=== PATIENT | male | born 1950 | race Caucasian/White ===

== ENCOUNTER 2016-10-03 10:00 | Emergency (ER) | payer OTHER ==
[~2016-10-03] VITALS: Ht 188 cm; Wt 94.0 kg
[~2016-10-03 10:00] MED LIST: ATR25; CGN1; EFFSR150; GEMF600T3 PO; NICO14DI18; PRLSR20; RISP3TAB12
[2016-10-03 10:14] VITALS: TEMP 36.6; O2SAT 96; Ht 188 cm; Wt 94.0 kg
[2016-10-03] MEDS ORDERED: SODIUM CHLORIDE 0.9% 1000ML 1,000 ML IV STA (10:14)
[2016-10-03] MEDS ORDERED: LORAZEPAM 2 MG/ML 1 ML VIAL IV STA (10:14)
--- NOTE | 2016-10-03 10:18 | EMERGENCY ROOM VISIT NOTE ---
History Report prepared by Jessica: Cortney Cronin Under the Supervision of: Dr. Edy Hopson M.D. First contact with patient: 10:10 Chief Complaint: SYNCOPE (NEAR SYNCOPE) Stated Complaint: SEIZURE DISORDER-KEEP PASSING OUT History of Present Illness The patient is a 65 year old male who presents to the Emergency Room with complaints of an episode of near syncope that occurred prior to arrival. He currently complains of feeling dizzy and states he almost passed out earlier this morning, but he did not lose consciousness. He notes he has experienced similar symptoms of vertigo in the past. The patient has a history of seizures and states his last seizure was approximately 2 months ago. He reports he broke his right leg during a fall that occurred after the seizure. He denies any chest pain, shortness of breathing, nausea or vomiting. 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 A total of 10 systems reviewed and were otherwise negative. Past Medical & Surgical Medical Problems: (1) History of seizures Social History Smokeless Tobacco Use: No Alcohol Use: none Drug Use: none Marital Status: Housing Status: lives with family Occupation Status: retired Current/Historical Medications Scheduled Benztropine Mesylate (Cogentin), 1 MG PO HS Haloperidol (Haloperidol), 1 TAB PO HS Hydroxyzine HCl (Hydroxyzine Pamoate), 25 MG PO BID Levetiracetam (Keppra), 1,250 MG PO BID Venlafaxine Hcl (Venlafaxine Hcl Er), 150 MG PO HS Zonisamide (Zonegran), 300 MG PO HS Scheduled PRN Meclizine HCl (Meclizine HCl), 1 TAB PO TID PRN for Dizziness or Vertigo Allergies Coded Allergies: Penicillins (Verified Allergy, Unknown, 10/18/09) Sulfa Drugs (Verified Allergy, Unknown, 10/18/09) Physical Exam Vital Signs Date Time Temp Pulse Resp B/P Pulse Ox O2 Delivery O2 Flow Rate FiO2 10/03/16 12:43 74 18 118/77 96 10/03/16 11:22 88 20 117/73 93 Room Air 10/03/16 10:17 81 117/73 95 84 114/72 90 90/57 10/03/16 10:14 36.6 81 20 122/74 96 Room Air 10/03/16 10:14 96 Room Air Physical Exam GENERAL: Patient is tremulous, which is chronic, and appears to be in minimal distress. HEENT: Horizontal nystagmus. No acute trauma, normocephalic atraumatic, mucous membranes moist, no nasal congestion, no scleral icterus. NECK: No stridor, no adenopathy, no meningismus, trachea is midline. LUNGS: No dyspnea. Clear to auscultation and equal bilaterally. No wheeze, no rhonchi. HEART: Regular rate and rhythm. No murmurs, rubs, gallops appreciated. ABDOMEN: Soft, nontender, bowel sounds positive, no masses appreciated, no peritonitis. BACK: No midline tenderness, no CVA tenderness EXTREMITIES: Normal motion all extremities, no cyanosis, no edema. NEUROLOGIC: Alert and oriented, no acute motor or sensory deficits, no focal weakness, cranial nerves grossly intact. SKIN: No rash, no jaundice, no diaphoresis. Medical Decision & Procedures ER Provider Diagnostic Interpretation: This X-Ray was reviewed and interpreted by myself and the radiologist. SINGLE VIEW CHEST IMPRESSION: Cardiomegaly and suspect emphysema. There is no acute cardiopulmonary abnormality. Electronically signed by: Rudy Ward M.D. 10/03/2016 10:[address] scan was reviewed and interpreted by the radiologist and reviewed by myself. CT SCAN OF THE BRAIN WITHOUT IV CONTRAST IMPRESSION: There is no hemorrhage, mass effect, or evidence of acute territorial ischemia by CT criteria. Electronically signed by: Rudy Ward M.D. 10/03/2016 10:53 AM Laboratory Results 10/03/16 10:28 Red Blood Count 4.46, Mean Corpuscular Volume 90.4, Mean Corpuscular Hemoglobin 32.1, Mean Corpuscular Hemoglobin Concent 35.5, Mean Platelet Volume 8.4, Neutrophils (%) (Auto) 64.1, Lymphocytes (%) (Auto) 25.3, Monocytes (%) (Auto) 5.4, Eosinophils (%) (Auto) 4.6, Basophils (%) (Auto) 0.3, Neutrophils # (Auto) 4.78, Lymphocytes # (Auto) 1.88, Monocytes # (Auto) 0.40, Eosinophils # (Auto) 0.34, Basophils # (Auto) 0.02 10/03/16 10:28 Test 10/03/16 10:28 10/03/16 11:18 White Blood Count 7.44 K/uL (4.8-10.8) Red Blood Count 4.46 M/uL (4.7-6.1) Hemoglobin 14.3 g/dL (14.0-18.0) Hematocrit 40.3 % (42-52) Mean Corpuscular Volume 90.4 fL (80-100) Mean Corpuscular Hemoglobin 32.1 pg (25-34) Mean Corpuscular Hemoglobin Concent 35.5 g/dl (32-36) Platelet Count 252 K/uL (130-400) Mean Platelet Volume 8.4 fL (7.4-10.4) Neutrophils (%) (Auto) 64.1 % Lymphocytes (%) (Auto) 25.3 % Monocytes (%) (Auto) 5.4 % Eosinophils (%) (Auto) 4.6 % Basophils (%) (Auto) 0.3 % Neutrophils # (Auto) 4.78 K/uL (1.4-6.5) Lymphocytes # (Auto) 1.88 K/uL (1.2-3.4) Monocytes # (Auto) 0.40 K/uL (0.11-0.59) Eosinophils # (Auto) 0.34 K/uL (0-0.5) Basophils # (Auto) 0.02 K/uL (0-0.2) RDW Standard Deviation 43.0 fL (36.4-46.3) RDW Coefficient of Variation 13.2 % (11.5-14.5) Immature Granulocyte % (Auto) 0.3 % Immature Granulocyte # (Auto) 0.02 K/uL (0.00-0.02) Anion Gap 11.0 mmol/L (3-11) Est Creatinine Clear Calc Drug Dose 67.7 ml/min Estimated GFR () 67.3 Estimated GFR (Non- 58.1 BUN/Creatinine Ratio 9.6 (10-20) Calcium Level 8.6 mg/dl (8.5-10.1) Magnesium Level 2.3 mg/dl (1.8-2.4) Total Creatine Kinase 54 U/L (39-308) Creatine Kinase MB 0.7 ng/ml (0.5-3.6) Creatine Kinase MB Ratio 1.3 (0-3.0) Troponin I < 0.015 ng/ml (0-0.045) Urine Color YELLOW Urine Appearance CLEAR (CLEAR) Urine pH 8.0 (4.5-7.5) Urine Specific [place] 1.001 (1.000-1.030) Urine Protein NEG (NEG) Urine Glucose (UA) NEG (NEG) Urine Ketones NEG (NEG) Urine Occult Blood NEG (NEG) Urine Nitrite NEG (NEG) Urine Bilirubin NEG (NEG) Urine Urobilinogen NEG (NEG) Urine Leukocyte Esterase NEG (NEG) Laboratory results as reviewed by me. Medications Administered Medications (Trade) Dose Ordered Sig/Cinthia Route Start Time Stop Time Status Last Admin Dose Admin Lorazepam 1 mg 1 mg NOW STAT IV 10/03/16 10:14 10/03/16 10:16 DC 10/03/16 10:32 1 MG Sodium Chloride (Nss 1000ml) 1,000 ml @ 999 mls/hr Q1H1M STAT IV 10/03/16 10:14 10/03/16 11:14 DC 10/03/16 10:32 999 MLS/HR Meclizine HCl (Antivert Tab) 25 mg NOW STAT PO 10/03/16 12:00 10/03/16 12:01 DC 10/03/16 12:15 25 MG ECG Indication: syncope (near syncope) Rate (beats per minute): 82 Rhythm: normal sinus (normal sinus rhythm) Findings: ST depression (Lateral), T-wave inversion (Lateral), no ectopy Comparison ECG Date: Lateral ST depressions and T-wave inversions are new when compared to EKG from November 07, 2006 ED Course 1012: The patient was evaluated in room A4. A complete history and physical exam was performed. 1014: NSS 1000 ml @ 999 mls/hr IV, Lorazepam 1 mg IV. 1045: Nursing informed me that with standing, the patients blood pressure dropped. 1155: I reevaluated the patient. He is feeling better and is going to see if he can keep down a sandwich. 1200: Meclizine 25 mg PO. 1230: I reevaluated the patient. He was able to eat a sandwich and states he feels well enough to go home. I discussed his results and discharge instructions and he verbalized complete understanding and agreement. Medical Decision Differential diagnoses include Benign positional vertigo, Dehydration, Hypovolemia, Anemia, Tumor, Infection, Hypoglycemia, Electrolyte abnormalities, Cardiac sources, Intracerebral event, Toxicologic, Neurologic, as well as others were entertained. 65 yr old male with history of vertigo arrives with vertiginous symptoms and some horizontal nystagmus. Notes similar to previous episodes. Nauseous and BP drop with standing. Given IV ativan and fluids with almost complete resolution of symptoms. Further meclizine given and patient in no distress, eating and feeling well. Vitals good and BP normalized. CT head negative. EKG normal. Labs unremarkable other than mild hyperglycemia. He wishes to go home which seems reasonable. Aware that if any neuro deficits nor headache/ neck pain develop, return to ED for immediate evaluation. Meclizine Rx given as history of vertigo. Heavily stressed need to follow up with PCP to discuss this as well as his hyperglycemia. Impression Primary Impression: Vertigo Additional Impression: Hyperglycemia Scribe Attestation The scribe's documentation has been prepared under my direction and personally reviewed by me in its entirety. I confirm that the note above accurately reflects all work, treatment, procedures, and medical decision making performed by me. Departure Information Dispostion Home / Self-Care Prescriptions Meclizine HCl (Meclizine HCl) 25 Mg Tab 1 TAB PO TID Y for Dizziness or Vertigo, #21 MG Prov: Edy Hopson M.D. 10/03/16 Referrals Raymundo Carlos M.D. (PCP) Patient Instructions ED Vertigo Unspecified, My [facility] Additional Instructions IT is important to follow up with your Primary Provider to discuss your elevated Blood Sugars which may be an indication early Diabetes. Problem Qualifiers
[2016-10-03 10:37] LABS: BASO % 0.3 %; BASO ABS # 0.02 K/uL (0-0.2); COMPLETE YES; EOS % 4.6 %; HEMATOCRIT 40.3 % (42-52); IG% 0.3 %; LYMPH % 25.3 %; LYMPH ABS # 1.88 K/uL (1.2-3.4); MEAN CELL VOLUME 90.4 fL (80-100); MEAN CORPUSCULAR HEMOGLOBIN 32.1 pg (25-34); MEAN CORPUSCULAR HGB CONC 35.5 g/dl (32-36); MEAN PLATELET VOLUME 8.4 fL (7.4-10.4); MONO % 5.4 %; NEUT % 64.1 %; PLATELET COUNT 252 K/uL (130-400); RED BLOOD COUNT 4.46 M/uL (4.7-6.1); WHITE BLOOD COUNT 7.44 K/uL (4.8-10.8)
[2016-10-03] MEDS ORDERED: LEVE250T PO (10:37)
[2016-10-03] MEDS ORDERED: VST25HP PO (10:37)
[2016-10-03] MEDS ORDERED: HALO2TAB PO (10:37)
[2016-10-03] MEDS ORDERED: CGN1 PO (10:37)
[2016-10-03] MEDS ORDERED: VENL150T33 PO (10:37)
[2016-10-03] MEDS ORDERED: ZONI100C39 PO (10:37)
--- NOTE | 2016-10-03 10:55 | DIAGNOSTIC IMAGING REPORT ---
CT SCAN OF THE BRAIN WITHOUT IV CONTRAST CLINICAL HISTORY: Vertigo. COMPARISON STUDY: CT of the brain dated 05/10/2008. TECHNIQUE: Unenhanced axial CT scan of the brain is performed from the vertex to the skull base. Automated dose control exposure was utilized. CT DOSE: 687.98 mGy.cm FINDINGS: Brain parenchyma: The brain parenchyma is normal in appearance. There is no hemorrhage, mass effect, or evidence of acute territorial ischemia by CT criteria. [place]-white matter is preserved. No extra-axial fluid collection is seen. Ventricles, sulci, cisterns: Normal in configuration. Intracranial vasculature: There is atherosclerotic calcification of the cavernous carotid arteries. Calvarium: Unremarkable. Sinuses and mastoids: The visualized paranasal sinuses are clear. The mastoid air cells are well pneumatized. Orbits: The bony orbits are grossly intact. IMPRESSION: There is no hemorrhage, mass effect, or evidence of acute territorial ischemia by CT criteria. Electronically signed by: Rudy Ward M.D. 10/03/2016 10:53 AM Dictated Date/Time: 10/03/2016 10:51 AM
--- NOTE | 2016-10-03 10:59 | DIAGNOSTIC IMAGING REPORT ---
SINGLE VIEW CHEST CLINICAL HISTORY: Dizziness. FINDINGS: An AP, portable, upright chest radiograph is compared to study dated 11/07/2006. The examination is degraded by portable technique and patient rotation. The heart is enlarged and there is mild atherosclerotic calcification of the thoracic aorta. The pulmonary vasculature is noncongested. Findings suggest emphysema and there is chronic interstitial thickening. Bibasilar atelectasis is observed. There is no airspace consolidation or large pleural effusion. No pneumothorax is seen. The skeletal structures are osteopenic. The bony thorax is grossly intact. IMPRESSION: Cardiomegaly and suspect emphysema. There is no acute cardiopulmonary abnormality. Electronically signed by: Rudy Ward M.D. 10/03/2016 10:57 AM Dictated Date/Time: 10/03/2016 10:56 AM
[2016-10-03 11:02] LABS: BLOOD UREA NITROGEN 12 mg/dl (7-18); BUN/CREATININE RATIO 9.6 (10-20); CALCIUM 8.6 mg/dl (8.5-10.1); CARBON DIOXIDE 22 mmol/L (21-32); CHLORIDE 103 mmol/L (98-107); GLUCOSE 190 mg/dl (70-99); POTASSIUM 3.7 mmol/L (3.5-5.1); SODIUM 136 mmol/L (136-145)
[2016-10-03 11:07] LABS: CKMB/CK RATIO 1.3 (0-3.0); MAGNESIUM 2.3 mg/dl (1.8-2.4)
[2016-10-03 11:48] LABS: MANUAL MICROSCOPIC REQUIRED? NO; REVIEW REQ? NO; URINE APPEARANCE CLEAR (CLEAR); URINE BILIRUBIN NEG (NEG); URINE COLOR YELLOW; URINE NITRITE NEG (NEG); URINE SPECIFIC GRAVITY 1.001 (1.000-1.030); UROBILINOGEN NEG (NEG); ZZUR CULT IF INDIC CLEAN CATCH NO
[2016-10-03] MEDS ORDERED: MECLIZINE HCL 25 MG TAB PO STA (12:00)
[2016-10-03] MEDS ORDERED: ANT25 PO (12:27)
[2016-10-03 12:43] VITALS: BP 118/77; PULSE 74; O2SAT 96
== END 2016-10-03 12:45 | disposition home or self-care (01) ==
LOC: C.EDB 10:04 → C.EDA 12:45
DX: R42 Dizziness and giddiness (principal); R73.9 Hyperglycemia, unspecified; G40.909 Epilepsy, unspecified, not intractable, without status epilepticus; Z79.899 Other long term (current) drug therapy

== ENCOUNTER 2017-04-18 16:47 | Emergency (ER) | payer OTHER ==
[~2017-04-18] VITALS: Ht 188 cm; Wt 95.8 kg
[~2017-04-18 16:47] MED LIST changes: +ANT25 PO; -ATR25; -CGN1; +CGN1 PO; -EFFSR150; -GEMF600T3 PO; +HALO2TAB PO; +LEVE250T PO; -NICO14DI18; -PRLSR20; -RISP3TAB12; +VENL150T33 PO; +VST25HP PO; +ZONI100C39 PO
[2017-04-18 16:52] VITALS: TEMP 36.6; Ht 188 cm; Wt 95.8 kg
[2017-04-18] MEDS ORDERED: SODIUM CHLORIDE 0.9% 1000ML 1,000 ML IV STA (17:07)
[2017-04-18 17:42] LABS: BASO % 0.3 %; BASO ABS # 0.03 K/uL (0-0.2); COMPLETE YES; EOS % 2.5 %; HEMATOCRIT 46.1 % (42-52); IG% 0.4 %; LYMPH % 23.8 %; LYMPH ABS # 2.72 K/uL (1.2-3.4); MEAN CELL VOLUME 88.5 fL (80-100); MEAN CORPUSCULAR HEMOGLOBIN 29.9 pg (25-34); MEAN CORPUSCULAR HGB CONC 33.8 g/dl (32-36); MEAN PLATELET VOLUME 8.5 fL (7.4-10.4); MONO % 6.9 %; NEUT % 66.1 %; PLATELET COUNT 343 K/uL (130-400); RED BLOOD COUNT 5.21 M/uL (4.7-6.1); WHITE BLOOD COUNT 11.41 K/uL (4.8-10.8)
--- NOTE | 2017-04-18 17:49 | DIAGNOSTIC IMAGING REPORT ---
CHEST ONE VIEW PORTABLE HISTORY: EVALUATE ALTERED MENTAL STATUS/WEAKNESS COMPARISON: Chest 10/03/2016. FINDINGS: The lungs are clear. Cardiac silhouette is normal in size. No pleural effusions. No pneumothorax. IMPRESSION: No acute process. Electronically signed by: Mark Mcdonnell M.D. 04/18/2017 5:48 PM Dictated Date/Time: 04/18/2017 5:47 PM
[2017-04-18 17:54] LABS: INR 0.9 (0.9-1.1)
[2017-04-18 18:03] LABS: ALT/SGPT 30 U/L (12-78); BLOOD UREA NITROGEN 17 mg/dl (7-18); BUN/CREATININE RATIO 13.2 (10-20); CALCIUM 9.8 mg/dl (8.5-10.1); CARBON DIOXIDE 25 mmol/L (21-32); CHLORIDE 99 mmol/L (98-107); GLUCOSE 116 mg/dl (70-99); MAGNESIUM 2.4 mg/dl (1.8-2.4); POTASSIUM 3.9 mmol/L (3.5-5.1); SODIUM 135 mmol/L (136-145)
[2017-04-18 18:05] VITALS: O2SAT 96
[2017-04-18 18:12] LABS: ALKALINE PHOSPHATASE 88 U/L (45-117); AST/SGOT 18 U/L (15-37); CKMB/CK RATIO 0.5 (0-3.0)
--- NOTE | 2017-04-18 18:27 | EMERGENCY ROOM VISIT NOTE ---
History Report prepared by Jessica: Rosy Choudhury Under the Supervision of: Dr. Se Shaw D.O. 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 The patient has a history of seizures and is on medications for them. His dose was increased 3 weeks ago. His family notes that the patient was sitting in a chair watching TV when he nodded off for 1-2 minutes. When he was aroused, he seemed to wake up and go back to normal. This occurred several times over 1 hour. He denies any tongue bite. He currently feels like he does after his seizures. 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 Review of Systems See HPI for pertinent positives & negatives. A total of 10 systems reviewed and were otherwise negative. Past Medical & Surgical Medical Problems: (1) History of seizures Family History No pertinent family history stated. Social History Smoking Status: Never Smoker Alcohol Use: none Drug Use: none Marital Status: Housing Status: lives with family Occupation Status: retired Current/Historical Medications Scheduled Benztropine Mesylate (Cogentin), 1 MG PO HS Haloperidol (Haloperidol), 1 TAB PO HS Hydroxyzine HCl (Hydroxyzine Pamoate), 25 MG PO BID Levetiracetam (Keppra), 1,500 MG PO BID Allergies Coded Allergies: Penicillins (Verified Allergy, Unknown, 10/18/09) Sulfa Drugs (Verified Allergy, Unknown, 10/18/09) Uncoded Allergies: flaxseed (Allergy, Intermediate, hives, rash, 04/18/17) Physical Exam Vital Signs Date Time Temp Pulse Resp B/P (MAP) Pulse Ox O2 Delivery O2 Flow Rate FiO2 04/18/17 18:35 95 21 04/18/17 18:30 131/77 04/18/17 18:05 101 25 96 04/18/17 18:00 109/76 04/18/17 17:47 103 22 94 04/18/17 17:21 103 04/18/17 17:17 97 28 97 04/18/17 16:52 36.6 120 20 124/75 95 Room Air Physical Exam CONSTITUTIONAL/VITAL SIGNS: Reviewed / noted above. GENERAL: Non-toxic in appearance. INTEGUMENTARY: Warm, dry, and [place]. HEAD: Normocephalic. EYES: without scleral icterus or trauma. ENT/OROPHARYNX: clear and moist. LYMPHADENOPATHY/NECK: Is supple without lymphadenopathy or meningismus. RESPIRATORY: Lungs clear and equal. CARDIOVASCULAR: Regular rate and rhythm. GI/ABDOMEN: Soft and nontender. No organomegaly or pulsatile mass. No rebound or guarding. Normal bowel sounds. EXTREMITIES: Warm and well perfused. BACK: No CVA tenderness. NEUROLOGICAL: Intact without focal deficits. PSYCHIATRIC: normal affect. MUSCULOSKELETAL: Normally developed with good muscle tone. Medical Decision & Procedures ER Provider Diagnostic Interpretation: X ray results and stated below per my interpretation and radiology interpretation. CHEST ONE VIEW PORTABLE HISTORY: EVALUATE ALTERED MENTAL STATUS/WEAKNESS COMPARISON: Chest 10/03/2016. FINDINGS: The lungs are clear. Cardiac silhouette is normal in size. No pleural effusions. No pneumothorax. IMPRESSION: No acute process. Electronically signed by: Mark Mcdonnell M.D. 04/18/2017 5:48 PM Dictated Date/Time: 04/18/2017 5:47 PM Laboratory Results 04/18/17 17:30 Red Blood Count 5.21, Mean Corpuscular Volume 88.5, Mean Corpuscular Hemoglobin 29.9, Mean Corpuscular Hemoglobin Concent 33.8, Mean Platelet Volume 8.5, Neutrophils (%) (Auto) 66.1, Lymphocytes (%) (Auto) 23.8, Monocytes (%) (Auto) 6.9, Eosinophils (%) (Auto) 2.5, Basophils (%) (Auto) 0.3, Neutrophils # (Auto) 7.55, Lymphocytes # (Auto) 2.72, Monocytes # (Auto) 0.79, Eosinophils # (Auto) 0.28, Basophils # (Auto) 0.03 04/18/17 17:30 Test 04/18/17 17:30 White Blood Count 11.41 K/uL (4.8-10.8) Red Blood Count 5.21 M/uL (4.7-6.1) Hemoglobin 15.6 g/dL (14.0-18.0) Hematocrit 46.1 % (42-52) Mean Corpuscular Volume 88.5 fL (80-100) Mean Corpuscular Hemoglobin 29.9 pg (25-34) Mean Corpuscular Hemoglobin Concent 33.8 g/dl (32-36) Platelet Count 343 K/uL (130-400) Mean Platelet Volume 8.5 fL (7.4-10.4) Neutrophils (%) (Auto) 66.1 % Lymphocytes (%) (Auto) 23.8 % Monocytes (%) (Auto) 6.9 % Eosinophils (%) (Auto) 2.5 % Basophils (%) (Auto) 0.3 % Neutrophils # (Auto) 7.55 K/uL (1.4-6.5) Lymphocytes # (Auto) 2.72 K/uL (1.2-3.4) Monocytes # (Auto) 0.79 K/uL (0.11-0.59) Eosinophils # (Auto) 0.28 K/uL (0-0.5) Basophils # (Auto) 0.03 K/uL (0-0.2) RDW Standard Deviation 39.5 fL (36.4-46.3) RDW Coefficient of Variation 12.4 % (11.5-14.5) Immature Granulocyte % (Auto) 0.4 % Immature Granulocyte # (Auto) 0.04 K/uL (0.00-0.02) Prothrombin Time 10.0 SECONDS (9.0-12.0) Prothromb Time International Ratio 0.9 (0.9-1.1) Activated Partial Thromboplast Time 26.8 SECONDS (21.0-31.0) Partial Thromboplastin Ratio 1.0 Anion Gap 11.0 mmol/L (3-11) Est Creatinine Clear Calc Drug Dose 66.8 ml/min Estimated GFR () 66.8 Estimated GFR (Non- 57.7 BUN/Creatinine Ratio 13.2 (10-20) Calcium Level 9.8 mg/dl (8.5-10.1) Magnesium Level 2.4 mg/dl (1.8-2.4) Total Bilirubin 0.7 mg/dl (0.2-1) Direct Bilirubin 0.1 mg/dl (0-0.2) Aspartate Amino Transf (AST/SGOT) 18 U/L (15-37) Alanine Aminotransferase (ALT/SGPT) 30 U/L (12-78) Alkaline Phosphatase 88 U/L (45-117) Total Creatine Kinase 173 U/L (39-308) Creatine Kinase MB 0.9 ng/ml (0.5-3.6) Creatine Kinase MB Ratio 0.5 (0-3.0) Troponin I < 0.015 ng/ml (0-0.045) Total Protein 8.2 gm/dl (6.4-8.2) Albumin 4.1 gm/dl (3.4-5.0) Lipase 108 U/L (73-393) Thyroid Stimulating Hormone (TSH) 3.130 uIu/ml (0.300-4.500) Laboratory results as stated above per my review. Medications Administered Medications (Trade) Dose Ordered Sig/Cinthia Route Start Time Stop Time Status Last Admin Dose Admin Sodium Chloride 1,000 ml @ 999 mls/hr Q1H1M STAT IV 04/18/17 17:07 04/18/17 18:07 DC 04/18/17 17:30 999 MLS/HR ECG Indication: syncope Rate (beats per minute): 104 Rhythm: sinus tachycardia Findings: T-wave inversion (Lateral), no ectopy, other (no acute injury) Comparison ECG Date: 03-Oct-2016 Change: no significant change ED Course 1701: Previous medical records were reviewed. The patient was evaluated in room C4. A complete history and physical examination was performed. 1707: NSS 1000 ml @ 999 mls/hr IV. 1828: On reevaluation, the patient is resting comfortably. I discussed the results and findings with the patient. He verbalized agreement of the treatment plan. He was discharged home. Medical Decision Differential includes acute coronary syndrome, myocardial infarction, CVA, TIA, anemia, infection, pneumonia, UTI, pyelonephritis, poor nutrition, dehydration, electrolyte disturbance,hypoglycemia. This is a 66-year-old male who presents to the ED with a chief complaint of possible seizure activity. The patient presents with a friend. The friend states that it appears as though the patient had taken a nap twice for a few minutes while he was watching TV. The patient did not have any shaking but seemed unresponsive until the patient's friend called him and he awoke and was acting appropriately. Because of the patient's history of seizures, the patient 's friend was worried about this and brought him in for evaluation. The patient states that he feels a little tired otherwise has no complaints. He did not bite his tongue or have any incontinence. He is currently taking Keppra 500 mg 6 times a day. He states this was increased a few weeks ago. He denies any other complaints. No recent illness or fever. No cough, chest pains , shortness of breath, headaches or abdominal pain. His vital signs are stable. He is afebrile. His exam was normal. His EKG shows a sinus tach at a rate of 104. Chest x-ray did not show acute disease. CBC was normal. Complete metabolic panel was unremarkable. Troponin is negative. TSH was normal. The patient was told the results. He was hydrated. He was felt to be stable for discharge. He was to follow-up with his doctors. Medication Reconcilliation Current Medication List: was personally reviewed by me Blood Pressure Screening Patient's blood pressure: Normal blood pressure Blood pressure disposition: Did not require urgent referral Impression Primary Impression: History of seizures Additional Impression: Tired Scribe Attestation The scribe's documentation has been prepared under my direction and personally reviewed by me in its entirety. I confirm that the note above accurately reflects all work, treatment, procedures, and medical decision making performed by me. Departure Information Dispostion Home / Self-Care Referrals Raymundo Carlos M.D. (PCP) Patient Instructions My [facility] Additional Instructions Follow-up with your doctor for further care and evaluation in 1-2 days. Return to the emergency department for worsening or new symptoms or any concerns. You have been examined and treated today on an emergency basis only. This is not a substitute for, or an effort to provide, complete comprehensive medical care. It is impossible to recognize and treat all injuries or illnesses in a single emergency department visit. It is therefore important that you follow up closely with your doctor. Call as soon as possible for an appointment. Problem Qualifiers
[2017-04-18 18:30] VITALS: BP 131/77
[2017-04-18 18:35] VITALS: PULSE 95
== END 2017-04-18 18:54 | disposition home or self-care (01) ==
LOC: C.EDB 16:48 → C.EDC 18:54
DX: R53.83 Other fatigue (principal); R56.9 Unspecified convulsions; Z79.899 Other long term (current) drug therapy

== ENCOUNTER 2017-05-22 14:11 | Emergency (ER) | payer OTHER ==
[~2017-05-22] VITALS: Ht 188 cm; Wt 95.6 kg
[~2017-05-22 14:11] MED LIST changes: -ANT25 PO; -VENL150T33 PO; -ZONI100C39 PO
[2017-05-22 14:24] VITALS: TEMP 37; Ht 188 cm; Wt 95.6 kg
--- NOTE | 2017-05-22 14:36 | EMERGENCY ROOM VISIT NOTE ---
History Report prepared by Jessica: Helga Grimes Under the Supervision of: Dr. Sera Kennedy M.D. First contact with patient: 14:16 Chief Complaint: MENTAL HEALTH EVALUATION Stated Complaint: MENTAL HEALTH History of Present Illness The patient is a 66 year old male who presents to the Emergency Room for a mental health evaluation. The patient notes that he has a lot of stress currently. he states that "my son is sending to [employer]" and that he is " to a scammer". The patient notes that he was feeling suicidal and he denies having a plan. He states he had a suicide attempt by overdosing on his medication 20 years ago. The patient states that his son has threatened to shot himself on several occasions. He denies using any drugs or alcohol today. The patient has a history of depression and seizure disorder. Source of History: patient Review of Systems See HPI for pertinent positives & negatives. A total of 10 systems reviewed and were otherwise negative. Past Medical & Surgical Medical Problems: (1) History of seizures Social History Smoking Status: Former Smoker Alcohol Use: none Drug Use: none Marital Status: Housing Status: lives with family Occupation Status: retired Current/Historical Medications Scheduled Benztropine Mesylate (Cogentin), 1 MG PO HS Haloperidol (Haloperidol), 1 MG PO HS Hydroxyzine HCl (Hydroxyzine Pamoate), 25 MG PO HS Levetiracetam (Keppra), 1,500 MG PO BID Venlafaxine Hcl (Venlafaxine Hcl Er), 1 TAB PO HS Allergies Coded Allergies: Penicillins (Verified Allergy, Unknown, 10/18/09) Sulfa Drugs (Verified Allergy, Unknown, 10/18/09) Uncoded Nonscreenable Allergen (Verified Allergy, Unknown, FLAXSEED: HIVES ,ITCHING, 05/22/17) Physical Exam Vital Signs Date Time Temp Pulse Resp B/P (MAP) Pulse Ox O2 Delivery O2 Flow Rate FiO2 05/22/17 16:45 86 18 146/86 97 Room Air 05/22/17 14:24 37.0 96 18 119/90 97 Room Air Physical Exam Vital signs reviewed. General: Disheveled-appearing male, in no significant distress. Poor overall hygiene. HEENT: No scleral icterus, PERRLA, neck supple. Atraumatic. Cardiovascular: Regular rate and rhythm, no extra sounds. Pulmonary: Clear to auscultation bilaterally, normal work of breathing. Abdomen: Soft, nontender, nondistended, positive bowel sounds. Musculoskeletal: Atraumatic, no peripheral edema. Neurologic: Patient awake alert and oriented x 3 Skin: Warm, dry, no rash Psych: Positive SI, no homicidal ideation. Medical Decision & Procedures Laboratory Results 05/22/17 14:33 Red Blood Count 4.94, Mean Corpuscular Volume 87.9, Mean Corpuscular Hemoglobin 31.0, Mean Corpuscular Hemoglobin Concent 35.3, Mean Platelet Volume 8.5, Neutrophils (%) (Auto) 71.1, Lymphocytes (%) (Auto) 19.9, Monocytes (%) (Auto) 5.5, Eosinophils (%) (Auto) 2.8, Basophils (%) (Auto) 0.4, Neutrophils # (Auto) 7.17, Lymphocytes # (Auto) 2.00, Monocytes # (Auto) 0.55, Eosinophils # (Auto) 0.28, Basophils # (Auto) 0.04 05/22/17 14:33 Test 05/22/17 14:33 05/22/17 15:15 White Blood Count 10.07 K/uL (4.8-10.8) Red Blood Count 4.94 M/uL (4.7-6.1) Hemoglobin 15.3 g/dL (14.0-18.0) Hematocrit 43.4 % (42-52) Mean Corpuscular Volume 87.9 fL (80-100) Mean Corpuscular Hemoglobin 31.0 pg (25-34) Mean Corpuscular Hemoglobin Concent 35.3 g/dl (32-36) Platelet Count 328 K/uL (130-400) Mean Platelet Volume 8.5 fL (7.4-10.4) Neutrophils (%) (Auto) 71.1 % Lymphocytes (%) (Auto) 19.9 % Monocytes (%) (Auto) 5.5 % Eosinophils (%) (Auto) 2.8 % Basophils (%) (Auto) 0.4 % Neutrophils # (Auto) 7.17 K/uL (1.4-6.5) Lymphocytes # (Auto) 2.00 K/uL (1.2-3.4) Monocytes # (Auto) 0.55 K/uL (0.11-0.59) Eosinophils # (Auto) 0.28 K/uL (0-0.5) Basophils # (Auto) 0.04 K/uL (0-0.2) RDW Standard Deviation 40.3 fL (36.4-46.3) RDW Coefficient of Variation 12.6 % (11.5-14.5) Immature Granulocyte % (Auto) 0.3 % Immature Granulocyte # (Auto) 0.03 K/uL (0.00-0.02) Anion Gap 8.0 mmol/L (3-11) Est Creatinine Clear Calc Drug Dose 72.3 ml/min Estimated GFR () 73.6 Estimated GFR (Non- 63.5 BUN/Creatinine Ratio 11.4 (10-20) Calcium Level 9.0 mg/dl (8.5-10.1) Total Bilirubin 0.9 mg/dl (0.2-1) Direct Bilirubin 0.1 mg/dl (0-0.2) Aspartate Amino Transf (AST/SGOT) 18 U/L (15-37) Alanine Aminotransferase (ALT/SGPT) 28 U/L (12-78) Alkaline Phosphatase 87 U/L (45-117) Total Protein 7.6 gm/dl (6.4-8.2) Albumin 3.7 gm/dl (3.4-5.0) Thyroid Stimulating Hormone (TSH) 2.120 uIu/ml (0.300-4.500) Salicylates Level < 1.7 mg/dl (2.8-20) Acetaminophen Level < 2 ug/ml (10-30) Ethyl Alcohol mg/dL < 3.0 mg/dl (0-3) Urine Color YELLOW Urine Appearance CLEAR (CLEAR) Urine pH >= 9.0 (4.5-7.5) Urine Specific [place] 1.012 (1.000-1.030) Urine Protein NEG (NEG) Urine Glucose (UA) NEG (NEG) Urine Ketones NEG (NEG) Urine Occult Blood NEG (NEG) Urine Nitrite NEG (NEG) Urine Bilirubin NEG (NEG) Urine Urobilinogen NEG (NEG) Urine Leukocyte Esterase NEG (NEG) Urine WBC (Auto) 0 /hpf (0-5) Urine RBC (Auto) 0-4 /hpf (0-4) Urine Hyaline Casts (Auto) 0 /lpf (0-5) Urine Epithelial Cells (Auto) 0-5 /lpf (0-5) Urine Bacteria (Auto) NEG (NEG) Urine Opiates Screen NEG (NEG) Urine Methadone, Qualitative NEG (NEG) Urine Barbiturates NEG (NEG) Urine Phencyclidine (PCP) Level NEG (NEG) Ur Amphetamine/Methamphetamine NEG (NEG) MDMA (Ecstasy) Screen NEG (NEG) Urine Benzodiazepines Screen NEG (NEG) Urine Cocaine Metabolite NEG (NEG) Urine Marijuana (THC) NEG (NEG) Laboratory results per my review. ECG Indication: other (mental health evaluation) Rate (beats per minute): 83 Rhythm: normal sinus Findings: nonspecific-ST abn, left axis deviation, other (LVH) ED Course 1432: Past medical records reviewed. The patient was evaluated in room A8. A complete history and physical examination was performed. Medical Decision Differential diagnosis: Etiologies such as mood disorder, infection, hypoglycemia, electrolyte abnormalities, cardiac sources, intracerebral event, toxicologic, neurologic, as well as others were entertained. This patient was evaluated and appeared to be in no significant distress. Physical examination reveals poor overall hygiene and disheveled appearance. Patient was medically cleared and evaluated by the mental health case work aide. He admitted that he had intention to shoot himself and he does have access to weapons. Patient was referred for inpatient treatment and accepted on a voluntary basis to [facility]. Secure transportation arrangements have been made. Patient is aware of the plan and agrees. Medication Reconcilliation Current Medication List: was personally reviewed by me Impression Primary Impression: Suicidal ideation Scribe Attestation The scribe's documentation has been prepared under my direction and personally reviewed by me in its entirety. I confirm that the note above accurately reflects all work, treatment, procedures, and medical decision making performed by me. Departure Information Referrals Raymundo Carlos M.D. (PCP) Forms HOME CARE DOCUMENTATION FORM, IMPORTANT VISIT INFORMATION Patient Instructions My [facility]
[2017-05-22] MEDS ORDERED: HALO1TAB PO (14:46)
[2017-05-22] MEDS ORDERED: KPP/1000 PO (14:46)
[2017-05-22] MEDS ORDERED: VENL150T33 PO (14:46)
[2017-05-22 14:50] LABS: BASO % 0.4 %; BASO ABS # 0.04 K/uL (0-0.2); COMPLETE YES; EOS % 2.8 %; HEMATOCRIT 43.4 % (42-52); IG% 0.3 %; LYMPH % 19.9 %; MEAN CELL VOLUME 87.9 fL (80-100); MEAN CORPUSCULAR HGB CONC 35.3 g/dl (32-36); MEAN PLATELET VOLUME 8.5 fL (7.4-10.4); MONO % 5.5 %; NEUT % 71.1 %; PLATELET COUNT 328 K/uL (130-400); RED BLOOD COUNT 4.94 M/uL (4.7-6.1); WHITE BLOOD COUNT 10.07 K/uL (4.8-10.8)
[2017-05-22 15:16] LABS: BUN/CREATININE RATIO 11.4 (10-20); CREATININE 1.2 mg/dl (0.60-1.40); POTASSIUM 4.4 mmol/L (3.5-5.1)
[2017-05-22 15:27] LABS: ACETAMINOPHEN < 2 ug/ml (10-30); THYROID STIMULATING HORMONE 2.12 uIu/ml (0.300-4.500)
[2017-05-22 16:06] LABS: URINE APPEARANCE CLEAR (CLEAR); URINE BILIRUBIN NEG (NEG); URINE COLOR YELLOW; URINE EPITHELIAL CELL AUTO 0-5 /lpf (0-5); URINE NITRITE NEG (NEG); URINE PH >= 9.0 (4.5-7.5); URINE SPECIFIC GRAVITY 1.012 (1.000-1.030); UROBILINOGEN NEG (NEG); ZZUR CULT IF INDIC CLEAN CATCH NO
[2017-05-22 16:32] LABS: BENZODIAZEPINE, URINE NEG (NEG); COCAINE,URINE NEG (NEG); PHENCYCLIDINE, URINE NEG (NEG)
[2017-05-22 17:13] LABS: MANUAL MICROSCOPIC REQUIRED? NO; REVIEW REQ? NO; SULFASALICYLIC ACID NEG (NEG)
[2017-05-22 18:45] VITALS: BP 135/78; PULSE 100; O2SAT 94
== END 2017-05-22 19:14 ==
LOC: EDBD 14:11 → C.EDA 14:13
DX: R45.851 Suicidal ideations (principal); Z87.891 Personal history of nicotine dependence

== ENCOUNTER 2017-10-19 09:46 | Emergency (ER) | payer OTHER ==
[~2017-10-19] VITALS: Ht 188 cm; Wt 90.0 kg
[~2017-10-19 09:46] MED LIST changes: +BENZ-89 PO; -CGN1 PO; +HALO1TAB PO; -HALO2TAB PO; +KPP/1000 PO; -LEVE250T PO; +VENL150T33 PO
[2017-10-19 09:47] VITALS: TEMP 36.8; Ht 188 cm; Wt 90.0 kg
--- NOTE | 2017-10-19 10:38 | EMERGENCY ROOM VISIT NOTE ---
History Report prepared by Jessica: Jaqueline Grimes Under the Supervision of: Dr. Tenzin Hatfield D.O. First contact with patient: 10:07 Chief Complaint: EYE ASSESSMENT Stated Complaint: FLOATER IN L EYE History of Present Illness The patient is a 66 year old male who presents to the Emergency Room with complaints of a constant "floater" in his left eye beginning yesterday. The patient describes its as something "moving across and blocking" his field of vision. He reports blurry vision. The patient wears glasses at baseline. He denies any nausea, vomiting, or loss of vision. The patient followup with an mounting machine operator in [place]. He states he was recently sick with a cold. The patient has a history of seizures and depression. Source of History: patient Onset: yesterday Position: eye (left) Quality: other ("floater") Timing: constant Associated Symptoms: No nausea, No vomiting Review of Systems See HPI for pertinent positives & negatives. A total of 10 systems reviewed and were otherwise negative. Past Medical & Surgical Medical Problems: (1) History of seizures Family History Patient reports no known family medical history. Social History Smoking Status: Former Smoker Alcohol Use: none Drug Use: none Marital Status: Housing Status: lives with family Occupation Status: retired Current/Historical Medications Scheduled Benztropine Mesylate (Cogentin), 1 MG PO HS Haloperidol (Haloperidol), 1 MG PO HS Hydroxyzine HCl (Hydroxyzine Pamoate), 25 MG PO HS Levetiracetam (Keppra), 1,500 MG PO BID Venlafaxine Hcl (Venlafaxine Hcl Er), 1 TAB PO HS Allergies Coded Allergies: Penicillins (Verified Allergy, Unknown, 10/19/17) Sulfa Drugs (Verified Allergy, Unknown, 10/19/17) Uncoded Nonscreenable Allergen (Verified Allergy, Unknown, FLAXSEED: HIVES ,ITCHING, 10/19/17) Physical Exam Vital Signs Date Time Temp Pulse Resp B/P (MAP) Pulse Ox O2 Delivery O2 Flow Rate FiO2 10/19/17 11:00 77 16 132/75 94 10/19/17 09:47 36.8 75 16 132/75 93 Right Eye Acuity: 20/70 with correction Left Eye Acuity: 20/50 with correction Physical Exam GENERAL: Patient is awake, alert, and in no acute distress. Patient is resting comfortably and showing no signs of anxiety EYES: The conjunctivae are clear. The pupils are round and reactive. Left eye intraocular pressure is 13 Right eye intraocular pressure is 15. EARS, NOSE, MOUTH AND THROAT: The nose is without any evidence of any deformity. Mucous membranes are moist tongue is midline NECK: The neck is nontender and supple. RESPIRATORY: Normal respiratory effort is noted there is no evidence of wheezing rhonchi or rales CARDIOVASCULAR: Regular rate and rhythm noted there no murmurs rubs or gallops normal S1 normal S2 GASTROINTESTINAL: The abdomen is soft. Bowel sounds are present in all quadrants. Abdomen is nontender MUSCULOSKELETAL/EXTREMITIES: There is no evidence of gross deformity full range of motion is noted in the hips and shoulders SKIN: There is no obvious evidence of any rash. There are no petechiae, pallor or cyanosis noted. NEUROLOGIC: Patient is awake alert and oriented x3 strength is symmetric patellar reflexes are 2+ bilaterally Medical Decision & Procedures ED Course 1015: The patient was evaluated in room A4B. A complete history and physical examination were performed. 1042: I discussed the patient's case with Dr. DeutschOphthalmology. He said to send the patient to the to the clinic and he will evaluate him further. 1046: I updated the patient on my conversation with Dr. Doyle. He is agreeable to the treatment plan. 1101: Upon reevaluation, the patient is resting comfortably. I discussed the results and treatment plan with him. He verbalized agreement of the treatment plan. The patient was discharged home. Medical Decision Differential diagnosis could include injury, retinal abnormality, corneal abrasion, infection, central nervous system lesion, and other differential diagnoses were considered. Nursing notes reviewed. The patient is a 66-year-old male who presented to the emergency department for evaluation of floaters patient of his left eye. The patient's visual acuity was reviewed. His intraocular pressure was elevated. I discussed his case with the on-call mounting machine operator. He recommended placing the patient directly to his clinic dilation and direct evaluation the patient's retina. I discussed this with the patient was agreeable. He was discharged to go directly to the office. He was encouraged to follow-up in the office immediately. Medication Reconcilliation Current Medication List: was personally reviewed by me Blood Pressure Screening Patient's blood pressure: Normal blood pressure Consults Time Called: 1040 Consulting Physician: Dr. Smith-Ophthalmology Returned Call: 1042 I discussed the patient's case with Dr. Smith-Ophthalmology. He said to send the patient to the to the clinic and he will evaluate him further. Impression Primary Impression: Floaters Additional Impression: Decreased vision Scribe Attestation The scribe's documentation has been prepared under my direction and personally reviewed by me in its entirety. I confirm that the note above accurately reflects all work, treatment, procedures, and medical decision making performed by me. Departure Information Dispostion Home / Self-Care Referrals Raymundo Carlos M.D. (PCP) Forms HOME CARE DOCUMENTATION FORM, IMPORTANT VISIT INFORMATION, WORK / SCHOOL INSTRUCTIONS Patient Instructions Flashes and Floaters, My [facility] Additional Instructions Go directly to Dr. Smith's office for further evaluation. Problem Qualifiers Primary Impression: Floaters Laterality: left Qualified Codes: H43.392 - Other vitreous opacities, left eye
[2017-10-19 11:00] VITALS: BP 132/75; PULSE 77; O2SAT 94
== END 2017-10-19 11:01 | disposition home or self-care (01) ==
LOC: C.EDB 09:47 → C.EDA 11:01
DX: H43.392 Other vitreous opacities, left eye (principal); H53.8 Other visual disturbances; Z86.69 Personal history of other diseases of the nervous system and sense organs; Z87.891 Personal history of nicotine dependence; Z88.1 Allergy status to other antibiotic agents; Z88.2 Allergy status to sulfonamides

== ENCOUNTER 2019-04-14 13:43 | Observation (INO) ==
[2019-04-14] MEDS ORDERED: levETIRAcetam 500 MG TAB PO ONE (14:21)
[2019-04-14 15:02] LABS: Basophils # (auto) 0.02 K/uL (0-0.2); Basophils % (auto) 0.3 %; Eosinophils # (auto) 0.21 K/uL (0-0.5); Eosinophils % (auto) 2.8 %; Hematocrit (blood only) 42.3 % (42-52); Hemoglobin 14.5 g/dL (14.0-18.0); Immature Granulocytes # (auto) 0.01 K/uL (0.00-0.02); Immature Granulocytes % (auto) 0.1 %; Lymphocytes # (auto) 1.98 K/uL (1.2-3.4); Lymphocytes % (auto) 26.7 %; Mean Corpuscular Hgb Conc 34.3 g/dL (32-36); Mean Platelet Volume 8.7 fL (7.4-10.4); Monocytes # (auto) 0.57 K/uL (0.11-0.59); Monocytes % (auto) 7.7 %; Neutrophils # (auto) 4.62 K/uL (1.4-6.5); Neutrophils % (auto) 62.4 %; Platelet Count 248 K/uL (130-400); RDW Coefficient of Variation 13.8 % (11.5-14.5); Red Blood Count 4.55 M/uL (4.7-6.1); White Blood Count 7.41 K/uL (4.8-10.8)
[2019-04-14 15:20] LABS: Albumin Level 3.8 gm/dl (3.4-5.0); BUN Creatinine Ratio 9.8 (10-20); Calcium 9.2 mg/dl (8.5-10.1); Creatinine Clr Calc Pharmacy 77.5 ml/min; Est GFR (African American) 81.5; Est GFR (Non-African American) 70.4; Potassium 3.5 mmol/L (3.5-5.1)
[2019-04-14 15:25] LABS: Salicylate < 1.7 mg/dl (2.8-20)
[2019-04-14 15:26] LABS: Acetaminophen < 2 ug/ml (10-30)
[2019-04-14 15:30] LABS: Albumin Globulin Ratio 1.1 (0.9-2); Bilirubin,Total 0.6 mg/dl (0.2-1); Globulin 3.5 gm/dl (2.5-4.0); Total Protein 7.3 gm/dl (6.4-8.2)
[2019-04-14] MEDS ORDERED: ASPIRIN CHEW 324 MG PO STA (15:39)
[2019-04-14] MEDS ORDERED: ONDANSETRON 4 MG OD TAB PO STA (17:18)
[2019-04-14] MEDS ORDERED: NICOTINE 21 MG/24 HR TDSY TD SCH (17:30)
[2019-04-14 17:33] LABS: Appearance Urine Clear (Clear); Bilirubin Urine Negative (Negative); Blood Urine Negative (Negative); Color Urine Yellow; Glucose Urine UA Negative (Negative); Ketones Urine Negative (Negative); Leukocyte Esterase Urine Negative (Negative); Nitrite Urine Negative (Negative); Protein Urine Negative (Negative); Specific Gravity Urine 1.007 (1.000-1.030); Urobilinogen Urine Negative (Negative); pH Urine 7.5 (4.5-7.5)
[2019-04-14 17:50] LABS: Amphetamines+Metham, Urine Neg (Neg); Barbiturates, Urine Neg (Neg); Benzodiazepine, Urine Neg (Neg); Cocaine, Urine Neg (Neg); MDMA (Ecstacy), Urine Neg (Neg); Methadone, Urine Neg (Neg); Opiate, Urine Neg (Neg); Phencyclidine, Urine Neg (Neg)
[2019-04-14] MEDS ORDERED: DiphenhydrAMINE HCL 50 MG/ML VIAL IM STA (17:53)
[2019-04-14] MEDS ORDERED: LORazepam 2 MG/ML VIAL (IM USE) IM STA ×2 (17:53→19:52)
--- NOTE | 2019-04-14 18:20 | Emergency Department Note ---
ED Visit Note The patient was taken in signout from Dr. Osuna at the change of shift. Please see that note for details. The patient was pending 302 admission. Seizure medication ordered. Delegate evaluation and bed search underway. The patient was then experiencing nausea and vomiting. I evaluated the patient. He has some upper abdominal discomfort on abdominal examination. He was given a dose of IM Ativan and IM Phenergan. This helped for short time to control his symptoms. CT imaging was performed. Lipase was added to the labs. 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 There is no bowel obstruction or emergent pathology noted otherwise. The patient did have additional nausea and vomiting. An IV was established and he was given normal saline hydration and IV Zofran. His vomiting was better controlled but he was still nauseated. At this point he is not medically cleared to depart the facility to a inpatient psychiatric treatment center. I discussed this with the psychiatric family preservation caseworker as well as the employee representative from [facility]. The patient will be admitted medically to this facility and psychiatry can be consulted. I did place a consult with internal medicine, Dr. West. The case was discussed. Situation and diagnostics were reviewed. Patient was evaluated in the ER for further management. .
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
[2019-04-14] MEDS ORDERED: PROMETHAZINE HCL INJ 25 MG/ML 1 ML VIAL IM STA (19:52)
--- NOTE | 2019-04-14 20:42 | CT Scan Report ---
ABDOMEN AND PELVIS CT WITHOUT CONTRAST CT DOSE: 589.76 mGy.cm HISTORY: vomiting, epigastric pain TECHNIQUE: Multiaxial CT images of the abdomen and pelvis were performed without contrast. A dose lo wering technique was utilized adhering to the principles of ALARA. COMPARISON STUDY: None. FINDINGS: Linear densities within the lung bases consistent with subsegmental atelectasis. No pneumop eritoneum. No pneumatosis. No fractures within the visualized osseous structures. Small focus of gas within the gallbladder lumen likely represents a gallstone. No gallbladder wall thickening. The unenh anced liver, spleen, adrenal glands, and pancreas are unremarkable. Mild bilateral cortical renal sca rring. No renal or ureteral stones. No hydronephrosis. No retroperitoneal lymphadenopathy. Mild centr al mesenteric fat stranding with a few prominent mesenteric lymph nodes. This favors a mild mesenteri c panniculitis. Suboptimal evaluation for bowel pathology due to the lack of intravenous and oral con trast. However, there is no definite bowel wall thickening or obstruction. Colonic diverticulosis. No evidence for diverticulitis. Normal appendix. There is a fluid-filled but nondistended stomach.. IMPRESSION: 1. No definite bowel wall thickening or obstruction. 2. Colonic diverticulosis. 3. Normal appendix. 4. No renal stones or hydronephrosis. 5. Small focus of gas within the lumen of the gallbladder. This likely represents a gas-filled gallst one. No gallbladder wall thickening. 6. Mild fat stranding and a few prominent lymph nodes within the central mesentery. This likely repre sents a mild mesenteric panniculitis . Electronically signed by: Mark Mcdonnell M.D. 04/14/2019 8:41 PM
[2019-04-14] MEDS ORDERED: levETIRAcetam 500 MG TAB PO SCH (21:00)
[2019-04-14] MEDS ORDERED: SODIUM CHLORIDE 0.9% 1000ML 1,000 ML IV STA (21:51)
[2019-04-14] MEDS ORDERED: ONDANSETRON INJ 2 MG/ML 2 ML VIAL IV STA (21:51)
[2019-04-14] MEDS ORDERED: SODIUM CHLORIDE 0.9% 500 ML IV ONE (21:51)
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
[2019-04-15] MEDS ORDERED: ONDANSETRON INJ 2 MG/ML 2 ML VIAL IV PRN (00:45)
[2019-04-15] MEDS ORDERED: D5NSS + 20MEQ KCL 20 MEQ/1,000 ML BAG IV SCH (01:15)
[2019-04-15] MEDS: LORazepam 1 MG/2 ML VIAL IV PRN ×3 (07:09→19:47)
[2019-04-15] MEDS: levETIRAcetam 500 MG TAB PO SCH ×2 (07:10→20:02)
[2019-04-15] MEDS ORDERED: PNEUMOCOCCAL ADMINISTRATION CHARGE ONE (08:00)
[2019-04-15] MEDS ORDERED: PNEUMOCOCCAL POLYSACCHARIDES 25 MCG/0.5 ML VIAL/SYR IM ONE (08:00)
[2019-04-15] MEDS ORDERED: MULTI-VITAMIN INFUSION 10 ML, THIAMINE HCL 100 MG, FOLIC ACID 1 MG in SODIUM CHLORIDE 0... IV SCH (08:15)
[2019-04-15 09:10] LABS: Hematocrit (blood only) 39.3 % (42-52); Hemoglobin 13.1 g/dL (14.0-18.0); Mean Corpuscular Hgb Conc 33.3 g/dL (32-36); Mean Corpuscular Volume 94.9 fL (80-100); Mean Platelet Volume 8.7 fL (7.4-10.4); Platelet Count 218 K/uL (130-400); RDW Coefficient of Variation 14.1 % (11.5-14.5); Red Blood Count 4.14 M/uL (4.7-6.1); White Blood Count 5.74 K/uL (4.8-10.8)
[2019-04-15 09:42] LABS: BUN Creatinine Ratio 11.4 (10-20); Calcium 8.7 mg/dl (8.5-10.1); Creatinine Clr Calc Pharmacy 90.8 ml/min; Est GFR (African American) 98.8; Est GFR (Non-African American) 85.2; Magnesium 2.5 mg/dl (1.8-2.4); Potassium 4.1 mmol/L (3.5-5.1)
[2019-04-15 10:02] LABS: Folate (Folic Acid) 10.04 ng/ml (>5.38)
--- NOTE | 2019-04-15 12:41 | Hospitalist Progress Note ---
Date of Service April 15, 2019 Assessment & Plan (1) Nausea and vomiting: - Unclear etiology; CT of A/P was negative on admission. - Clear liquid diet as tolerated; no IVFs. - Start Protonix 40 mg qAM for GERD. - Zofran prn nausea and vomiting. - Will continue to monitor -- consider repeat A/P imaging vs. GI consult if no improvement. (2) Alcohol abuse: - Pt. reports drinking 4 drinks per night. - Banana bag at admission. - Folate level WNL; B12 level slightly low -- will start Vit B12 daily. - AWSS protocol ordered. (3) Hallucinations: - Acute psychosis noted; psych consulted -- will need to be transitioned to psych following resolution of acute issues (N/V) (4) Schizophrenia: - Psych consulted, appreciate input. (5) Seizure disorder: - Continue Keppra as prescribed. - Keppra level is pending. - Consider neuro consult and EEG if there is concern for seizure activity. (6) Acid reflux: - Will start PPI daily in setting of N/V. (7) Depression: - Psych consulted; not currently on anti-depressants. (8) Anxiety: - Vistaril BID. (9) COPD (chronic obstructive pulmonary disease): - No evidence of acute exacerbation. (10) Tobacco abuse: - Pt. is requesting smokeless tobacco; ordered nicotine patch. - Encourage tobacco cessation. (11) DVT prophylaxis: - Heparin q12hr. Dispo: Med/surg; transition to psych pending improvement in N/V. Supervising Physician Co-Signing Physician Notes PA Supervision Note: I did not personally see or examine the patient today, but I verified all boyd points of DOLLY White's assessment and plan with the following ex ceptions/additions: None Subjective Pt. is very agitated in the room today. He is on a one to one due to psychosis, psych consulted. It was very difficult to obtain an accurate history from him. He did report being nauseous - did not eat breakfast but states he cannot tolerate oral intake due to the fear of vomiting. He asked for chewing tobacco -- explained that we cannot provide this but can order a nicotine patch. He was very irritated and threatened to leave the hospital if we don't let him "chew". Review of Systems Review of Systems: Other (Limited review of systems due to agitation/psychosis.) Constitutional: no fever, no chills, no fatigue, no weakness and no anorexia Respiratory: no dyspnea and no dyspnea on exertion Cardiovascular: no chest pain and no palpitations Gastrointestinal: + nausea and + vomiting; no abdominal pain Genitourinary: no difficulty urinating Psychiatric: + irritability Physical Exam Physical Exam: General: Appears comfortable HEENT: NC/AT; PERRLA with EOMI; [place] conjunctiva, MMM. No erythema of posterior pharynx Neck: Supple and nontender Cardiac: RRR Lungs: CTA bilaterally Abdomen: Bowel normoactive X 4; Nontender to palpation Extremities: Warm. No edema present Neuro: No focal weakness Skin: No rash Results & Data Vital Signs (Past 12 Hours) Vital Signs Temp Pulse Resp BP Pulse Ox 04/15/19 06:54 36.4 C L 64 20 136/78 97 04/15/19 02:07 36.3 C L 74 18 157/96 H 93 Laboratory Results 04/15/19 04/15/19 04/15/19 Range/Units 08:51 08:51 08:51 WBC 5.74 (4.8-10.8) K/uL RBC 4.14 L (4.7-6.1) M/uL Hgb 13.1 L (14.0-18.0) g/dL Hct 39.3 L (42-52) % MCV 94.9 (80-100) fL MCH 31.6 (25-34) pg MCHC 33.3 (32-36) g/dL RDW Std Deviation 49.0 H (36.4-46.3) fL RDW Coeff of Hina 14.1 (11.5-14.5) % Plt Count 218 (130-400) K/uL MPV 8.7 (7.4-10.4) fL Immature Gran % (Auto) % Neut % (Auto) % Lymph % (Auto) % Mccracken % (Auto) % Eos % (Auto) % Baso % (Auto) % Immature Gran # (Auto) (0.00-0.02) K/uL Neut # (Auto) (1.4-6.5) K/uL Lymph # (Auto) (1.2-3.4) K/uL Mccracken # (Auto) (0.11-0.59) K/uL Eos # (Auto) (0-0.5) K/uL Baso # (Auto) (0-0.2) K/uL Sodium 142 (136-145) mmol/L Potassium 4.1 D (3.5-5.1) mmol/L Chloride 112 H (98-107) mmol/L Carbon Dioxide 28 (21-32) mmol/L Anion Gap 3.0 (3-11) BUN 11 (7-18) mg/dl Creatinine 0.93 (0.6-1.4) mg/dl Est Cr Clr Drug Dosing 90.8 ml/min Est GFR ( Amer) 98.8 Est GFR (Non-Af Amer) 85.2 BUN/Creatinine Ratio 11.4 (10-20) Glucose 107 H (70-99) mg/dl Calcium 8.7 (8.5-10.1) mg/dl Magnesium 2.5 H (1.8-2.4) mg/dl Total Bilirubin (0.2-1) mg/dl AST (15-37) U/L ALT (12-78) U/L Alkaline Phosphatase (45-117) U/L Total Protein (6.4-8.2) gm/dl Albumin (3.4-5.0) gm/dl Globulin (2.5-4.0) gm/dl Albumin/Globulin Ratio (0.9-2) Lipase (73-393) U/L Vitamin B12 308 (211-911) pg/ml Folate 10.04 (>5.38) ng/ml TSH (0.300-4.500) uIu/ml Urine Color Urine Appearance (Clear) Urine pH (4.5-7.5) Ur Specific [place] (1.000-1.030) Urine Protein (Negative) Urine Glucose (UA) (Negative) Urine Ketones (Negative) Urine Blood (Negative) Urine Nitrite (Negative) Urine Bilirubin (Negative) Urine Urobilinogen (Negative) Ur Leukocyte Esterase (Negative) Salicylates (2.8-20) mg/dl Urine Opiates Screen (Neg) Ur Methadone, Qual (Neg) Acetaminophen (10-30) ug/ml Urine Barbiturates (Neg) Levetiracetam Ur Phencyclidine (PCP) (Neg) U Amphetamin/Meth Scrn (Neg) MDMA (Ecstasy) Screen (Neg) U Benzodiazepines Scrn (Neg) Ur Cocaine Metabolite (Neg) U Marijuana (THC) Screen (Neg) Ethyl Alcohol mg/dL (0-3) mg/dl 04/14/19 04/14/19 04/14/19 Range/Units 16:45 16:45 14:50 WBC (4.8-10.8) K/uL RBC (4.7-6.1) M/uL Hgb (14.0-18.0) g/dL Hct (42-52) % MCV (80-100) fL MCH (25-34) pg MCHC (32-36) g/dL RDW Std Deviation (36.4-46.3) fL RDW Coeff of Hina (11.5-14.5) % Plt Count (130-400) K/uL MPV (7.4-10.4) fL Immature Gran % (Auto) % Neut % (Auto) % Lymph % (Auto) % Mccracken % (Auto) % Eos % (Auto) % Baso % (Auto) % Immature Gran # (Auto) (0.00-0.02) K/uL Neut # (Auto) (1.4-6.5) K/uL Lymph # (Auto) (1.2-3.4) K/uL Mccracken # (Auto) (0.11-0.59) K/uL Eos # (Auto) (0-0.5) K/uL Baso # (Auto) (0-0.2) K/uL Sodium (136-145) mmol/L Potassium (3.5-5.1) mmol/L Chloride (98-107) mmol/L Carbon Dioxide (21-32) mmol/L Anion Gap (3-11) BUN (7-18) mg/dl Creatinine (0.6-1.4) mg/dl Est Cr Clr Drug Dosing ml/min Est GFR ( Amer) Est GFR (Non-Af Amer) BUN/Creatinine Ratio (10-20) Glucose (70-99) mg/dl Calcium (8.5-10.1) mg/dl Magnesium (1.8-2.4) mg/dl Total Bilirubin (0.2-1) mg/dl AST (15-37) U/L ALT (12-78) U/L Alkaline Phosphatase (45-117) U/L Total Protein (6.4-8.2) gm/dl Albumin (3.4-5.0) gm/dl Globulin (2.5-4.0) gm/dl Albumin/Globulin Ratio (0.9-2) Lipase 89 (73-393) U/L Vitamin B12 (211-911) pg/ml Folate (>5.38) ng/ml TSH (0.300-4.500) uIu/ml Urine Color Yellow Urine Appearance Clear (Clear) Urine pH 7.5 (4.5-7.5) Ur Specific [place] 1.007 (1.000-1.030) Urine Protein Negative (Negative) Urine Glucose (UA) Negative (Negative) Urine Ketones Negative (Negative) Urine Blood Negative (Negative) Urine Nitrite Negative (Negative) Urine Bilirubin Negative (Negative) Urine Urobilinogen Negative (Negative) Ur Leukocyte Esterase Negative (Negative) Salicylates (2.8-20) mg/dl Urine Opiates Screen Neg (Neg) Ur Methadone, Qual Neg (Neg) Acetaminophen (10-30) ug/ml Urine Barbiturates Neg (Neg) Levetiracetam Ur Phencyclidine (PCP) Neg (Neg) U Amphetamin/Meth Scrn Neg (Neg) MDMA (Ecstasy) Screen Neg (Neg) U Benzodiazepines Scrn Neg (Neg) Ur Cocaine Metabolite Neg (Neg) U Marijuana (THC) Screen Neg (Neg) Ethyl Alcohol mg/dL (0-3) mg/dl 04/14/19 04/14/19 04/14/19 Range/Units 14:50 14:50 14:50 WBC (4.8-10.8) K/uL RBC (4.7-6.1) M/uL Hgb (14.0-18.0) g/dL Hct (42-52) % MCV (80-100) fL MCH (25-34) pg MCHC (32-36) g/dL RDW Std Deviation (36.4-46.3) fL RDW Coeff of Hina (11.5-14.5) % Plt Count (130-400) K/uL MPV (7.4-10.4) fL Immature Gran % (Auto) % Neut % (Auto) % Lymph % (Auto) % Mccracken % (Auto) % Eos % (Auto) % Baso % (Auto) % Immature Gran # (Auto) (0.00-0.02) K/uL Neut # (Auto) (1.4-6.5) K/uL Lymph # (Auto) (1.2-3.4) K/uL Mccracken # (Auto) (0.11-0.59) K/uL Eos # (Auto) (0-0.5) K/uL Baso # (Auto) (0-0.2) K/uL Sodium (136-145) mmol/L Potassium (3.5-5.1) mmol/L Chloride (98-107) mmol/L Carbon Dioxide (21-32) mmol/L Anion Gap (3-11) BUN (7-18) mg/dl Creatinine (0.6-1.4) mg/dl Est Cr Clr Drug Dosing ml/min Est GFR ( Amer) Est GFR (Non-Af Amer) BUN/Creatinine Ratio (10-20) Glucose (70-99) mg/dl Calcium (8.5-10.1) mg/dl Magnesium (1.8-2.4) mg/dl Total Bilirubin (0.2-1) mg/dl AST (15-37) U/L ALT (12-78) U/L Alkaline Phosphatase (45-117) U/L Total Protein (6.4-8.2) gm/dl Albumin (3.4-5.0) gm/dl Globulin (2.5-4.0) gm/dl Albumin/Globulin Ratio (0.9-2) Lipase (73-393) U/L Vitamin B12 (211-911) pg/ml Folate (>5.38) ng/ml TSH (0.300-4.500) uIu/ml Urine Color Urine Appearance (Clear) Urine pH (4.5-7.5) Ur Specific [place] (1.000-1.030) Urine Protein (Negative) Urine Glucose (UA) (Negative) Urine Ketones (Negative) Urine Blood (Negative) Urine Nitrite (Negative) Urine Bilirubin (Negative) Urine Urobilinogen (Negative) Ur Leukocyte Esterase (Negative) Salicylates < 1.7 L (2.8-20) mg/dl Urine Opiates Screen (Neg) Ur Methadone, Qual (Neg) Acetaminophen < 2 L (10-30) ug/ml Urine Barbiturates (Neg) Levetiracetam Pending Ur Phencyclidine (PCP) (Neg) U Amphetamin/Meth Scrn (Neg) MDMA (Ecstasy) Screen (Neg) U Benzodiazepines Scrn (Neg) Ur Cocaine Metabolite (Neg) U Marijuana (THC) Screen (Neg) Ethyl Alcohol mg/dL < 3.0 (0-3) mg/dl 04/14/19 04/14/19 Range/Units 14:50 14:50 WBC 7.41 (4.8-10.8) K/uL RBC 4.55 L (4.7-6.1) M/uL Hgb 14.5 (14.0-18.0) g/dL Hct 42.3 (42-52) % MCV 93.0 (80-100) fL MCH 31.9 (25-34) pg MCHC 34.3 (32-36) g/dL RDW Std Deviation 47.0 H (36.4-46.3) fL RDW Coeff of Hina 13.8 (11.5-14.5) % Plt Count 248 (130-400) K/uL MPV 8.7 (7.4-10.4) fL Immature Gran % (Auto) 0.1 % Neut % (Auto) 62.4 % Lymph % (Auto) 26.7 % Mccracken % (Auto) 7.7 % Eos % (Auto) 2.8 % Baso % (Auto) 0.3 % Immature Gran # (Auto) 0.01 (0.00-0.02) K/uL Neut # (Auto) 4.62 (1.4-6.5) K/uL Lymph # (Auto) 1.98 (1.2-3.4) K/uL Mccracken # (Auto) 0.57 (0.11-0.59) K/uL Eos # (Auto) 0.21 (0-0.5) K/uL Baso # (Auto) 0.02 (0-0.2) K/uL Sodium 141 (136-145) mmol/L Potassium 3.5 (3.5-5.1) mmol/L Chloride 108 H (98-107) mmol/L Carbon Dioxide 26 (21-32) mmol/L Anion Gap 7.0 (3-11) BUN 11 (7-18) mg/dl Creatinine 1.09 (0.6-1.4) mg/dl Est Cr Clr Drug Dosing 77.5 ml/min Est GFR ( Amer) 81.5 Est GFR (Non-Af Amer) 70.4 BUN/Creatinine Ratio 9.8 L (10-20) Glucose 94 (70-99) mg/dl Calcium 9.2 (8.5-10.1) mg/dl Magnesium (1.8-2.4) mg/dl Total Bilirubin 0.6 (0.2-1) mg/dl AST 16 (15-37) U/L ALT 29 (12-78) U/L Alkaline Phosphatase 62 (45-117) U/L Total Protein 7.3 (6.4-8.2) gm/dl Albumin 3.8 (3.4-5.0) gm/dl Globulin 3.5 (2.5-4.0) gm/dl Albumin/Globulin Ratio 1.1 (0.9-2) Lipase (73-393) U/L Vitamin B12 (211-911) pg/ml Folate (>5.38) ng/ml TSH 2.080 (0.300-4.500) uIu/ml Urine Color Urine Appearance (Clear) Urine pH (4.5-7.5) Ur Specific [place] (1.000-1.030) Urine Protein (Negative) Urine Glucose (UA) (Negative) Urine Ketones (Negative) Urine Blood (Negative) Urine Nitrite (Negative) Urine Bilirubin (Negative) Urine Urobilinogen (Negative) Ur Leukocyte Esterase (Negative) Salicylates (2.8-20) mg/dl Urine Opiates Screen (Neg) Ur Methadone, Qual (Neg) Acetaminophen (10-30) ug/ml Urine Barbiturates (Neg) Levetiracetam Ur Phencyclidine (PCP) (Neg) U Amphetamin/Meth Scrn (Neg) MDMA (Ecstasy) Screen (Neg) U Benzodiazepines Scrn (Neg) Ur Cocaine Metabolite (Neg) U Marijuana (THC) Screen (Neg) Ethyl Alcohol mg/dL (0-3) mg/dl PG Care Time/CCT Total # of Minutes Spent Total Time Spent with Patient: Total time spent is greater than 50% in coordination of care (as documented) at patient's floor/unit and/or counseling patient:
[2019-04-15] MEDS: CYANOCOBALAMIN (VITAMIN B-12) 100 MCG TABLET PO SCH (13:16)
[2019-04-15] MEDS: NICOTINE 14 MG/24 HR PATCH TD SCH (13:16)
[2019-04-15] MEDS: PANTOprazole 40 MG TAB PO SCH (13:41)
--- NOTE | 2019-04-15 13:42 | Psychiatric Consultation ---
Date of Consultation April 15, 2019 Impression / Recommendations Impression 68 yo male with a history of schizophrenia presents with paranoid delusion re: demons and visual and olfactory hallucinations, the latter of which could be associated with subclinical seizure activity/TLE if poor compliance with Keppra. Plan: continues to meet criteria for 302 commitment. He is currently refusing Haldol but is not acutely agitated as no louise or belief that demons are here in hospital. He will likely require return to long acting injectable. For now I will d/c Cogentin and Vistaril as anticholinergic effects for patients over 60 could complicate picture. Transfer to psych unit when medical cleared. Must stay on 1-on-1 on floor given recent admit and 302 status. Risk Factors Assessment Do You Have Access To A Gun?: Yes Protective Factors Assessment Employed: No Psych History Identifying Data Mr. Lobato is a 68 yo male with a history of schizophrenia who resides with his son. He was brought to ED on 302 petition by his disease case manager for delusional behavior. He was ultimately admitted to the medical floor with vomiting so remains hospitalized on floor with a 1-on-1. Chief Complaint "Those demons are going to get it". History of Present Illness 68 y/o M Hx schizophrenia, seizures, COPD, alcohol abuse; no recent services other than case management (reportedly discharged from [facility] for missed appointments). It is unclear when he last received antipsychotic medications. It is unclear why he is on Cogentin as he denies receiving injectables (seems reliable in that regard) and estimates that his last appointment with Dr. Neri was 3 months ago (weekend so cannot confirm). He reports that for that past 3 months he doesn't feel comfortable at his home (camp with limited utilities). He has smelled cigar smoke of his father () and seen a visual louise of his grandfather. He believes the site might be haunted and states that 5 years ago when this same thing happened he had a administrative sales assistant "bless" them and everything was OK. He denies seeing demons, just believes they are there as 2 flocks of chickens went missing. He has dealt with this by pouring salt around the the property. He states that when disease case manager arrived the shot gun and shells were out because he wanted them blessed in case he needed to protect himself from the demons. He did not plan to harm himself or others but his self care has report edly declined. Past Psychiatric History Current Psychiatric Diagnosis: Paranoid Schizphrenia Outpatient Services: dismissed from [facility] Previous Psych Admissions: 2017 [facility] in ED (dispo unclear), 2004 and 2006 [facility] at that time was a patient of Dr. Santos and on Risperdal consta. 2000 [place] Do You Have Access To A Gun?: Yes History of Previous Suicide Attempt: Yes Describe Attempts in the Past: In the 90s - OD Past Medication Trials: patient unable to provide, Prozac and Effexor as well as Risperdal per records. Allergies Allergy/AdvReac Type Severity Reaction Status Date / Time Penicillins Allergy Unknown Hives Verified 04/14/19 18:43 Sulfa (Sulfonamide Allergy Unknown Hives Verified 04/14/19 18:43 Antibiotics) Uncoded Nonscreenable Allergy Unknown FLAXSEED: Uncoded 04/14/19 18:41 Allergen HIVES,ITCHING Home Medications Home Medications Medication Instructions Recorded Confirmed Type levetiracetam 1,000 mg tablet 1,000 mg PO BID tab 03/09/19 04/14/19 History benztropine 1 tab PO HS 04/14/19 04/14/19 History hydroxyzine pamoate 1 cap PO BID 04/14/19 04/14/19 History Personal History Living Arrangements: Cabin (no bathroom/water) Patient History Medical History Seizure (Acute) Arthritis (Acute) Anxiety (Acute) Acid reflux (Acute) Depression Bipolar disorder Dementia Shoulder pain (Resolved) No pertinent family history Surgical History No pertinent past surgical history Family History Aunt Family history of seizures Other No pertinent family history Social History Preferred Language: Chinese Communication Ability: Effective Visual Impairment: No Limitations Hearing Ability: Normal Rim Technician Required: No marital status: marital status details: Current Living Situation: Family Feels Safe at Home: No Safety Concerns: Afraid for Self Smoking Status: Current every day smoker Tobacco Type: smokeless tobacco ; Do You Dip or Chew Tobacco: Yes ; Hx Alcohol Use: Yes Alcohol type: beer Physical Exam Psychiatric: Orientation: alert and oriented to person Apperance: + disheveled Eye Contact: + fair eye contact mouth movements, no tongue thrust, poor dentition Speech: normal rate/rhythm/volume of speech Affect: euthymic affect Mood: + anxious mood Thought Process: + tangential thought process and + concrete thought process Thought Content: + delusions Suicidal Thoughts: denies suicidal thoughts Homicidal Thoughts: denies homic idal thoughts denied louise currently and did not appear to be responding to internal stimuli Cognition: language grossly intact; + attention not intact Estimated Intelligence: consistent with education level Insight: + severely impaired insight Judgement: + severely impaired judgement Vital Signs (Past 24 Hours): Last Vital Signs Temp 36.4 C L 04/15/19 06:54 Pulse 64 04/15/19 06:54 Resp 20 04/15/19 06:54 BP 136/78 04/15/19 06:54 Pulse Ox 97 04/15/19 06:54 Review of Systems All systems reviewed & are unremarkable except as noted in HPI & below Results & Data Medications Administered Hydroxyzine HCl (Vistaril) 25 mg PO BID [facility] Stop: 05/15/19 08:59 Last Admin: 04/15/19 07:10 Dose: 25 mg Documented by: [id number] Lorazepam (Ativan) 1 mg in 2 mls @ 0.5 mls/min IV Q6H PRN PRN Reason: agitation or seizure activity Stop: 05/15/19 00:44 Last Admin: 04/15/19 07:09 Dose: 0.5 mls/min Documented by: [id number] Levetiracetam (Keppra) 1,000 mg PO BID [facility] Stop: 05/15/19 08:59 Last Admin: 04/15/19 07:10 Dose: 1,000 mg Documented by: [id number]
[2019-04-15] MEDS: ACETAMINOPHEN 325 MG TAB PO PRN (15:42)
[2019-04-15] MEDS: HEPARIN SOD 5,000 UNIT/0.5 ML VIAL SQ SCH (20:03)
[2019-04-15] MEDS ORDERED: BENZTROPINE MESYLATE 1 MG TAB PO SCH (21:00)
[2019-04-16] MEDS: ACETAMINOPHEN 325 MG TAB PO PRN (03:43)
[2019-04-16 06:15] LABS: Hematocrit (blood only) 38.3 % (42-52); Hemoglobin 12.9 g/dL (14.0-18.0); Mean Corpuscular Hgb Conc 33.7 g/dL (32-36); Mean Corpuscular Volume 94.8 fL (80-100); Mean Platelet Volume 8.5 fL (7.4-10.4); Platelet Count 229 K/uL (130-400); RDW Coefficient of Variation 13.8 % (11.5-14.5); RDW Standard Deviation 47.7 fL (36.4-46.3); Red Blood Count 4.04 M/uL (4.7-6.1); White Blood Count 6.45 K/uL (4.8-10.8)
[2019-04-16 06:45] LABS: Calcium 8.4 mg/dl (8.5-10.1); Creatinine Clr Calc Pharmacy 91.8 ml/min; Est GFR (African American) 100.1; Est GFR (Non-African American) 86.4; Magnesium 2.3 mg/dl (1.8-2.4); Potassium 3.9 mmol/L (3.5-5.1)
[2019-04-16] MEDS: HEPARIN SOD 5,000 UNIT/0.5 ML VIAL SQ SCH (08:10)
[2019-04-16] MEDS: NICOTINE 14 MG/24 HR PATCH TD SCH (08:11)
[2019-04-16] MEDS: PANTOprazole 40 MG TAB PO SCH (08:11)
[2019-04-16] MEDS: levETIRAcetam 500 MG TAB PO SCH (08:11)
[2019-04-16] MEDS: CYANOCOBALAMIN (VITAMIN B-12) 100 MCG TABLET PO SCH (08:12)
[2019-04-16] MEDS: LORazepam 1 MG/2 ML VIAL IV PRN ×2 (08:15→09:51)
[2019-04-16] MEDS ORDERED: ASPIRIN 325 MG ECTAB PO SCH (09:00)
--- NOTE | 2019-04-16 12:03 | Psychiatric Progress Note ---
Date of Service April 16, 2019 Impression / Recommendations Impression 68 yo male with a history of schizophrenia presents with paranoid delusion re: demons and visual and olfactory hallucinations. Risks/benefits/alternatives reviewed re: Invega, need for outpatient monitoring for TD (appears to have some mouth movements at baseline) and metabolic abnl. He agrees preferrable over Risperdal consta (longstanding rx) as monthly injection. Will wait to enter order and fasting labs until transferred to psych upon medical clearance. There is currently no outpatient plan in place for his follow-up and would need to confirm role of CM and need for AAA at this point. It is unlikely that he'll meet criteria for extended involuntary commitment (303). Risk Factors Assessment Do You Have Access To A Gun?: Yes Protective Factors Assessment Employed: No Interval History Chief Complaint "I just want that place blessed". Review of Systems Notes mild dyspepsia, no N/V denies dizziness ambulating without walker Subjective Subjective Patient was seen & assessed and interval progress reviewed with liaison nurse. Code funk last pm as patient wanted to leave to get smokeless tobacco and also "to take care of" demons at the camp. Staff have spoken with son who also feels that the camp is haunted but feels dad is essentially near baseline. I also asked that it be confirm that guns are secured/out of camp. Today the patient is more amenable to discussion around restart of antipsychotic medications. He admits that he doesn't take his seizure medication regularly. He denies having any louise in the hospital and denies that demons are bothering him here. He states he was discharged from [facility] for missed appointments as they always made them while son was at work. Physical Exam Psychiatric Orientation: alert and oriented to person Apperance: + disheveled Eye Contact: + fair eye contact Speech: normal rate/rhythm/volume of speech Affect: euthymic affect Mood: + anxious mood Thought Process: + tangential thought process and + concrete thought process Thought Content: + delusions Suicidal Thoughts: denies suicidal thoughts Homicidal Thoughts: denies homicidal thoughts Cognition: language grossly intact; + attention not intact Estimated Intelligence: consistent with education level Vital Signs (Past 24 Hours) Last Vital Signs Temp 36.4 C L 04/16/19 07:33 Pulse 78 04/16/19 07:33 Resp 20 04/16/19 07:33 BP 156/96 H 04/16/19 07:33 Pulse Ox 98 04/16/19 07:33 Results & Data Laboratory Results Laboratory Results - last 24 hr 04/15/19 04/16/19 04/16/19 12:58 05:34 05:34 WBC 6.45 RBC 4.04 L Hgb 12.9 L Hct 38.3 L MCV 94.8 MCH 31.9 MCHC 33.7 RDW Std Deviation 47.7 H RDW Coeff of Hina 13.8 Plt Count 229 MPV 8.5 PT 10.0 INR 1.0 Sodium 140 Potassium 3.9 Chloride 110 H Carbon Dioxide 24 Anion Gap 6.0 BUN 7 Creatinine 0.92 Est Cr Clr Drug Dosing 91.8 Est GFR ( Amer) 100.1 Est GFR (Non-Af Amer) 86.4 BUN/Creatinine Ratio 8.0 L Glucose 108 H Calcium 8.4 L Magnesium 2.3 Current Inpatient Medications Current Inpatient Medications: Current Inpatient Medications Acetaminophen (Tylenol) 650 mg PO Q4H PRN PRN Reason: pain/fever Stop: 05/15/19 00:44 Last Admin: 04/16/19 03:43 Dose: 650 mg Documented by: Aspir[facility] (Ecotrin) [facility] [place] Stop: 05/16/19 08:59 Last Admin: 04/16/19 10:59 Dose: 325 mg Documented by: Cyanocobalamin (Vitamin B-12) 100 mcg PO QAM COUNTS [facility]CLUDE 234 BEDS AT [facility] Stop: 05/15/19 10:59 Last Admin: 04/16/19 08:12 Dose: 100 mcg Documented by: Heparin Sodium (Porcine) (Heparin Sodium (Porcine)) 5,000 units SQ Q12 COUNTS INCLUDE 234 BEDS AT THE [facility] Stop: 05/15/19 20:59 Last Admin: 04/16/19 08:10 Dose: Not Given Documented by: Lorazepam (Ativan) 1 mg in 2 mls @ 0.5 mls/min IV Q6H PRN PRN Reason: agitation or seizure activity Stop: 05/15/19 00:44 Last Admin: 04/16/19 09:51 Dose: 0.5 mls/min Documented by: Levetiracetam (Keppra) 1,000 mg PO BID COUNTS INCLUDE 234 BEDS AT THE [facility] Stop: 05/15/19 08:59 Last Admin: 04/16/19 08:11 Dose: 1,000 mg Documented by: Miscellaneous (Remove Nicoderm Patch) 1 ea N/A HS COUNTS INCLUDE 234 BEDS AT THE [facility] Stop: 05/15/19 20:59 Last Admin: 04/15/19 20:03 Dose: 1 ea Documented by: Nicotine (Nicoderm Cq) 14 [facility] [place] Stop: 05/15/19 12:29 Last Admin: 04/16/19 08:11 Dose: Not Given Documented by: Ondansetron HCl (Zofran) 4 mg IV Q6H PRN PRN Reason: Nausea Stop: 05/15/19 00:44 Pantoprazole Sodium (Protonix) 40 [facility] [place] Stop: 04/19/19 12:44 Last Admin: 04/16/19 08:11 Dose: 40 mg Documented by: Mental Health & Subst Abuse Tx Therapist Name of Therapist: None Security Architect Name of Security Architect: Angelo Shepherd Post Discharge Appointments Primary Care Physician Name Of Family Doctor: ALYSON Murphy CPT Code CPT Code 86676
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
== END 2019-04-16 13:00 | disposition home or self-care (01) ==
LOC: 4W 13:43 → ED 13:43 → 4W 04-15 00:27 → SUATTDRO 04-15 00:32
DX: K21.9 Gastro-esophageal reflux disease without esophagitis; F41.9 Anxiety disorder, unspecified; Z88.2 Allergy status to sulfonamides; F32.9 Major depressive disorder, single episode, unspecified; R44.0 Auditory hallucinations; Z79.899 Other long term (current) drug therapy; F17.220 Nicotine dependence, chewing tobacco, uncomplicated; Z88.0 Allergy status to penicillin; R56.9 Unspecified convulsions; R51 Headache; F10.10 Alcohol abuse, uncomplicated; M19.90 Unspecified osteoarthritis, unspecified site; J44.9 Chronic obstructive pulmonary disease, unspecified; R11.2 Nausea with vomiting, unspecified; F20.9 Schizophrenia, unspecified

== ENCOUNTER 2019-04-16 11:35 | Inpatient (IN) ==
[2019-04-16] MEDS ORDERED: SODIUM CHLORIDE 0.65% NA SOLN 45 ML (OCEAN) PRN ×2 (13:10→13:22)
[2019-04-16] MEDS ORDERED: BISMUTH SUBSALICYLATE PER ML OMNICELL CHARGE PO PRN ×2 (13:10→13:22)
[2019-04-16] MEDS ORDERED: MAGNESIUM HYDROXIDE SUSP 30 ML UDC PO PRN ×2 (13:10→13:22)
[2019-04-16] MEDS ORDERED: ALUMINUM/MAGNESIUM SUSP 30 ML UDC PO PRN (13:22)
[2019-04-16] MEDS ORDERED: LORazepam 1 MG TAB PO PRN (13:22)
[2019-04-16] MEDS ORDERED: ACETAMINOPHEN 325 MG TAB PO PRN (13:22)
[2019-04-16] MEDS ORDERED: BENZTROPINE MESYLATE 0.5 MG TAB PO PRN (13:28)
[2019-04-16] MEDS: PALIPERIDONE 3 MG TABCR PO SCH (14:24)
[2019-04-16] MEDS: NICOTINE 21 MG/24 HR TDSY TD SCH (17:27)
[2019-04-16] MEDS: NICOTINE POLACRILEX 2 MG GUM MT PRN (17:29)
[2019-04-16] MEDS: levETIRAcetam 500 MG TAB PO SCH (20:53)
[2019-04-17] MEDS: levETIRAcetam 500 MG TAB PO SCH ×2 (07:36→21:40)
[2019-04-17] MEDS: PALIPERIDONE 3 MG TABCR PO SCH (07:36)
[2019-04-17] MEDS: PANTOprazole 40 MG TAB PO SCH (07:36)
[2019-04-17] MEDS: CYANOCOBALAMIN (VITAMIN B-12) 100 MCG TABLET PO SCH (07:37)
[2019-04-17] MEDS: NICOTINE 21 MG/24 HR TDSY TD SCH (07:37)
[2019-04-17] MEDS: NICOTINE POLACRILEX 2 MG GUM MT PRN ×2 (07:42→11:59)
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
[2019-04-17] MEDS ORDERED: HALOPERIDOL LACTATE 5 MG/ML 1 ML VIAL IM PRN (10:01)
[2019-04-17] MEDS ORDERED: LORazepam 2 MG/ML VIAL (IM USE) IM PRN (10:02)
[2019-04-17] MEDS: HALOPERIDOL 5 MG TAB PO PRN (10:11)
[2019-04-18] MEDS: levETIRAcetam 500 MG TAB PO SCH ×2 (07:47→20:30)
[2019-04-18] MEDS: PALIPERIDONE 3 MG TABCR PO SCH (07:47)
[2019-04-18] MEDS: NICOTINE 21 MG/24 HR TDSY TD SCH (07:47)
[2019-04-18] MEDS: CYANOCOBALAMIN (VITAMIN B-12) 100 MCG TABLET PO SCH (07:49)
[2019-04-18] MEDS: PANTOprazole 40 MG TAB PO SCH (07:49)
[2019-04-18 08:15] LABS: Glucose Fasting 108 mg/dl (70-99)
[2019-04-18 08:22] LABS: Chol HDL Ratio 6; Cholesterol 228 mg/dl (0-200); HDL Cholesterol 39 mg/dl; LDL Cholesterol Calculated 128 mg/dl; Triglycerides 303 mg/dl (0-150); VLDL Cholesterol 61 mg/dl
--- NOTE | 2019-04-18 08:44 | Psychiatric Progress Note ---
Date of Service April 18, 2019 Impression / Recommendations Impression 68-year-old male with schizophrenia and treatment noncompliance as an outpatient, who was admitted involuntarily due to delusions of persecution that his house is haunted and demons are chasing him, and that he and his children are in danger. He was initially admitted for observation on the medical floor from 04/14/19 - 04/16/19 due to nausea and vomiting, and was transferred to the behavioral health unit after medical clearance. He remains delusional that his house is occupied by evil spirits and demons, and stated that he cannot return there, and may burn his house down to take care of the problem, as he has not been able to contact a popcorn machine operator to come to his home. His behaviors have been directed by his psychotic symptoms, as he had his (loaded) guns out (he says to have been blessed by a popcorn machine operator), created a salt barrier around his house, and was sitting in his home with a shot gun and ammunition within reach when his director case arrived at his residence. He has agreed to take medication and was started on paliperidone, and would like to place him on a long-acting injectable due to history of noncompliance. He had a family meeting with his son, but they have not been able/willing to come up with a plan to remove or secure the firearms. Additionally, his director case shared that the house is in very poor shape, with unsanitary conditions and that the office of aging has been involved. The patient has no outpatient care as he was fired for noncompliance, and social work is working on arranging discharge plans. As he remains at imminent risk of harm to both himself and others given his dangerous behavior as a result of his delusions and his threats to burn down his home to get rid of the demons, we file for a 303 involuntary commitment with a hearing tomorrow. (1) Schizophrenia: 04/17 - Admitted to a locked inpatient behavioral health unit, on q15 minute safety checks - Paliperidone 3mg initiated on medical floor and continued on admission; recommend titration to 6mg starting tomorrow morning - PRN haloperidol and lorazepam available as needed for agitation/psychosis - Encourage participation in group and recreational therapies - Gather collateral information from outpatient providers - Suggest family meeting to involve outpatient supports in safety planning - Arrange appropriate aftercare 8/6 -Paliperidone increased to 6 mg daily today. -Fasting glucose elevated 108, fasting lipid profile notable for triglycerides 303 and cholesterol 228. -File for 303 involuntary commitment with hearing tomorrow. -Refer for outpatient psychiatric care and therapy. (2) Seizure disorder: 04/17 - Continue home dose of levetiracetam 1000mg BID - Neurology referral and EEG were not felt to be indicated during medical admission - Levetiracetam level ordered on medical floor is still pending - Seizure precautions - Neurology service unclear, as recent PCP documentation suggest patient had requested switch from [facility] to [facility] - referral was documented in outpatient appointment notes 04/18 -Levetiracetam level still pending. (3) Tobacco abuse: 04/17 - Pt reports daily use of chewing tobacco; nicotine replacement products of Nicorette gum and nicotine patch will be available for use as needed for treatment of nicotine withdrawal (4) GERD (gastroesophageal reflux disease): 04/17 - Continue 40mg of pantoprazole, as initiated on the medical floor prior to admission (5) Alcohol abuse: 04/17 - Per medical admission, reports drinking 4 alcoholic beverages daily - Remains on AWSS; has not yet scored - Treated during medical admission - Vitamin B12 daily as level slight low; folate level reportedly WNL; given banana bag at admission - Pt unable to participate in sufficient conversation to review thoughts on his alcohol use or current standing on desire to abstain from use 04/18 - Brief intervention was offered and refused Risk Factors Assessment Male: Yes : Yes Do You Have Access To A Gun?: Yes (was planning to have his shotgun blessed by a popcorn machine operator prior to admission) Mental Health Diagnoses: Yes Substance Use Disorders: Yes Previous Attempt: Yes Previous Psychiatric Hospitalization: Yes Hopelessness: Yes Protective Factors Assessment : No Responsible for Young Children: No Employed: No Interval History Identifying Information EMMA SAUER is a 68-year-old M who currently lives in [place], [place] with his son, has a history of schizophrenia, and was admitted on 04/16/19 13:19 on a 302 involuntary commitment for delusional behavior following a brief stay on the medical floor for vomiting (04/14/19 - 04/16/19). Pt was transferred to our unit upon medical clearance for treatment of his delusional behavior, with history of medication non-compliance and rather limited outpatient supports. Chief Complaint "Better mood". Review of Systems Sleep Information Total Hours of Sleep: 7.5 Sleep Comments: pt NPO during the night. pt on q-15 minute checks Meal Information Percent Meal Consumed - Breakfast: 100 Percent Meal Consumed - Lunch: 100 Percent Meal Consumed - Dinner: 100 Subjective Subjective Patient was seen & assessed and interval progress reviewed with Nursing and social work. Staff report he was very focused on the demons yesterday, making phone calls to try to contact a popcorn machine operator to go to his home and rid the house of the evil spirits. He was sobbing, stating the demons were going to kill his children, and wanted staff to call police to come and get him and take him to a popcorn machine operator. He had a meeting with his son, and another with his outpatient BCM. His BCM reported his house is in very poor shape, with chickens and rabbits living inside, no running water, and large amounts of clutter which make it difficult to move around. She has also noted beer and shoot cans all over the house. He was previously using buckets for elimination, but recently got an outhouse. Patient had dumped salt around the house to keep the ghosts out, but told her it did not work. She saw several guns sitting out in the home. During their meeting with the patient, he admitted to having multiple guns, and said he needed them to protect his [address] and 27 chickens from theirs. He said he needed a hot mill observer to read his house of the demons, and that he believed in "the paranormal," and in all religions including Catholicism, Christian, weekend, and the Norse gods. He said his house is not safe and he could not return there, and was considering renting a different house or selling his home, but did not think he would be able to as he would have to informed the potential buyers of the haunting. He then said he would need to burn his house to the ground. He also had a meeting with his son, during which he said he wanted to a specific chcf. He had been referred to the office of aging by the base service unit, but had not yet received any services. He said he would like somebody to stay home with him during the day while his son is at work. Personal assisted referral was discussed, but he does not have enough income. The recommendations to remove or at the very least secure the firearms in the home were discussed at length with the patient and his son, and they showed extremely poor insight and were unable to come up with any kind of a plan or agreement to do remove the guns. Patient disclosed that multiple guns are kept loaded, which his son said he was not aware of, although he also said they were his guns. They also discussed the patient's alcohol use, and he reported drinking a 6 pack daily. Neither the patient nor his son thought this was a problem. On my assessment today, the patient states that he is in a better mood, and is hoping to be able to be discharged by this weekend, as it is his granddaughter's birthday. He is not sure where he will go at discharge, as he continues to state his house is haunted and is not safe for him to return there. He simultaneously says he needs to go home because his son needs him, and that he will "try to get the popcorn machine operator and, looking up Yellow Pages, or maybe a nuclear medicine medical director." He denies side effects to Invega. Physical Exam Mental Examination Overweight white male appearing older than his stated age. Casually dressed, poor grooming and hygiene. Seated in no acute distress, cooperative with the assessment. Poor eye contact. Abnormal mouth and tongue movements. Mood is "better," affect is blunted but appropriate. Speech is normal volume and tone. Thoughts are concrete, goal-directed, notable for ongoing delusions of persecution. Intelligence estimated to be below average. Insight and judgment are impaired. Vital Signs (Past 24 Hours) Last Vital Signs Temp 36.7 C 04/18/19 08:01 Pulse 94 H 04/18/19 08:01 Resp 16 04/18/19 08:01 BP 145/88 H 04/18/19 08:01 Results & Data Laboratory Results Laboratory Results - last 24 hr 04/18/19 07:11 Fasting Glucose 108 H Triglycerides 303 H Cholesterol 228 H LDL Cholesterol, Calc 128 VLDL Cholesterol, Calc 61 HDL Cholesterol 39 Cholesterol/HDL Ratio 6 Current Inpatient Medications Current Inpatient Medications: Current Inpatient Medications Acetaminophen (Tylenol) 650 mg PO Q4H PRN PRN Reason: Headache or Minor Fever Stop: 05/16/19 13:09 Al Hydrox/Mg Hydrox/Simethicone (Maalox) 30 ml PO Q4H PRN PRN Reason: GI Upset Stop: 05/16/19 13:09 Benztropine Mesylate (Cogentin) 0.5 mg PO Q6 PRN PRN Reason: Muscle Spasm Stop: 05/16/19 13:27 Bismuth Subsalicylate (Kaopectate) 15 ml PO PRN PRN PRN Reason: Loose Stool Stop: 05/16/19 13:09 Cyanocobalamin (Vitamin B-12) 100 mcg PO QAM [facility] Stop: 05/17/19 08:59 Last Admin: 04/18/19 07:49 Dose: 100 mcg Documented by: Haloperidol (Haldol) 5 mg PO Q6 PRN PRN Reason: Agitation Stop: 05/16/19 13:27 Last Admin: 04/17/19 10:11 Dose: 5 mg Documented by: Haloperidol Lactate (Haldol) 5 mg IM Q4H PRN PRN Reason: Agitation Stop: 05/17/19 10:00 Hydroxyzine HCl (Vistaril) 25 mg PO Q4H PRN PRN Reason: Anxiety Stop: 05/16/19 13:09 Hydroxyzine HCl (Vistaril) 50 mg PO HSZ PRN PRN Reason: Insomnia Stop: 05/16/19 13:09 Levetiracetam (Keppra) 1,000 mg PO BID [facility] Stop: 05/16/19 20:59 Last Admin: 04/18/19 07:47 Dose: 1,000 mg Documented by: Lorazepam (Ativan) 1 mg PO Q4H PRN PRN Reason: Anxiety/Agitation Stop: 05/17/19 09:59 Lorazepam (Ativan) 2 mg IM Q4H PRN PRN Reason: Agitation Stop: 05/17/19 10:01 Magnesium Hydroxide (Milk Of Magnesia) 30 ml PO DAILY PRN PRN Reason: Heartburn Stop: 05/16/19 13:09 Miscellaneous (Remove Nicoderm Patch) 1 ea N/A HS [facility] Stop: 05/16/19 21:59 Last Admin: 04/17/19 21:42 Dose: Not Given Documented by: Nicotine (Nicoderm Cq) 21 mg TD QAM [facility] Stop: 05/17/19 08:59 Last Admin: 04/18/19 07:47 Dose: 21 mg Documented by: Nicotine Polacrilex (Nicorette 2mg) 1 piece MT UD PRN PRN Reason: Nicotine Withdrawal Stop: 05/16/19 13:21 Last Admin: 04/17/19 11:59 Dose: 1 piece Documented by: Paliperidone (Invega) 6 mg PO DAILY [facility] Stop: 05/18/19 08:59 Last Admin: 04/18/19 07:47 Dose: 6 mg Documented by: Pantoprazole Sodium (Protonix) 40 mg PO QAM [facility] Stop: 05/17/19 08:59 Last Admin: 04/18/19 07:49 Dose: 40 mg Documented by: Sodium Chloride ([place] Nasal) 1 - 2 sprays NA PRN PRN PRN Reason: Nasal Dryness/Congestion Stop: 05/16/19 13:09 Mental Health & Subst Abuse Tx Cinema Operator Name of Cinema Operator: [facility] CPT Code CPT Code 90939 (1) Schizophrenia Schizophrenia type: paranoid schizophrenia Qualified Code(s): F20.0 - Paranoid schizophrenia (2) GERD (gastroesophageal reflux disease) Esophagitis presence: esophagitis presence not specified Qualified Code(s): K21.9 - Gastro-esophageal reflux disease without esophagitis
[2019-04-18] MEDS ORDERED: BENZTROPINE MESYLATE 1 MG TAB PO STA (14:47)
[2019-04-18] MEDS: PATIENT'S HEIGHT AND/OR WEIGHT NEEDED SCH ×2 (15:37→20:33)
[2019-04-18] MEDS: ASPIRIN 325 MG ECTAB PO PRN (15:39)
[2019-04-19] MEDS: PANTOprazole 40 MG TAB PO SCH (07:59)
[2019-04-19] MEDS: PALIPERIDONE 3 MG TABCR PO SCH (07:59)
[2019-04-19] MEDS: levETIRAcetam 500 MG TAB PO SCH ×2 (07:59→21:04)
[2019-04-19] MEDS: CYANOCOBALAMIN (VITAMIN B-12) 100 MCG TABLET PO SCH (08:00)
[2019-04-19] MEDS: NICOTINE 21 MG/24 HR TDSY TD SCH (08:05)
--- NOTE | 2019-04-19 08:36 | Psychiatric Progress Note ---
Date of Service April 19, 2019 Impression / Recommendations Impression 68-year-old male with schizophrenia and treatment noncompliance as an outpatient, who was admitted involuntarily due to delusions of persecution that his house is haunted and demons are chasing him, and that he and his children are in danger. He was initially admitted for observation on the medical floor from 04/14/19 - 04/16/19 due to nausea and vomiting, and was transferred to the behavioral health unit after medical clearance. He remains delusional that his house is occupied by evil spirits and demons, and stated that he cannot return there, and may burn his house down to take care of the problem, as he has not been able to contact a director of admissions to come to his home. His behaviors have been directed by his psychotic symptoms, as he had his (loaded) guns out (he says to have been blessed by a director of admissions), created a salt barrier around his house, and was sitting in his home with a shot gun and ammunition within reach when his caser arrived at his residence. He is stating he might need to burn his house down in order to get rid of the demons. He has agreed to take medication today agreed to start loading with Invega Star. He had a family meeting with his son, but they have not been able/willing to come up with a plan to remove or secure the firearms, and now the patient is not sure if he is even willing to return to the home, may want to go to [place] instead. Additionally, his caser shared that the house is in very poor shape, with unsanitary conditions and that the office of aging has been involved. The patient has no outpatient care as he was fired for noncompliance, and social work is working on arranging discharge plans. As he remains at imminent risk of harm to both himself and others given his dangerous behavior as a result of his delusions and his threats to burn down his home to get rid of the demons, inpatient treatment is medically necessary. He is on a 303 involuntary commitment as of today. (1) Schizophrenia: 04/17 - Admitted to a locked inpatient behavioral health unit, on q15 minute safety checks - Paliperidone 3mg initiated on medical floor and continued on admission; recommend titration to 6mg starting tomorrow morning - PRN haloperidol and lorazepam available as needed for agitation/psychosis - Encourage participation in group and recreational therapies - Gather collateral information from outpatient providers - Suggest family meeting to involve outpatient supports in safety planning - Arrange appropriate aftercare 04/18 -Paliperidone increased to 6 mg daily today. -Fasting glucose elevated 108, fasting lipid profile notable for triglycerides 303 and cholesterol 228. -File for 303 involuntary commitment with hearing tomorrow. -Refer for outpatient psychiatric care and therapy. 04/19 -303 granted. -Patient agrees to start Invega Sustenna; give first loading dose of 234 mg IM today, and order the second loading dose of 156 mg IM in 4 days (04/23/2019). Oral paliperidone can then be discontinued. -Refer for outpatient care. Patient indicates that even if he moves to [place] to live with his other son, he will stay in the area until May. He will need psychiatric aftercare and has been referred to Dr. Vela. (2) Seizure disorder: 04/17 - Continue home dose of levetiracetam 1000mg BID - Neurology referral and EEG were not felt to be indicated during medical admission - Levetiracetam level ordered on medical floor is still pending - Seizure precautions - Neurology service unclear, as recent PCP documentation suggest patient had requested switch from [facility] to [facility] - referral was documented in outpatient appointment notes 04/18-04/19 -Levetiracetam level still pending. (3) Tobacco abuse: 04/17 - Pt reports daily use of chewing tobacco; nicotine replacement products of Nicorette gum and nicotine patch will be available for use as needed for treatment of nicotine withdrawal (4) GERD (gastroesophageal reflux disease): 04/17 - Continue 40mg of pantoprazole, as initiated on the medical floor prior to admission (5) Alcohol abuse: 04/17 - Per medical admission, reports drinking 4 alcoholic beverages daily - Remains on AWSS; has not yet scored - Treated during medical admission - Vitamin B12 daily as level slight low; folate level reportedly WNL; given banana bag at admission - Pt unable to participate in sufficient conversation to review thoughts on his alcohol use or current standing on desire to abstain from use 04/18 - Brief intervention was offered and refused Risk Factors Assessment Male: Yes : Yes Do You Have Access To A Gun?: Yes (was planning to have his shotgun blessed by a director of admissions prior to admission) Mental Health Diagnoses: Yes Substance Use Disorders: Yes Previous Attempt: Yes Previous Psychiatric Hospitalization: Yes Hopelessness: Yes Protective Factors Assessment Presybeterian Beliefs: Yes : No Responsible for Young Children: No Employed: No Stable Relationships: Yes Supportive Family: Yes Interval History Identifying Information EMMA SAUER is a 68-year-old M who currently lives in [place], [place] with his son, has a history of schizophrenia, and was admitted on 04/16/19 13:19 on a 302 involuntary commitment for delusional behavior following a brief stay on the medical floor for vomiting (04/14/19 - 04/16/19). Pt was transferred to our unit upon medical clearance for treatment of his delusional behavior, with history of medication non-compliance and rather limited outpatient supports. Chief Complaint "All right, I want to know why they're questioning why I have the shot guns and shells, because I wanna get them blessed". Review of Systems Sleep Information Total Hours of Sleep: 8.5 Sleep Comments: pt NPO during the night. pt on q-15 minute checks Meal Information Percent Meal Consumed - Breakfast: 100 Percent Meal Consumed - Lunch: 100 Percent Meal Consumed - Dinner: 100 Subjective Subjective Patient was seen & assessed and interval progress reviewed with Treatment Team. Staff report he is now considering going to [place] to stay with another son and his family. He is attending groups and talking about his need to get an medicine teacher or paranormal group to come to his house and rid it of the demons. He is eating and sleeping well, and taking Invega as prescribed. He moves his extremities at times and says he is having seizures. On my assessment, he was seen in his room, where he had returned to bed due to dizziness. He reports frequent dizzy spells, and says he has been eating and drinking well. He reports good sleep and appetite. He continues to express concerns about his house, stating that "there's demons in there, keep getting in! They opened the door in the kitchen. If I'd seen them, I'd take a shot at them." He thinks that he would be able to kill the demons with a gun if the gun and bullets were blessed by a director of admissions. He says he does not understand why the barrier of salt he put up around his house is not working, and says he has had problems with demons before, about 5 years ago, but he got the house blessed and they went away. They then returned, and have been worsening over the past 3 months. He also endorses auditory hallucinations of "a radio turned down low so I can't understand what they are saying," which he hears in his house, even though there is no radio there. He remains concerned about returning to his home due to the demons, stating that he is looking into the option of going to [place] to stay with another 1 of his sons until he can sell his house and get a new place. He says he would not be able to go to [place] until the beginning of May when he gets his disability check. He continues to state that burning down the house is an option, as "that's the only way to stop the demon, you know he's inside that house trying to get you." He agrees to start Invega Sustenna, and denies side effects to his medication. Physical Exam Psychiatric Calm, cooperative, and pleasant. Orientation: alert and cooperative Apperance: appropriately dressed and + disheveled; + inappropriately groomed Unkempt, poor dentition, unshaven Eye Contact: + fair eye contact Speech: normal rate/rhythm/volume of speech Affect: euthymic affect Affect inappropriately bright given content of discussion "All right." Thought Process: + perseveration (On the demons at his house) Thought Content: + delusions and + persecution Suicidal Thoughts: denies suicidal thoughts Homicidal Thoughts: denies homicidal thoughts Other than wanting to kill the demons Hallucinations: no auditory hallucinations and no visual hallucinations Denies hallucinations now, but reports hearing music and muffled voices when at home, when no one is there in the radio is not on Cognition: recent memory grossly intact, attention grossly intact and language grossly intact Estimated Intelligence: + below average estimated intelligence Insight: + impaired insight Judgement: + impaired judgement Vital Signs (Past 24 Hours) Last Vital Signs Temp 36.5 C 04/19/19 06:52 Pulse 106 H 04/19/19 06:53 Resp 18 04/19/19 06:52 BP 113/79 04/19/19 06:53 Results & Data Current Inpatient Medications Current Inpatient Medications: Current Inpatient Medications Acetaminophen (Tylenol) 650 mg PO Q4H PRN PRN Reason: Headache or Minor Fever Stop: 05/16/19 13:09 Al Hydrox/Mg Hydrox/Simethicone (Maalox) 30 ml PO Q4H PRN PRN Reason: GI Upset Stop: 05/16/19 13:09 Aspirin (Ecotrin) 650 mg PO Q6H PRN PRN Reason: pain Stop: 05/18/19 14:59 Last Admin: 04/18/19 15:39 Dose: 650 mg Documented by: Benztropine Mesylate (Cogentin) 0.5 mg PO Q6 PRN PRN Reason: Muscle Spasm Stop: 05/16/19 13:27 Benztropine Mesylate (Cogentin) 1 mg PO HS PRN PRN Reason: muscle spasm/dystonia Stop: 05/19/19 08:01 Bismuth Subsalicylate (Kaopectate) 15 ml PO PRN PRN PRN Reason: Loose Stool Stop: 05/16/19 13:09 Last Admin: 04/18/19 14:47 Dose: 15 ml Documented by: Cyanocobalamin (Vitamin B-12) 100 mcg PO QAM [facility] Stop: 05/17/19 08:59 Last Admin: 04/19/19 08:00 Dose: 100 mcg Documented by: Haloperidol (Haldol) 5 mg PO Q6 PRN PRN Reason: Agitation Stop: 05/16/19 13:27 Last Admin: 04/17/19 10:11 Dose: 5 mg Documented by: Haloperidol Lactate (Haldol) 5 mg IM Q4H PRN PRN Reason: Agitation Stop: 05/17/19 10:00 Hydroxyzine HCl (Vistaril) 25 mg PO Q4H PRN PRN Reason: Anxiety Stop: 05/16/19 13:09 Hydroxyzine HCl (Vistaril) 50 mg PO HSZ PRN PRN Reason: Insomnia Stop: 05/16/19 13:09 Levetiracetam (Keppra) 1,000 mg PO BID [facility] Stop: 05/16/19 20:59 Last Admin: 04/19/19 07:59 Dose: 1,000 mg Documented by: Lorazepam (Ativan) 1 mg PO Q4H PRN PRN Reason: Anxiety/Agitation Stop: 05/17/19 09:59 Lorazepam (Ativan) 2 mg IM Q4H PRN PRN Reason: Agitation Stop: 05/17/19 10:01 Magnesium Hydroxide (Milk Of Magnesia) 30 ml PO DAILY PRN PRN Reason: Heartburn Stop: 05/16/19 13:09 Miscellaneous (Remove Nicoderm Patch) 1 ea N/A HS [facility] Stop: 05/16/19 21:59 Last Admin: 04/18/19 20:31 Dose: Not Given Documented by: Nicotine (Nicoderm Cq) 21 mg TD QAM [facility] Stop: 05/17/19 08:59 Last Admin: 04/19/19 08:05 Dose: 21 mg Documented by: Nicotine Polacrilex (Nicorette 2mg) 1 piece MT UD PRN PRN Reason: Nicotine Withdrawal Stop: 05/16/19 13:21 Last Admin: 04/17/19 11:59 Dose: 1 piece Documented by: Paliperidone (Invega) 6 mg PO DAILY [facility] Stop: 05/18/19 08:59 Last Admin: 04/19/19 07:59 Dose: 6 mg Documented by: Pantoprazole Sodium (Protonix) 40 mg PO QAM [facility] Stop: 05/17/19 08:59 Last Admin: 04/19/19 07:59 Dose: 40 mg Documented by: Sodium Chloride ([place] Nasal) 1 - 2 sprays NA PRN PRN PRN Reason: Nasal Dryness/Congestion Stop: 05/16/19 13:09 Mental Health & Subst Abuse Tx [employer] Supervisor Name of [employer] Supervisor: [facility] Service [facility] CPT Code CPT Code 15649 (1) Schizophrenia Schizophrenia type: paranoid schizophrenia Qualified Code(s): F20.0 - Paranoid schizophrenia (2) GERD (gastroesophageal reflux disease) Esophagitis presence: esophagitis presence not specified Qualified Code(s): K21.9 - Gastro-esophageal reflux disease without esophagitis
[2019-04-19] MEDS: NICOTINE POLACRILEX 2 MG GUM MT PRN ×4 (11:18→21:40)
[2019-04-19] MEDS ORDERED: PALIPERIDONE PALMITATE 234 MG/1.5 ML SYR IM STA (12:11)
[2019-04-19] MEDS: BENZTROPINE MESYLATE 1 MG TAB PO PRN (23:34)
[2019-04-19] MEDS: ACETAMINOPHEN 325 MG TAB PO PRN (23:34)
[2019-04-20] MEDS: levETIRAcetam 500 MG TAB PO SCH ×2 (07:42→21:29)
[2019-04-20] MEDS: PALIPERIDONE 3 MG TABCR PO SCH (07:42)
[2019-04-20] MEDS: NICOTINE 21 MG/24 HR TDSY TD SCH (07:43)
[2019-04-20] MEDS: PANTOprazole 40 MG TAB PO SCH (07:44)
[2019-04-20] MEDS: CYANOCOBALAMIN (VITAMIN B-12) 100 MCG TABLET PO SCH (07:45)
[2019-04-20] MEDS: NICOTINE POLACRILEX 2 MG GUM MT PRN ×3 (09:55→21:30)
[2019-04-20] MEDS: ASPIRIN 325 MG ECTAB PO PRN (10:38)
--- NOTE | 2019-04-20 11:20 | Psychiatric Progress Note ---
Date of Service April 20, 2019 Impression / Recommendations Impression 68-year-old male with schizophrenia and treatment noncompliance as an outpatient, who was admitted involuntarily due to delusions of persecution that his house is haunted and demons are chasing him, and that he and his children are in danger. He was initially admitted for observation on the medical floor from 04/14/19 - 04/16/19 due to nausea and vomiting, and was transferred to the behavioral health unit after medical clearance. He remains convinced that his house is occupied by evil spirits and demons, and initially stated that he cannot return there, and may burn his house down to take care of the problem, as he has not been able to contact a in flight refueling operator to come to his home. His behaviors have been directed by his psychotic symptoms, as he had his (loaded) guns out (he says to have been blessed by a in flight refueling operator), created a salt barrier around his house to protect it, and was sitting in his home with a shot gun and ammunition within reach when his case operator arrived at his residence. He is stating he might need to burn his house down in order to get rid of the demons. Although he continues to endorse delusional thoughts, they are less distressing to him and he is no longer reporting an urgent need to get out of the hospital to address the demons, and has been able to start exploring alternative housing possibilities. He agreed to Invega Sustenna, and tolerated the first loading injection 04/19/2019 well, with the second injection scheduled for 04/23/2019. He had a family meeting with his son, but they have not been able/willing to come up with a plan to remove or secure the firearms. Additionally, his case operator shared that the house is in very poor shape, with unsanitary conditions and that the office of aging has been involved. They are going to come interview the patient on the unit to see if he is eligible for any community services or assistance with housing. The patient has no outpatient care as he was fired for noncompliance, and social work is working on arranging discharge plans. As he remains at imminent risk of harm to both himself and others given his dangerous behavior as a result of his delusions and his threats to burn down his home to get rid of the demons, inpatient treatment is medically necessary. He is on a 303 involuntary commitment as of 04/19/2019. (1) Schizophrenia: 04/17 - Admitted to a locked inpatient behavioral health unit, on q15 minute safety checks - Paliperidone 3mg initiated on medical floor and continued on admission; recommend titration to 6mg starting tomorrow morning - PRN haloperidol and lorazepam available as needed for agitation/psychosis - Encourage participation in group and recreational therapies - Gather collateral information from outpatient providers - Suggest family meeting to involve outpatient supports in safety planning - Arrange appropriate aftercare 04/18 -Paliperidone increased to 6 mg daily today. -Fasting glucose elevated 108, fasting lipid profile notable for triglycerides 303 and cholesterol 228. -File for 303 involuntary commitment with hearing tomorrow. -Refer for outpatient psychiatric care and therapy. 04/19 -303 granted. -Patient agrees to start Invega Sustenna; give first loading dose of 234 mg IM today, and order the second loading dose of 156 mg IM in 4 days (04/23/2019). Oral paliperidone can then be discontinued. -Refer for outpatient care. Patient indicates that even if he moves to [place] to live with his other son, he will stay in the area until May. He will need psychiatric aftercare and has been referred to Dr. Vela. 04/20 -The [facility] office of aging is coming to assess the patient today to see if he is eligible for any of the community support services. -Social work to contact his son to confirm that firearms have been secured, given the safety risk with the patient's active delusions and access to multiple loaded weapons. (2) Seizure disorder: 04/17 - Continue home dose of levetiracetam 1000mg BID - Neurology referral and EEG were not felt to be indicated during medical admission - Levetiracetam level ordered on medical floor is still pending - Seizure precautions - Neurology service unclear, as recent PCP documentation suggest patient had requested switch from [facility] to [facility] - referral was documented in outpatient appointment notes 04/18-04/19 -Levetiracetam level still pending. 04/20 -Levetiracetam level 18.4, within the therapeutic range. (3) Tobacco abuse: 04/17 - Pt reports daily use of chewing tobacco; nicotine replacement products of Nicorette gum and nicotine patch will be available for use as needed for treatment of nicotine withdrawal (4) GERD (gastroesophageal reflux disease): 04/17 - Continue 40mg of pantoprazole, as initiated on the medical floor prior to admission (5) Alcohol abuse: 04/17 - Per medical admission, reports drinking 4 alcoholic beverages daily - Remains on AWSS; has not yet scored - Treated during medical admission - Vitamin B12 daily as level slight low; folate level reportedly WNL; given banana bag at admission - Pt unable to participate in sufficient conversation to review thoughts on his alcohol use or current standing on desire to abstain from use 04/18 - Brief intervention was offered and refused Risk Factors Assessment Male: Yes : Yes Do You Have Access To A Gun?: Yes (was planning to have his shotgun blessed by a in flight refueling operator prior to admission) Mental Health Diagnoses: Yes Substance Use Disorders: Yes Previous Attempt: Yes Previous Psychiatric Hospitalization: Yes Hopelessness: Yes Protective Factors Assessment Catholic Beliefs: Yes : No Responsible for Young Children: No Employed: No Stable Relationships: Yes Supportive Family: Yes Interval History Identifying Information EMMA SAUER is a 68-year-old M who currently lives in [place], [place] with his son, has a history of schizophrenia, and was admitted on 04/16/19 13:19 on a 302 involuntary commitment for delusional behavior following a brief stay on the medical floor for vomiting (04/14/19 - 04/16/19). Pt was transferred to our unit upon medical clearance for treatment of his delusional behavior, with history of medication non-compliance and rather limited outpatient supports. Chief Complaint "Really good so far, might get worse". Review of Systems Sleep Information Total Hours of Sleep: 5.5 Sleep Comments: received 2 doses of hs vistaril for sleep aid and a dose of cogentin for stiff muscles and drooling. he does have a hx. of drooling and "oleg horses". he ate multi snacks and read some from the chicken soup for the soul stories Meal Information Percent Meal Consumed - Breakfast: 100 Percent Meal Consumed - Lunch: 100 Percent Meal Consumed - Dinner: 100 Subjective Subjective Patient was seen & assessed and interval progress reviewed with nursing and social work. Staff report the patient tolerated the first loading Sustenna injection yesterday. He attended all groups, was quite talkative, at times very loud with poor boundaries, and needed redirection. He continues to talk about his concerns that his house is haunted, and that the demons were chasing him. He made multiple phone calls to explore the option of staying with family, and was advised that he cannot stay with his son, Martin, in [place], but his son would support the patient moving there if he found his own housing. caisson worker contacted the area office on aging to inquire about the possibility of patient receiving support services through their agency, and 1 of their staff will come to interview him today. On my assessment, the patient states that he is feeling good today, and trying to make plans for his housing. He hopes to be able to sell his current home and is exploring multiple potential options for alternative housing, including buying a trailer, or renting a different home in the area. He understands that he cannot go live with his son in [place], but says it may still be an option for him to go there, as "I'm sure there is a flop house there somewhere." He continues to express believes that his home is haunted, and that it might not be safe, but is no longer reporting imminent fears that his children are in danger or might be killed by the demons. He said he has been trying to contact his youngest son, Мария, who lives in [place], as he wants him to use his computer to look up the contact information for in [place] and the doctor who prescribes herbs, as the patient thinks this could help with his arthritis and seizures. 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 He says that his 4-year-old granddaughter (AMBAR's daughter) lives with her mother in [place], but sometimes comes to their home, and had asked sta ff if she could be dropped off at the hospital for the day so that he could babysit her. He talks about his other grandchildren and how much she enjoys being a grandfather. He denies hallucinations, thoughts of harming himself or anyone else, and feels safe here in the hospital. He denies any side effects to medication. Physical Exam Psychiatric Calm, cooperative, and pleasant. Orientation: alert and cooperative Apperance: appropriately dressed and + disheveled Eye Contact: + fair eye contact Motor Behavior: steady gait and station and no abnormal motor movements Speech: + loud speech Mildly hyperverbal Affect: euthymic affect and mood congruent with affect "Pretty good." Thought Process: + circumstantial thought process Thought Content: + delusions and + persecution Suicidal Thoughts: denies suicidal thoughts Homicidal Thoughts: denies homicidal thoughts Hallucinations: no auditory hallucinations and no visual hallucinations Cognition: recent memory grossly intact and language grossly intact Insight: + limited insight Judgement: + limited judgement Vital Signs (Past 24 Hours) Last Vital Signs Temp 36.6 C 04/20/19 06:00 Pulse 96 H 04/20/19 06:00 Resp 18 04/20/19 06:00 BP 142/86 H 04/20/19 06:00 Results & Data Current Inpatient Medications Current Inpatient Medications: Current Inpatient Medications Acetaminophen (Tylenol) 650 mg PO Q4H PRN PRN Reason: Headache or Minor Fever Stop: 05/16/19 13:09 Last Admin: 04/19/19 23:34 Dose: 650 mg Documented by: Al Hydrox/Mg Hydrox/Simethicone (Maalox) 30 ml PO Q4H PRN PRN Reason: GI Upset Stop: 05/16/19 13:09 Aspirin (Ecotrin) 650 mg PO Q6H PRN PRN Reason: pain Stop: 05/18/19 14:59 Last Admin: 04/20/19 10:38 Dose: 650 mg Documented by: Benztropine Mesylate (Cogentin) 0.5 mg PO Q6 PRN PRN Reason: Muscle Spasm Stop: 05/16/19 13:27 Benztropine Mesylate (Cogentin) 1 mg PO HS PRN PRN Reason: muscle spasm/dystonia Stop: 05/19/19 08:01 Last Admin: 04/19/19 23:34 Dose: 1 mg Documented by: Bismuth Subsalicylate (Kaopectate) 15 ml PO PRN PRN PRN Reason: Loose Stool Stop: 05/16/19 13:09 Last Admin: 04/18/19 14:47 Dose: 15 ml Documented by: Cyanocobalamin (Vitamin B-12) 100 mcg PO QAM MESHA Stop: 05/17/19 08:59 Last Admin: 04/20/19 07:45 Dose: 100 mcg Documented by: Haloperidol (Haldol) 5 mg PO Q6 PRN PRN Reason: Agitation Stop: 05/16/19 13:27 Last Admin: 04/17/19 10:11 Dose: 5 mg Documented by: Haloperidol Lactate (Haldol) 5 mg IM Q4H PRN PRN Reason: Agitation Stop: 05/17/19 10:00 Hydroxyzine HCl (Vistaril) 25 mg PO Q4H PRN PRN Reason: Anxiety Stop: 05/16/19 13:09 Hydroxyzine HCl (Vistaril) 50 mg PO HSZ PRN PRN Reason: Insomnia Stop: 05/16/19 13:09 Last Admin: 04/19/19 21:07 Dose: 50 mg Documented by: Levetiracetam (Keppra) 1,000 mg PO BID [facility] Stop: 05/16/19 20:59 Last Admin: 04/20/19 07:42 Dose: 1,000 mg Documented by: Lorazepam (Ativan) 1 mg PO Q4H PRN PRN Reason: Anxiety/Agitation Stop: 05/17/19 09:59 Lorazepam (Ativan) 2 mg IM Q4H PRN PRN Reason: Agitation Stop: 05/17/19 10:01 Magnesium Hydroxide (Milk Of Magnesia) 30 ml PO DAILY PRN PRN Reason: Heartburn Stop: 05/16/19 13:09 Miscellaneous (Remove Nicoderm Patch) 1 ea N/A HS [facility] Stop: 05/16/19 21:59 Last Admin: 04/19/19 21:11 Dose: Not Given Documented by: Nicotine (Nicoderm Cq) 21 mg TD QAM [facility] Stop: 05/17/19 08:59 Last Admin: 04/20/19 07:43 Dose: 21 mg Documented by: Nicotine Polacrilex (Nicorette 2mg) 1 piece MT UD PRN PRN Reason: Nicotine Withdrawal Stop: 05/16/19 13:21 Last Admin: 04/20/19 09:55 Dose: 1 piece Documented by: Paliperidone (Invega) 6 mg PO DAILY [facility] Stop: 04/23/19 08:59 Last Admin: 04/20/19 07:42 Dose: 6 mg Documented by: Paliperidone Palmitate (Invega Sustenna) 156 mg IM ONE ONE Stop: 04/23/19 12:01 Pantoprazole Sodium (Protonix) 40 mg PO QAM MESHA Stop: 05/17/19 08:59 Last Admin: 04/20/19 07:44 Dose: 40 mg Documented by: Sodium Chloride ([place] Nasal) 1 - 2 sprays NA PRN PRN PRN Reason: Nasal Dryness/Congestion Stop: 05/16/19 13:09 Mental Health & Subst Abuse Tx Stonecutter Assistant Name of Stonecutter Assistant: [facility] CPT Code CPT Code 32606 (1) Schizophrenia Schizophrenia type: paranoid schizophrenia Qualified Code(s): F20.0 - Paranoid schizophrenia (2) GERD (gastroesophageal reflux disease) Esophagitis presence: esophagitis presence not specified Qualified Code(s): K21.9 - Gastro-esophageal reflux disease without esophagitis
[2019-04-20] MEDS: ACETAMINOPHEN 325 MG TAB PO PRN (23:42)
[2019-04-21] MEDS: LORazepam 1 MG TAB PO PRN (00:38)
[2019-04-21] MEDS: ASPIRIN 325 MG ECTAB PO PRN (06:17)
[2019-04-21] MEDS: levETIRAcetam 500 MG TAB PO SCH ×2 (07:42→21:20)
[2019-04-21] MEDS: PANTOprazole 40 MG TAB PO SCH (07:43)
[2019-04-21] MEDS: PALIPERIDONE 3 MG TABCR PO SCH (07:43)
[2019-04-21] MEDS: NICOTINE 21 MG/24 HR TDSY TD SCH (07:44)
[2019-04-21] MEDS: CYANOCOBALAMIN (VITAMIN B-12) 100 MCG TABLET PO SCH (07:44)
[2019-04-21] MEDS ORDERED: HALOPERIDOL LACTATE 5 MG/ML 1 ML VIAL IM STA (11:01)
[2019-04-21] MEDS: ACETAMINOPHEN 325 MG TAB PO PRN ×2 (14:31→23:11)
[2019-04-21] MEDS: NICOTINE POLACRILEX 2 MG GUM MT PRN ×3 (14:31→21:20)
--- NOTE | 2019-04-21 17:54 | Psychiatric Progress Note ---
Date of Service April 21, 2019 Impression / Recommendations Impression 68-year-old male with schizophrenia and treatment noncompliance as an outpatient, who was admitted involuntarily due to delusions of persecution that his house is haunted and demons are chasing him, and that he and his children are in danger. He was initially admitted for observation on the medical floor from 04/14/19 - 04/16/19 due to nausea and vomiting, and was transferred to the behavioral health unit after medical clearance. He remains convinced that his house is occupied by evil spirits and demons, and initially stated that he cannot return there, and may burn his house down to take care of the problem, as he has not been able to contact a infection control manager to come to his home. His behaviors have been directed by his psychotic symptoms, as he had his (loaded) guns out (he says to have been blessed by a infection control manager), created a salt barrier around his house to protect it, and was sitting in his home with a shot gun and ammunition within reach when his director case arrived at his residence. He is stating he might need to burn his house down in order to get rid of the demons. Although he continues to endorse delusional thoughts, they are less distressing to him and he is no longer reporting an urgent need to get out of the hospital to address the demons, and has been able to start exploring alternative housing possibilities. He agreed to Invega Sustenna, and tolerated the first loading injection 04/19/2019 well, with the second injection scheduled for 04/23/2019. He had a family meeting with his son, but they have not been able/willing to come up with a plan to remove or secure the firearms. Additionally, his director case shared that the house is in very poor shape, with unsanitary conditions and that the office of aging has been involved. They are going to come interview the patient on the unit to see if he is eligible for any community services or assistance with housing. The patient has no outpatient care as he was fired for noncompliance, and social work is working on arranging discharge plans. As he remains at imminent risk of harm to both himself and others given his dangerous behavior as a result of his delusions and his threats to burn down his home to get rid of the demons, inpatient treatment is medically necessary. He is on a 303 involuntary commitment as of 04/19/2019. Today, the patient reiterates the assertions that he has been making ever since admission; namely that his home is infested or "haunted" by a demon that takes the form of a crocodile with a human head or face. The context for this is the fact that the patient reports that he has a history of grand mal seizures (although in the past he has been given a diagnosis of pseudoseizures) and the fact that he acknowledges that he reports that he has been drinking heavily in order to soothe his nerves because of the tear he associates with his visions of the demon. He has absolutely no insight into his condition and insists that there is nothing wrong with him. He also becomes very angry when told that he cannot be discharged to go home to attend his granddaughter's birthday republican tomorrow, and although he says he has not seen his granddaughter in over 3 years, he somehow insists that it is essential that he leaves to see her on her birthday tomorrow. The patient's visions of demons may have something to do with his chronic misuse of alcohol. It also may reflect partial complex seizures. He refused intramuscular medications. He is oriented, and I do not strongly suspect Korsakoff's, but I am offering him a trial of multivitamins and thiamine (orally). I am also increasing his dose of Keppra. I offered the patient a trial of haloperidol because, in the past, he apparently has responded favorably to this medication. However, after initially accepting it he declined to take it and angrily told me "you might be trying to poison me." Clearly, this patient remains dangerous and in need of inpatient psychiatric hospitalization as the least restrictive, least intensive level of care consistent with his safety and his clinical needs. (1) Schizophrenia: 04/17 - Admitted to a locked inpatient behavioral health unit, on q15 minute safety checks - Paliperidone 3mg initiated on medical floor and continued on admission; recommend titration to 6mg starting tomorrow morning - PRN haloperidol and lorazepam available as needed for agitation/psychosis - Encourage participation in group and recreational therapies - Gather collateral information from outpatient providers - Suggest family meeting to involve outpatient supports in safety planning - Arrange appropriate aftercare 04/18 -Paliperidone increased to 6 mg daily today. -Fasting glucose elevated 108, fasting lipid profile notable for triglycerides 303 and cholesterol 228. -File for 303 involuntary commitment with hearing tomorrow. -Refer for outpatient psychiatric care and therapy. 04/19 -303 granted. -Patient agrees to start Invega Sustenna; give first loading dose of 234 mg IM today, and order the second loading dose of 156 mg IM in 4 days (04/23/2019). Oral paliperidone can then be discontinued. -Refer for outpatient care. Patient indicates that even if he moves to [place] to live with his other son, he will stay in the area until May. He will need psychiatric aftercare and has been referred to Dr. Vela. 04/20 -The [facility] office of aging is coming to assess the patient today to see if he is eligible for any of the community support services. -Social work to contact his son to confirm that firearms have been secured, given the safety risk with the patient's active delusions and access to multiple loaded weapons. 04/21 -There is some indication that the patient has responded favorably to haloperidol in the past. The presenting symptoms reportedly developed within the context of not adherence with his outpatient psychiatric medications. I offered the patient a trial of haloperidol today in the hope that this might help improve the patient's disorganized thinking and his fixed delusional beliefs. However he declined a dose of haloperidol after initially agreeing to take it, and explained that he was afraid that I would "poison" or "overdose" him. -Visual hallucinations, while certainly possible and schizophrenia and schizoaffective disorder, R's far less common than auditory hallucinations. It is not clear if the patient is ever experienced visual hallucinations in the past, and once he becomes under better behavioral control an option might be to obtain imaging studies of his brain to rule out other pathologies. -Also, the patient reports that he has been drinking heavily recently. He is known to have a history of alcohol abuse and it is possible that the visual hallucinations are associated with alcohol use disorder. He is not showing evidence of alcohol withdrawal at this point, and there is no strong suspicion of Korsakoff syndrome, but I am offering him a dose of thiamine 200 mg by mouth and daily multivitamins. -The patient's lability has improved somewhat and in that sense he may be responding to Invega. I am not recommending an increase in his dose of Invega at this time, but we may titrate further over the course of the next several days, depending on tolerance and response. (2) Seizure disorder: 04/17 - Continue home dose of levetiracetam 1000mg BID - Neurology referral and EEG were not felt to be indicated during medical admission - Levetiracetam level ordered on medical floor is still pending - Seizure precautions - Neurology service unclear, as recent PCP documentation suggest patient had requested switch from [facility] to [facility] - referral was documented in outpatient appointment notes 04/18-04/19 -Levetiracetam level still pending. 04/20 -Levetiracetam level 18.4, within the therapeutic range. 04/21 -The patient's levetiracetam level, as measured yesterday, is at the low end of the therapeutic range. I have increased his dose of this medication to a dose of 1500 mg twice a day from the previous dose of 1000 mg twice a day. -The patient's presentation with prominent visual hallucinations is generally not considered common among individuals who are suffering from schizophrenia or from schizoaffective disorder. Although the patient denies any history of head injury, he tells us that he has been having seizures since the age of about 37, and it may be that his "visions" of "demons" is a function of partial complex seizures. Of note is the fact the patient says that he has not seen the city [facility]. (3) Tobacco abuse: 04/17 - Pt reports daily use of chewing tobacco; nicotine replacement products of Nicorette gum and nicotine patch will be available for use as needed for treatment of nicotine withdrawal (4) GERD (gastroesophageal reflux disease): 04/17 - Continue 40mg of pantoprazole, as initiated on the medical floor prior to admission (5) Alcohol abuse: 04/17 - Per medical admission, reports drinking 4 alcoholic beverages daily - Remains on AWSS; has not yet scored - Treated during medical admission - Vitamin B12 daily as level slight low; folate level reportedly WNL; given banana bag at admission - Pt unable to participate in sufficient conversation to review thoughts on his alcohol use or current standing on desire to abstain from use 04/18 - Brief intervention was offered and refused Risk Factors Assessment Male: Yes : Yes Do You Have Access To A Gun?: Yes (was planning to have his shotgun blessed by a infection control manager prior to admission) Mental Health Diagnoses: Yes Substance Use Disorders: Yes Previous Attempt: Yes Previous Psychiatric Hospitalization: Yes Hopelessness: Yes Protective Factors Assessment Holiness Beliefs: Yes : No Responsible for Young Children: No Employed: No Stable Relationships: Yes Supportive Family: Yes Interval History Identifying Information TRINO SAUER is a 68-year-old M who currently lives in [place], [place] with his son, has a history of schizophrenia, and was admitted on 04/16/19 13:19 on a 302 involuntary commitment for delusional behavior following a brief stay on the medical floor for vomiting (04/14/19 - 04/16/19). Pt was transferred to our unit [facility] medical clearance for treatment of his delusional behavior, with history of medication non-compliance and rather limited outpatient supports. Chief Complaint "There are demons in my house. I need someone to bless my gun." Review of Systems Sleep Information Total Hours of Sleep: 2 Sleep Comments: medicated with tylenol(headache),vistaril and ativan for anxiety/sleep aid. wet the front of his hospital scrubs when incontinent/attem pting to void in the toilet. clean clothes provided Meal Information Percent Meal Consumed - Breakfast: 100 Percent Meal Consumed - Lunch: 100 Percent Meal Consumed - Dinner: 100 Subjective Subjective Patient was seen & assessed and interval progress reviewed with treatment team. I met individually with the patient at some length in order to assess his current mental status, evaluate his response to treatment, coordinate any necessary changes in the patient's medication regimen with the patient, and address issues and concerns that may arise. The patient immediately tells me upon entering the office that he needs someone to come by his home and "bless" his gun" because he needs to "shoot a demon" that is currently "haunting" his home." He tells me that he can fully see the demon and that takes the form of a "tannish green crocodile, with kind of a human face." The patient also states that he sees the demon force his way in through the front door, and that often the demons stands over him and "glares at him." He admits that this "demon" has never caused him any physical harm, but he finds that it is extremely disturbing, interferes with his sleep, and caused him to feel inferior of his life. Information obtained today from the patient's family indicate that other persons in the family, including the son who lives with him, also believe that the home is haunted. The adult son who lives with the patient reportedly can hear, but has never seen the demon. The patient insists that another 1 of his sons, a man who lives near by, can both see and hear the demon. The patient tells me that this infestation started several months ago. He spontaneously asked me today if I knew where he could find a "Voodoo gnosticism," and a "Voodoo metal mockup maker" who could come by his house with a "Star of Trino" and join a infection control manager in exercising the demon from the home. (The patient confirmed when asked that he meant a episcopal and the rabbi.) Further, the patient stated that, "as a last resort," he might have to burn the house to the ground. When I asked him if he could understand that other people are worried about his threats of "shooting demons" in his house because of the wrist other persons, the patient summarily dismissed the concerns by saying, "do not you think I can tell the difference between a demon and a person?" I attempted to say that, perhaps the door, he might accidentally shoot his son or some other relative, and he said that he would not shoot until he had made a positive identified patient and only if the demon refused to leave the house. He he does not really wish to have to burn the house down and, instead, would prefer to find a different place to live, although he feels certain that the demon might follow him to any new location. He adds, "I went to a motel one time to try to get away from the demon, and it followed me straight to the motel." However, he tells me the edema has not appeared to him here in the hospital. The patient tells me that he has a history of grand mal seizures. Old records mention a history of pseudoseizures. He is taking Keppra 1000 mg twice a day for seizures and he tells me that he believes that this medication has been effective in preventing "full-blown seizures." Information obtained from an outside clinical provider is that the patient's condition improved considerably from what we are seeing and that this is not his baseline. The patient at first tells me that he was taking his psychiatric medications prior to admission, but then when asked about his antiseizure medicine, he said "that is the one that I was taking." Also of possible clinical significance is the patient's report that he does "a lot" of drinking in order to cope with "the demon. I do it at night, a lot, so I can go to sleep even of the demons watching me." He reports no history of head injury. Physical Exam Psychiatric Orientation: oriented x 3 Apperance: appropriately groomed Eye Contact: + fair eye contact Motor Behavior: steady gait and station Speech: + pressured speech (Mildly) and + loud speech Affect: + labile affect "My mood is fine. I just got to get that demon out of my house." Thought Process: + looseness of associations and + perseveration Thought Content: + delusions Suicidal Thoughts: denies suicidal thoughts and denies suicidal plan Homicidal Thoughts: denies homicidal thoughts However, the patient talks freely of planning to have his gun blast at home so that he can shoot what he believes to be a demon that has come to haunt his house. He seems to have no understanding that he cannot safely shoot a gun inside the home and, therein, he runs a risk of accidentally shooting a family member or someone else. Hallucinations: + auditory hallucinations and + visual hallucinations The patient tells me that he can sometimes hear the demon moving about in his apartment. He also tells me that he sometimes can hear the demon "growl." However, he notes that the demon does not tend to talk to him. The patient's cognitive functioning was difficult to assess. Estimated Intelligence: average estimated intelligence Insight: + severely impaired insight Judgement: + severely impaired judgement Vital Signs (Past 24 Hours) Last Vital Signs Temp 37.1 C 04/21/19 06:00 Pulse 111 H 04/21/19 06:43 Resp 18 04/21/19 06:00 BP 135/85 04/21/19 06:43 Results & Data Current Inpatient Medications Current Inpatient Medications: Current Inpatient Medications Acetaminophen (Tylenol) 650 mg PO Q4H PRN PRN Reason: Headache or Minor Fever Stop: 05/16/19 13:09 Last Admin: 04/21/19 14:31 Dose: 650 mg Documented by: Al Hydrox/Mg Hydrox/Simethicone (Maalox) 30 ml PO Q4H PRN PRN Reason: GI Upset Stop: 05/16/19 13:09 Aspirin (Ecotrin) 650 mg PO Q6H PRN PRN Reason: pain Stop: 05/18/19 14:59 Last Admin: 04/21/19 06:17 Dose: 650 mg Documented by: Benztropine Mesylate (Cogentin) 0.5 mg PO Q6 PRN PRN Reason: Muscle Spasm Stop: 05/16/19 13:27 Benztropine Mesylate (Cogentin) 1 mg PO HS PRN PRN Reason: muscle spasm/dystonia Stop: 05/19/19 08:01 Last Admin: 04/19/19 23:34 Dose: 1 mg Documented by: Bismuth Subsalicylate (Kaopectate) 15 ml PO PRN PRN PRN Reason: Loose Stool Stop: 05/16/19 13:09 Last Admin: 04/18/19 14:47 Dose: 15 ml Documented by: Cyanocobalamin (Vitamin B-12) 100 mcg PO QAM MESHA Stop: 05/17/19 08:59 Last Admin: 04/21/19 07:44 Dose: 100 mcg Documented by: Haloperidol (Haldol) 5 mg PO Q6 PRN PRN Reason: Agitation Stop: 05/16/19 13:27 Last Admin: 04/17/19 10:11 Dose: 5 mg Documented by: Haloperidol Lactate (Haldol) 5 mg IM Q4H PRN PRN Reason: Agitation Stop: 05/17/19 10:00 Hydroxyzine HCl (Vistaril) 25 mg PO Q4H PRN PRN Reason: Anxiety Stop: 05/16/19 13:09 Hydroxyzine HCl (Vistaril) 50 mg PO HSZ PRN PRN Reason: Insomnia Stop: 05/16/19 13:09 Last Admin: 04/21/19 00:10 Dose: 50 mg Documented by: Levetiracetam (Keppra) 1,500 mg PO BID [facility] Stop: 05/21/19 20:59 Lorazepam (Ativan) 1 mg PO Q4H PRN PRN Reason: Anxiety/Agitation Stop: 05/17/19 09:59 Last Admin: 04/21/19 00:38 Dose: 1 mg Documented by: Lorazepam (Ativan) 2 mg IM Q4H PRN PRN Reason: Agitation Stop: 05/17/19 10:01 Magnesium Hydroxide (Milk Of Magnesia) 30 ml PO DAILY PRN PRN Reason: Heartburn Stop: 05/16/19 13:09 Miscellaneous (Remove Nicoderm Patch) 1 ea N/A HS MESHA Stop: 05/16/19 21:59 Last Admin: 04/20/19 21:29 Dose: Not Given Documented by: Multivitamins (Multivitamin Tab) 1 tab PO QAM MESHA Stop: 05/22/19 08:59 Nicotine (Nicoderm Cq) 21 mg TD QAM MESHA Stop: 05/17/19 08:59 Last Admin: 04/21/19 07:44 Dose: 21 mg Documented by: Nicotine Polacrilex (Nicorette 2mg) 1 piece MT UD PRN PRN Reason: Nicotine Withdrawal Stop: 05/16/19 13:21 Last Admin: 04/21/19 16:35 Dose: 1 piece Documented by: Paliperidone (Invega) 6 mg PO DAILY MESHA Stop: 04/23/19 08:59 Last Admin: 04/21/19 07:43 Dose: 6 mg Documented by: Paliperidone Palmitate (Invega Sustenna) 156 mg IM ONE ONE Stop: 04/23/19 12:01 Pantoprazole Sodium (Protonix) 40 mg PO QAM [facility] Stop: 05/17/19 08:59 Last Admin: 04/21/19 07:43 Dose: 40 mg Documented by: Sodium Chloride ([place] Nasal) 1 - 2 sprays NA PRN PRN PRN Reason: Nasal Dryness/Congestion Stop: 05/16/19 13:09 Thiamine HCl (Vitamin B-1) 200 mg PO QAM [facility] Stop: 05/22/19 08:59 Mental Health & Subst Abuse Tx Psychiatrist Name of Psychiatrist: [facility] - Dr. Vela Date of Appointment with Psychiatrist: 05/30/19 Time of Appointment with Psychiatrist: 12pm [facility] Name of [facility]: [facility] CPT Code CPT Code 84015 (1) Schizophrenia Schizophrenia type: paranoid schizophrenia Qualified Code(s): F20.0 - Paranoid schizophrenia (2) GERD (gastroesophageal reflux disease) Esophagitis presence: esophagitis presence not specified Qualified Code(s): K21.9 - Gastro-esophageal reflux disease without esophagitis
[2019-04-21] MEDS: BENZTROPINE MESYLATE 1 MG TAB PO PRN (18:31)
[2019-04-22] MEDS ORDERED: BENZTROPINE MESYLATE 1 MG TAB PO STA (00:37)
[2019-04-22] MEDS: HALOPERIDOL 5 MG TAB PO PRN (00:56)
[2019-04-22] MEDS: LORazepam 1 MG TAB PO PRN (00:56)
--- NOTE | 2019-04-22 08:58 | Psychiatric Progress Note ---
Date of Service April 22, 2019 Impression / Recommendations Impression 68-year-old male with schizophrenia and treatment noncompliance as an outpatient, who was admitted involuntarily due to delusions of persecution that his house is haunted and demons are chasing him, and that he and his children are in danger. He was initially admitted for observation on the medical floor from 04/14/19 - 04/16/19 due to nausea and vomiting, and was transferred to the behavioral health unit after medical clearance. He remains convinced that his house is occupied by evil spirits and demons, and initially stated that he cannot return there, needed multiple guns so that he could shoot the demons if they came, and may burn his house down to take care of the problem, as he has not been able to contact a train announcer to come to his home. His behaviors have been directed by his psychotic symptoms, as he had his (loaded) guns out (he says to have been blessed by a train announcer), created a salt barrier around his house to protect it, and was sitting in his home with a shot gun and ammunition within reach when his case reviewer arrived at his residence. He initially appeared to improve here, but last night was experiencing visual hallucinations, and became agitated, stating the demon was here and was after him. He ultimately received Haldol and Ativan. He agreed to Invega Sustenna, and tolerated the first loading injection 04/19/2019 well, with the second injection scheduled for 04/23/2019. He had a family meeting with his son, but they have not been able/willing to come up with a plan to remove or secure the firearms. Additionally, his case reviewer shared that the house is in very poor shape, with unsanitary conditions and that the office of aging has been involved. Social work and his outpatient case reviewer has been exploring alternative housing possibilities, with no good options thus far. The patient has no outpatient care as he was fired for noncompliance, and social work is working on arranging discharge plans. As he remains at imminent risk of harm to both himself and others given his dangerous behavior as a result of his delusions and his threats to shoot demons in his home and to burn down his home to get rid of the demons, inpatient treatment is medically necessary. He is on a 303 involuntary commitment as of 04/19/2019. (1) Schizophrenia: 04/17 - Admitted to a locked inpatient behavioral health unit, on q15 minute safety checks - Paliperidone 3mg initiated on medical floor and continued on admission; recommend titration to 6mg starting tomorrow morning - PRN haloperidol and lorazepam available as needed for agitation/psychosis - Encourage participation in group and recreational therapies - Gather collateral information from outpatient providers - Suggest family meeting to involve outpatient supports in safety planning - Arrange appropriate aftercare 04/18 -Paliperidone increased to 6 mg daily today. -Fasting glucose elevated 108, fasting lipid profile notable for triglycerides 303 and cholesterol 228. -File for 303 involuntary commitment with hearing tomorrow. -Refer for outpatient psychiatric care and therapy. 04/19 -303 granted. -Patient agrees to start Invega Sustenna; give first loading dose of 234 mg IM today, and order the second loading dose of 156 mg IM in 4 days (04/23/2019). Oral paliperidone can then be discontinued. -Refer for outpatient care. Patient indicates that even if he moves to [place] to live with his other son, he will stay in the area until May. He will need psychiatric aftercare and has been referred to Dr. Vela. 04/20 -The [facility] office of aging is coming to assess the patient today to see if he is eligible for any of the community support services. -Social work to contact his son to confirm that firearms have been secured, given the safety risk with the patient's active delusions and access to multiple loaded weapons. 04/21 -There is some indication that the patient has responded favorably to haloperidol in the past. The presenting symptoms reportedly developed within the context of not adherence with his outpatient psychiatric medications. I offered the patient a trial of haloperidol today in the hope that this might help improve the patient's disorganized thinking and his fixed delusional beliefs. However he declined a dose of haloperidol after initially agreeing to take it, and explained that he was afraid that I would "poison" or "overdose" him. -Visual hallucinations, while certainly possible and schizophrenia and schizoaffective disorder, R's far less common than auditory hallucinations. It is not clear if the patient is ever experienced visual hallucinations in the past, and once he becomes under better behavioral control an option might be to obtain imaging studies of his brain to rule out other pathologies. -Also, the patient reports that he has been drinking heavily recently. He is known to have a history of alcohol abuse and it is possible that the visual hallucinations are associated with alcohol use disorder. He is not showing evidence of alcohol withdrawal at this point, and there is no strong suspicion of Korsakoff syndrome, but I am offering him a dose of thiamine 200 mg by mouth and daily multivitamins. -The patient's lability has improved somewhat and in that sense he may be responding to Invega. I am not recommending an increase in his dose of Invega at this time, but we may titrate further over the course of the next several days, depending on tolerance and response. 04/22 -Continue current medication, to receive second Invega Sustenna loading dose tomorrow. (2) Seizure disorder: 04/17 - Continue home dose of levetiracetam 1000mg BID - Neurology referral and EEG were not felt to be indicated during medical admission - Levetiracetam level ordered on medical floor is still pending - Seizure precautions - Neurology service unclear, as recent PCP documentation suggest patient had requested switch from [facility] [place] [facility] [place] referral was documented in outpatient appointment notes 04/18-04/19 -Levetiracetam level still pending. 04/20 -Levetiracetam level 18.4, within the therapeutic range. 04/21 -The patient's levetiracetam level, as measured yesterday, is at the low end of the therapeutic range. I have increased his dose of this medication to a dose of 1500 mg twice a day from the previous dose of 1000 mg twice a day. -The patient's presentation with prominent visual hallucinations is generally not considered common among individuals who are suffering from schizophrenia or from schizoaffective disorder. Although the patient denies any history of head injury, he tells us that he has been having seizures since the age of about 37, and it may be that his "visions" of "demons" is a function of partial complex seizures. Of note is the fact the patient says that he has not seen the [facility]. (3) Tobacco abuse: 04/17 - Pt reports daily use of chewing tobacco; nicotine replacement products of Nicorette gum and nicotine patch will be available for use as needed for treatment of nicotine withdrawal (4) GERD (gastroesophageal reflux disease): 8/5 - Continue 40mg of pantoprazole, as initiated on the medical floor prior to admission (5) Alcohol abuse: 04/17 - Per medical admission, reports drinking 4 alcoholic beverages daily - Remains on AWSS; has not yet scored - Treated during medical admission - Vitamin B12 daily as level slight low; folate level reportedly WNL; given banana bag at admission - Pt unable to participate in sufficient conversation to review thoughts on his alcohol use or current standing on desire to abstain from use 04/18 - Brief intervention was offered and refused Risk Factors Assessment Male: Yes : Yes Do You Have Access To A Gun?: Yes (was planning to have his shotgun blessed by a train announcer prior to admission) Mental Health Diagnoses: Yes Substance Use Disorders: Yes Previous Attempt: Yes Previous Psychiatric Hospitalization: Yes Hopelessness: Yes Protective Factors Assessment Gnosticism Beliefs: Yes : No Responsible for Young Children: No Employed: No Stable Relationships: Yes Supportive Family: Yes Interval History Identifying Information EMMA SAUER is a 68-year-old M who currently lives in [place], [place] with his son, has a history of schizophrenia, and was admitted on 04/16/19 13:19 on a 302 involuntary commitment for delusional behavior following a brief stay on the medical floor for vomiting (04/14/19 - 04/16/19). Pt was transferred to our unit upon medical clearance for treatment of his delusional behavior, with history of medication non-compliance and rather limited outpatient supports. Chief Complaint "Well, I'd be a lot better off without a headache". Review of Systems Sleep Information Total Hours of Sleep: 5.5 Meal Information Percent Meal Consumed - Breakfast: 100 Percent Meal Consumed - Lunch: 100 Percent Meal Consumed - Dinner: 100 Subjective Subjective Patient was seen & assessed and interval progress reviewed with nursing and social work. Staff report he had a difficult night, was agitated, reporting auditory and visual hallucinations of a cat, voices, and demon and was fearful, and had to use the quiet room to decrease stimulation. He has been spreading salt around to keep the demons out. He believed Haldol and Lorazepam, and was moved to a private room. His case reviewer reported that no housing options have been found and they are now exploring shelters. He also received additional benztropine due to reports that his tongue was numb and he was having difficulty talking and swallowing. On my assessment, he was seen in the safe room, where he was resting in bed, having slept much of the morning. He says "that josie watson was here. No one else believed to me." He says it "looked like a possum in the body, with the head of a dog and a little river tail." He denies seeing any demons now, but remains fearful that they will come back or will try to harm him. Physical Exam Psychiatric Orientation: alert and cooperative Apperance: + disheveled and appeared stated age Unkempt, malodorous Eye Contact: + poor eye contact Motor Behavior: steady gait and station and no abnormal motor movements Mumbling speech, difficult to understand at times Affect: + blunted affect "Could be better." Thought Process: + concrete thought process and + incoherent thought process (At times) Thought Content: + paranoid, + delusions and + persecution Suicidal Thoughts: denies suicidal thoughts Homicidal Thoughts: denies homicidal thoughts Hallucinations: + auditory hallucinations and + visual hallucinations Cognition: attention grossly intact Insight: + severely impaired insight Judgement: + severely impaired judgement Vital Signs (Past 24 Hours) Last Vital Signs Temp 36.5 C 04/22/19 06:34 Pulse 103 H 04/22/19 06:35 Resp 20 04/22/19 06:34 BP 135/88 04/22/19 06:35 Results & Data Current Inpatient Medications Current Inpatient Medications: Current Inpatient Medications Acetaminophen (Tylenol) 650 mg PO Q4H PRN PRN Reason: Headache or Minor Fever Stop: 05/16/19 13:09 Last Admin: 04/21/19 23:11 Dose: 650 mg Documented by: Al Hydrox/Mg Hydrox/Simethicone (Maalox) 30 ml PO Q4H PRN PRN Reason: GI Upset Stop: 05/16/19 13:09 Aspirin (Ecotrin) 650 mg PO Q6H PRN PRN Reason: pain Stop: 05/18/19 14:59 Last Admin: 04/21/19 06:17 Dose: 650 mg Documented by: Benztropine Mesylate (Cogentin) 0.5 mg PO Q6 PRN PRN Reason: Muscle Spasm Stop: 05/16/19 13:27 Last Admin: 04/21/19 17:41 Dose: 0.5 mg Documented by: Benztropine Mesylate (Cogentin) 1 mg PO HS PRN PRN Reason: muscle spasm/dystonia Stop: 05/19/19 08:01 Last Admin: 04/21/19 18:31 Dose: 1 mg Documented by: Bismuth Subsalicylate (Kaopectate) 15 ml PO PRN PRN PRN Reason: Loose Stool Stop: 05/16/19 13:09 Last Admin: 04/18/19 14:47 Dose: 15 ml Documented by: Cyanocobalamin (Vitamin B-12) 100 mcg PO QAM MESHA Stop: 05/17/19 08:59 Last Admin: 04/21/19 07:44 Dose: 100 mcg Documented by: Haloperidol (Haldol) 5 mg PO Q6 PRN PRN Reason: Agitation Stop: 05/16/19 13:27 Last Admin: 04/22/19 00:56 Dose: 5 mg Documented by: Haloperidol Lactate (Haldol) 5 mg IM Q4H PRN PRN Reason: Agitation Stop: 05/17/19 10:00 Hydroxyzine HCl (Vistaril) 25 mg PO Q4H PRN PRN Reason: Anxiety Stop: 05/16/19 13:09 Hydroxyzine HCl (Vistaril) 50 mg PO HSZ PRN PRN Reason: Insomnia Stop: 05/16/19 13:09 Last Admin: 04/22/19 00:00 Dose: 50 mg Documented by: Levetiracetam (Keppra) 1,500 mg PO BID MESHA Stop: 05/21/19 20:59 Last Admin: 04/21/19 21:20 Dose: 1,500 mg Documented by: Lorazepam (Ativan) 1 mg PO Q4H PRN PRN Reason: Anxiety/Agitation Stop: 05/17/19 09:59 Last Admin: 04/22/19 00:56 Dose: 1 mg Documented by: Lorazepam (Ativan) 2 mg IM Q4H PRN PRN Reason: Agitation Stop: 05/17/19 10:01 Magnesium Hydroxide (Milk Of Magnesia) 30 ml PO DAILY PRN PRN Reason: Heartburn Stop: 05/16/19 13:09 Miscellaneous (Remove Nicoderm Patch) 1 ea N/A HS MESHA Stop: 05/16/19 21:59 Last Admin: 04/21/19 21:22 Dose: Not Given Documented by: Multivitamins (Multivitamin Tab) 1 tab PO QAM MESHA Stop: 05/22/19 08:59 Nicotine (Nicoderm Cq) 21 mg TD QAM MESHA Stop: 05/17/19 08:59 Last Admin: 04/21/19 07:44 Dose: 21 mg Documented by: Nicotine Polacrilex (Nicorette 2mg) 1 piece MT UD PRN PRN Reason: Nicotine Withdrawal Stop: 05/16/19 13:21 Last Admin: 04/21/19 21:20 Dose: 1 piece Documented by: Paliperidone (Invega) 6 mg PO DAILY MESHA Stop: 04/23/19 08:59 Last Admin: 04/21/19 07:43 Dose: 6 mg Documented by: Paliperidone Palmitate (Invega Sustenna) 156 mg IM ONE ONE Stop: 04/23/19 12:01 Pantoprazole Sodium (Protonix) 40 mg PO QAM MESHA Stop: 05/17/19 08:59 Last Admin: 04/21/19 07:43 Dose: 40 mg Documented by: Sodium Chloride ([place] Nasal) 1 - 2 sprays NA PRN PRN PRN Reason: Nasal Dryness/Congestion Stop: 05/16/19 13:09 Thiamine HCl (Vitamin B-1) 200 mg PO QAM MESHA Stop: 05/22/19 08:59 Mental Health & Subst Abuse Tx Psychiatrist Name of Psychiatrist: [facility] - Dr. Vela Date of Appointment with Psychiatrist: 05/30/19 Time of Appointment with Psychiatrist: 12pm Integration Specialist Name of Integration Specialist: [facility] CPT Code CPT Code 96641 (1) Schizophrenia Schizophrenia type: paranoid schizophrenia Qualified Code(s): F20.0 - Paranoid schizophrenia (2) GERD (gastroesophageal reflux disease) Esophagitis presence: esophagitis presence not specified Qualified Code(s): K21.9 - Gastro-esophageal reflux disease without esophagitis
[2019-04-22] MEDS: PALIPERIDONE 3 MG TABCR PO SCH (09:17)
[2019-04-22] MEDS: MULTIVITAMIN TAB PO SCH (09:18)
[2019-04-22] MEDS: levETIRAcetam 500 MG TAB PO SCH ×2 (09:18→21:13)
[2019-04-22] MEDS: PANTOprazole 40 MG TAB PO SCH (09:19)
[2019-04-22] MEDS: THIAMINE HCL 100 MG TAB PO SCH (09:19)
[2019-04-22] MEDS: CYANOCOBALAMIN (VITAMIN B-12) 100 MCG TABLET PO SCH (09:20)
[2019-04-22] MEDS: NICOTINE 21 MG/24 HR TDSY TD SCH (09:21)
[2019-04-22] MEDS: ASPIRIN 325 MG ECTAB PO PRN (11:21)
[2019-04-22] MEDS: NICOTINE POLACRILEX 2 MG GUM MT PRN ×3 (14:07→19:06)
[2019-04-22] MEDS: ACETAMINOPHEN 325 MG TAB PO PRN (16:34)
[2019-04-22] MEDS: ALUMINUM/MAGNESIUM SUSP 30 ML UDC PO PRN ×2 (17:09→21:58)
[2019-04-23] MEDS: ASPIRIN 325 MG ECTAB PO PRN ×2 (00:28→09:39)
--- NOTE | 2019-04-23 08:13 | Psychiatric Progress Note ---
Date of Service April 23, 2019 Impression / Recommendations Impression 68-year-old male with schizophrenia and treatment noncompliance as an outpatient, who was admitted involuntarily due to delusions of persecution that his house is haunted and demons are chasing him, and that he and his children are in danger. He was initially admitted for observation on the medical floor from 04/14/19 - 04/16/19 due to nausea and vomiting, and was transferred to the behavioral health unit after medical clearance. He remains convinced that his house is occupied by evil spirits and demons, and initially stated that he cannot return there, needed multiple guns so that he could shoot the demons if they came, and may burn his house down to take care of the problem, as he has not been able to contact a mohs surgeon/general dermatologist to come to his home. His behaviors have been directed by his psychotic symptoms, as he had his (loaded) guns out (he says to have been blessed by a mohs surgeon/general dermatologist), created a salt barrier around his house to protect it, and was sitting in his home with a shot gun and ammunition within reach when his heel caser arrived at his residence. He initially appeared to improve here, but last night was experiencing visual hallucinations, and became agitated, stating the demon was here and was after him. He ultimately received Haldol and Ativan. He agreed to Invega Sustenna, and tolerated the first loading injection 04/19/2019 well, with the second injection scheduled for today. He had a family meeting with his son, but they have not been able/willing to come up with a plan to remove or secure the firearms. Additionally, his heel caser shared that the house is in very poor shape, with unsanitary conditions and that the office of aging has been involved. Social work and his outpatient heel caser has been exploring alternative housing possibilities, with no good options thus far. The patient has no outpatient care as he was fired for noncompliance, and social work is working on arranging discharge plans. As he remains at imminent risk of harm to both himself and others given his dangerous behavior as a result of his delusions and his threats to shoot demons in his home and to burn down his home to get rid of the demons, inpatient treatment is medically necessary. He is on a 303 involuntary commitment as of 04/19/2019. (1) Schizophrenia: 04/17 - Admitted to a locked inpatient behavioral health unit, on q15 minute safety checks - Paliperidone 3mg initiated on medical floor and continued on admission; recommend titration to 6mg starting tomorrow morning - PRN haloperidol and lorazepam available as needed for agitation/psychosis - Encourage participation in group and recreational therapies - Gather collateral information from outpatient providers - Suggest family meeting to involve outpatient supports in safety planning - Arrange appropriate aftercare 04/18 -Paliperidone increased to 6 mg daily today. -Fasting glucose elevated 108, fasting lipid profile notable for triglycerides 303 and cholesterol 228. -File for 303 involuntary commitment with hearing tomorrow. -Refer for outpatient psychiatric care and therapy. 04/19 -303 granted. -Patient agrees to start Invega Sustenna; give first loading dose of 234 mg IM today, and order the second loading dose of 156 mg IM in 4 days (04/23/2019). Oral paliperidone can then be discontinued. -Refer for outpatient care. Patient indicates that even if he moves to [place] to live with his other son, he will stay in the area until May. He will need psychiatric aftercare and has been referred to Dr. Vela. 04/20 -The [facility] office of aging is coming to assess the patient today to see if he is eligible for any of the community support services. -Social work to contact his son to confirm that firearms have been secured, given the safety risk with the patient's active delusions and access to multiple loaded weapons. 04/21 -There is some indication that the patient has responded favorably to haloperidol in the past. The presenting symptoms reportedly developed within the context of not adherence with his outpatient psychiatric medications. I offered the patient a trial of haloperidol today in the hope that this might help improve the patient's disorganized thinking and his fixed delusional beliefs. However he declined a dose of haloperidol after initially agreeing to take it, and explained that he was afraid that I would "poison" or "overdose" him. -Visual hallucinations, while certainly possible and schizophrenia and schizoaffective disorder, R's far less common than auditory hallucinations. It is not clear if the patient is ever experienced visual hallucinations in the past, and once he becomes under better behavioral control an option might be to obtain imaging studies of his brain to rule out other pathologies. -Also, the patient reports that he has been drinking heavily recently. He is known to have a history of alcohol abuse and it is possible that the visual hallucinations are associated with alcohol use disorder. He is not showing evidence of alcohol withdrawal at this point, and there is no strong suspicion of Korsakoff syndrome, but I am offering him a dose of thiamine 200 mg by mouth and daily multivitamins. -The patient's lability has improved somewhat and in that sense he may be responding to Invega. I am not recommending an increase in his dose of Invega at this time, but we may titrate further over the course of the next several days, depending on tolerance and response. 04/22 -Continue current medication, to receive second Invega Sustenna loading dose tomorrow. 04/22 -Second Invega Sustenna loading dose, discontinue oral Invega. -Continue to work on discharge plans, will need to contact his outpatient heel caser tomorrow to review available options. (2) Seizure disorder: 04/17 - Continue home dose of levetiracetam 1000mg BID - Neurology referral and EEG were not felt to be indicated during medical admission - Levetiracetam level ordered on medical floor is still pending - Seizure precautions - Neurology service unclear, as recent PCP documentation suggest patient had requested switch from [facility] to [facility] - referral was documented in outpatient appointment notes 04/18-04/19 -Levetiracetam level still pending. 04/20 -Levetiracetam level 18.4, within the therapeutic range. 04/21 -The patient's levetiracetam level, as measured yesterday, is at the low end of the therapeutic range. I have increased his dose of this medication to a dose of 1500 mg twice a day from the previous dose of 1000 mg twice a day. -The patient's presentation with prominent visual hallucinations is generally not considered common among individuals who are suffering from schizophrenia or from schizoaffective disorder. Although the patient denies any history of head injury, he tells us that he has been having seizures since the age of about 37, and it may be that his "visions" of "demons" is a function of partial complex seizures. Of note is the fact the patient says that he has not seen the [facility]. (3) Tobacco abuse: 04/17 - Pt reports daily use of chewing tobacco; nicotine replacement products of Nicorette gum and nicotine patch will be available for use as needed for treatment of nicotine withdrawal (4) GERD (gastroesophageal reflux disease): 04/17 - Continue 40mg of pantoprazole, as initiated on the medical floor prior to admission (5) Alcohol abuse: 04/17 - Per medical admission, reports drinking 4 alcoholic beverages daily - Remains on AWSS; has not yet scored - Treated during medical admission - Vitamin B12 daily as level slight low; folate level reportedly WNL; given banana bag at admission - Pt unable to participate in sufficient conversation to review thoughts on his alcohol use or current standing on desire to abstain from use 04/18 - Brief intervention was offered and refused Risk Factors Assessment Male: Yes : Yes Do You Have Access To A Gun?: Yes (was planning to have his shotgun blessed by a mohs surgeon/general dermatologist prior to admission) Mental Health Diagnoses: Yes Substance Use Disorders: Yes Previous Attempt: Yes Previous Psychiatric Hospitalization: Yes Hopelessness: Yes Protective Factors Assessment Jehovah'S Witness Beliefs: Yes : No Responsible for Young Children: No Employed: No Stable Relationships: Yes Supportive Family: Yes Interval History Identifying Information EMMA SAUER is a 68-year-old M who currently lives in [place], [place] with his son, has a history of schizophrenia, and was admitted on 04/16/19 13:19 on a 302 involuntary commitment for delusional behavior following a brief stay on the medical floor for vomiting (04/14/19 - 04/16/19). Pt was transferred to our unit upon medical clearance for treatment of his delusional behavior, with history of medication non-compliance and rather limited outpatient supports. He is on a 303 as of 04/19/19. Chief Complaint "Can I go today? Review of Systems Sleep Information Total Hours of Sleep: 3 Sleep Comments: he was medicated with tylenol for headache pain, 2 doses of vistaril for sleep/anxiety aid, doses of ativan,haldol,cogentin for his delusional thinking, fearfulness for his safety and agitation related to seeing deamons on the unit. he finally fell asleep at 0200 Meal Information Percent Meal Consumed - Breakfast: 100 Percent Meal Consumed - Lunch: 100 Percent Meal Consumed - Dinner: 100 Subjective Subjective Patient was seen & assessed and interval progress reviewed with nursing and social work. Staff report he slept very little last night, but was able to shower with staff support this morning. He continues to give varying, conflicting discharge plans, including taking his dozens of animals (chickens and rabbits) to [place] with him. He did not endorse hallucinations of demons or agitation yesterday, but continued to report belief that demons are haunting his home and want to harm him. He is scheduled to receive his second Sustenna loading dose today. On my assessment, he is focused on discharge, asking if he can leave as he wants to attend his granddaughter's birthday democrat. He says he has not seen her in 2-3 years, although she lives nearby, but thinks he has been invited to her birthday democrat. He has no idea how he would get their. He further states he has no idea where he would live if he left the hospital, stating he could go "down to [place] to that place there," but cannot recall the name of it or give more information. He says he has not talked to his son about this, but thinks his son would quit his job and go with him. He then says that he and his son are going to buy a camper and go to [place]. He is unable to give specifics about any of these various discharge plans, and cannot state where he would go immediately after discharge, as he remains concerned about the demons at his home and he does not think he is safe there. He then brought in two under-ripe bananas and asked if we could microwave them to make them ripe. Physical Exam Psychiatric Orientation: alert and cooperative Apperance: appropriately dressed and + disheveled Eye Contact: + fair eye contact Motor Behavior: steady gait and station and no abnormal motor movements Speech: normal rate/rhythm/volume of speech (Slightly loud) Affect: euthymic affect and mood congruent with affect "Good, ready to go." Thought Process: + concrete thought process Thought Content: + delusions and + persecution Suicidal Thoughts: denies suicidal thoughts But reports that his life may be a danger from demons. Homicidal Thoughts: denies homicidal thoughts Hallucinations: no auditory hallucinations and no visual hallucinations Cognition: language grossly intact; + recent memory not intact and + attention not intact Estimated Intelligence: + below average estimated intelligence Insight: + impaired insight Judgement: + impaired judgement Vital Signs (Past 24 Hours) Last Vital Signs Temp 36.3 C L 04/23/19 06:53 Pulse 97 H 04/23/19 06:53 Resp 18 04/23/19 06:53 BP 138/91 04/23/19 06:53 Results & Data Current Inpatient Medications Current Inpatient Medications: Current Inpatient Medications Acetaminophen (Tylenol) 650 mg PO Q4H PRN PRN Reason: Headache or Minor Fever Stop: 05/16/19 13:09 Last Admin: 04/22/19 16:34 Dose: 650 mg Documented by: Al Hydrox/Mg Hydrox/Simethicone (Maalox) 30 ml PO Q4H PRN PRN Reason: GI Upset Stop: 05/16/19 13:09 Last Admin: 04/22/19 21:58 Dose: 30 ml Documented by: Aspirin (Ecotrin) 650 mg PO Q6H PRN PRN Reason: pain Stop: 05/18/19 14:59 Last Admin: 04/23/19 00:28 Dose: 650 mg Documented by: Benztropine Mesylate (Cogentin) 0.5 mg PO Q6 PRN PRN Reason: Muscle Spasm Stop: 05/16/19 13:27 Last Admin: 04/21/19 17:41 Dose: 0.5 mg Documented by: Benztropine Mesylate (Cogentin) 1 mg PO HS PRN PRN Reason: muscle spasm/dystonia Stop: 05/19/19 08:01 Last Admin: 04/21/19 18:31 Dose: 1 mg Documented by: Bismuth Subsalicylate (Kaopectate) 15 ml PO PRN PRN PRN Reason: Loose Stool Stop: 05/16/19 13:09 Last Admin: 04/18/19 14:47 Dose: 15 ml Documented by: Cyanocobalamin (Vitamin B-12) 100 mcg PO QAM MESHA Stop: 05/17/19 08:59 Last Admin: 04/22/19 09:20 Dose: 100 mcg Documented by: Haloperidol (Haldol) 5 mg PO Q6 PRN PRN Reason: Agitation Stop: 05/16/19 13:27 Last Admin: 04/22/19 00:56 Dose: 5 mg Documented by: Haloperidol Lactate (Haldol) 5 mg IM Q4H PRN PRN Reason: Agitation Stop: 05/17/19 10:00 Hydroxyzine HCl (Vistaril) 25 mg PO Q4H PRN PRN Reason: Anxiety Stop: 05/16/19 13:09 Hydroxyzine HCl (Vistaril) 50 mg PO HSZ PRN PRN Reason: Insomnia Stop: 05/16/19 13:09 Last Admin: 04/23/19 02:13 Dose: 50 mg Documented by: Levetiracetam (Keppra) 1,500 mg PO BID [facility] Stop: 05/21/19 20:59 Last Admin: 04/22/19 21:13 Dose: 1,500 mg Documented by: Lorazepam (Ativan) 1 mg PO Q4H PRN PRN Reason: Anxiety/Agitation Stop: 05/17/19 09:59 Last Admin: 04/22/19 00:56 Dose: 1 mg Documented by: Lorazepam (Ativan) 2 mg IM Q4H PRN PRN Reason: Agitation Stop: 05/17/19 10:01 Magnesium Hydroxide (Milk Of Magnesia) 30 ml PO DAILY PRN PRN Reason: Heartburn Stop: 05/16/19 13:09 Miscellaneous (Remove Nicoderm Patch) 1 ea N/A HS [facility] Stop: 05/16/19 21:59 Last Admin: 04/22/19 21:15 Dose: Not Given Documented by: Multivitamins (Multivitamin Tab) [facility] Stop: 05/22/19 08:59 Last Admin: 04/22/19 09:18 Dose: 1 tab Documented by: Nicotine (Nicoderm Cq) 21 mg TD QAM [facility] Stop: 05/17/19 08:59 Last Admin: 04/22/19 09:21 Dose: 21 mg Documented by: Nicotine Polacrilex (Nicorette 2mg) 1 piece MT UD PRN PRN Reason: Nicotine Withdrawal Stop: 05/16/19 13:21 Last Admin: 04/22/19 19:06 Dose: 1 piece Documented by: Paliperidone (Invega) 6 mg PO DAILY [facility] Stop: 04/23/19 08:59 Last Admin: 04/22/19 09:17 Dose: 6 mg Documented by: Paliperidone Palmitate (Invega Sustenna) 156 mg IM ONE ONE Stop: 04/23/19 12:01 Pantoprazole Sodium (Protonix) 40 mg PO QAM [facility] Stop: 05/17/19 08:59 Last Admin: 04/22/19 09:19 Dose: 40 mg Documented by: Sodium Chloride (Edisto Nasal) 1 - 2 sprays NA PRN PRN PRN Reason: Nasal Dryness/Congestion Stop: 05/16/19 13:09 Thiamine HCl (Vitamin B-1) 200 mg PO QAM MESHA Stop: 05/22/19 08:59 Last Admin: 04/22/19 09:19 Dose: 200 mg Documented by: Mental Health & Subst Abuse Tx Psychiatrist Name of Psychiatrist: [facility] - Dr. Vela Date of Appointment with Psychiatrist: 05/30/19 Time of Appointment with Psychiatrist: 12pm English Professor Name of English Professor: [facility] CPT Code CPT Code 84568 (1) Schizophrenia Schizophrenia type: paranoid schizophrenia Qualified Code(s): F20.0 - Paranoid schizophrenia (2) GERD (gastroesophageal reflux disease) Esophagitis presence: esophagitis presence not specified Qualified Code(s): K21.9 - Gastro-esophageal reflux disease without esophagitis
[2019-04-23] MEDS: levETIRAcetam 500 MG TAB PO SCH ×2 (08:56→21:00)
[2019-04-23] MEDS: THIAMINE HCL 100 MG TAB PO SCH (08:56)
[2019-04-23] MEDS: NICOTINE 21 MG/24 HR TDSY TD SCH (08:56)
[2019-04-23] MEDS: MULTIVITAMIN TAB PO SCH (08:57)
[2019-04-23] MEDS: PANTOprazole 40 MG TAB PO SCH (08:57)
[2019-04-23] MEDS: CYANOCOBALAMIN (VITAMIN B-12) 100 MCG TABLET PO SCH (08:57)
[2019-04-23] MEDS: NICOTINE POLACRILEX 2 MG GUM MT PRN ×4 (11:05→18:35)
[2019-04-23] MEDS: ACETAMINOPHEN 325 MG TAB PO PRN (11:57)
[2019-04-23] MEDS ORDERED: PALIPERIDONE PALMITATE 156 MG/ML SYR IM ONE (12:00)
[2019-04-23] MEDS: ALUMINUM/MAGNESIUM SUSP 30 ML UDC PO PRN (19:53)
[2019-04-24] MEDS: levETIRAcetam 500 MG TAB PO SCH ×2 (07:36→21:00)
[2019-04-24] MEDS: MULTIVITAMIN TAB PO SCH (07:37)
[2019-04-24] MEDS: NICOTINE 21 MG/24 HR TDSY TD SCH (07:37)
[2019-04-24] MEDS: PANTOprazole 40 MG TAB PO SCH (07:38)
[2019-04-24] MEDS: THIAMINE HCL 100 MG TAB PO SCH (07:39)
[2019-04-24] MEDS: CYANOCOBALAMIN (VITAMIN B-12) 100 MCG TABLET PO SCH (07:39)
[2019-04-24] MEDS: HALOPERIDOL 5 MG TAB PO PRN ×2 (08:27→17:40)
[2019-04-24] MEDS: NICOTINE POLACRILEX 2 MG GUM MT PRN ×4 (09:50→21:03)
--- NOTE | 2019-04-24 11:54 | Psychiatric Progress Note ---
Date of Service April 24, 2019 Impression / Recommendations Impression 68-year-old male with schizophrenia and treatment noncompliance as an outpatient, who was admitted involuntarily due to delusions of persecution that his house is haunted and demons are chasing him, and that he and his children are in danger. He was initially admitted for observation on the medical floor from 04/14/19 - 04/16/19 due to nausea and vomiting, and was transferred to the behavioral health unit after medical clearance. He remains convinced that his house is occupied by evil spirits and demons, and initially stated that he cannot return there, needed multiple guns so that he could shoot the demons if they came, and may burn his house down to take care of the problem, as he has not been able to contact a hot room attendant to come to his home. His behaviors have been directed by his psychotic symptoms, as he had his (loaded) guns out (he says to have been blessed by a hot room attendant), created a salt barrier around his house to protect it, and was sitting in his home with a shot gun and ammunition within reach when his business case analyst arrived at his residence. He initially appeared to improve here, but last night was experiencing visual hallucinations, and became agitated, stating the demon was here and was after him. He ultimately received Haldol and Ativan. He agreed to Invega Sustenna, and tolerated the first loading injection 04/19/2019 well, with the second injection scheduled for today. He had a family meeting with his son, but they have not been able/willing to come up with a plan to remove or secure the firearms. Additionally, his business case analyst shared that the house is in very poor shape, with unsanitary conditions and that the office of aging has been involved. Social work and his outpatient business case analyst has been exploring alternative housing possibilities, with no good options thus far. The patient has no outpatient care as he was fired for noncompliance, and social work is working on arranging discharge plans. As he remains at imminent risk of harm to both himself and others given his dangerous behavior as a result of his delusions and his threats to shoot demons in his home and to burn down his home to get rid of the demons, inpatient treatment is medically necessary. He is on a 303 involuntary commitment as of 04/19/2019. (1) Schizophrenia: 04/17 - Admitted to a locked inpatient behavioral health unit, on q15 minute safety checks - Paliperidone 3mg initiated on medical floor and continued on admission; recommend titration to 6mg starting tomorrow morning - PRN haloperidol and lorazepam available as needed for agitation/psychosis - Encourage participation in group and recreational therapies - Gather collateral information from outpatient providers - Suggest family meeting to involve outpatient supports in safety planning - Arrange appropriate aftercare 04/18 -Paliperidone increased to 6 mg daily today. -Fasting glucose elevated 108, fasting lipid profile notable for triglycerides 303 and cholesterol 228. -File for 303 involuntary commitment with hearing tomorrow. -Refer for outpatient psychiatric care and therapy. 04/19 -303 granted. -Patient agrees to start Invega Sustenna; give first loading dose of 234 mg IM today, and order the second loading dose of 156 mg IM in 4 days (04/23/2019). Oral paliperidone can then be discontinued. -Refer for outpatient care. Patient indicates that even if he moves to [place] to live with his other son, he will stay in the area until May. He will need psychiatric aftercare and has been referred to Dr. Vela. 04/20 -The located within [facility] office of aging is coming to assess the patient today to see if he is eligible for any of the community support services. -Social work to contact his son to confirm that firearms have been secured, given the safety risk with the patient's active delusions and access to multiple loaded weapons. 04/21 -There is some indication that the patient has responded favorably to haloperidol in the past. The presenting symptoms reportedly developed within the context of not adherence with his outpatient psychiatric medications. I offered the patient a trial of haloperidol today in the hope that this might help improve the patient's disorganized thinking and his fixed delusional beliefs. However he declined a dose of haloperidol after initially agreeing to take it, and explained that he was afraid that I would "poison" or "overdose" him. -Visual hallucinations, while certainly possible and schizophrenia and schizoaffective disorder, R's far less common than auditory hallucinations. It is not clear if the patient is ever experienced visual hallucinations in the past, and once he becomes under better behavioral control an option might be to obtain imaging studies of his brain to rule out other pathologies. -Also, the patient reports that he has been drinking heavily recently. He is known to have a history of alcohol abuse and it is possible that the visual hallucinations are associated with alcohol use disorder. He is not showing evidence of alcohol withdrawal at this point, and there is no strong suspicion of Korsakoff syndrome, but I am offering him a dose of thiamine 200 mg by mouth and daily multivitamins. -The patient's lability has improved somewhat and in that sense he may be responding to Invega. I am not recommending an increase in his dose of Invega at this time, but we may titrate further over the course of the next several days, depending on tolerance and response. 04/22 -Continue current medication, to receive second Invega Sustenna loading dose tomorrow. 04/23 -Second Invega Sustenna loading dose, discontinue oral Invega. -Continue to work on discharge plans, will need to contact his outpatient business case analyst tomorrow to review available options. 04/24 - Continue as above - will require Invega Sustenna maintenance dose of 117mg on 05/21/19 - Continues to verbalize delusional thought content, preventing him from making concrete discharge plans (2) Seizure disorder: 04/17 - Continue home dose of levetiracetam 1000mg BID - Neurology referral and EEG were not felt to be indicated during medical admission - Levetiracetam level ordered on medical floor is still pending - Seizure precautions - Neurology service unclear, as recent PCP documentation suggest patient had requested switch from [facility] to [facility] - referral was documented in outpatient appointment notes 04/18-04/19 -Levetiracetam level still pending. 04/20 -Levetiracetam level 18.4, within the therapeutic range. 04/21 -The patient's levetiracetam level, as measured yesterday, is at the low end of the therapeutic range. I have increased his dose of this medication to a dose of 1500 mg twice a day from the previous dose of 1000 mg twice a day. -The patient's presentation with prominent visual hallucinations is generally not considered common among individuals who are suffering from schizophrenia or from schizoaffective disorder. Although the patient denies any history of head injury, he tells us that he has been having seizures since the age of about 37, and it may be that his "visions" of "demons" is a function of partial complex seizures. Of note is the fact the patient says that [facility] (3) Tobacco abuse: 04/17 - Pt reports daily use of chewing tobacco; nicotine replacement products of Nicorette gum and nicotine patch will be available for use as needed for treatment of nicotine withdrawal (4) GERD (gastroesophageal reflux disease): 04/17 - Continue 40mg of pantoprazole, as initiated on the medical floor prior to admission (5) Alcohol abuse: 04/17 - Per medical admission, reports drinking 4 alcoholic beverages daily - Remains on AWSS; has not yet scored - Treated during medical admission - Vitamin B12 daily as level slight low; folate level reportedly WNL; given banana bag at admission - Pt unable to participate in sufficient conversation to review thoughts on his alcohol use or current standing on desire to abstain from use 04/18 - Brief intervention was offered and refused Risk Factors Assessment Male: Yes : Yes Do You Have Access To A Gun?: Yes (was planning to have his shotgun blessed by a hot room attendant prior to admission) Mental Health Diagnoses: Yes Substance Use Disorders: Yes Previous Attempt: Yes Previous Psychiatric Hospitalization: Yes Hopelessness: Yes Protective Factors Assessment Yarsanism Beliefs: Yes : No Responsible for Young Children: No Employed: No Stable Relationships: Yes Supportive Family: Yes Interval History Identifying Information EMMA SAUER is a 68-year-old M who currently lives in [place], [place] with his son, has a history of schizophrenia, and was admitted on 04/16/19 13:19 on a 302 involuntary commitment for delusional behavior following a brief stay on the medical floor for vomiting (04/14/19 - 04/16/19). Pt was transferred to our unit upon medical clearance for treatment of his delusional behavior, with history of medication non-compliance and rather limited outpatient supports. He is on a 303 as of 04/19/19. Chief Complaint "I need to get out of here." Review of Systems Notes Constitutional: denied Cardiovascular: denied Respiratory: denied Gastrointestinal: denied Neurological: denied Psychiatric: denies symptoms other than stated above Total of at least 10 systems reviewed, pertinent positives as above and in HPI. Sleep Information Total Hours of Sleep: 8 Sleep Comments: out to the kitchen for a drink at 0445 Meal Information Percent Meal Consumed - Breakfast: 100 Percent Meal Consumed - Lunch: 100 Percent Meal Consumed - Dinner: 100 Subjective Subjective Patient was seen & assessed and interval progress reviewed with treatment team staff reports the patient. Had a rather difficult weekend in which he had verbalized visual hallucinations of the demon, and had been found "salting the perimeter of his room." The patient is no longer requiring the safe room, but continues to verbalize ongoing delusional beliefs. It was also reported that patient had desire to attend his granddaughter's birthday libertarian over the weekend, having verbalized a plan to take his granddaughter and son and move them to a homeless snf with him. Patient continues to have difficulty focusing on only one discharge plan, which complicates aftercare arrangements. Patient was seen today to assess progress since admission. He tells this provider "I need to get out of here." Patient states that he needs to go to [place]. When asked what was in [place], he states "I am going to stay at the snf there, they have a bed for me." The patient states that "appa rently" he is going by himself, as his son plans to stay at their home. Patient continues to verbalize contradictory discharge plans as he admits to "going to the snf", "needing to get home to sell my chickens and rabbits", "going down to [place]", and "buy a trailer." Patient's true ability to follow through with any of these plans remains questionable at this time. Patient continued to ve rbalize delusional believes, sharing with this provider that a neighbor "built their house [place] the [place] which opened a portal to [facility]." Patient also implies that he performed an exorcism last night on the unit, as he states "that skinny lady with the blonde hair kept saying the devil was after her. So I handed her a Bible and went around the unit saying 'Get out of here, you'." Patient states that he feels that things have been "better" since "getting rid of that are not demon." He makes this, after telling this provider that he feels he cannot go home because the demon still occupies his house. Patient denies any suicidal or homicidal ideation at this time. He denies any other acute concerns. Physical Exam Psychiatric Orientation: alert and cooperative Apperance: appropriately dressed (casually, in t-shirt and scrub pants) and + disheveled (long, funk hair is unkempt - standing straight up in spots); + inappropriately groomed Eye Contact: good eye contact Motor Behavior: steady gait and station and no abnormal motor movements Speech: + loud speech and normal rate/rhythm/volume of speech Affect: euthymic affect and mood congruent with affect Mood: no depressed mood and no anxious mood "I'm feeling better" and "I need to get out of here" Thought Process: + concrete thought process Thought Content: + delusions and + persecution Suicidal Thoughts: denies suicidal thoughts Homicidal Thoughts: denies homicidal thoughts Hallucinations: no auditory hallucinations and no visual hallucinations Cognition: language grossly intact; + attention not intact Estimated Intelligence: + below average estimated intelligence Insight: + impaired insight Judgement: + impaired judgement Vital Signs (Past 24 Hours) Last Vital Signs Temp 36.4 C L 04/24/19 06:40 Pulse 111 H 04/24/19 06:41 Resp 18 04/24/19 06:40 BP 170/110 H 04/24/19 06:41 Results & Data Current Inpatient Medications Current Inpatient Medications: Current Inpatient Medications Acetaminophen (Tylenol) 650 mg PO Q4H PRN PRN Reason: Headache or Minor Fever Stop: 05/16/19 13:09 Last Admin: 04/23/19 11:57 Dose: 650 mg Documented by: Al Hydrox/Mg Hydrox/Simethicone (Maalox) 30 ml PO Q4H PRN PRN Reason: GI Upset Stop: 05/16/19 13:09 Last Admin: 04/23/19 19:53 Dose: 30 ml Documented by: Aspirin (Ecotrin) 650 mg PO Q6H PRN PRN Reason: pain Stop: 05/18/19 14:59 Last Admin: 04/23/19 09:39 Dose: 650 mg Documented by: Benztropine Mesylate (Cogentin) 0.5 mg PO Q6 PRN PRN Reason: Muscle Spasm Stop: 05/16/19 13:27 Last Admin: 04/21/19 17:41 Dose: 0.5 mg Documented by: Benztropine Mesylate (Cogentin) 1 mg PO HS PRN PRN Reason: muscle spasm/dystonia Stop: 05/19/19 08:01 Last Admin: 04/21/19 18:31 Dose: 1 mg Documented by: Bismuth Subsalicylate (Kaopectate) 15 ml PO PRN PRN PRN Reason: Loose Stool Stop: 05/16/19 13:09 Last Admin: 04/18/19 14:47 Dose: 15 ml Documented by: Cyanocobalamin (Vitamin B-12) 100 mcg PO QAM [facility] Stop: 05/17/19 08:59 Last Admin: 04/24/19 07:39 Dose: 100 mcg Documented by: Haloperidol (Haldol) 5 mg PO Q6 PRN PRN Reason: Agitation Stop: 05/16/19 13:27 Last Admin: 04/24/19 08:27 Dose: 5 mg Documented by: Haloperidol Lactate (Haldol) 5 mg IM Q4H PRN PRN Reason: Agitation Stop: 05/17/19 10:00 Hydroxyzine HCl (Vistaril) 25 mg PO Q4H PRN PRN Reason: Anxiety Stop: 05/16/19 13:09 Hydroxyzine HCl (Vistaril) 50 mg PO HSZ PRN PRN Reason: Insomnia Stop: 05/16/19 13:09 Last Admin: 04/23/19 02:13 Dose: 50 mg Documented by: Levetiracetam (Keppra) 1,500 mg PO BID [facility] Stop: 05/21/19 20:59 Last Admin: 04/24/19 07:36 Dose: 1,500 mg Documented by: Lorazepam (Ativan) 1 mg PO Q4H PRN PRN Reason: Anxiety/Agitation Stop: 05/17/19 09:59 Last Admin: 04/22/19 00:56 Dose: 1 mg Documented by: Lorazepam (Ativan) 2 mg IM Q4H PRN PRN Reason: Agitation Stop: 05/17/19 10:01 Magnesium Hydroxide (Milk Of Magnesia) 30 ml PO DAILY PRN PRN Reason: Heartburn Stop: 05/16/19 13:09 Miscellaneous (Remove Nicoderm Patch) 1 ea N/A HS [facility] Stop: 05/16/19 21:59 Last Admin: 04/23/19 21:01 Dose: Not Given Documented by: Multivitamins (Multivitamin Tab) 1 tab PO QAM [facility] Stop: 05/22/19 08:59 Last Admin: 04/24/19 07:37 Dose: 1 tab Documented by: Nicotine (Nicoderm Cq) 21 mg TD QAM [facility] Stop: 05/17/19 08:59 Last Admin: 04/24/19 07:37 Dose: 21 mg Documented by: Nicotine Polacrilex (Nicorette 2mg) 1 piece MT UD PRN PRN Reason: Nicotine Withdrawal Stop: 05/16/19 13:21 Last Admin: 04/24/19 09:50 Dose: 1 piece Documented by: Pantoprazole Sodium (Protonix) 40 mg PO QAM [facility] Stop: 05/17/19 08:59 Last Admin: 04/24/19 07:38 Dose: 40 mg Documented by: Sodium Chloride ([place] Nasal) 1 - 2 sprays NA PRN PRN PRN Reason: Nasal Dryness/Congestion Stop: 05/16/19 13:09 Thiamine HCl (Vitamin B-1) [facility] Stop: 05/22/19 08:59 Last Admin: 04/24/19 07:39 Dose: 200 mg Documented by: Mental Health & Subst Abuse Tx Psychiatrist Name of Psychiatrist: [facility] - Dr. Vela Date of Appointment with Psychiatrist: 05/30/19 Time of Appointment with Psychiatrist: 12pm Dietary Aide Cook Name of Dietary Aide Cook: [facility] [place] CPT Code 44370 (1) Schizophrenia Schizophrenia type: paranoid schizophrenia Qualified Code(s): F20.0 - Paranoid schizophrenia (2) GERD (gastroesophageal reflux disease) Esophagitis presence: esophagitis presence not specified Qualified Code(s): K21.9 - Gastro-esophageal reflux disease without esophagitis
[2019-04-25] MEDS: MULTIVITAMIN TAB PO SCH (07:19)
[2019-04-25] MEDS: NICOTINE 21 MG/24 HR TDSY TD SCH (07:19)
[2019-04-25] MEDS: levETIRAcetam 500 MG TAB PO SCH ×2 (07:19→20:30)
[2019-04-25] MEDS: THIAMINE HCL 100 MG TAB PO SCH (07:20)
[2019-04-25] MEDS: CYANOCOBALAMIN (VITAMIN B-12) 100 MCG TABLET PO SCH (07:20)
[2019-04-25] MEDS: PANTOprazole 40 MG TAB PO SCH (07:20)
[2019-04-25] MEDS: NICOTINE POLACRILEX 2 MG GUM MT PRN ×4 (07:25→20:31)
--- NOTE | 2019-04-25 13:11 | Psychiatric Progress Note ---
Date of Service April 25, 2019 Impression / Recommendations Impression 68-year-old male with schizophrenia and treatment noncompliance as an outpatient, who was admitted involuntarily due to delusions of persecution that his house is haunted and demons are chasing him, and that he and his children are in danger. He was initially admitted for observation on the medical floor from 04/14/19 - 04/16/19 due to nausea and vomiting, and was transferred to the behavioral health unit after medical clearance. He remains convinced that his house is occupied by evil spirits and demons, and initially stated that he cannot return there, needed multiple guns so that he could shoot the demons if they came, and may burn his house down to take care of the problem, as he has not been able to contact a branch specialist to come to his home. His behaviors have been directed by his psychotic symptoms, as he had his (loaded) guns out (he says to have been blessed by a branch specialist), created a salt barrier around his house to protect it, and was sitting in his home with a shot gun and ammunition within reach when his leather case finisher arrived at his residence. He initially appeared to improve here, but last night was experiencing visual hallucinations, and became agitated, stating the demon was here and was after him. He ultimately received Haldol and Ativan. He agreed to Invega Sustenna, and tolerated the first loading injection 04/19/2019 well, with second injection provided on 04/23/19. He had a family meeting with his son, who has verbalized plan to secure guns prior to patient's discharge. Additionally, his leather case finisher shared that the house is in very poor shape, with unsanitary conditions and that the office of aging has been involved. Social work and his outpatient leather case finisher has been exploring alternative housing possibilities, with likely leads from the [facility] following discharge. Patient has agreed to psychiatrist, therapist, and casework specialist. As he remains at imminent risk of harm to both himself and others given his dangerous behavior as a result of his delusions and his threats to shoot demons in his home and to burn down his home to get rid of the demons, inpatient treatment is medically necessary. He is on a 303 involuntary commitment as of 04/19/2019. (1) Schizophrenia: 04/17 - Admitted to a locked inpatient behavioral health unit, on q15 minute safety checks - Paliperidone 3mg initiated on medical floor and continued on admission; recommend titration to 6mg starting tomorrow morning - PRN haloperidol and lorazepam available as needed for agitation/psychosis - Encourage participation in group and recreational therapies - Gather collateral information from outpatient providers - Suggest family meeting to involve outpatient supports in safety planning - Arrange appropriate aftercare 04/18 -Paliperidone increased to 6 mg daily today. -Fasting glucose elevated 108, fasting lipid profile notable for triglycerides 303 and cholesterol 228. -File for 303 involuntary commitment with hearing tomorrow. -Refer for outpatient psychiatric care and therapy. 04/19 -303 granted. -Patient agrees to start Invega Sustenna; give first loading dose of 234 mg IM today, and order the second loading dose of 156 mg IM in 4 days (04/23/2019). Oral paliperidone can then be discontinued. -Refer for outpatient care. Patient indicates that even if he moves to [place] to live with his other son, he will stay in the area until May. He will need psychiatric aftercare and has been referred to Dr. Vela. 04/20 -The [facility] office of aging is coming to assess the patient today to see if he is eligible for any of the community support services. -Social work to contact his son to confirm that firearms have been secured, given the safety risk with the patient's active delusions and access to multiple loaded weapons. 04/21 -There is some indication that the patient has responded favorably to haloperidol in the past. The presenting symptoms reportedly developed within the context of not adherence with his outpatient psychiatric medications. I offered the patient a trial of haloperidol today in the hope that this might help improve the patient's disorganized thinking and his fixed delusional beliefs. However he declined a dose of haloperidol after initially agreeing to take it, and explained that he was afraid that I would "poison" or "overdose" him. -Visual hallucinations, while certainly possible and schizophrenia and schizoaffective disorder, R's far less common than auditory hallucinations. It is not clear if the patient is ever experienced visual hallucinations in the past, and once he becomes under better behavioral control an option might be to obtain imaging studies of his brain to rule out other pathologies. -Also, the patient reports that he has been drinking heavily recently. He is known to have a history of alcohol abuse and it is possible that the visual hallucinations are associated with alcohol use disorder. He is not showing evidence of alcohol withdrawal at this point, and there is no strong suspicion of Korsakoff syndrome, but I am offering him a dose of thiamine 200 mg by mouth and daily multivitamins. -The patient's lability has improved somewhat and in that sense he may be responding to Invega. I am not recommending an increase in his dose of Invega at this time, but we may titrate further over the course of the next several days, depending on tolerance and response. 04/22 -Continue current medication, to receive second Invega Sustenna loading dose tomorrow. 04/23 -Second Invega Sustenna loading dose, discontinue oral Invega. -Continue to work on discharge plans, will need to contact his outpatient leather case finisher tomorrow to review available options. 04/24 - Continue as above - will require Invega Sustenna maintenance dose of 117mg on 05/21/19 - Continues to verbalize delusional thought content, preventing him from making concrete discharge plans 04/25 - As above, delusional thought content continues to be verbalized; however patient is now able to verbalize more concrete discharge plans - He is able to verbalize ability to contract for safety and feels he may be ready for discharge soon - Will receive Invega Sustenna injections though [facility] (2) Seizure disorder: 04/17 - Continue home dose of levetiracetam 1000mg BID - Neurology referral and EEG were not felt to be indicated during medical admission - Levetiracetam level ordered on medical floor is still pending - Seizure precautions - Neurology service unclear, as recent PCP documentation suggest patient had requested switch from [facility] to [facility] - referral was documented in outpatient appointment notes 04/18-04/19 -Levetiracetam level still pending. 04/20 -Levetiracetam level 18.4, within the therapeutic range. 04/21 -The patient's levetiracetam level, as measured yesterday, is at the low end of the therapeutic range. I have increased his dose of this medication to a dose of 1500 mg twice a day from the previous dose of 1000 mg twice a day. -The patient's presentation with prominent visual hallucinations is generally not considered common among individuals who are suffering from schizophrenia or from schizoaffective disorder. Although the patient denies any history of head injury, he tells us that he has been having seizures since the age of about 37, and it may be that his "visions" of "demons" is a function of partial complex seizures. Of note is the fact the patient says that he has not seen the [facility]. (3) Tobacco abuse: 04/17 - Pt reports daily use of chewing tobacco; nicotine replacement products of Nicorette gum and nicotine patch will be available for use as needed for treatment of nicotine withdrawal (4) GERD (gastroesophageal reflux disease): 04/17 - Continue 40mg of pantoprazole, as initiated on the medical floor prior to admission (5) Alcohol abuse: 04/17 - Per medical admission, reports drinking 4 alcoholic beverages daily - Remains on AWSS; has not yet scored - Treated during medical admission - Vitamin B12 daily as level slight low; folate level reportedly WNL; given banana bag at admission - Pt unable to participate in sufficient conversation to review thoughts on his alcohol use or current standing on desire to abstain from use 04/18 - Brief intervention was offered and refused Risk Factors Assessment Male: Yes : Yes Do You Have Access To A Gun?: Yes (was planning to have his shotgun blessed by a branch specialist prior to admission) Mental Health Diagnoses: Yes Substance Use Disorders: Yes Previous Attempt: Yes Previous Psychiatric Hospitalization: Yes Hopelessness: Yes Protective Factors Assessment Sabianist Beliefs: Yes : No Responsible for Young Children: No Employed: No Stable Relationships: Yes Supportive Family: Yes Interval History Identifying Information EMMA SAUER is a 68-year-old M who currently lives in [place], [place] with his son, has a history of schizophrenia, and was admitted on 04/16/19 13:19 on a 302 involuntary commitment for delusional behavior following a brief stay on the medical floor for vomiting (04/14/19 - 04/16/19). Pt was transferred to our unit upon medical clearance for treatment of his delusional behavior, with history of medication non-compliance and rather limited outpatient supports. He is on a 303 as of 04/19/19. Chief Complaint "Ugh, my stomach." Review of Systems Notes Constitutional: denied Cardiovascular: denied Respiratory: denied Gastrointestinal: reports current abdominal discomfort and "vomiting" (though not observed) Neurological: denied Psychiatric: denies symptoms other than stated above Total of at least 10 systems reviewed, pertinent positives as above and in HPI. Sleep Information Total Hours of Sleep: 7 Sleep Comments: out to the kitchen for a drink at 0445 Meal Information Percent Meal Consumed - Breakfast: 100 Percent Meal Consumed - Lunch: 100 Percent Meal Consumed - Dinner: 100 Subjective Subjective Patient was seen & assessed and interval progress reviewed with nursing and social work. Staff report the patient has potentially positive options for housing following discharge. It has been confirmed that the patient can receive his Invega Sustenna injections through his pharmacy. Patient was seen today to assess progress since admission. Pt states that he is feeling mildly nauseous at the moment - believing "it was the hot dog at lunch that did me in." This provider has observed him for the past few minutes - burping and spitting into day-area garbage can, but no evidence of emesis. Pt was asked to go to the privacy of his room, and still does not appear to have actually vomited, though he continues to endorse abdominal discomfort. Pt states, "otherwise, I'm feeling pretty good. I'm hoping to maybe go tomorrow." Pt is able to articulate a plan to either return home with his son or to stay at the [facility] until his housing is arranged through the [facility] - a plan that seems much more in line with arrangements social work has been attempting to pull together. He denies SI/HI and feels he would be safe to return home, but is looking forward to having another housing option. Pt denies side effects from medications thus far. He denies other needs or concerns today. Physical Exam Psychiatric Orientation: alert, oriented to person, oriented to place and cooperative Apperance: + disheveled and appeared stated age; + inappropriately groomed Eye Contact: + fair eye contact Motor Behavior: steady gait and station and no abnormal motor movements Speech: + loud speech and normal rate/rhythm/volume of speech Affect: euthymic affect Mood: no depressed mood and no anxious mood "I'm feeling pretty good, aside from my stomach" Thought Process: goal directed thought process, + circumstantial thought process (mildly) and + concrete thought process Thought Content: + delusions (ongoing, no longer to level of threatening ability to contract for safety) Suicidal Thoughts: denies suicidal thoughts and denies suicidal intent Homicidal Thoughts: denies homicidal thoughts Hallucinations: no auditory hallucinations and no visual hallucinations Cognition: attention grossly intact and language grossly intact Estimated Intelligence: + below average estimated intelligence Insight: + limited insight (likely chronic due to long history of mental illness) Judgement: + limited judgement (likely chronic due to long history of mental illness) Vital Signs (Past 24 Hours) Last Vital Signs Temp 36.7 C 04/25/19 06:00 Pulse 103 H 04/25/19 06:35 Resp 17 04/25/19 06:00 BP 157/84 H 04/25/19 06:35 Results & Data Current Inpatient Medications Current Inpatient Medications: Current Inpatient Medications Acetaminophen (Tylenol) 650 mg PO Q4H PRN PRN Reason: Headache or Minor Fever Stop: 05/16/19 13:09 Last Admin: 04/23/19 11:57 Dose: 650 mg Documented by: Al Hydrox/Mg Hydrox/Simethicone (Maalox) 30 ml PO Q4H PRN PRN Reason: GI Upset Stop: 05/16/19 13:09 Last Admin: 04/23/19 19:53 Dose: 30 ml Documented by: Aspirin (Ecotrin) 650 mg PO Q6H PRN PRN Reason: pain Stop: 05/18/19 14:59 Last Admin: 04/23/19 09:39 Dose: 650 mg Documented by: Benztropine Mesylate (Cogentin) 0.5 mg PO Q6 PRN PRN Reason: Muscle Spasm Stop: 05/16/19 13:27 Last Admin: 04/21/19 17:41 Dose: 0.5 mg Documented by: Benztropine Mesylate (Cogentin) 1 mg PO HS PRN PRN Reason: muscle spasm/dystonia Stop: 05/19/19 08:01 Last Admin: 04/21/19 18:31 Dose: 1 mg Documented by: Bismuth Subsalicylate (Kaopectate) 15 ml PO PRN PRN PRN Reason: Loose Stool Stop: 05/16/19 13:09 Last Admin: 04/18/19 14:47 Dose: 15 ml Documented by: Cyanocobalamin (Vitamin B-12) 100 mcg PO QAM MESHA Stop: 05/17/19 08:59 Last Admin: 04/25/19 07:20 Dose: 100 mcg Documented by: Haloperidol (Haldol) 5 mg PO Q6 PRN PRN Reason: Agitation Stop: 05/16/19 13:27 Last Admin: 04/24/19 17:40 Dose: 5 mg Documented by: Haloperidol Lactate (Haldol) 5 mg IM Q4H PRN PRN Reason: Agitation Stop: 05/17/19 10:00 Hydroxyzine HCl (Vistaril) 25 mg PO Q4H PRN PRN Reason: Anxiety Stop: 05/16/19 13:09 Hydroxyzine HCl (Vistaril) 50 mg PO HSZ PRN PRN Reason: Insomnia Stop: 05/16/19 13:09 Last Admin: 04/23/19 02:13 Dose: 50 mg Documented by: Levetiracetam (Keppra) 1,500 mg PO BID [facility] Stop: 05/21/19 20:59 Last Admin: 04/25/19 07:19 Dose: 1,500 mg Documented by: Lorazepam (Ativan) 1 mg PO Q4H PRN PRN Reason: Anxiety/Agitation Stop: 05/17/19 09:59 Last Admin: 04/22/19 00:56 Dose: 1 mg Documented by: Lorazepam (Ativan) 2 mg IM Q4H PRN PRN Reason: Agitation Stop: 05/17/19 10:01 Magnesium Hydroxide (Milk Of Magnesia) 30 ml PO DAILY PRN PRN Reason: Heartburn Stop: 05/16/19 13:09 Miscellaneous (Remove Nicoderm Patch) 1 ea N/A HS [facility] Stop: 05/16/19 21:59 Last Admin: 04/24/19 21:02 Dose: 1 ea Documented by: Multivitamins (Multivitamin Tab) 1 tab PO QAM [facility] Stop: 05/22/19 08:59 Last Admin: 04/25/19 07:19 Dose: 1 tab Documented by: Nicotine (Nicoderm Cq) 21 mg TD QAM [facility] Stop: 05/17/19 08:59 Last Admin: 04/25/19 07:19 Dose: 21 mg Documented by: Nicotine Polacrilex (Nicorette 2mg) 1 piece MT UD PRN PRN Reason: Nicotine Withdrawal Stop: 05/16/19 13:21 Last Admin: 04/25/19 07:25 Dose: 1 piece Documented by: Pantoprazole Sodium (Protonix) 40 mg PO QAM [facility] Stop: 05/17/19 08:59 Last Admin: 04/25/19 07:20 Dose: 40 mg Documented by: Sodium Chloride ([place] Nasal) 1 - 2 sprays NA PRN PRN PRN Reason: Nasal Dryness/Congestion Stop: 05/16/19 13:09 Thiamine HCl (Vitamin B-1) 200 mg PO QAM [facility] Stop: 05/22/19 08:59 Last Admin: 04/25/19 07:20 Dose: 200 mg Documented by: Mental Health & Subst Abuse Tx Psychiatrist Name of Psychiatrist: [facility] - Dr. Vela Date of Appointment with Psychiatrist: 05/30/19 Time of Appointment with Psychiatrist: 12pm Shoe Ironer Name of Shoe Ironer: [facility] CPT Code CPT Code 01544 (1) Schizophrenia Schizophrenia type: paranoid schizophrenia Qualified Code(s): F20.0 - Paranoid schizophrenia (2) GERD (gastroesophageal reflux disease) Esophagitis presence: esophagitis presence not specified Qualified Code(s): K21.9 - Gastro-esophageal reflux disease without esophagitis
[2019-04-25] MEDS: ACETAMINOPHEN 325 MG TAB PO PRN ×2 (13:57→19:32)
[2019-04-25] MEDS: ALUMINUM/MAGNESIUM SUSP 30 ML UDC PO PRN (13:58)
[2019-04-25] MEDS: HALOPERIDOL 5 MG TAB PO PRN (20:31)
[2019-04-25] MEDS: LORazepam 1 MG TAB PO PRN (20:31)
[2019-04-26] MEDS: CYANOCOBALAMIN (VITAMIN B-12) 100 MCG TABLET PO SCH (07:21)
[2019-04-26] MEDS: THIAMINE HCL 100 MG TAB PO SCH (07:21)
[2019-04-26] MEDS: levETIRAcetam 500 MG TAB PO SCH (07:21)
[2019-04-26] MEDS: MULTIVITAMIN TAB PO SCH (07:21)
[2019-04-26] MEDS: PANTOprazole 40 MG TAB PO SCH (07:22)
[2019-04-26] MEDS: NICOTINE 21 MG/24 HR TDSY TD SCH (07:22)
--- NOTE | 2019-04-26 09:01 | Discharge Summary ---
Date of Service April 26, 2019 History of Present Illness Trino Lobato is a 68-year-old male admitted involuntarily on 04/16/19 upon transfer from the medical floor for concerns of delusional behavior leading to ED presentation. Pt was brought to the ED on a 302 warrant by his children due to concerns for psychosis, with patient reportedly believing there was a demon in his house and having performed rather delusional behavior as a result. Plan was for inpatient psychiatric admission; however, patient developed nausea and vomiting for a several hour period - leading to a medical admission for observation prior to his transfer to our unit. 302 petitioning statement was completed by patient's outpatient caser up - and reads: "I met with Tam yesterday at his residence. Tam asked me if I "saw anything." I stated "no" then he left me into his residence where he told me that he has been seeing his uncle, smelled his dad's tobacco pipe burning, has been hearing footsteps in the home, hearing someone trying to come through the door, and that his roosters were disappearing in a black hole in the group outside. Tam has a shot gun with two boxes of shells sitting on the couch when I walked in. I questioned why he had that out and he stated, "I'm going to blow them up when I see them." Tam admits to recent insomnia and nightmares along with non- compliance medications (psychiatry). Symptoms have been present for nearly the past week, which continues to worsen." Psychiatric consultation was completed on the medical floor upon admission to evaluate for psychosis/delusional behavior. Per initial psychiatric consultation completed on medical floor on 04/15/19 - "68 y/o M Hx schizophrenia, seizures, COPD, alcohol abuse; no recent services other than case management (reportedly discharged from [facility] for missed appointments). It is unclear when he last received antipsychotic medications. It is unclear why he is on Cogentin as he denies receiving injectables (seems reliable in that regard) and estimates that his last appointment with Dr. Neri was 3 months ago (weekend so cannot confirm). He reports that for that past 3 months he doesn't feel comfortable at his home (camp with limited utilities). He has smelled cigar smoke of his father () and seen a visual espinal of his grandfather. He believes the site might be haunted and states that 5 years ago when this same thing happened he had a intelligence specialist "bless" them and everything was OK. He denies seeing demons, just believes they are there as 2 flocks of chickens went missing. He has dealt with this by pouring salt around the the property. He states that when caser up arrived the shot gun and shells were out because he wanted them blessed in case he needed to protect himself from the demons. He did not plan to harm himself or others but his self care has reportedly declined." Patient was seen today for inpatient psychiatric evaluation. Pt states he does not require aftercare to be set up, reporting he simply needs a power tong operator to bless his shotgun. Pt states, "I believe there is something in the house, it is pure evil." Pt continues by stating he has seen his father and "Uncle Adalid" in the home on multiple occasions. Pt also indicates that he has heard footsteps in the home as well. Pt was asked if his son has similar experiences in the home, as patient states they were told the home was haunted. The patient reports - "I tell him when I hear stuff, but he says he don't hear it." Pt states he was initially concerned when several "flocks of chickens either got killed or just plain disappeared." Patient was asked what he believes is causing these events to occur; and he responds by staying "alls I can think is it's a demon." Pt states he has created a salt barrier around his home about "a week and a half ago", but believes the demon must have gotten through. Pt remains highly focused on his need to get in touch with a power tong operator. He states, "we had one come to bless the house 5-years ago, but it must have come back." Pt reports having these concerns for the past 6-weeks. He states he needed to get both his shotgun and the shells blessed by a power tong operator in order to destroy the demon in his home. Pt states that he learned of these techniques by "reading books, I've watched shows on TV." Pt denies overt depression or anxiety, but does admit he is very concerned about his safety and the safety of his children. He states his appetite has been mildly reduced. He also notes it has been difficult for him to fall asleep initially at night. Pt mentions feeling "drained" - believing that the demon is responsible for his low energy. he states, "they just drain ya, that's how they get'pool. It also makes me and JJ fight." Pt states his mood is a 2/10 (10=best) for the past 6-weeks; but admits this is largely related to feeling stressed and overwhelmed. He endorses hopelessness, but denies SI. Pt denies HI in general, but does admit to desire to kill "whatever's in the house." Pt interrupts conversation by sharing that he has been unable to get in touch with a power tong operator after several phone calls. He demands that this provider call or he will "walk right out the f*cking door." The patient was informed that our priority was to get him settled into the unit and engaged in treatment, and that this provider would not be calling at this time. He became increasingly angry, and abruptly left the office. He had continued to escalate despite staff redirection - and was ultimately offered prn haloperidol and lorazepam which he accepted. Physical Exam Psychiatric Orientation: alert, oriented x 3 and cooperative Apperance: appropriately dressed (casually in polo and scrub pants) and + disheveled (polo collar sticking up, belly showing, glasses broken and crooked on face); + inappropriately groomed (hair is unkempt, long and standing straight up, malodorous ) Eye Contact: good eye contact Motor Behavior: steady gait and station and no abnormal motor movements Speech: + loud speech and normal rate/rhythm/volume of speech (raspy voice) Affect: euthymic affect; no irritable affect Mood: no depressed mood and no anxious mood "Feeling pretty good, ready to get out of here" Thought Process: goal directed thought process, clear/coherent thought process and + concrete thought process; thought process not tangential Thought Content: + delusions (likely continue to be underlying, but not verbalized today) Suicidal Thoughts: denies suicidal thoughts Homicidal Thoughts: denies homicidal thoughts Hallucinations: no auditory hallucinations and no visual hallucinations Cognition: attention grossly intact and language grossly intact Estimated Intelligence: + below average estimated intelligence Insight: + limited insight (likely chronic due to long history of mental health concerns) Judgement: + limited judgement (likely chronic due to long history of mental health concerns) Vital Signs (Past 24 Hours) Last Vital Signs Temp 36.7 C 04/26/19 06:00 Pulse 109 H 04/26/19 06:47 Resp 18 04/26/19 06:00 BP 132/76 04/26/19 06:47 Pulse Ox 95 04/25/19 19:34 Principal Diagnosis - Schizophrenia - Tobacco/Alcohol abuse Psychiatric Data 68-year-old male who presented to the ED on a 302 warrant. Pt was had complained of nausea and vomiting while awaiting placement, and had been hospitalized on the medical floor for management. He was seen on psychiatric consult service during that time and was initiated on Invega with anticipation of conversion to CARRILLO. Pt was transferred to the U after 2-3 days on the medical floor. Patient maintained delusional belief that he required an exorcism for his home and that there was a demon occupying his residency. His dose of oral Invega was titrated to 6mg daily, and patient was ultimately agreeable for CARRILLO conversion. He had received his initial injection of Invega Sustenna 234mg on 04/19 and his second loading injection of 156mg on 04/23 - oral Invega was subsequently discontinued. Patient demonstrated improvement in his symptoms, reduced agitation, and ability to have productive conversations with staff. His delusional thoughts are likely chronic, but they were found to not be driving his decision-making process as heavily, allowing for improved insight and judgment. A multitude of the patient's ongoing behaviors may be better explained by his chosen minimalistic lifestyle as opposed to a direct relation to his psychiatric condition. Patient was agreeable to continue with monthly injections, was agreeable to referrals for psychiatry and therapy, and is wi lling to maintain a relationship with a caser up. Housing options were discussed, and is it likely patient will have available housing soon in [facility]. Patient had participated in a family meeting with his son, who is reportedly supportive of this plan and reported that he secured guns within the home. Patient is requesting discharge home, able to contract for safety and feeling his condition is improved. Based on review of patient's case and their current presentation, risk of harm to self or others is no longer perceived to be acute. Management of symptoms on an outpatient basis seems the most appropriate and least restrictive setting. Pt seems appropriate for discharge with recommendation for consistent follow-up with outpatient psychiatric prescriber, therapist, and caser up. Pt verbalized understanding of discharge plan reviewed and is agreeable with plan to be discharged home today, accompanied by son. Pt is aware that he will be due for his next Invega Sustenna injection 5 weeks from his initial injection - sent to pharmacy with recommended administration date of 05/22/19. Pharmacy has agreed to give patient injection at their facility. Day of Discharge Assessment Patient's case was reviewed and discussed during treatment team. Staff reports the patient had an episode of behavior last evening in which he was laying on the floor causing difficulty, but did not appear to decompensate in regard to overall status. His son remains available to pick him up this afternoon. Patient was seen today to assess readiness for discharge. Pt states he is "feeling pretty good, except this head cold." Pt had requested Tylenol, but declined medication to assist with symptoms of a URI. He states he is feeling confident about discharge, stating he is planning to return home "for a few nights, I don't think we have the money for me to stay in a motel." He clearly acknowledges that discharge plan is for him to eventually be moved to new housing in [facility] - and remains agreeable with this plan. Pt reports ongoing willingness to receive Invega Sustenna for management of his psychiatric symptoms. Pt denies SI/HI, A/V hallucinations, and any paranoia/delusions that seem to be driving his decision-making at this time. Pt is requesting discharge today and has completed his safety plan which he reviews with this provider. Although patient is at higher risk of harm to self or others compared to the general population due to his chronic illness and ongoing underlying delusional beliefs, the risk is no longer perceived to be acute. Management of symptoms on an outpatient basis seems to be the most appropriate and least restrictive setting for psychiatric treatment at this time. Pt verbalized understanding and is agreeable with plan for discharge home today. ROS: Constitutional: reports headache HEENT: reports initial symptoms of URI, denies offer for medication Cardiovascular: denied Respiratory: denied Gastrointestinal: denied Neurological: denied Psychiatric: denies symptoms other than stated above Total of at least 10 systems reviewed, pertinent positives as above and in HPI. Transition of Care Transition Of Care Record: was reviewed with the patient Advance Directives Advance Directives Information Provided: Yes Advance Directives: No Mental Health Advance Directive: No Advance Directives on File: No Living Will: No Power of Ammunition Assembly I Laborer: No Advance Directives Reason:: Declines as Mental Health Visit. Risk Factors Assessment Presenting risk factors reviewed on discharge. Precipitating stressors mitigated by: admission for inpatient psychiatric observation and treatment, initiation of medications to target presenting symptoms, attendance of therapeutic treatment groups, development of healthy and effective coping strategies, involvement of outpatient supports, completion of a safety plan, confirmation of guns and weapons being secured, discussion regarding substance abuse and effects on mental health diagnoses, treatment of medical conditions and education on diagnoses. Pt has demonstrated improvement in condition with regard to improvement in mood, denial of ongoing auditory or visual hallucinati ons, coordination of aftercare arrangements and alternative housing with outpatient supports, and denial of suicidal/homicidal ideation. At this time, patient is requesting discharge and is no longer considered to be at acute risk of harm to himself or others. Pt will be discharged with recommendation for ongoing outpatient psychiatric treatment. Pt is at increased risk of harm to self or others when compared to the general population and there are several risk factors which are not likely to be mitigated in an inpatient treatment setting. Patient's long history of disease certainly increases his risk of potential harm to himself or others, but at this point it is believed that the risk is not acute. Risk factors that were able to be mitigated were addressed during admission: erratic behavior, delusional beliefs affecting insight/judgment, coordination of alternative housing arrangements, and scheduled appointments with outpatient psychiatric providers. He has been in good behavioral control, and although he at times verbalizes underlying delusional thoughts, they are not at this time motivating him toward potentially harmful behaviors. Insight and judgment remain limited, and this is likely due to chronic illness. Concerns and safety planning have been reviewed with the patient and his son, who both verbalize feeling comfortable with discharge home at this time. Male: Yes : Yes Do You Have Access To A Gun?: Yes (was planning to have his shotgun blessed by a power tong operator prior to admission) Mental Health Diagnoses: Yes Substance Use Disorders: Yes Previous Attempt: Yes Previous Psychiatric Hospitalization: Yes Hopelessness: Yes Protective Factors Assessment Yazidism Beliefs: Yes : No Responsible for Young Children: No Employed: No Stable Relationships: Yes Supportive Family: Yes Tobacco Cessation at Discharge Tobacco Cessation Medication Prescribed at Discharge: Offered & Pt Refused Antipsychotic Medications Patient being discharged with PO haloperidol prn - solely due to recent initiation of Invega Sustenna. Ideally, patient will be maintained on Sustenna alone without need for alternative antipsychotic options. Haloperidol sent in attempt to reduce risk of destabilization until efficacy and dosing of maintenance Sustenna can be determined. Pt is discharged on only one scheduled antipsychotic medication. Total Time Total Time Spent: Greater Than 30 Minutes Total Time Includes: Examination of the patient, Discharge Planning, Medication Reconciliation and Communication with other providers Discharge Data Lab Results 04/18/19 07:11 Fasting Glucose 108 H Triglycerides 303 H Cholesterol 228 H LDL Cholesterol, Calc 128 VLDL Cholesterol, Calc 61 HDL Cholesterol 39 Cholesterol/HDL Ratio 6 Hospital Course (1) Schizophrenia: 04/17 - Admitted to a locked inpatient behavioral health unit, on q15 minute safety checks - Paliperidone 3mg initiated on medical floor and continued on admission; recommend titration to 6mg starting tomorrow morning - PRN haloperidol and lorazepam available as needed for agitation/psychosis - Encourage participation in group and recreational therapies - Gather collateral information from outpatient providers - Suggest family meeting to involve outpatient supports in safety planning - Arrange appropriate aftercare 04/18 -Paliperidone increased to 6 mg daily today. -Fasting glucose elevated 108, fasting lipid profile notable for triglycerides 303 and cholesterol 228. -File for 303 involuntary commitment with hearing tomorrow. -Refer for outpatient psychiatric care and therapy. 04/19 -303 granted. -Patient agrees to start Invega Sustenna; give first loading dose of 234 mg IM today, and order the second loading dose of 156 mg IM in 4 days (04/23/2019). Oral paliperidone can then be discontinued. -Refer for outpatient care. Patient indicates that even if he moves to [place] to live with his other son, he will stay in the area until May. He will need psychiatric aftercare and has been referred to Dr. Vela. 04/20 -The [facility] office of aging is coming to assess the patient today to see if he is eligible for any of the community support services. -Social work to contact his son to confirm that firearms have been secured, given the safety risk with the patient's active delusions and access to multiple loaded weapons. 04/21 -There is some indication that the patient has responded favorably to haloperidol in the past. The presenting symptoms reportedly developed within the context of not adherence with his outpatient psychiatric medications. I offered the patient a trial of haloperidol today in the hope that this might help improve the patient's disorganized thinking and his fixed delusional beliefs. However he declined a dose of haloperidol after initially agreeing to take it, and explained that he was afraid that I would "poison" or "overdose" him. -Visual hallucinations, while certainly possible and schizophrenia and schizoaffective disorder, R's far less common than auditory hallucinations. It is not clear if the patient is ever experienced visual hallucinations in the past, and once he becomes under better behavioral control an option might be to obtain imaging studies of his brain to rule out other pathologies. -Also, the patient reports that he has been drinking heavily recently. He is known to have a history of alcohol abuse and it is possible that the visual hallucinations are associated with alcohol use disorder. He is not showing evidence of alcohol withdrawal at this point, and there is no strong suspicion of Korsakoff syndrome, but I am offering him a dose of thiamine 200 mg by mouth and daily multivitamins. -The patient's lability has improved somewhat and in that sense he may be responding to Invega. I am not recommending an increase in his dose of Invega at this time, but we may titrate further over the course of the next several days, depending on tolerance and response. 04/22 -Continue current medication, to receive second Invega Sustenna loading dose tomorrow. 04/23 -Second Invega Sustenna loading dose, discontinue oral Invega. -Continue to work on discharge plans, will need to contact his outpatient caser up tomorrow to review available options. 04/24 - Continue as above - will require Invega Sustenna maintenance dose of 117mg on 05/21/19 - Continues to verbalize delusional thought content, preventing him from making concrete discharge plans 04/25 - As above, delusional thought content continues to be verbalized; however patient is now able to verbalize more concrete discharge plans - He is able to verbalize ability to contract for safety and feels he may be ready for discharge soon - Will receive Invega Sustenna injections though [facility] (2) Seizure disorder: 04/17 - Continue home dose of levetiracetam 1000mg BID - Neurology referral and EEG were not felt to be indicated during medical admission - Levetiracetam level ordered on medical floor is still pending - Seizure precautions - Neurology service unclear, as recent PCP documentation suggest patient had requested switch from [facility] to [facility] - referral was documented in outpatient appointment notes 04/18-04/19 -Levetiracetam level still pending. 04/20 -Levetiracetam level 18.4, within the therapeutic range. 04/21 -The patient's levetiracetam level, as measured yesterday, is at the low end of the therapeutic range. I have increased his dose of this medication to a dose of 1500 mg twice a day from the previous dose of 1000 mg twice a day. -The patient's presentation with prominent visual hallucinations is generally not considered common among individuals who are suffering from schizophrenia or from schizoaffective disorder. Although the patient denies any history of head injury, he tells us that he has been having seizures since the age of about 37, and it may be that his "visions" of "demons" is a function of partial complex seizures. Of note is the fact the patient says that he has not seen the [facility]. (3) Tobacco abuse: 04/17 - Pt reports daily use of chewing tobacco; nicotine replacement products of Nicorette gum and nicotine patch will be available for use as needed for treatment of nicotine withdrawal (4) GERD (gastroesophageal reflux disease): 04/17 - Continue 40mg of pantoprazole, as initiated on the medical floor prior to admission (5) Alcohol abuse: 04/17 - Per medical admission, reports drinking 4 alcoholic beverages daily - Remains on AWSS; has not yet scored - Treated during medical admission - Vitamin B12 daily as level slight low; folate level reportedly WNL; given banana bag at admission - Pt unable to participate in sufficient conversation to review thoughts on his alcohol use or current standing on desire to abstain from use 04/18 - Brief intervention was offered and refused Mental Health & Subst Abuse Tx Psychiatrist Name of Psychiatrist: SKIP Espinal, [address] [facility], [facility] [address] Date of Appointment with Psychiatrist: 04/27/19 Time of Appointment with Psychiatrist: 12pm Psychiatric Appointment Comment: Walk in intakes Wed or from 8am-3pm, strongly recommend that you go04/13 Inspector Tester Sorter Name of Inspector Tester Sorter: [facility] Post Discharge Appointments Primary Care Physician Name Of Family Doctor: ALYSON [facility] Smoking Cessation Counseling Tobacco Cessation Medication Prescribed at Discharge: Offered & Pt Refused Other #1: Name of Aftercare Appointment: [facility] Phone Number of Aftercare Appointment: Date of Aftercare Appointment: 04/27/19 Time of Aftercare Appointment: Stop in between 8:30 a.m. - 12 p.m. or 1 p.m. - 3:30 p.m. Aftercare Appointment Comment: [address] [place] [address], [place] [address] #2: Name of Aftercare Appointment: [facility], [facility] (jail) Phone Number of Aftercare Appointment: [phone] Time of Aftercare Appointment: Stop in if temporary housing is needed Aftercare Appointment Comment: [address] [facility], [place] [address] Discharge Plan Discharge Items Patient Disposition: Home - Self-Care Reason For Visit: PARANOID SCHIZOPHRENIA Discharge Diagnosis: Schizophrenia, Alcohol/Tobacco abuse Condition: Fair Discharge Goals: Decrease discomfort, Improve disease control, Improve function, Increase independence, Learn about illness and Therapeutic intervention Activity: Resume your previous activity Non-emergency contact: Primary Care Provider, Psychiatrist, Therapist and Primer Waterproofing Machine Adjuster Call non-emergency contact if: you have any medication questions and your symptoms worsen Follow-up/Referrals: Aristeo Camacho III, MD [Primary Care Provider] - Diet: Regular Addtl Provider Instructions: SPECIAL CARE INSTRUCTIONS: 1. Follow through with your scheduled aftercare appointments. If unable to keep an appointment, please call to reschedule. 2. Take your medication only as prescribed. Medication should not be changed or stopped without the approval of your doctor. In the event of worsening symptoms or concerns about side effects, contact your doctor immediately. 3. Utilize new healthy coping skills, anger management skills, and stress management skills learned during your hospitalization. Journal feelings a nd process them with a support person. Identify stressors or situations that may result in relapse, deterioration or inappropriate behaviors and develop a plan to deal with those issues. 4. If your coping skills are ineffective and you are in crisis, contact your outpatient providers for direction. If unable to reach your providers, please call the CAN HELP LINE AT or go to the closest Emergency Room. 5. Avoid alcohol and un-prescribed drugs. 6. You have been provided with the Mental Health Advance Directives Pamphlet for your review. AFTERCARE APPOINTMENTS: * Please call your insurance company prior to your scheduled appointment to confirm your aftercare providers are covered. Take your insurance information to your appointments. * You will be receiving your monthly injections of Yolanda Graves at the [facility]. Your initial prescription has been sent. We are recommending you be at the pharmacy on 05/22/19 to get this injection - If you are not able to get to the pharmacy on this date, the injection can be provided between 05/17 - 05/31. Please make sure you follow-up with your monthly injections as part of your aftercare. WHO TO CALL AND WHEN: Medical Emergencies: For questions or emergencies related to your hospital stay, please contact the Inpatient Behavioral Health Unit at [phone]. A counter professional is on-call 05/04 for the Behavioral Health Unit for emergencies At any time you feel your situation is an emergency, you may also call 911 immediately. Your Doctors Instructions noted above were prepared by provider Rebecca Oseguera PA-C. Prescriptions: New haloperidol 5 mg Tablet 5 mg PO Q6 PRN (Reason: agitation/disorganization) 10 Days Qty: 10 RF: 0 multivitamin [Daily-Donnell] Tablet 1 tab PO QAM 30 Days Qty: 30 RF: 0 pantoprazole 40 mg Tablet,Delayed Release (Dr/Ec) 40 mg PO QAM 30 Days Qty: 30 RF: 0 thiamine HCl (vitamin B1) [Vitamin B-1] 100 mg Tablet 200 mg PO QAM 30 Days Qty: 60 RF: 0 levetiracetam 500 mg tablet 1,500 mg PO BID 30 Days Qty: 180 RF: 0 paliperidone palmitate 117 mg/0.75 mL syringe 117 mg IM MONTHLY Qty: 0.75 RF: 0 Continued cyanocobalamin (vitamin B-12) 100 mcg Tablet 100 mcg PO QAM Qty: 1 RF: 0 Discontinued levetiracetam 1,000 mg tablet 1,000 mg PO BID RF: 0 nicotine 7 mg/24 hr Patch 24 Hour 14 mg transdermal QAM Qty: 1 RF: 0 Stand-Alone Forms: [facility] Discharge Orders: Discharge Order (Routine); Ordered 04/26/19 Ordered By: Rebecca Oseguera Admission Data Admit Date/Time: 04/16/19 13:19 Attending Provider: Yojana Tang Admit Provider: Hortensia Ashby Primary Care Provider: Aristeo Camacho III Service: Psychiatry Other Interventions: Discharge Summary Assessment (RN) Last Done: 04/26/19 12:46 PSY Interdisciplinary Discharge Planning Last Done: 04/26/19 13:06 Pending Studies at Discharge: No DC Date/Time DO NOT enter until pt leaves facility: 04/26/19 15:42
[2019-04-26] MEDS: NICOTINE POLACRILEX 2 MG GUM MT PRN ×3 (09:33→14:44)
[2019-04-26] MEDS: ACETAMINOPHEN 325 MG TAB PO PRN (10:06)
[2019-04-26] MEDS: ASPIRIN 325 MG ECTAB PO PRN (14:13)
[2019-05-22] MEDS ORDERED: PALIPERIDONE PALMITATE 117 MG/0.75 ML SYR IM ONE (09:00)
== END 2019-04-26 15:42 | disposition home or self-care (01) | DRG 885 ==
LOC: 3S 13:19

== ENCOUNTER 2019-09-19 09:44 | Inpatient (IN) ==
[2019-09-19 10:39] LABS: Appearance Urine Cloudy (Clear); Bacteria Urine Automated Negative (Negative); Bilirubin Urine Negative (Negative); Blood Urine Negative (Negative); Cast Urine Automated 0 /lpf (0-5); Color Urine Yellow; Epithelial Cell Urine Auto 0-5 /lpf (0-5); Glucose Urine UA Negative (Negative); Ketones Urine Negative (Negative); Leukocyte Esterase Urine Negative (Negative); Nitrite Urine Negative (Negative); Protein Urine Negative (Negative); RBC Urine Automated 0-4 /hpf (0-4); Specific Gravity Urine 1.004 (1.000-1.030); Urobilinogen Urine Negative (Negative); WBC Urine Automated 0 /hpf (0-5); pH Urine 8.5 (4.5-7.5)
[2019-09-19 10:43] LABS: Basophils # (auto) 0.03 K/uL (0-0.2); Basophils % (auto) 0.4 %; Eosinophils # (auto) 0.27 K/uL (0-0.5); Eosinophils % (auto) 3.5 %; Hematocrit (blood only) 44.2 % (42-52); Hemoglobin 14.8 g/dL (14.0-18.0); Immature Granulocytes # (auto) 0.01 K/uL (0.00-0.02); Immature Granulocytes % (auto) 0.1 %; Lymphocytes # (auto) 2.11 K/uL (1.2-3.4); Lymphocytes % (auto) 27.7 %; Mean Corpuscular Hemoglobin 31.4 pg (25-34); Mean Corpuscular Hgb Conc 33.5 g/dL (32-36); Mean Corpuscular Volume 93.6 fL (80-100); Mean Platelet Volume 8.4 fL (7.4-10.4); Monocytes # (auto) 0.52 K/uL (0.11-0.59); Monocytes % (auto) 6.8 %; Neutrophils # (auto) 4.68 K/uL (1.4-6.5); Neutrophils % (auto) 61.5 %; Platelet Count 259 K/uL (130-400); RDW Coefficient of Variation 12.8 % (11.5-14.5); RDW Standard Deviation 43.6 fL (36.4-46.3); Red Blood Count 4.72 M/uL (4.7-6.1); White Blood Count 7.62 K/uL (4.8-10.8)
[2019-09-19 11:03] LABS: Albumin Level 3.8 gm/dl (3.4-5.0); BUN Creatinine Ratio 10.4 (10-20); Calcium 9.2 mg/dl (8.5-10.1); Creatinine Clr Calc Pharmacy 81.2 ml/min; Est GFR (African American) 86.3; Est GFR (Non-African American) 74.5; Potassium 3.9 mmol/L (3.5-5.1)
[2019-09-19 11:08] LABS: Acetaminophen < 2 ug/ml (10-30)
[2019-09-19 11:09] LABS: Salicylate 2.2 mg/dl (2.8-20)
[2019-09-19 11:11] LABS: Amphetamines+Metham, Urine Neg (Neg); Barbiturates, Urine Neg (Neg); Benzodiazepine, Urine Neg (Neg); Cocaine, Urine Neg (Neg); MDMA (Ecstacy), Urine Neg (Neg); Methadone, Urine Neg (Neg); Opiate, Urine Neg (Neg); Phencyclidine, Urine Neg (Neg)
[2019-09-19 11:14] LABS: Bilirubin,Total 0.8 mg/dl (0.2-1); Globulin 3.8 gm/dl (2.5-4.0); Thyroid Stimulating Hormone 1.72 uIu/ml (0.300-4.500); Total Protein 7.6 gm/dl (6.4-8.2)
[2019-09-19] MEDS ORDERED: NICOTINE 21 MG/24 HR TDSY TD STA (11:29)
[2019-09-19] MEDS ORDERED: NICOTINE POLACRILEX 2 MG GUM MT PRN (11:34)
--- NOTE | 2019-09-19 14:32 | Emergency Department Note ---
Entered by Taran Hernandez acting as a scribe for History of Present Illness General Chief Complaint: Mental Health Evaluation Stated Complaint: FEELING SUICIDAL Time Seen by Provider: 09/19/19 09:59 Source: patient History of Present Illness Provider complaint: suicidal ideation Onset (ago): unknown Duration: changing over time History of same: Yes Associated psychiatric symptoms: + suicidal ideation and + other (Anxiety) If self harm: + admits thoughts of self harm and + has plan The patient is a 68 year old male who presents to the Emergency Room for a mental health evaluation. The patient has an extensive psychiatric history including depression, anxiety, bipolar, auditory hallucinations, visual hallucinations, and schizophrenia. The patient currently is having suicidal thoughts stating, "I want to take all of my pills and end it all". The patient does not believe he needs inpatient treatment. The patient also has a history of alcohol abuse and uses tobacco daily. HPI is limited secondary to patient being a poor historian. Home Medications Home Medications Medication Instructions Recorded Confirmed Type meclizine 25 mg tablet 25 mg PO TID PRN #30 tab 08/17/19 09/19/19 Rx benztropine 1 mg PO DAILY 09/19/19 09/19/19 History haloperidol 5 mg PO BID 09/19/19 09/19/19 History levetiracetam [Keppra] 500 mg PO DAILY 09/19/19 09/19/19 History pantoprazole [Protonix] 40 mg PO DAILY 09/19/19 09/19/19 History Allergies Allergy/AdvReac Type Severity Reaction Status Date / Time Penicillins Allergy Unknown Hives Verified 09/19/19 11:32 Sulfa (Sulfonamide Allergy Unknown Hives Verified 09/19/19 11:32 Antibiotics) paliperidone AdvReac Intermediate Patient Unverified 09/19/19 11:32 states had "bad reaction" after administration Uncoded Nonscreenable Allergy Unknown FLAXSEED: Uncoded 09/19/19 11:32 Allergen HIVES,ITCHING Past Med/Surg History Medical History Acid reflux (Acute) Alcohol abuse (Acute) Anxiety Arthritis (Acute) Bipolar disorder BPH (benign prostatic hyperplasia) (Chronic) COPD (chronic obstructive pulmonary disease) Dementia Depression GERD (gastroesophageal reflux disease) No pertinent family history Schizophrenia (Chronic) Seizure (Acute) Shoulder pain (Resolved) Family History Aunt Family history of seizures Other No pertinent family history Social History Preferred Language: Lao Communication Ability: Effective Communication Ability Comment: has difficulty reading with new glasses Visual Impairment: No Limitations Hearing Ability: Normal 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 Other (Limited secondary to the patient being a poor historian) Physical Exam Vital Signs Vital Signs - 24 hr 09/19/19 09:46 Temperature 36.7 C Temperature Source Oral Pulse Rate 81 Respiratory Rate 18 Respiratory Effort / Characteristics Non-Labored Spontaneous Respiratory Depth Normal Respiratory Pattern Regular Blood Pressure 121/90 Blood Pressure Mean 100 Blood Pressure Position Sitting Pulse Oximetry 98 Oxygen Delivery Method Room Air Sepsis Recent Fever Within 48 Hours No Sepsis New/Unexplained Change in Mental Status No Sepsis Action Taken by Nursing No Action Required GENERAL: Awake, alert, Disheveled and dirty appearing. Malodorous. HENT: Normocephalic, atraumatic. Oropharynx unremarkable. EYES: Normal conjunctiva. Sclera non-icteric. NECK: Supple. No nuchal rigidity. FROM. No masses. RESPIRATORY: Clear to auscultation. No wheezes. No rales. Normal respiratory effort. CARDIAC: Normal rate. Normal rhythm. No murmurs. No rubs. Extremities warm and well perfused. Pulses equal. No JVD. GI: Soft, non-distended. No tenderness to palpation. No rebound or guarding. No masses. RECTAL: Deferred. MUSCULOSKELETAL: Atraumatic. Chest examination reveals no tenderness. The back is symmetrical on inspection without obvious abnormality. There is no CVA tend erness to palpation. No joint edema. LOWER EXTREMITIES: Calves are equal size bilaterally and non-tender. No edema. No discoloration. NEURO: Normal sensorium. No sensory or motor deficits noted. Course 1145: Past medical records reviewed. The patient was evaluated in room B02, and a complete history and physical examination were performed. Administered Medications Nicotine (Nicoderm Cq) 21 mg TD QAM MESHA Stop: 10/20/19 08:59 Last Admin: 09/19/19 17:42 Dose: 21 mg Documented by: [id number] Nicotine Polacrilex (Nicorette 2mg) 2 piece MT PRN PRN PRN Reason: Nicotine Withdrawal Stop: 10/19/19 15:53 Last Admin: 09/19/19 17:46 Dose: 2 piece Documented by: [id number] Discontinued Medications Nicotine (Nicoderm Cq) 21 mg TD NOW STA Stop: 09/19/19 11:30 Last Admin: 09/19/19 11:52 Dose: Not Given Documented by: [id number] Nicotine Polacrilex (Nicorette 2mg) 1 piece MT PRN PRN PRN Reason: Anxiety Stop: 10/19/19 11:33 Last Admin: 09/19/19 11:51 Dose: 1 piece Documented by: [id number] Medical Decision Making Differential Diagnosis Differential diagnoses considered include mood disorder, infection, hypoglycemia, electrolyte abnormalities, cardiac sources, intracerebral event, toxicologic, neurologic, as well as others. Medical Records Attestation: I reviewed the patient's medical records. Home Medications Current Medication List: was personally reviewed by me Laboratory Data Attestation: I reviewed the patient's lab results. Result diagrams: 09/19/19 10:26 09/19/19 10:26 Lab Results 09/19/19 09/19/19 09/19/19 Range/Units 10:20 10:20 10:26 WBC 7.62 (4.8-10.8) K/uL RBC 4.72 (4.7-6.1) M/uL Hgb 14.8 (14.0-18.0) g/dL Hct 44.2 (42-52) % MCV 93.6 (80-100) fL MCH 31.4 (25-34) pg MCHC 33.5 (32-36) g/dL RDW Std Deviation 43.6 (36.4-46.3) fL RDW Coeff of Hina 12.8 (11.5-14.5) % Plt Count 259 (130-400) K/uL MPV 8.4 (7.4-10.4) fL Immature Gran % (Auto) 0.1 % Neut % (Auto) 61.5 % Lymph % (Auto) 27.7 % Roosevelt % (Auto) 6.8 % Eos % (Auto) 3.5 % Baso % (Auto) 0.4 % Immature Gran # (Auto) 0.01 (0.00-0.02) K/uL Neut # (Auto) 4.68 (1.4-6.5) K/uL Lymph # (Auto) 2.11 (1.2-3.4) K/uL Roosevelt # (Auto) 0.52 (0.11-0.59) K/uL Eos # (Auto) 0.27 (0-0.5) K/uL Baso # (Auto) 0.03 (0-0.2) K/uL Sodium (136-145) mmol/L Potassium (3.5-5.1) mmol/L Chloride (98-107) mmol/L Carbon Dioxide (21-32) mmol/L Anion Gap (3-11) BUN (7-18) mg/dl Creatinine (0.6-1.4) mg/dl Est Cr Clr Drug Dosing ml/min Est GFR ( Amer) Est GFR (Non-Af Amer) BUN/Creatinine Ratio (10-20) Glucose (70-99) mg/dl Calcium (8.5-10.1) mg/dl Total Bilirubin (0.2-1) mg/dl AST (15-37) U/L ALT (12-78) U/L Alkaline Phosphatase (45-117) U/L Total Protein (6.4-8.2) gm/dl Albumin (3.4-5.0) gm/dl Globulin (2.5-4.0) gm/dl Albumin/Globulin Ratio (0.9-2) TSH (0.300-4.500) uIu/ml Urine Color Yellow Urine Appearance Cloudy A (Clear) Urine pH 8.5 H (4.5-7.5) Ur Specific [place] 1.004 (1.000-1.030) Urine Protein Negative (Negative) Urine Glucose (UA) Negative (Negative) Urine Ketones Negative (Negative) Urine Blood Negative (Negative) Urine Nitrite Negative (Negative) Urine Bilirubin Negative (Negative) Urine Urobilinogen Negative (Negative) Ur Leukocyte Esterase Negative (Negative) Urine WBC (Auto) 0 (0-5) /hpf Urine RBC (Auto) 0-4 (0-4) /hpf U Hyaline Cast (Auto) 0 (0-5) /lpf U Epithel Cells (Auto) 0-5 (0-5) /lpf Urine Bacteria (Auto) Negative (Negative) Salicylates (2.8-20) mg/dl Urine Opiates Screen Neg (Neg) Ur Methadone, Qual Neg (Neg) Acetaminophen (10-30) ug/ml Urine Barbiturates Neg (Neg) Ur Phencyclidine (PCP) Neg (Neg) U Amphetamin/Meth Scrn Neg (Neg) MDMA (Ecstasy) Screen Neg (Neg) U Benzodiazepines Scrn Neg (Neg) Ur Cocaine Metabolite Neg (Neg) U Marijuana (THC) Screen Neg (Neg) Ethyl Alcohol mg/dL (0-3) mg/dl 09/19/19 09/19/19 09/19/19 Range/Units 10:26 10:26 10:26 WBC (4.8-10.8) K/uL RBC (4.7-6.1) M/uL Hgb (14.0-18.0) g/dL Hct (42-52) % MCV (80-100) fL MCH (25-34) pg MCHC (32-36) g/dL RDW Std Deviation (36.4-46.3) fL RDW Coeff of Hina (11.5-14.5) % Plt Count (130-400) K/uL MPV (7.4-10.4) fL Immature Gran % (Auto) % Neut % (Auto) % Lymph % (Auto) % Roosevelt % (Auto) % Eos % (Auto) % Baso % (Auto) % Immature Gran # (Auto) (0.00-0.02) K/uL Neut # (Auto) (1.4-6.5) K/uL Lymph # (Auto) (1.2-3.4) K/uL Roosevelt # (Auto) (0.11-0.59) K/uL Eos # (Auto) (0-0.5) K/uL Baso # (Auto) (0-0.2) K/uL Sodium 139 (136-145) mmol/L Potassium 3.9 (3.5-5.1) mmol/L Chloride 106 (98-107) mmol/L Carbon Dioxide 30 (21-32) mmol/L Anion Gap 3.0 (3-11) BUN 11 (7-18) mg/dl Creatinine 1.04 (0.6-1.4) mg/dl Est Cr Clr Drug Dosing 81.2 ml/min Est GFR ( Amer) 86.3 Est GFR (Non-Af Amer) 74.5 BUN/Creatinine Ratio 10.4 (10-20) Glucose 87 (70-99) mg/dl Calcium 9.2 (8.5-10.1) mg/dl Total Bilirubin 0.8 (0.2-1) mg/dl AST 9 L (15-37) U/L ALT 21 (12-78) U/L Alkaline Phosphatase 68 (45-117) U/L Total Protein 7.6 (6.4-8.2) gm/dl Albumin 3.8 (3.4-5.0) gm/dl Globulin 3.8 (2.5-4.0) gm/dl Albumin/Globulin Ratio 1.0 (0.9-2) TSH 1.720 (0.300-4.500) uIu/ml Urine Color Urine Appearance (Clear) Urine pH (4.5-7.5) Ur Specific [place] (1.000-1.030) Urine Protein (Negative) Urine Glucose (UA) (Negative) Urine Ketones (Negative) Urine Blood (Negative) Urine Nitrite (Negative) Urine Bilirubin (Negative) Urine Urobilinogen (Negative) Ur Leukocyte Esterase (Negative) Urine WBC (Auto) (0-5) /hpf Urine RBC (Auto) (0-4) /hpf U Hyaline Cast (Auto) (0-5) /lpf U Epithel Cells (Auto) (0-5) /lpf Urine Bacteria (Auto) (Negative) Salicylates 2.2 L (2.8-20) mg/dl Urine Opiates Screen (Neg) Ur Methadone, Qual (Neg) Acetaminophen < 2 L (10-30) ug/ml Urine Barbiturates (Neg) Ur Phencyclidine (PCP) (Neg) U Amphetamin/Meth Scrn (Neg) MDMA (Ecstasy) Screen (Neg) U Benzodiazepines Scrn (Neg) Ur Cocaine Metabolite (Neg) U Marijuana (THC) Screen (Neg) Ethyl Alcohol mg/dL 24.0 H (0-3) mg/dl Blood Pressure Blood Pressure Findings: Elevated blood pressure MDM Narrative This is a 68-year-old male who arrives to the emergency department disheveled and malodorous. He was sent for a shower. Laboratory work was obtained. He was discussed with the psychiatric case liaison as well as [facility] S. who accepted the patient. Patient and family were in agreement with the treatment plan. Impression & Plan Mood disorder Discharge Plan Visit Data *Final* Discharge Date/Time: 09/19/19 16:08 Chief Complaint: Mental Health Evaluation Stated Complaint: FEELING SUICIDAL ED Provider: Se Tavarez Discharge Problem: Mood disorder Patient Disposition: Admitted As Inpatient Discharge Instructions Interventions: ED Discharge Assessment Last Done: 09/19/19 16:08 The scribe's documentation has been prepared under my direction and personally reviewed by me in its entirety. I confirm that the note above accurately reflects all work, treatment, procedures, and medical decision making performed by me.
[2019-09-19] MEDS ORDERED: LORazepam 1 MG TAB PO PRN (15:54)
[2019-09-19] MEDS ORDERED: BISMUTH SUBSALICYLATE PER ML OMNICELL CHARGE PO PRN (15:54)
[2019-09-19] MEDS ORDERED: MAGNESIUM HYDROXIDE SUSP 30 ML UDC PO PRN (15:54)
[2019-09-19] MEDS ORDERED: ACETAMINOPHEN 325 MG TAB PO PRN (15:54)
[2019-09-19] MEDS ORDERED: SODIUM CHLORIDE 0.65% NA SOLN 45 ML (OCEAN) PRN (15:54)
[2019-09-19] MEDS ORDERED: haloperidoL 5 MG TAB PO PRN (17:05)
[2019-09-19] MEDS: NICOTINE 21 MG/24 HR TDSY TD SCH (17:42)
[2019-09-19] MEDS: NICOTINE POLACRILEX 2 MG GUM MT PRN (17:46)
[2019-09-19] MEDS ORDERED: haloperidoL 5 MG TAB PO SCH (21:00)
[2019-09-19] MEDS ORDERED: MECLIZINE HCL 25 MG TAB PO PRN (21:00)
[2019-09-20] MEDS: BENZTROPINE MESYLATE 1 MG TAB PO SCH (07:40)
[2019-09-20] MEDS: PANTOprazole 40 MG TAB PO SCH (07:41)
[2019-09-20] MEDS: levETIRAcetam 500 MG TAB PO SCH (07:41)
[2019-09-20] MEDS: NICOTINE 21 MG/24 HR TDSY TD SCH (07:45)
[2019-09-20] MEDS: NICOTINE POLACRILEX 2 MG GUM MT PRN ×3 (08:35→18:49)
--- NOTE | 2019-09-20 12:13 | History & Physical ---
Date of Service September 20, 2019 Impression / Recommendations Impression 68-year-old male who lives in suboptimal conditions with his son and [place], was on our unit 5 months ago when he was diagnosed with schizophrenia and started on a long-acting injectable, and presented to the ER yesterday with suicidal thoughts in the context of being unhappy in his current housing and lonely during the day while his son is gone at work. He has been working with a vocational case manager to obtain more appropriate housing, and it is unclear where he is in that process. He is a very limited historian and is unable to state what medications he has been taking, but filled a prescription for Haldol about a month ago from an outpatient [facility] at [facility] [place] [facility]. He has abnormal movements, which have been present in the past and it is unclear if these are related to his neuroleptic use. We will need to expand the database, and have requested records from [facility] regarding recent medication changes. Inpatient treatment is medically necessary due to the severity of symptoms and risk for suicide if discharged. (1) Schizophrenia: 09/20 -continue haloperidol 5 mg twice daily and benztropine 1 mg daily. -Get records from his outpatient [facility] PROFESSIONAL COUNSEL[facility] to determine recent medication changes. -Collateral information from son and vocational case manager, try to determine if he has been compliant with medications. Schizophrenia type: paranoid schizophrenia Qualified Code(s): F20.0 - Paranoid schizophrenia Present on Admission?: Yes (2) Depression: 09/20 -patient reports suicidal thoughts to overdose on medications, poor historian unclear if he meets criteria for major depression would benefit from an antidepressant. Collateral information as above. -Encourage group attendance and participation. Work on healthy coping skills and discharge safety plan. -Recommend that medications be secured and dispensed to patient daily, both to limit his access to large amounts of pills and also to ensure compliance. This will be challenging due to lack of responsible individual to manage this. He also has multiple guns at home, which both he and his son have refused to secure. Present on Admission?: Yes (3) Tremor: Present on Admission?: Yes (4) Alcohol abuse: [facility] protocol for alcohol withdrawal. Brief intervention was offered and accepted Intervention was greater than 5 min in length. Brief interventions include: 1. Assess Readiness to Quit, 2. Advise: Help Patient to Reduce or Abstain from Alcohol, 3. Agree: Set Specific, Feasible Goals, 4. Assist: Anticipate barriers, Problem-Solving Solutions. Social work to 5. Arrange: Referrals to appropriate treatment. Summary of intervention: The patient is in precontemplation stage with regards to transtheoretical model of change. The patient is advised to decrease alcohol consumption due to depressant effects and risk of interactions with prescription medications. The patient agreed to no change, and will be provided with rec overy materials to continue to education self on how to cope with their condition without drinking. Patient has very poor insight and plans to continue drinking despite the risks. Present on Admission?: Yes (5) Seizure disorder: Continue home dose of Keppra, and coordinate care with outpatient neurologist. Present on Admission?: Yes Risk Factors Assessment Male: Yes : Yes Do You Have Access To A Gun?: Yes (refused to secure them during last hospitalization) Health Problems: Yes Mental Health Diagnoses: Yes Substance Use Disorders: Yes Previous Attempt: No Previous Psychiatric Hospitalization: Yes Hopelessness: Yes Smoker: No Protective Factors Assessment Yazidi Beliefs: No : No Responsible for Young Children: No Employed: No Stable Relationships: No Supportive Family: Yes Psychiatric History Identifying Data EMMA SAUER is a 68-year-old M who currently lives in [place] with his son, has a history of schizophrenia, and was admitted on 09/19/19 15:54 on a 201 voluntary commitment for suicidal ideation. Chief Complaint "I was feeling suicidal". Past Psychiatric History Previous Psych History: Patient is well-known to me from a previous hospitalization here in April 2019, during which she was diagnosed with schizophrenia. [facility], and referred for outpatient mental health treatment and case management services for assistance with housing. He has been seen in our ER in [facility] multiple times in the past month for shaking and tremor, and also follows with a neurologist for seizure disorder that per records consists of shaking. He presented to the ER yesterday, 09/19/2019, reporting suicidal thoughts with a plan to take all of his medications and "end it all." He was noted to be disheveled and malodorous, and said he was stressed due to his living conditions and because he is home alone during the day while his son is at work. His BCM was present in the ER, and reported that he has been worsening for the past month, has poor living conditions with no running water, and sleeps on a couch. He has an open case with the [place] office of aging. He made suicidal comments to both his vocational case manager and son. On my assessment, the patient reports he has been "having a rough time," as he wants to move into better housing, and has had difficulty arranging that. His current house has no running water or buckle sewer machine, and is not well heated (old log house, drafty). He and his son have been living there while working on getting public housing and were "next on the list" for a place in [place], but for unclear reasons this did not materialize. He reports worsening mood for the past 2 weeks, exacerbated by having to get rid of his chickens as they went to his neighbor's flower bed "and she threatened to carie," and also by loneliness as his son is gone a lot for work and to visit his daughter. He has been more socially isolated, sleep is shifted (falling asleep at 5pm and waking up at 2 or 3 am), decreased appetite with 20lb weight loss, and SI with thoughts to overdose on all of his medications, which have been worsening for the past two weeks. His son is protective as he would not want him to find his body. He states his son is also struggling and has made comments that he would be better off , and refuses to seek help. His son brought him into the ER. He reports good medication compliance, and states a doctor at [place] told him he has tardive dyskinesia (cannot say when this was, and is not sure if he was admitted or just seen in the ER). He is not sure what medications he takes (when asked about Haldol 5mg bid which he filled 08/11/19 he agrees it is prescribed, not sure if he still takes it and should have run out > 1 week ago). He denies paranoia, AVH, and concerns about spirits or haunting of his house, and states they had a preacher come out bless the house, which resolved the problem with "the demon." He believes there is still the ghost of a little girl in his house, as "when she gets ignored, she lets you know. She dumped a whole box of tapes out in front of ." He clarifies that they can't see her, but "you know it's her, his ex- took a picture, and she was standing alongside of his when she took the picture, but the picture didn't last, it faded away." Current Psychiatric Diagnosis: Bipolar Outpatient Services: S[facility] at [facility] BCM: Erica Shepherd at [facility] Therapist: Arabella at [facility] [place] [facility] - states he only goes every 3 weeks or so, limited by son's work schedule CM through Office of Aging Previous Psych Admissions: [facility] 04/2019 Do You Have Access To A Gun?: Yes (refused to secure them during last hospitalization) History of Previous Suicide Attempt: No Past Medication Trials: Invega Sustenna - started here 04/2019 - he got the 2 loading injections here, but states he had "a reaction, hives" after a subsequent injection, so it was stopped Past Head Trauma/Neuro History History of Concussion/Seizure: Yes seizure disorder Allergies Allergy/AdvReac Type Severity Reaction Status Date / Time Penicillins Allergy Unknown Hives Verified 09/19/19 11:32 Sulfa (Sulfonamide Allergy Unknown Hives Verified 09/19/19 11:32 Antibiotics) paliperidone AdvReac Intermediate Patient Unverified 09/19/19 11:32 states had "bad reaction" after administration Uncoded Nonscreenable Allergy Unknown FLAXSEED: Uncoded 09/19/19 11:32 Allergen HIVES,ITCHING Home Medications Home Medications Medication Instructions Recorded Confirmed Type meclizine 25 mg tablet 25 mg PO TID PRN #30 tab 08/17/19 09/19/19 Rx benztropine 1 mg PO DAILY 09/19/19 09/19/19 History haloperidol 5 mg PO BID 09/19/19 09/19/19 History levetiracetam [Keppra] 500 mg PO DAILY 09/19/19 09/19/19 History pantoprazole [Protonix] 40 mg PO DAILY 09/19/19 09/19/19 History Family History Family History of: Doesn't Know Family Mental Health History Comment: Mother "I don't know what they called it but she wasn't happy unless she could pick a fight." Alcohol History Hx of Alcohol Use Over the Past 12 Months: Yes (drinks daily) AUDIT Total Score: 18 Drinks "a couple a day," with clarification admits up to 8 beers several times a week. Denies withdrawal symptoms. Smoking Use Have You Smoked or Used Tobacco Products in the Last 30 Days: Yes tobacco type: smokeless tobacco Smoking Status: Never smoker Substance History Hx of Prescription Med Misuse Over the Past 12 Months: No Hx of Over the Counter Med Misuse Over the Past 12 Months: No Hx of Inhalent Misuse Over the Past 12 Months: No Hx of Organic Substance Use Over the Past 12 Months: No Hx of Illegal Substances/Street Drug Use Over Past 12 Months: No Problems as a Result of Past Substance Use: None Identified Personal History Living Arrangements: Home Living Arrangements Comments: with son in [place] - poor conditions Born In: [place] - grew up in [facility] Highest Grade Completed: High School Graduate Marital Status: Number Of Children: 6 Beliefs That Will Affect Care: None Hx Traumatic Life Events: Yes (Reports his divorce from as traumatic; denies history of abuse) Patient History Medical History Acid reflux (Acute) Alcohol abuse (Acute) Anxiety Arthritis (Acute) Bipolar disorder BPH (benign prostatic hyperplasia) (Chronic) COPD (chronic obstructive pulmonary disease) Dementia Depression GERD (gastroesophageal reflux disease) No pertinent family history Schizophrenia (Chronic) Seizure (Acute) Shoulder pain (Resolved) Family History Aunt Family history of seizures Other No pertinent family history Social History Preferred Language: Vietnamese Communication Ability: Effective Communication Ability Comment: has difficulty reading with new glasses Visual Impairment: No Limitations Hearing Ability: Normal Overlock Hemmer Required: No Beliefs That Will Affect Care: None marital status: marital status details: Current Living Situation: Family Feels Safe at Home: Yes Smoking Status: Never smoker Tobacco Type: smokeless tobacco ; Hx Alcohol Use: Yes Alcohol type: beer Physical Exam Psychiatric: Orientation: alert and cooperative Apperance: appropriately dressed and + disheveled Limited hygiene and grooming Eye Contact: + fair eye contact Motor Behavior: steady gait and station Bilateral pill-rolling tremor Speech: normal rate/rhythm/volume of speech Affect: + anxious affect "no good, rough" Thought Process: + concrete thought process Thought Content: + delusions, + hopelessness and + loneliness Suicidal Thoughts: + reports suicidal thoughts Homicidal Thoughts: denies homicidal thoughts Hallucinations: no auditory hallucinations and no visual hallucinations Cognition: attention grossly intact and language grossly intact; + recent memory not intact and + remote memory not intact Estimated Intelligence: + below average estimated intelligence Insight: + limited insight Judgement: + hills ited judgement Vital Signs (Past 24 Hours): Last Vital Signs Temp 37.1 C 09/20/19 08:28 Pulse 70 09/20/19 08:28 Resp 18 09/20/19 08:28 BP 149/91 H 09/20/19 08:28 Pulse Ox 98 09/19/19 09:46 Exam Statement: A physical exam was performed in the ER prior to admission to the unit by Dr. Se Tavarez. I accept that physical as correct/medical clearance for the inpatient physical exam. Results & Data Current Inpatient Medications Current Inpatient Medications: Current Inpatient Medications Acetaminophen (Tylenol) 650 mg PO Q4H PRN PRN Reason: Headache or Minor Fever Stop: 10/19/19 15:53 Al Hydrox/Mg Hydrox/Simethicone (Maalox) 30 ml PO Q4H PRN PRN Reason: GI Upset Stop: 10/19/19 15:53 Benztropine Mesylate (Cogentin) 1 mg PO DAILY MESHA Stop: 10/20/19 08:59 Last Admin: 09/20/19 07:40 Dose: 1 mg Documented by: Bismuth Subsalicylate (Kaopectate) 15 ml PO PRN PRN PRN Reason: Loose Stool Stop: 10/19/19 15:53 Haloperidol (Haldol) 5 mg PO Q6H PRN PRN Reason: Agitation/Grace Stop: 10/19/19 17:14 Hydroxyzine HCl (Vistaril) 50 mg PO HSZ PRN PRN Reason: Insomnia Stop: 10/19/19 15:53 Hydroxyzine HCl (Vistaril) 25 mg PO Q4H PRN PRN Reason: Anxiety Stop: 10/19/19 15:53 Levetiracetam (Keppra) 500 mg PO DAILY MESHA Stop: 10/20/19 08:59 Last Admin: 09/20/19 07:41 Dose: 500 mg Documented by: Lorazepam (Ativan) 1 mg PO ONE PRN; Protocol PRN Reason: EtoH Withdrawal AWSS 6-10 Magnesium Hydroxide (Milk Of Magnesia) 30 ml PO DAILY PRN PRN Reason: Constipation Stop: 10/19/19 15:53 Meclizine HCl (Antivert) 25 mg PO TID PRN PRN Reason: DIZZINESS Stop: 10/19/19 20:59 Miscellaneous (Remove Nicoderm Patch) 1 ea N/A DAILY@[id number] [facility] Stop: 10/20/19 08:58 Last Admin: 09/20/19 07:45 Dose: 1 ea Documented by: Nicotine (Nicoderm Cq) [address] [facility] Stop: 10/20/19 08:59 Last Admin: 09/20/19 07:45 Dose: 21 mg Documented by: Nicotine Polacrilex (Nicorette 2mg) 2 piece MT PRN PRN PRN Reason: Nicotine Withdrawal Stop: 10/19/19 15:53 Last Admin: 09/20/19 08:35 Dose: 2 piece Documented by: Pantoprazole Sodium (Protonix) [address] [facility] Stop: 10/20/19 08:59 Last Admin: 09/20/19 07:41 Dose: 40 mg Documented by: Sodium Chloride ([place] Nasal) 1 - 2 sprays NA PRN PRN PRN Reason: Nasal Dryness/Congestion Stop: 10/19/19 15:53
[2019-09-20] MEDS: haloperidoL 5 MG TAB PO SCH (21:00)
[2019-09-21] MEDS: BENZTROPINE MESYLATE 1 MG TAB PO SCH (07:32)
[2019-09-21] MEDS: levETIRAcetam 500 MG TAB PO SCH ×2 (07:33→21:21)
[2019-09-21] MEDS: haloperidoL 5 MG TAB PO SCH (07:33)
[2019-09-21] MEDS: PANTOprazole 40 MG TAB PO SCH (07:35)
[2019-09-21] MEDS: NICOTINE 21 MG/24 HR TDSY TD SCH (07:35)
[2019-09-21] MEDS ORDERED: levETIRAcetam 500 MG TAB PO ONE (09:30)
--- NOTE | 2019-09-21 09:32 | Psychiatric Progress Note ---
Date of Service September 21, 2019 Impression / Recommendations Impression 68-year-old male who lives in suboptimal conditions with his son in [place], was on our unit 5 months ago when he was diagnosed with schizophrenia and started on a long-acting injectable antipsychotic, and presented to the ER with suicidal thoughts in the context of being unhappy in his current housing and lonely during the day while his son is gone at work. He has been working with a caser up to obtain more appropriate housing, and a meeting is scheduled with the tie up worker, his son, and BCM today. He is a very limited historian and is unable to state what medications he has been taking, but filled a prescription for Haldol about a month ago from an outpatient [facility] at [facility]. He has abnormal movements, which have been present in the past and it is unclear if these are related to his neuroleptic use. 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 Inpatient treatment is medically necessary due to the severity of symptoms and risk for suicide if discharged. (1) Schizophrenia: 09/20 -continue haloperidol 5 mg twice daily and benztropine 1 mg daily. -FLP performed 04/2019: Triglycerides 303, cholesterol 228, fasting glucose 108. -Get records from his outpatient [employer] [employer] to determine recent medication changes. -Collateral information from son and caser up, try to determine if he has been compliant with medications. 09/21 - [facility] records received and reviewed. They did not even list Yolanda Graves on his medication list, although they saw him 2 days after he received his maintenance injection. He thinks that he had some sort of reaction, possibly a rash, but this is not confirmed. -As he thinks that Haldol made his movement disorder worse, we will try cross tapering to aripiprazole, with a plan to place him on Maintena if it is effective and tolerated. Staff confirmed that both forms of the medication are affordable with his insurance. -AIMS 1 -Family meeting today with tie up worker, outpatient DIA Robb, and the patient's son. (2) Depression: 09/20 -patient reports suicidal thoughts to overdose on medications, poor historian unclear if he meets criteria for major depression would benefit from an antidepressant. Collateral information as above. -Encourage group attendance and participation. Work on healthy coping skills and discharge safety plan. -Recommend that medications be secured and dispensed to patient daily, both to limit his access to large amounts of pills and also to ensure compliance. This will be challenging due to lack of responsible individual to manage this. He also has multiple guns at home, which both he and his son have refused to secure. 09/21 -mood improving with support on the unit. (3) Tremor: (4) Alcohol abuse: 09/20- AWSS protocol for alcohol withdrawal. Brief intervention was offered and accepted Intervention was greater than 5 min in length. Brief interventions include: 1. Assess Readiness to Quit, 2. Advise: Help Patient to Reduce or Abstain from Alcohol, 3. Agree: Set Specific, Feasible Goals, 4. Assist: Anticipate barriers, Problem-Solving Solutions. Social work to 5. Arrange: Referrals to appropriate treatment. Summary of intervention: The patient is in precontemplation stage with regards to transtheoretical model of change. The patient is advised to decrease alcohol consumption due to depressant effects and risk of interactions with prescription medications. The patient agreed to no change, and will be provided with recovery materials to continue to education self on how to cope with their condition without drinking. Patient has very poor insight and plans to continue drinking despite the risks. 09/21 -patient has not scored on the AWSS, denying alcohol withdrawal symptoms, will discontinue. (5) Seizure disorder: Continue home dose of Keppra, and coordinate care with outpatient neurologist. Risk Factors Assessment Male: Yes : Yes Do You Have Access To A Gun?: Yes (refused to secure them during last hospitalization) Health Problems: Yes Mental Health Diagnoses: Yes Substance Use Disorders: Yes Previous Attempt: No Previous Psychiatric Hospitalization: Yes Hopelessness: Yes Smoker: No Protective Factors Assessment Muslim Beliefs: No : No Responsible for Young Children: No Employed: No Stable Relationships: No Supportive Family: Yes Interval History Identifying Information EMMA SAUER is a 68-year-old M who currently lives in [place] with his son, has a history of schizophrenia and alcohol abuse, and was admitted on 09/19/19 15:54 on a 201 voluntary commitment for suicidal ideation. Chief Complaint " Okay". Review of Systems Notes Denies symptoms of alcohol withdrawal Sleep Information Total Hours of Sleep: 5.5 Sleep Comments: pt on q-15 minute checks Meal Information Percent Meal Consumed - Breakfast: 100 Percent Meal Consumed - Lunch: 100 Percent Meal Consumed - Dinner: 100 Subjective Subjective Patient was seen & assessed and interval progress reviewed with nursing and social work. Staff report they have attempted to contact his outpatient psychiatric clinic to get records and confirm his medications, but were unable to reach anybody. He attended and participated in groups, and said mood was more hopeful. He was social with peers and pleasant and cooperative. His [facility] Erica visited, and a meeting was scheduled with her and the patient's son for this afternoon. She stated that the patient had not followed through on getting a state issued ID, which has caused problems with his housing search. He reported poor sleep overnight and requested medication for insomnia, received hydroxyzine 50 mg as needed, and was advised to remove his nicotine patch at bedtime. He has not scored on AWSS and continues to deny symptoms of alcohol withdrawal. On my assessment, he was seen in his room, where he had returned to bed. He states he slept poorly overnight. Mood is "up and down," but suicidal thoughts have improved since admission. He states his tremors "come and go," were present "a little bit" yesterday, and he has not noticed them today. AIMS performed, scored 1. He remains unable to provide information about what medications he was taking at home. He thinks that Haldol was stopped at some point because it was making his tremors worse, and is willing to try different antipsychotic medication. He says that he had a "reaction" to the Invega Sustenna, although can give me no further details about it, later stating he thinks he had a rash. Records from community services group [facility] received and reviewed: Patient was seen there 05/18/2019 for initial evaluation. He told them he had not taken his medications in 2 weeks, and their med list included Haldol 5 mg twice daily, Cogentin 1 mg nightly, and Keppra, but did not include Invega Sustenna, which she had been started on at the hospital. Haldol and Cogentin were continued, and follow-up was recommended in 3 weeks. He was seen again 06/29/2019, reported doing well, and his medications were again continued. Staff contacted [facility] pharmacy, where the patient was getting his Invega Sustenna injections after discharge from the hospital. They confirmed that he received his maintenance injection 05/16/2019. Physical Exam Psychiatric Orientation: alert and cooperative Apperance: appropriately dressed (Dressed in the same clothes, limited hygiene and grooming. Poor dentition. Lying in bed awake in no acute distress.) Eye Contact: good eye contact Motor Behavior: steady gait and station Slight tremor with arms outstretched. Occasional mouth/jaw movements. Speech: normal rate/rhythm/volume of speech Affect: + blunted affect Thought Process: + concrete thought process Vague, paucity of thought content. Suicidal Thoughts: + reports suicidal thoughts Improved since admission, feels safe here. Homicidal Thoughts: denies homicidal thoughts Hallucinations: no auditory hallucinations and no visual hallucinations Cognition: attention grossly intact and language grossly intact; + recent memory not intact and + remote memory not intact Estimated Intelligence: + below average estimated intelligence Insight: + limited insight Judgement: + limited judgement Vital Signs (Past 24 Hours) Last Vital Signs Temp 36.7 C 09/21/19 06:56 Pulse 86 09/21/19 06:56 Resp 18 09/21/19 06:56 BP 135/81 09/21/19 06:56 Pulse Ox 98 09/19/19 09:46 Results & Data Laboratory Results Laboratory Results - last 24 hr 09/19/19 10:26 Hepatitis C Ab Screen Pending Current Inpatient Medications Current Inpatient Medications: Current Inpatient Medications Acetaminophen (Tylenol) 650 mg PO Q4H PRN PRN Reason: Headache or Minor Fever Stop: 10/19/19 15:53 Al Hydrox/Mg Hydrox/Simethicone (Maalox) 30 ml PO Q4H PRN PRN Reason: GI Upset Stop: 10/19/19 15:53 Benztropine Mesylate (Cogentin) 1 mg PO DAILY [facility] Stop: 10/20/19 08:59 Last Admin: 09/21/19 07:32 Dose: 1 mg Documented by: Bismuth Subsalicylate (Kaopectate) 15 ml PO PRN PRN PRN Reason: Loose Stool Stop: 10/19/19 15:53 Haloperidol (Haldol) 5 mg PO Q6H PRN PRN Reason: Agitation/Grace Stop: 10/19/19 17:14 Haloperidol (Haldol) 5 mg PO BID [facility] Stop: 10/20/19 20:59 Last Admin: 09/21/19 07:33 Dose: 5 mg Documented by: Hydroxyzine HCl (Vistaril) 50 mg PO HSZ PRN PRN Reason: Insomnia Stop: 10/19/19 15:53 Last Admin: 09/20/19 23:59 Dose: 50 mg Documented by: Hydroxyzine HCl (Vistaril) 25 mg PO Q4H PRN PRN Reason: Anxiety Stop: 10/19/19 15:53 Levetiracetam (Keppra) 1,000 mg PO BID [facility] Stop: 10/21/19 09:14 Lorazepam (Ativan) 1 mg PO ONE PRN; Protocol PRN Reason: EtoH Withdrawal AWSS 6-10 Magnesium Hydroxide (Milk Of Magnesia) 30 ml PO DAILY PRN PRN Reason: Constipation Stop: 10/19/19 15:53 Meclizine HCl (Antivert) 25 mg PO TID PRN PRN Reason: DIZZINESS Stop: 10/19/19 20:59 Miscellaneous (Remove Nicoderm Patch) 1 ea N/A DAILY@0859 [facility] Stop: 10/20/19 08:58 Last Admin: 09/21/19 00:00 Dose: 1 ea Documented by: Nicotine (Nicoderm Cq) 21 mg TD QAM [facility] Stop: 10/20/19 08:59 Last Admin: 09/21/19 07:35 Dose: 21 mg Documented by: Nicotine Polacrilex (Nicorette 2mg) 2 piece MT PRN PRN PRN Reason: Nicotine Withdrawal Stop: 10/19/19 15:53 Last Admin: 09/20/19 18:49 Dose: 2 piece Documented by: Pantoprazole Sodium (Protonix) 40 mg PO DAILY [facility] Stop: 10/20/19 08:59 Last Admin: 09/21/19 07:35 Dose: 40 mg Documented by: Sodium Chloride ([place] Nasal) 1 - 2 sprays NA PRN PRN PRN Reason: Nasal Dryness/Congestion Stop: 10/19/19 15:53 Mental Health & Subst Abuse Tx Therapist Name of Therapist: Thalia VALDIVIA Breaker Boss Name of Breaker Boss: Clarisse Shepherd Post Discharge Appointments Primary Care Physician Name Of Family Doctor: Dr. Camacho (1) Schizophrenia Schizophrenia type: paranoid schizophrenia Qualified Code(s): F20.0 - Paranoid schizophrenia
[2019-09-21] MEDS: NICOTINE POLACRILEX 2 MG GUM MT PRN ×2 (09:43→13:05)
[2019-09-22] MEDS: BENZTROPINE MESYLATE 1 MG TAB PO SCH (08:23)
[2019-09-22] MEDS: NICOTINE 21 MG/24 HR TDSY TD SCH (08:24)
[2019-09-22] MEDS: PANTOprazole 40 MG TAB PO SCH (08:24)
[2019-09-22] MEDS: levETIRAcetam 500 MG TAB PO SCH ×2 (08:24→21:07)
[2019-09-22] MEDS ORDERED: ARIPiprazole 5 MG TAB PO SCH (09:00)
[2019-09-22] MEDS: NICOTINE POLACRILEX 2 MG GUM MT PRN ×3 (09:16→18:00)
--- NOTE | 2019-09-22 11:06 | Psychiatric Progress Note ---
Date of Service September 22, 2019 Impression / Recommendations Impression 68-year-old male who lives in suboptimal conditions with his son in [place], was on our unit 5 months ago when he was diagnosed with schizophrenia and started on a long-acting injectable antipsychotic, and presented to the ER with suicidal thoughts in the context of being unhappy in his current housing and lonely during the day while his son is gone at work. He has been working with a manager of case to obtain more appropriate housing, and a meeting is scheduled with the social services, his son, and BCM today. He is a very limited historian and is unable to state what medications he has been taking, but filled a prescription for Haldol about a month ago from an outpatient [facility] [employer]IAN at [facility]. He has abnormal movements, which have been present in the past and it is unclear if these are related to his neuroleptic use. 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 Inpatient treatment is medically necessary due to the severity of symptoms and risk for suicide if discharged. (1) Schizophrenia: 09/20 -continue haloperidol 5 mg twice daily and benztropine 1 mg daily. -FLP performed 04/2019: Triglycerides 303, cholesterol 228, fasting glucose 108. -Get records from his outpatient [employer] HISTOR[facility] to determine recent medication changes. -Collateral information from son and manager of case, try to determine if he has been compliant with medications. 09/21 - [facility] records received and reviewed. They did not even list Yolanda Graves on his medication list, although they saw him 2 days after he received his maintenance injection. He thinks that he had some sort of reaction, possibly a rash, but this is not confirmed. -As he thinks that Haldol made his movement disorder worse, we will try cross tapering to aripiprazole, with a plan to place him on Maintena if it is effective and tolerated. Staff confirmed that both forms of the medication are affordable with his insurance. -AIMS 1 -Family meeting today with social services, outpatient DIA Robb, and the patient's son. 09/22 - Titrate aripiprazole to 10mg starting tomorrow morning - Patient continues to verbalize willingness to convert to CARRILLO of tolerating PO (2) Depression: 09/20 -patient reports suicidal thoughts to overdose on medications, poor historian unclear if he meets criteria for major depression would benefit from an antidepressant. Collateral information as above. -Encourage group attendance and participation. Work on healthy coping skills and discharge safety plan. -Recommend that medications be secured and dispensed to patient daily, both to limit his access to large amounts of pills and also to ensure compliance. This will be challenging due to lack of responsible individual to manage this. He also has multiple guns at home, which both he and his son have refused to secure. 09/21 -mood improving with support on the unit. 09/22 - Pt reporting ongoing feelings of depression - Aripiprazole initiated yesterday as above, with likely benefit for mood symptoms as well. Continue titration as tolerated. - Continue to encourage participation in group and recreational programming (3) Tremor: (4) Alcohol abuse: 09/20- AWSS protocol for alcohol withdrawal. Brief intervention was offered and accepted Intervention was greater than 5 min in length. Brief interventions include: 1. Assess Readiness to Quit, 2. Advise: Help Patient to Reduce or Abstain from Alcohol, 3. Agree: Set Specific, Feasible Goals, 4. Assist: Anticipate barriers, Problem-Solving Solutions. Social work to 5. Arrange: Referrals to appropriate treatment. Summary of intervention: The patient is in precontemplation stage with regards to transtheoretical model of change. The patient is advised to decrease alcohol consumption due to depressant effects and risk of interactions with prescription medications. The patient agreed to no change, and will be provided with recovery materials to continue to education self on how to cope with their condition without drinking. Patient has very poor insight and plans to continue drinking despite the risks. 09/21 -patient has not scored on the AWSS, denying alcohol withdrawal symptoms, will discontinue. (5) Seizure disorder: Continue home dose of Keppra, and coordinate care with outpatient neurologist. Risk Factors Assessment Male: Yes : Yes Do You Have Access To A Gun?: Yes (refused to secure them during last hospitalization) Health Problems: Yes Mental Health Diagnoses: Yes Substance Use Disorders: Yes Previous Attempt: No Previous Psychiatric Hospitalization: Yes Hopelessness: Yes Smoker: No Protective Factors Assessment Voodoo Beliefs: No : No Responsible for Young Children: No Employed: No Stable Relationships: No Supportive Family: Yes Interval History Identifying Information EMMA SAUER is a 68-year-old M who currently lives in [place] with his son, has a history of schizophrenia and alcohol abuse, and was admitted on 09/19/19 15:54 on a 201 voluntary commitment for suicidal ideation. Chief Complaint "A little down." Review of Systems Notes Constitutional: denied Cardiovascular: denied Respiratory: denied Gastrointestinal: denied Neurological: denied Psychiatric: denies symptoms other than stated above Total of at least 10 systems reviewed, pertinent positives as above and in HPI. Sleep Information Total Hours of Sleep: 7.75 Sleep Comments: pt on q-15 minute checks Meal Information Percent Meal Consumed - Breakfast: 100 Percent Meal Consumed - Lunch: 100 Percent Meal Consumed - Dinner: 100 Subjective Subjective Patient was seen & assessed and interval progress reviewed with treatment team. Staff report the patient has appeared rather depressed during this admission. He reportedly spent most of last evening in bed. Pt did have a meeting with his son and manager of case yesterday, and long-term goal is to look into alternative housing options. Pt was seen today to assess progress since admission. Pt gives verbal consent for Shelley Albright PA-C to observe today's encounter. He does state he is feeling "a little down" today. He states that he was informed by staff "that I slept a lot yesterday, I guess that means my mood isn't good." Pt does admit that he feels his mood has been better in the past, but does state that he is pleased he is not currently experiencing suicidal ideation. When asked about his thoughts on his housing situation, given the arrangements were a stressor leading to admission, the patient states, "I'll just have to take thin gs one day at a time." He denies side effects related to initiation of aripiprazole, and was agreeable with increasing his dose to 10mg tomorrow morning. He remains agreeable with converting to CARRILLO once tolerability and efficacy have been determined. Pt denies other needs or concerns at this time. Physical Exam Psychiatric Orientation: alert, oriented x 3 and cooperative Apperance: appropriately dressed (attire is appropriate, though clothes are heavily stained), + disheveled and appeared stated age; + inappropriately groomed Eye Contact: good eye contact Motor Behavior: + abnormal motor movements (persistent oral movement, chewing motion and occasional lip licking) Speech: normal rate/rhythm/volume of speech Affect: + depressed affect (appearing more subdued today) Mood: + depressed mood ("A little down") Thought Process: goal directed thought process and + concrete thought process Thought Content: + delusions (underlying delusional thought content, though with less preoccupation); no hopelessness For the most part, thought content is reality-based. Pt does verbalize that he carries a Bible with him to protect him from "anything scary", denies active concerns related to active delusional thoughts/paranoia, and denies A/V hallucinations. Suicidal Thoughts: denies suicidal thoughts and denies suicidal intent Homicidal Thoughts: denies homicidal thoughts Hallucinations: no auditory hallucinations and no visual hallucinations Cognition: attention grossly intact and language grossly intact Estimated Intelligence: + below average estimated intelligence Insight: + limited insight Judgement: + limited judgement Vital Signs (Past 24 Hours) Last Vital Signs Temp 36.8 C 09/22/19 06:54 Pulse 76 09/22/19 06:54 Resp 18 09/22/19 06:54 BP 136/82 09/22/19 06:54 Pulse Ox 98 09/19/19 09:46 Results & Data Current Inpatient Medications Current Inpatient Medications: Current Inpatient Medications Acetaminophen (Tylenol) 650 mg PO Q4H PRN PRN Reason: Headache or Minor Fever Stop: 10/19/19 15:53 Al Hydrox/Mg Hydrox/Simethicone (Maalox) 30 ml PO Q4H PRN PRN Reason: GI Upset Stop: 10/19/19 15:53 Aripiprazole (Abilify) 5 mg PO QAM [facility] Stop: 10/22/19 08:59 Last Admin: 09/22/19 08:23 Dose: 5 mg Documented by: Benztropine Mesylate (Cogentin) 1 mg PO DAILY [facility] Stop: 10/20/19 08:59 Last Admin: 09/22/19 08:23 Dose: 1 mg Documented by: Bismuth Subsalicylate (Kaopectate) 15 ml PO PRN PRN PRN Reason: Loose Stool Stop: 10/19/19 15:53 Haloperidol (Haldol) 5 mg PO Q6H PRN PRN Reason: Agitation/Grace Stop: 10/19/19 17:14 Hydroxyzine HCl (Vistaril) 50 mg PO HSZ PRN PRN Reason: Insomnia Stop: 10/19/19 15:53 Last Admin: 09/20/19 23:59 Dose: 50 mg Documented by: Hydroxyzine HCl (Vistaril) 25 mg PO Q4H PRN PRN Reason: Anxiety Stop: 10/19/19 15:53 Last Admin: 09/21/19 16:25 Dose: 25 mg Documented by: Levetiracetam (Keppra) 1,000 mg PO BID [facility] Stop: 10/21/19 20:59 Last Admin: 09/22/19 08:24 Dose: 1,000 mg Documented by: Magnesium Hydroxide (Milk Of Magnesia) 30 ml PO DAILY PRN PRN Reason: Constipation Stop: 10/19/19 15:53 Meclizine HCl (Antivert) 25 mg PO TID PRN PRN Reason: DIZZINESS Stop: 10/19/19 20:59 Miscellaneous (Remove Nicoderm Patch) 1 ea N/A DAILY@0859 [facility] Stop: 10/20/19 08:58 Last Admin: 09/22/19 08:25 Dose: 1 ea Documented by: Nicotine (Nicoderm Cq) 21 mg TD QAM [facility] Stop: 10/20/19 08:59 Last Admin: 09/22/19 08:24 Dose: 21 mg Documented by: Nicotine Polacrilex (Nicorette 2mg) 2 piece MT PRN PRN PRN Reason: Nicotine Withdrawal Stop: 10/19/19 15:53 Last Admin: 09/22/19 09:16 Dose: 2 piece Documented by: Pantoprazole Sodium (Protonix) 40 mg PO DAILY [facility] Stop: 10/20/19 08:59 Last Admin: 09/22/19 08:24 Dose: 40 mg Documented by: Sodium Chloride ([place] Nasal) 1 - 2 sprays NA PRN PRN PRN Reason: Nasal Dryness/Congestion Stop: 10/19/19 15:53 Mental Health & Subst Abuse Tx Psychiatrist Name of Psychiatrist: CORRINA [place] Psychiatrist's Date of Appointment with Psychiatrist: 10/05/19 Time of Appointment with Psychiatrist: 8:00 a.m. Psychiatric Appointment Comment: [id number], [place] [address] Therapist Name of Therapist: SKIP Heller Therapist's Date of Therapist Appointment: 10/05/19 Therapy Appointment Comment: You will have an intake interview when you see Film Library Clerk Name of Film Library Clerk: PEDRO Shepherd Phone Number for Film Library Clerk: [phone] Case Management Appointment Comment: Meets you in your home Post Discharge Appointments Primary Care Physician Name Of Family Doctor: ALYSON Camacho Primary Care Provider Appointment Comment: [address] [place] [address] [place] [address] Other #1: Name of Aftercare Appointment: [facility] Phone Number of Aftercare Appointment: Aftercare Appointment Comment: [address] [place] [address] [phone], [place] [phone] Contact Information Discharge Discharge Address: [address] [place] [address], [place] [address] (1) Schizophrenia Schizophrenia type: paranoid schizophrenia Qualified Code(s): F20.0 - Paranoid schizophrenia
--- NOTE | 2019-09-23 07:48 | Psychiatric Progress Note ---
Date of Service September 23, 2019 Impression / Recommendations Impression 68-year-old male who lives in suboptimal conditions with his son in [place], was on our unit 5 months ago when he was diagnosed with schizophrenia and started on a long-acting injectable antipsychotic, and presented to the ER with suicidal thoughts in the context of being unhappy in his current housing and lonely during the day while his son is gone at work. He has been working with a caser in to obtain more appropriate housing, but has not made much progress due to multiple psychosocial barriers. A meeting was held with the social services, his son, and [facility], but he will need to return to his house at discharge while they continue to work on long-term housing options. He is a limited historian and there were multiple medication changes after discharge from our unit, as Invega Sustenna was discontinued and he was on p.o. haloperidol alone, but reported worsening involuntary movements over the past month, so we have switched him to aripiprazole. If effective and well-tolerated, will initiate Maintena prior to discharge due to his history of nonadherence with oral medications. Inpatient treatment is medically necessary due to the severity of symptoms and risk for suicide if discharged. (1) Schizophrenia: 09/20 -continue haloperidol 5 mg twice daily and benztropine 1 mg daily. -FLP performed 04/2019: Triglycerides 303, cholesterol 228, fasting glucose 108. -Get records from his outpatient PARASITOLOGIST to determine recent medication changes. -Collateral information from son and caser in, try to determine if he has been compliant with medications. 09/21 - [facility] records received and reviewed. They did not even list Invtracey Graves on his medication list, although they saw him 2 days after he received his maintenance injection. He thinks that he had some sort of reaction, possibly a rash, but this is not confirmed. -As he thinks that Haldol made his movement disorder worse, we will try cross tapering to aripiprazole, with a plan to place him on Maintena if it is effective and tolerated. Staff confirmed that both forms of the medication are affordable with his insurance. -AIMS 1 -Family meeting today with social services, outpatient DIA Robb, and the patient's son. 09/22- Titrate aripiprazole to 10mg starting tomorrow morning - Patient continues to verbalize willingness to convert to CARRILLO of tolerating PO 09/23 -Appears to be tolerating aripiprazole well so far, has some diarrhea this morning, but started prior to receiving his medication. Monitor, and start Maintena as early as tomorrow. He will need to continue p.o. aripiprazole for 14 days after the initial injection. (2) Depression: 09/20 -patient reports suicidal thoughts to overdose on medications, poor historian unclear if he meets criteria for major depression would benefit from an antidepressant. Collateral information as above. -Encourage group attendance and participation. Work on healthy coping skills and discharge safety plan. -Recommend that medications be secured and dispensed to patient daily, both to limit his access to large amounts of pills and also to ensure compliance. This will be challenging due to lack of responsible individual to manage this. He also has multiple guns at home, which both he and his son have refused to secure. 09/21 -mood improving with support on the unit. 09/22 - Pt reporting ongoing feelings of depression - Aripiprazole initiated yesterday as above, with likely benefit for mood symptoms as well. Continue titration as tolerated. - Continue to encourage participation in group and recreational programming (3) Tremor: (4) Alcohol abuse: 09/20- AWSS protocol for alcohol withdrawal. Brief intervention was offered and accepted Intervention was greater than 5 min in length. Brief interventions include: 1. Assess Readiness to Quit, 2. Advise: Help Patient to Reduce or Abstain from Alcohol, 3. Agree: Set Specific, Feasible Goals, 4. Assist: Anticipate barriers, Problem-Solving Solutions. Social work to 5. Arrange: Referrals to appropriate treatment. Summary of intervention: The patient is in precontemplation stage with regards to transtheoretical model of change. The patient is advised to decrease alcohol consumption due to depressant effects and risk of interactions with prescription medications. The patient agreed to no change, and will be provided with recovery materials to continue to education self on how to cope with their condition without drinking. Patient has very poor insight and plans to continue drinking despite the risks. 09/21 -patient has not scored on the AWSS, denying alcohol withdrawal symptoms, will discontinue. (5) Seizure disorder: Continue home dose of Keppra, and coordinate care with outpatient neurologist. (6) Diarrhea: 09/23 -encourage good hydration, and Lomotil as needed. Risk Factors Assessment Male: Yes : Yes Do You Have Access To A Gun?: Yes (refused to secure them during last hospitalization) Health Problems: Yes Mental Health Diagnoses: Yes Substance Use Disorders: Yes Previous Attempt: No Previous Psychiatric Hospitalization: Yes Hopelessness: Yes Smoker: No Protective Factors Assessment Roman Catholic Beliefs: No : No Responsible for Young Children: No Employed: No Stable Relationships: No Supportive Family: Yes Interval History Identifying Information EMMA SAUER is a 68-year-old M who currently lives in [place] with his son, has a history of schizophrenia and alcohol abuse, and was admitted on 09/19/19 15:54 on a 201 voluntary commitment for suicidal ideation. Chief Complaint " Don't feel good". Review of Systems Sleep Information Total Hours of Sleep: 6 Sleep Comments: pt on q-15 minute checks Meal Information Percent Meal Consumed - Breakfast: 100 Percent Meal Consumed - Lunch: 100 Percent Meal Consumed - Dinner: 100 Subjective Subjective Patient was seen & assessed and interval progress reviewed with nursing. Staff report he had a meeting with his son and caser in, during which they discussed the multiple barriers to addressing his housing problems. On my assessment, he was seen in his room, where he has returned to bed. He reports that he developed diarrhea and mild nausea this morning, denies other associated symptoms. He reports low mood, and denies suicidal thoughts. He remains distraught about his housing situation, and lack of resolution to his problems. He denies side effects since starting the aripiprazole, and remains willing for the maintena injection. Physical Exam Psychiatric Orientation: alert and cooperative Apperance: appropriately dressed and appeared stated age Limited grooming and hygiene. Lying in bed in no acute distress. Poor dentition. Eye Contact: good eye contact Motor Behavior: + EPS (Involuntary mouth movements) Speech: normal rate/rhythm/volume of speech Affect: + blunted affect Thought Process: goal directed thought process and + concrete thought process Suicidal Thoughts: denies suicidal thoughts Homicidal Thoughts: denies homicidal thoughts Hallucinations: no auditory hallucinations and no visual hallucinations Cognition: recent memory grossly intact and language grossly intact Estimated Intelligence: + below average estimated intelligence Insight: + limited insight Judgement: + limited judgement Vital Signs (Past 24 Hours) Last Vital Signs Temp 36.6 C 09/23/19 06:47 Pulse 91 H 09/23/19 06:48 Resp 18 09/23/19 06:47 BP 121/83 09/23/19 06:48 Pulse Ox 98 09/19/19 09:46 Results & Data Laboratory Results Laboratory Results - last 24 hr 09/19/19 10:26 Levetiracetam 31.5 Current Inpatient Medications Current Inpatient Medications: Current Inpatient Medications Acetaminophen (Tylenol) 650 mg PO Q4H PRN PRN Reason: Headache or Minor Fever Stop: 10/19/19 15:53 Al Hydrox/Mg Hydrox/Simethicone (Maalox) 30 ml PO Q4H PRN PRN Reason: GI Upset Stop: 10/19/19 15:53 Aripiprazole (Abilify) 10 mg PO QAM [facility] Stop: 10/23/19 08:59 Benztropine Mesylate (Cogentin) 1 mg PO DAILY [facility] Stop: 10/20/19 08:59 Last Admin: 09/22/19 08:23 Dose: 1 mg Documented by: Bismuth Subsalicylate (Kaopectate) 15 ml PO PRN PRN PRN Reason: Loose Stool Stop: 10/19/19 15:53 Haloperidol (Haldol) 5 mg PO Q6H PRN PRN Reason: Agitation/Grace Stop: 10/19/19 17:14 Hydroxyzine HCl (Vistaril) 50 mg PO HSZ PRN PRN Reason: Insomnia Stop: 10/19/19 15:53 Last Admin: 09/20/19 23:59 Dose: 50 mg Documented by: Hydroxyzine HCl (Vistaril) 25 mg PO Q4H PRN PRN Reason: Anxiety Stop: 10/19/19 15:53 Last Admin: 09/21/19 16:25 Dose: 25 mg Documented by: Levetiracetam (Keppra) 1,000 mg PO BID [facility] Stop: 10/21/19 20:59 Last Admin: 09/22/19 21:07 Dose: 1,000 mg Documented by: Magnesium Hydroxide (Milk Of Magnesia) 30 ml PO DAILY PRN PRN Reason: Constipation Stop: 10/19/19 15:53 Meclizine HCl (Antivert) 25 mg PO TID PRN PRN Reason: DIZZINESS Stop: 10/19/19 20:59 Miscellaneous (Remove Nicoderm Patch) 1 ea N/A DAILY@0859 [facility] Stop: 10/20/19 08:58 Last Admin: 09/22/19 08:25 Dose: 1 ea Documented by: Nicotine (Nicoderm Cq) 21 mg TD QAM [facility] Stop: 10/20/19 08:59 Last Admin: 09/22/19 08:24 Dose: 21 mg Documented by: Nicotine Polacrilex (Nicorette 2mg) 2 piece MT PRN PRN PRN Reason: Nicotine Withdrawal Stop: 10/19/19 15:53 Last Admin: 09/22/19 18:00 Dose: 2 piece Documented by: Pantoprazole Sodium (Protonix) 40 mg PO DAILY [facility] Stop: 10/20/19 08:59 Last Admin: 09/22/19 08:24 Dose: 40 mg Documented by: Sodium Chloride ([place] Nasal) 1 - 2 sprays NA PRN PRN PRN Reason: Nasal Dryness/Congestion Stop: 10/19/19 15:53 Mental Health & Subst Abuse Tx Psychiatrist Name of Psychiatrist: CORRINA Cuba Psychiatrist's Date of Appointment with Psychiatrist: 10/05/19 Time of Appointment with Psychiatrist: 8:00 a.m. Psychiatric Appointment Comment: [id number], [place] [address] Therapist Name of Therapist: SKIP Heller Therapist's Date of Therapist Appointment: 10/05/19 Therapy Appointment Comment: You will have an intake interview when you see Sergo. Bale Sewer Name of Bale Sewer: PEDRO Shepherd Phone Number for Bale Sewer: [phone] Case Management Appointment Comment: Meets you in your home Post Discharge Appointments Primary Care Physician Name Of Family Doctor: ALYSON Camacho Primary Care Provider Appointment Comment: [address] [place] [address] [place] [address] Contact Information Discharge Discharge Address: [address] [place] [address], [place] [address] (1) Schizophrenia Schizophrenia type: paranoid schizophrenia Qualified Code(s): F20.0 - Paranoid schizophrenia
[2019-09-23] MEDS: PANTOprazole 40 MG TAB PO SCH (08:01)
[2019-09-23] MEDS: levETIRAcetam 500 MG TAB PO SCH ×2 (08:01→21:04)
[2019-09-23] MEDS: NICOTINE 21 MG/24 HR TDSY TD SCH (08:01)
[2019-09-23] MEDS: ARIPiprazole 10 MG TAB PO SCH (08:01)
[2019-09-23] MEDS: BENZTROPINE MESYLATE 1 MG TAB PO SCH (08:01)
[2019-09-23] MEDS: ALUMINUM/MAGNESIUM SUSP 30 ML UDC PO PRN ×2 (08:39→21:06)
[2019-09-23] MEDS ORDERED: DIPHENOXYLATE/ATROPINE 2.5/0.025MG TAB PO PRN (10:02)
[2019-09-23] MEDS: NICOTINE POLACRILEX 2 MG GUM MT PRN ×2 (12:50→17:14)
[2019-09-23] MEDS: TAMSULOSIN HCL 0.4 MG CAP PO SCH (14:16)
[2019-09-24] MEDS: ARIPiprazole 10 MG TAB PO SCH (07:30)
[2019-09-24] MEDS: NICOTINE 21 MG/24 HR TDSY TD SCH (07:30)
[2019-09-24] MEDS: levETIRAcetam 500 MG TAB PO SCH ×2 (07:31→20:46)
[2019-09-24] MEDS: PANTOprazole 40 MG TAB PO SCH (07:31)
[2019-09-24] MEDS: BENZTROPINE MESYLATE 1 MG TAB PO SCH (07:31)
[2019-09-24] MEDS: TAMSULOSIN HCL 0.4 MG CAP PO SCH (07:31)
--- NOTE | 2019-09-24 10:43 | Psychiatric Progress Note ---
Date of Service September 24, 2019 Impression / Recommendations Impression 68-year-old male who lives in suboptimal conditions with his son in [place], was on our unit 5 months ago when he was diagnosed with schizophrenia and started on a long-acting injectable antipsychotic, and presented to the ER with suicidal thoughts in the context of being unhappy in his current housing and lonely during the day while his son is gone at work. He has been working with a transplant case manager to obtain more appropriate housing, but has not made much progress due to multiple psychosocial barriers. A meeting was held with the social media developer, his son, and [facility], but he will need to return to his house at discharge while they continue to work on long-term housing options. He is a limited historian and there were multiple medication changes after discharge from our unit, as Invega Sustenna was discontinued and he was on p.o. haloperidol alone, but reported worsening involuntary movements over the past month, so we have switched him to aripiprazole. He is tolerating it well and involuntary movements have decreased, so we will start Abilify Maintena today, which is indicated due to his history of nonadherence with oral medications. Inpatient treatment is medically necessary due to the severity of symptoms and risk for suicide if discharged prematurely. (1) Schizophrenia: 09/20 -continue haloperidol 5 mg twice daily and benztropine 1 mg daily. -FLP performed 04/2019: Triglycerides 303, cholesterol 228, fasting glucose 108. -Get records from his outpatient FAMILY PROGRAM SPECIALIST to determine recent medication changes. -Collateral information from son and transplant case manager, try to determine if he has been compliant with medications. 09/21 - [facility] records received and reviewed. They did not even list Invega Sustenna on his medication list, although they saw him 2 days after he received his maintenance injection. He thinks that he had some sort of reaction, possibly a rash, but this is not confirmed. -As he thinks that Haldol made his movement disorder worse, we will try cross tapering to aripiprazole, with a plan to place him on Maintena if it is effective and tolerated. Staff confirmed that both forms of the medication are affordable with his insurance. -AIMS 1 -Family meeting today with social media developer, outpatient DIA Robb, and the patient's son. 09/22- Titrate aripiprazole to 10mg starting tomorrow morning - Patient continues to verbalize willingness to convert to CARRILLO of tolerating PO 09/23 -Appears to be tolerating aripiprazole well so far, has some diarrhea this morning, but started prior to receiving his medication. Monitor, and start Ma intena as early as tomorrow. He will need to continue p.o. aripiprazole for 14 days after the initial injection. 09/24 -patient agrees to start Abilify Maintena, injection ordered for today. -Anticipate discharge tomorrow if he continues to improve. (2) Depression: 09/20 -patient reports suicidal thoughts to overdose on medications, poor historian unclear if he meets criteria for major depression would benefit from an antidepressant. Collateral information as above. -Encourage group attendance and participation. Work on healthy coping skills and discharge safety plan. -Recommend that medications be secured and dispensed to patient daily, both to limit his access to large amounts of pills and also to ensure compliance. This will be challenging due to lack of responsible individual to manage this. He also has multiple guns at home, which both he and his son have refused to secure. 09/21 -mood improving with support on the unit. 09/22 - Pt reporting ongoing feelings of depression - Aripiprazole initiated yesterday as above, with likely benefit for mood symptoms as well. Continue titration as tolerated. - Continue to encourage participation in group and recreational programming (3) Tremor: (4) Alcohol abuse: 09/20- AWSS protocol for alcohol withdrawal. Brief intervention was offered and accepted Intervention was greater than 5 min in length. Brief interventions include: 1. Assess Readiness to Quit, 2. Advise: Help Patient to Reduce or Abstain from Alcohol, 3. Agree: Set Specific, Feasible Goals, 4. Assist: Anticipate barriers, Problem-Solving Solutions. Social work to 5. Arrange: Referrals to appropriate treatment. Summary of intervention: The patient is in precontemplation stage with regards to transtheoretical model of change. The patient is advised to decrease alcohol consumption due to depressant effects and risk of interactions with prescription medications. The patient agreed to no change, and will be provided with recovery materials to continue to education self on how to cope with their condition without drinking. Patient has very poor insight and plans to continue drinking despite the risks. 09/21 -patient has not scored on the AWSS, denying alcohol withdrawal symptoms, will discontinue. (5) Seizure disorder: Continue home dose of Keppra, and coordinate care with outpatient neurologist. (6) Diarrhea: 09/23 -encourage good hydration, and Lomotil as needed. Risk Factors Assessment Male: Yes : Yes Do You Have Access To A Gun?: Yes (refused to secure them during last hospitalization) Health Problems: Yes Mental Health Diagnoses: Yes Substance Use Disorders: Yes Previous Attempt: No Previous Psychiatric Hospitalization: Yes Hopelessness: Yes Smoker: No Protective Factors Assessment Anabaptism Beliefs: No : No Responsible for Young Children: No Employed: No Stable Relationships: No Supportive Family: Yes Interval History Identifying Information EMMA SAUER is a 68-year-old M who currently lives in [place] with his son, has a history of schizophrenia and alcohol abuse, and was admitted on 09/19/19 15:54 on a 201 voluntary commitment for suicidal ideation. Chief Complaint "Pretty good". Review of Systems Sleep Information Total Hours of Sleep: 7.75 Sleep Comments: pt on q-15 minute checks Meal Information Percent Meal Consumed - Breakfast: 100 Percent Meal Consumed - Lunch: 75 Percent Meal Consumed - Dinner: 100 Nutrition Comment: pt. has nausea Subjective Subjective Patient was seen & assessed and interval progress reviewed with nursing. Staff report he continues to have poor hygiene, but washes clothes yesterday. He is attending some groups, but declining others. He is eating well, and taking medications as prescribed. He received Lomotil for diarrhea and Maalox for i ndigestion yesterday and said it they were helpful, and symptoms resolved. On my assessment today, he reports mood is good, GI symptoms have resolved, and he is feeling better overall. He denies suicidal thoughts, and thinks that his involuntary movements have improved since switching to Abilify. He is willing to get the Abilify Maintena injection today. He is hopeful for discharge tomorrow. Physical Exam Psychiatric Orientation: alert and cooperative Dressed in pajamas, layered tops, one of which is ill fitting and too small. Limited hygiene and grooming. Eye Contact: + fair eye contact Motor Behavior: steady gait and station Mouth/jaw movements Speech: normal rate/rhythm/volume of speech Affect: euthymic affect "Pretty good." Thought Process: + concrete thought process Thought Content: reality based without delusions Suicidal Thoughts: denies suicidal thoughts Homicidal Thoughts: denies homicidal thoughts Hallucinations: no auditory hallucinations and no visual hallucinations Cognition: attention grossly intact and language grossly intact; + recent memory not intact (Does not recall discussions about medications we have had over the past few days) Estimated Intelligence: + below average estimated intelligence Insight: + limited insight Judgement: + limited judgement Vital Signs (Past 24 Hours) Last Vital Signs Temp 36.6 C 09/24/19 06:53 Pulse 89 09/24/19 06:53 Resp 18 09/24/19 06:53 BP 136/84 09/24/19 06:53 Pulse Ox 98 09/19/19 09:46 Results & Data Current Inpatient Medications Current Inpatient Medications: Current Inpatient Medications Acetaminophen (Tylenol) 650 mg PO Q4H PRN PRN Reason: Headache or Minor Fever Stop: 10/19/19 15:53 Al Hydrox/Mg Hydrox/Simethicone (Maalox) 30 ml PO Q4H PRN PRN Reason: GI Upset Stop: 10/19/19 15:53 Last Admin: 09/23/19 21:06 Dose: 30 ml Documented by: Aripiprazole (Abilify) 10 mg PO QAM [facility] Stop: 10/23/19 08:59 Last Admin: 09/24/19 07:30 Dose: 10 mg Documented by: Benztropine Mesylate (Cogentin) 1 mg PO DAILY [facility] Stop: 10/20/19 08:59 Last Admin: 09/24/19 07:31 Dose: 1 mg Documented by: Bismuth Subsalicylate (Kaopectate) 15 ml PO PRN PRN PRN Reason: Loose Stool Stop: 10/19/19 15:53 Diphenoxylate HCl/Atropine (Lomotil) 1 tab PO Q6H PRN PRN Reason: Diarrhea Stop: 10/23/19 10:01 Last Admin: 09/23/19 11:11 Dose: 1 tab Documented by: Haloperidol (Haldol) 5 mg PO Q6H PRN PRN Reason: Agitation/Grace Stop: 10/19/19 17:14 Hydroxyzine HCl (Vistaril) 50 mg PO HSZ PRN PRN Reason: Insomnia Stop: 10/19/19 15:53 Last Admin: 09/20/19 23:59 Dose: 50 mg Documented by: Hydroxyzine HCl (Vistaril) 25 mg PO Q4H PRN PRN Reason: Anxiety Stop: 10/19/19 15:53 Last Admin: 09/21/19 16:25 Dose: 25 mg Documented by: Levetiracetam (Keppra) 1,000 mg PO BID [facility] Stop: 10/21/19 20:59 Last Admin: 09/24/19 07:31 Dose: 1,000 mg Documented by: Magnesium Hydroxide (Milk Of Magnesia) 30 ml PO DAILY PRN PRN Reason: Constipation Stop: 10/19/19 15:53 Meclizine HCl (Antivert) 25 mg PO TID PRN PRN Reason: DIZZINESS Stop: 10/19/19 20:59 Miscellaneous (Remove Nicoderm Patch) 1 ea N/A DAILY@0859 [facility] Stop: 10/20/19 08:58 Last Admin: 09/24/19 07:31 Dose: 1 ea Documented by: Nicotine (Nicoderm Cq) 21 mg TD QAM [facility] Stop: 10/20/19 08:59 Last Admin: 09/24/19 07:30 Dose: 21 mg Documented by: Nicotine Polacrilex (Nicorette 2mg) 2 piece MT PRN PRN PRN Reason: Nicotine Withdrawal Stop: 10/19/19 15:53 Last Admin: 09/23/19 17:14 Dose: 2 piece Documented by: Pantoprazole Sodium (Protonix) 40 mg PO DAILY [facility] Stop: 10/20/19 08:59 Last Admin: 09/24/19 07:31 Dose: 40 mg Documented by: Sodium Chloride ([place] Nasal) 1 - 2 sprays NA PRN PRN PRN Reason: Nasal Dryness/Congestion Stop: 10/19/19 15:53 Tamsulosin HCl (Flomax) 0.4 mg PO DAILY [facility] Stop: 10/23/19 13:59 Last Admin: 09/24/19 07:31 Dose: 0.4 mg Documented by: Mental Health & Subst Abuse Tx Psychiatrist Name of Psychiatrist: CORRINA [place] Psychiatrist's Date of Appointment with Psychiatrist: 10/05/19 Time of Appointment with Psychiatrist: 8:00 a.m. Psychiatric Appointment Comment: [phone], [place] [address] Therapist Name of Therapist: SKIP Heller Therapist's Date of Therapist Appointment: 10/05/19 Therapy Appointment Comment: You will have an intake interview when you see Field Liability Generalist Name of Field Liability Generalist: PEDRO Shepherd Phone Number for Field Liability Generalist: [phone] Case Management Appointment Comment: Meets you in your home Post Discharge Appointments Primary Care Physician Name Of Family Doctor: ALYSON Camacho Primary Care Provider Appointment Comment: [address] [place] [address] [place] [address] Contact Information Discharge Discharge Address: [address] [place] [address] [place] [address] (1) Schizophrenia Schizophrenia type: paranoid schizophrenia Qualified Code(s): F20.0 - Paranoid schizophrenia
[2019-09-24] MEDS ORDERED: ARIPIPRAZOLE 400 MG KIT IM ONE (11:42)
[2019-09-24] MEDS: NICOTINE POLACRILEX 2 MG GUM MT PRN ×2 (13:29→18:49)
[2019-09-25] MEDS: ARIPiprazole 10 MG TAB PO SCH (07:56)
[2019-09-25] MEDS: BENZTROPINE MESYLATE 1 MG TAB PO SCH (07:56)
[2019-09-25] MEDS: TAMSULOSIN HCL 0.4 MG CAP PO SCH (07:56)
[2019-09-25] MEDS: levETIRAcetam 500 MG TAB PO SCH (07:56)
[2019-09-25] MEDS: PANTOprazole 40 MG TAB PO SCH (07:57)
[2019-09-25] MEDS: NICOTINE 21 MG/24 HR TDSY TD SCH (07:57)
[2019-09-25] MEDS: NICOTINE POLACRILEX 2 MG GUM MT PRN ×2 (08:09→14:08)
--- NOTE | 2019-09-25 09:30 | Discharge Summary ---
Date of Service September 25, 2019 History of Present Illness Trino Lobato is a 68-year-old male admitted involuntarily on 04/16/19 upon transfer from the medical floor for concerns of delusional behavior leading to ED presentation. Pt was brought to the ED on a 302 warrant by his children due to concerns for psychosis, with patient reportedly believing there was a demon in his house and having performed rather delusional behavior as a result. Plan was for inpatient psychiatric admission; however, patient developed nausea and vomiting for a several hour period - leading to a medical admission for observation prior to his transfer to our unit. 302 petitioning statement was completed by patient's outpatient manager of case management - and reads: "I met with Tam yesterday at his residence. Tam asked me if I "saw anything." I stated "no" then he left me into his residence where he told me that he has been seeing his uncle, smelled his dad's tobacco pipe burning, has been hearing footsteps in the home, hearing someone trying to come through the door, and that his roosters were disappearing in a black hole in the group outside. Tam has a shot gun with two boxes of shells sitting on the couch when I walked in. I questioned why he had that out and he stated, "I'm going to blow them up when I see them." Tam admits to recent insomnia and nightmares along with non- compliance medications (psychiatry). Symptoms have been present for nearly the past week, which continues to worsen." Psychiatric consultation was completed on the medical floor upon admission to evaluate for psychosis/delusional behavior. Per initial psychiatric consultation completed on medical floor on 04/15/19 - "68 y/o M Hx schizophrenia, seizures, COPD, alcohol abuse; no recent services other than case management (reportedly discharged from [facility] for missed appointments). It is unclear when he last received antipsychotic medications. It is unclear why he is on Cogentin as he denies receiving injectables (seems reliable in that regard) and estimates that his last appointment with Dr. Neri was 3 months ago (weekend so cannot confirm). He reports that for that past 3 months he doesn't feel comfortable at his home (camp with limited utilities). He has smelled cigar smoke of his father () and seen a visual louise of his grandfather. He believes the site might be haunted and states that 5 years ago when this same thing happened he had a branch specialist "bless" them and everything was OK. He denies seeing demons, just believes they are there as 2 flocks of chickens went missing. He has dealt with this by pouring salt around the the property. He states that when manager of case management arrived the shot gun and shells were out because he wanted them blessed in case he needed to protect himself from the demons. He did not plan to harm himself or others but his self care has reportedly declined." Patient was seen today for inpatient psychiatric evaluation. Pt states he does not require aftercare to be set up, reporting he simply needs a butter fat tester to bless his shotgun. Pt states, "I believe there is something in the house, it is pure evil." Pt continues by stating he has seen his father and "Uncle Adalid" in the home on multiple occasions. Pt also indicates that he has heard footsteps in the home as well. Pt was asked if his son has similar experiences in the home, as patient states they were told the home was haunted. The patient reports - "I tell him when I hear stuff, but he says he don't hear it." Pt states he was initially concerned when several "flocks of chickens either got killed or just plain disappeared." Patient was asked what he believes is causing these events to occur; and he responds by staying "alls I can think is it's a demon." Pt states he has created a salt barrier around his home about "a week and a half ago", but believes the demon must have gotten through. Pt remains highly focused on his need to get in touch with a butter fat tester. He states, "we had one come to bless the house 5-years ago, but it must have come back." Pt reports having these concerns for the past 6-weeks. He states he needed to get both his shotgun and the shells blessed by a butter fat tester in order to destroy the demon in his home. Pt states that he learned of these techniques by "reading books, I've watched shows on TV." Pt denies overt depression or anxiety, but does admit he is very concerned about his safety and the safety of his children. He states his appetite has been mildly reduced. He also notes it has been difficult for him to fall asleep initially at night. Pt mentions feeling "drained" - believing that the demon is responsible for his low energy. he states, "they just drain ya, that's how they get'pool. It also makes me and JJ fight." Pt states his mood is a 2/10 (10=best) for the past 6-weeks; but admits this is largely related to feeling st ressed and overwhelmed. He endorses hopelessness, but denies SI. Pt denies HI in general, but does admit to desire to kill "whatever's in the house." Pt interrupts conversation by sharing that he has been unable to get in touch with a butter fat tester after several phone calls. He demands that this provider call or he will "walk right out the f*cking door." The patient was informed that our priority was to get him settled into the unit and engaged in treatment, and that this provider would not be calling at this time. He became increasingly angry, and abruptly left the office. He had continued to escalate despite staff redirection - and was ultimately offered prn haloperidol and lorazepam which he accepted. Physical Exam Psychiatric Orientation: alert, oriented x 3 and cooperative Apperance: appropriately dressed (casual clothing, stained) and + disheveled; + inappropriately groomed (appearing unkempt, malodorous) Eye Contact: good eye contact Motor Behavior: steady gait and station; + abnormal motor movements (Ongoing oral movements, as if chewing - somewhat improved) Speech: normal rate/rhythm/volume of speech (raspy voice; brief responses to questions) Affect: + blunted affect (to appearing overtly depressed) Mood: no depressed mood ("Pretty good") Thought Process: goal directed thought process, + concrete thought process and thought association intact Thought Content: reality based without delusions (does not verbalize any delusional thought content during encounter); no hopelessness ("Just have to take things one day at a time") Suicidal Thoughts: denies suicidal thoughts, denies suicidal plan and denies suicidal intent Homicidal Thoughts: denies homicidal thoughts Hallucinations: no auditory hallucinations and no visual hallucinations Cognition: attention grossly intact and language grossly intact Estimated Intelligence: + below average estimated intelligence Insight: + limited insight (likely a chronic concern; but seemingly improved over course of admission) Judgement: + limited judgement (likely a chronic concern; but seemingly improved over course of admission) Vital Signs (Past 24 Hours) Last Vital Signs Temp 36.5 C 09/25/19 06:00 Pulse 83 09/25/19 06:00 Resp 18 09/25/19 06:00 BP 121/78 09/25/19 06:00 Pulse Ox 98 09/19/19 09:46 Principal Diagnosis - Schizophrenia, paranoid type - Depression, unspecified - Alcohol abuse - Seizure disorder - Abnormal movements/tremor Psychiatric Data 68-year-old male who lives in suboptimal conditions with his son in [place], presented to the ED with suicidal thoughts in the context of being unhappy with his current housing situation. He reported feeling lonely during the day, and admitted to worsening depressive symptoms. Pt was admitted to our unit 5 months ago when he was diagnosed with schizophrenia and started on a long-acting injectable antipsychotic. It was reported that the patient received 1 maintenance dose of Invega Sustenna after discharge, but reported a "bad reaction" - specific details of which are still unknown due to patient being a poor historian. He was switched to haloperidol 5mg BID - which was continued early in his hospitalization until collateral information could be obtained. Although patient was not demonstrating preoccupation with deluional beliefs to the extent he did during his first admission, goal of treatment was to trial a medication that could continue to target his symptoms of schizophrenia while also attempting to ensure medication compliance. He was trialed on oral aripiprazole, and low-cost availability was confirmed. Pt was agreeable with conversion to Abilify Maintena and received this injection on 09/24/2019. He was instructed to continue oral aripiprazole 10mg for 2 weeks, and his next inj ection of Abilify Maintena 400mg IM is due on 10/22/2019. During the patient's hospitalization, a meeting was held with the psychiatric social worker supervisor, his son, and BCM, to discuss more optimal housing options. sous chef kitchen manager has been eager to assist with this process, but patient will need to return to his house at discharge while they continue to work on long-term housing options. He reported improvement in mood over the course of his admission, and eventual resolution of suicidal ideation. Outpatient supports were involved in discharge and safety planning. Pt participated in group and recreational programming and maintained appropriate behavior during his hospitalization. He verbalized desire for discharge, and coordinated with son's work schedule to arrange transportation. Pt met with his manager of case management on day of discharge, and she states she is planning to accompany patient to his initial outpatient appointments. Based on review of patient's case and their current presentation, risk of harm to self or others is no longer perceived to be acute. Management of symptoms on an outpatient basis seems the most appropriate and least restrictive setting. Pt seems appropriate for discharge with recommendation for consistent follow-up with outpatient psychiatric prescriber and manager of case management. Outpatient psychiatric appointments have been confirmed, to allow for timely follow-up after hospital discharge. Pt verbalized understanding of discharge plan reviewed and is agreeable with plan to be discharged home today. Day of Discharge Assessment Patient's case was reviewed and discussed during treatment team. Staff report the patient has continued to demonstrate improvement in mood and overall behavior. They state the patient's affect appeared brighter last evening and he was more interactive with peers. Pt did indicate a belief that he would be ready for discharge early this week. Pt was seen today to assess readiness for discharge. Pt states that he is feeling "pretty good" today, and does make his request to return home today known. Pt states that his main goal of treatment was "to get my medications straightened out", and feels that this task has been accomplished. Cross-taper from oral aripiprazole to CARRILLO was reviewed with patient, who verbalized understanding he is to continue to take the medication by mouth for 2 weeks after discharge. Pt denies any side effects after receiving his initial dose of Abilify Maintena. He denies physical concerns in general, stating that he has not continued to have bouts of diarrhea for the past 1-2 days. Pt verbalized perceived improvement in condition, and he states he is ready to return home today. Pt states that he is hopeful for long-term housing, but is willing to return home with his son in the interim. Pt continues to states, "I'll just have to take things one day at a time." He denies continued SI, and admits to improved mood. Pt denies other needs today, and feels as though his treatment goals have been achieved. He is requesting to return home this evening with his son. Pt is able to verbalize aspects of a safety plan, and demonstrated knowledge of how to utilize crisis services. Risk of harm to self or others no longer appears to be acute. Pt is verbalizing desire to continue outpatient psychiatric treatment. He participated in review of discharge planning and denied questions or concerns. ROS: Constitutional: denied Cardiovascular: denied Respiratory: denied Gastrointestinal: reports resolution of diarrhea Neurological: denied Psychiatric: denies symptoms other than stated above Total of at least 10 systems reviewed, pertinent positives as above and in HPI. Transition of Care Transition Of Care Record: was reviewed with the patient Advance Directives Advance Directives Information Provided: Yes Advance Directives: No Mental Health Advance Directive: No Advance Directives on File: No Living Will: No Power of Cdl Team Truck Driver: No Advance Directives Reason:: Declines as Mental Health Visit. Risk Factors Assessment Presenting risk factors reviewed on discharge. Precipitating stressors mitigated by: admission for inpatient psychiatric observation and treatment, appropriate adjustments to medications to target symptoms, attendance of therapeutic treatment groups, development of healthy and effective coping strategies, involvement of outpatient supports, completion of a safety plan, confirmation of extra medications being secured, confirmation of guns and weapons being secured, discussion regarding substance abuse and effects on mental health diagnoses, treatment of medical conditions and education on diagnoses. Pt has demonstrated improvement in condition with regard to improvement in mood, resolution of SI, tolerance of medication adjustments, involvement of son and manager of case management in a support meeting, and completion of safety planning tasks. At this time, patient is requesting discharge and is no longer considered to be at acute risk of harm to himself or others. Pt will be discharged with recommendation for ongoing outpatient psychiatric treatment. Male: Yes : Yes Do You Have Access To A Gun?: Yes (refused to secure them during last hospitalization) Health Problems: Yes Mental Health Diagnoses: Yes Substance Use Disorders: Yes Previous Attempt: No Previous Psychiatric Hospitalization: Yes Hopelessness: Yes Smoker: No Protective Factors Assessment Zoroastrianism Beliefs: No : No Responsible for Young Children: No Employed: No Stable Relationships: No Supportive Family: Yes Tobacco Cessation at Discharge Tobacco Cessation Medication Prescribed at Discharge: Offered & Pt Refused Total Time Total Time Spent: Greater Than 30 Minutes Total Time Includes: Examination of the patient, Discharge Planning, Medication Reconciliation and Communication with other providers Discharge Data Lab Results 09/19/19 09/19/19 09/19/19 10:20 10:20 10:26 WBC 7.62 RBC 4.72 Hgb 14.8 Hct 44.2 MCV 93.6 MCH 31.4 MCHC 33.5 RDW Std Deviation 43.6 RDW Coeff of Hina 12.8 Plt Count 259 MPV 8.4 Immature Gran % (Auto) 0.1 Neut % (Auto) 61.5 Lymph % (Auto) 27.7 [place] % (Auto) 6.8 Eos % (Auto) 3.5 Baso % (Auto) 0.4 Immature Gran # (Auto) 0.01 Neut # (Auto) 4.68 Lymph # (Auto) 2.11 [place] # (Auto) 0.52 Eos # (Auto) 0.27 Baso # (Auto) 0.03 Sodium Potassium Chloride Carbon Dioxide Anion Gap BUN Creatinine Est Cr Clr Drug Dosing Est GFR ( Amer) Est GFR (Non-Af Amer) BUN/Creatinine Ratio Glucose Calcium Total Bilirubin AST ALT Alkaline Phosphatase Total Protein Albumin Globulin Albumin/Globulin Ratio TSH Urine Color Yellow Urine Appearance Cloudy A Urine pH 8.5 H Ur Specific [place] 1.004 Urine Protein Negative Urine Glucose (UA) Negative Urine Ketones Negative Urine Blood Negative Urine Nitrite Negative Urine Bilirubin Negative Urine Urobilinogen Negative Ur Leukocyte Esterase Negative Urine WBC (Auto) 0 Urine RBC (Auto) 0-4 U Hyaline Cast (Auto) 0 U Epithel Cells (Auto) 0-5 Urine Bacteria (Auto) Negative Salicylates Urine Opiates Screen Neg Ur Methadone, Qual Neg Acetaminophen Urine Barbiturates Neg Levetiracetam Ur Phencyclidine (PCP) Neg U Amphetamin/Meth Scrn Neg MDMA (Ecstasy) Screen Neg U Benzodiazepines Scrn Neg Ur Cocaine Metabolite Neg U Marijuana (THC) Screen Neg Ethyl Alcohol mg/dL Hepatitis C Ab Screen 09/19/19 09/19/19 09/19/19 10:26 10:26 10:26 WBC RBC Hgb Hct MCV MCH MCHC RDW Std Deviation RDW Coeff of Hina Plt Count MPV Immature Gran % (Auto) Neut % (Auto) Lymph % (Auto) [place] % (Auto) Eos % (Auto) Baso % (Auto) Immature Gran # (Auto) Neut # (Auto) Lymph # (Auto) [place] # (Auto) Eos # (Auto) Baso # (Auto) Sodium 139 Potassium 3.9 Chloride 106 Carbon Dioxide 30 Anion Gap 3.0 BUN 11 Creatinine 1.04 Est Cr Clr Drug Dosing 81.2 Est GFR ( Amer) 86.3 Est GFR (Non-Af Amer) 74.5 BUN/Creatinine Ratio 10.4 Glucose 87 Calcium 9.2 Total Bilirubin 0.8 AST 9 L ALT 21 Alkaline Phosphatase 68 Total Protein 7.6 Albumin 3.8 Globulin 3.8 Albumin/Globulin Ratio 1.0 TSH 1.720 Urine Color Urine Appearance Urine pH Ur Specific [place] Urine Protein Urine Glucose (UA) Urine Ketones Urine Blood Urine Nitrite Urine Bilirubin Urine Urobilinogen Ur Leukocyte Esterase Urine WBC (Auto) Urine RBC (Auto) U Hyaline Cast (Auto) U Epithel Cells (Auto) Urine Bacteria (Auto) Salicylates 2.2 L Urine Opiates Screen Ur Methadone, Qual Acetaminophen < 2 L Urine Barbiturates Levetiracetam Ur Phencyclidine (PCP) U Amphetamin/Meth Scrn MDMA (Ecstasy) Screen U Benzodiazepines Scrn Ur Cocaine Metabolite U Marijuana (THC) Screen Ethyl Alcohol mg/dL 24.0 H Hepatitis C Ab Screen 09/19/19 09/19/19 10:26 10:26 WBC RBC Hgb Hct MCV MCH MCHC RDW Std Deviation RDW Coeff of Hina Plt Count MPV Immature Gran % (Auto) Neut % (Auto) Lymph % (Auto) [place] % (Auto) Eos % (Auto) Baso % (Auto) Immature Gran # (Auto) Neut # (Auto) Lymph # (Auto) [place] # (Auto) Eos # (Auto) Baso # (Auto) Sodium Potassium Chloride Carbon Dioxide Anion Gap BUN Creatinine Est Cr Clr Drug Dosing Est GFR ( Amer) Est GFR (Non-Af Amer) BUN/Creatinine Ratio Glucose Calcium Total Bilirubin AST ALT Alkaline Phosphatase Total Protein Albumin Globulin Albumin/Globulin Ratio TSH Urine Color Urine Appearance Urine pH Ur Specific [place] Urine Protein Urine Glucose (UA) Urine Ketones Urine Blood Urine Nitrite Urine Bilirubin Urine Urobilinogen Ur Leukocyte Esterase Urine WBC (Auto) Urine RBC (Auto) U Hyaline Cast (Auto) U Epithel Cells (Auto) Urine Bacteria (Auto) Salicylates Urine Opiates Screen Ur Methadone, Qual Acetaminophen Urine Barbiturates Levetiracetam 31.5 Ur Phencyclidine (PCP) U Amphetamin/Meth Scrn MDMA (Ecstasy) Screen U Benzodiazepines Scrn Ur Cocaine Metabolite U Marijuana (THC) Screen Ethyl Alcohol mg/dL Hepatitis C Ab Screen Neg Hospital Course (1) Schizophrenia: 09/20 -continue haloperidol 5 mg twice daily and benztropine 1 mg daily. -FLP performed 04/2019: Triglycerides 303, cholesterol 228, fasting glucose 108. -Get records from his outpatient BULLET SLUG CASTING MACHINE OPERATOR to determine recent medication changes. -Collateral information from son and manager of case management, try to determine if he has been compliant with medications. 09/21 - [facility] records received and reviewed. They did not even list Yolanda Graves on his medication list, although they saw him 2 days after he received his maintenance injection. He thinks that he had some sort of reaction, possibly a rash, but this is not confirmed. -As he thinks that Haldol made his movement disorder worse, we will try cross tapering to aripiprazole, with a plan to place him on Maintena if it is effective and tolerated. Staff confirmed that both forms of the medication are affordable with his insurance. -AIMS 1 -Family meeting today with psychiatric social worker supervisor, outpatient DOMENICOM Clarisse, and the patient's son. 09/22- Titrate aripiprazole to 10mg starting tomorrow morning - Patient continues to verbalize willingness to convert to CARRILLO of tolerating PO 09/23 -Appears to be tolerating aripiprazole well so far, has some diarrhea this morning, but started prior to receiving his medication. Monitor, and start Maintena as early as tomorrow. He will need to continue p.o. aripiprazole for 14 days after the initial injection. 09/24 -patient agrees to start Abilify Maintena, injection ordered for today. -Anticipate discharge tomorrow if he continues to improve. (2) Depression: 09/20 -patient reports suicidal thoughts to overdose on medications, poor historian unclear if he meets criteria for major depression would benefit from an antidepressant. Collateral information as above. -Encourage group attendance and participation. Work on healthy coping skills and discharge safety plan. -Recommend that medications be secured and dispensed to patient daily, both to limit his access to large amounts of pills and also to ensure compliance. This will be challenging due to lack of responsible individual to manage this. He also has multiple guns at home, which both he and his son have refused to secure. 09/21 -mood improving with support on the unit. 09/22 - Pt reporting ongoing feelings of depression - Aripiprazole initiated yesterday as above, with likely benefit for mood symptoms as well. Continue titration as tolerated. - Continue to encourage participation in group and recreational programming (3) Alcohol abuse: 09/20- AWSS protocol for alcohol withdrawal. Brief intervention was offered and accepted Intervention was greater than 5 min in length. Brief interventions include: 1. Assess Readiness to Quit, 2. Advise: Help Patient to Reduce or Abstain from Alcohol, 3. Agree: Set Specific, Feasible Goals, 4. Assist: Anticipate barriers, Problem-Solving Solutions. Social work to 5. Arrange: Referrals to appropriate treatment. Summary of intervention: The patient is in precontemplation stage with regards to transtheoretical model of change. The patient is advised to decrease alcohol consumption due to depressant effects and risk of interactions with prescription medications. The patient agreed to no change, and will be provided with recovery materials to continue to education self on how to cope with their condition without drinking. Patient has very poor insight and plans to continue drinking despite the risks. 09/21 -patient has not scored on the AWSS, denying alcohol withdrawal symptoms, will discontinue. (4) Seizure disorder: Continue home dose of Keppra, and coordinate care with outpatient neurologist. (5) Diarrhea: 09/23 -encourage good hydration, and Lomotil as needed. Mental Health & Subst Abuse Tx Psychiatrist Name of Psychiatrist: CORRINA [place] Psychiatrist's Date of Appointment with Psychiatrist: 10/05/19 Time of Appointment with Psychiatrist: 8:00 a.m. Psychiatric Appointment Comment: [phone], [place] [id number] Therapist Name of Therapist: SKIP Heller Therapist's Date of Therapist Appointment: 10/05/19 Therapy Appointment Comment: You will have an intake interview when you see Sergo. Projector Booth Operator Name of Projector Booth Operator: PEDRO Shepherd Phone Number for Projector Booth Operator: [phone] Case Management Appointment Comment: Meets you in your home Post Discharge Appointments Primary Care Physician Name Of Family Doctor: ALYSON Camacho Primary Care Provider Appointment Comment: [address] [place] [address] [place] [address] Smoking Cessation Counseling Tobacco Cessation Medication Prescribed at Discharge: Offered & Pt Refused Other #1: Name of Aftercare Appointment: [facility] Phone Number of Aftercare Appointment: Aftercare Appointment Comment: [phone], [place] [phone] #2: Name of Aftercare Appointment: Make it a priority to get your state issued ID #3: Name of Aftercare Appointment: Abilify Maintena Injection - [facility] Date of Aftercare Appointment: 10/22/19 Time of Aftercare Appointment: Injection given every 28 days; Initial injection given 09/24/2019 Aftercare Appointment Comment: Prescription sent to pharmacy Contact Information Discharge Discharge Address: [address] [place] [address], [place] [id number] Discharge Plan Discharge Items Patient Disposition: Home - Self-Care Reason For Visit: BIPOLAR Discharge Diagnosis: - Schizophrenia - Depression Activity: Resume your previous activity Non-emergency contact: Primary Care Provider, Psychiatrist, Therapist and Administrative Resident Call non-emergency contact if: you have any medication questions and your symptoms worsen Follow-up/Referrals: Aristeo Camacho III, MD [Primary Care Provider] - Diet: Regular Addtl Attending Provider Instructions: ABILIFY MAINTENA AND ORAL DOSING INSTRUCTIONS FOR DISCHARGE 1. You were given the first injection of Abilify Maintena 400mg IM on 09/24/2019. 2. You are to continue taking 10mg of oral Abilify tablet for 14 days after the injection was given. After 14 days, the oral medication is stopped and you continue on regular monthly injections. 3. A prescription for your next injection of 400mg of Abilify Maintena is due 28 days after your first injection - as early as 10/22/2019. This prescription has been sent to your pharmacy, who stated they can give the injection there. SPECIAL CARE INSTRUCTIONS: 1. Follow through with your scheduled aftercare appointments. If unable to keep an appointment, please call to reschedule. 2. Take your medication only as prescribed. Medication should not be changed or stopped without the approval of your doctor. In the event of worsening symptoms or concerns about side effects, contact your doctor immediately. 3. Utilize new healthy coping skills, anger management skills, and stress management skills learned during your hospitalization. Journal feelings and process them with a support person. Identify stressors or situations that may result in relapse, deterioration or inappropriate behaviors and develop a plan to deal with those issues. 4. If your coping skills are ineffective and you are in crisis, contact your outpatient providers for direction. If unable to reach your providers, please call the CAN HELP LINE AT or go to the closest Emergency Room. 5. Avoid alcohol and un-prescribed drugs. 6. You have been provided with the Mental Health Advance Directives Pamphlet for your review. AFTERCARE APPOINTMENTS: * Please call your insurance company prior to your scheduled appointment to confirm your aftercare providers are covered. Take your insurance information to your appointments. WHO TO CALL AND WHEN: Medical Emergencies: For questions or emergencies related to your hospital stay, please contact the Inpatient Behavioral Health Unit at [phone]. A customer service associate is on-call 05/04 for the Behavioral Health Unit for emergencies At any time you feel your situation is an emergency, you may also call 911 immediately. Your Discharge Instructions noted above were prepared by provider Rebecca Oseguera PA-C. Pending Studies at Discharge: No Stand-Alone Forms: My [facility], Smoking Cessation, Suicide P revention Resources Medications and DC Order Prescriptions: New aripiprazole [Abilify] 10 mg Tablet 10 mg PO QAM 13 Days Qty: 13 RF: 0 Abilify Maintena 400 mg suspension,extended rel recon 400 mg IM MONTHLY Qty: 1 RF: 0 Continued meclizine 25 mg tablet 25 mg PO TID PRN (Reason: dizziness) Qty: 30 RF: 0 benztropine 1 mg tablet 1 mg PO DAILY RF: 0 pantoprazole [Protonix] 40 mg Tablet,Delayed Release (Dr/Ec) 40 mg PO DAILY RF: 0 levetiracetam 1,000 mg tablet 1,000 mg PO BID RF: 0 tamsulosin 0.4 mg capsule 0.4 mg PO DAILY RF: 0 No Action haloperidol 5 mg tablet 5 mg PO BID RF: 0 Discharge Orders: Discharge Order (Routine); Ordered 09/25/19 Ordered By: Rebecca Oseguera Admission Data Admit Date/Time: 09/19/19 15:54 Attending Provider: Yojana Tang Admit Provider: Yojana Tang Primary Care Provider: Aristeo Camacho III Other Interventions: PSY Interdisciplinary Discharge Planning Last Done: 09/25/19 10:15 Coding Level of Care Code 02639 D/C day mgmt > 30 min Diagnoses Schizophrenia F20.0 Schizophrenia type: paranoid schizophrenia Depression F32.9 Alcohol abuse F10.10 Seizure disorder G40.909 Diarrhea R19.7
[2019-09-25] MEDS ORDERED: DESTROY THIS MEDICATION ONE (12:03)
[2019-10-22] MEDS ORDERED: ARIPIPRAZOLE 400 MG KIT IM ONE (08:00)
== END 2019-09-25 15:06 | disposition home or self-care (01) | DRG 885 ==
LOC: ED 09:44 → 3S 15:54

== ENCOUNTER 2020-08-02 00:44 | Inpatient (IN) ==
--- NOTE | 2020-08-02 01:23 | Emergency Department Note ---
History of Present Illness General Chief complaint: Mental Health Evaluation Stated complaint: MENTAL HEALTH EVALUATION VOLUNTARY Time Seen by Provider: 08/02/20 00:53 Source: patient and family Mode of arrival: ambulatory Limitations: no limitations History of Present Illness Provider complaint: mental health evaluation Onset (ago): unknown Maximum Pain Intensity: 2 Associated symptoms: + denies other symptoms This is a 69-year-old male presents the emergency department with family for a mental health evaluation. Patient does have a history of schizophrenia as well as alcohol abuse. Patient complains of his house being haunted, stating there is a young female child who wants their house compounds on the ricci, and knocks things over or throws things. Patient states he is taking his medications as prescribed. Patient states he does still drink beer daily, estimates that is half a case. States his last drink was around an hour ago. Patient denies that his drinking is an issue, denies he has previously been hospitalized for alcohol abuse or alcohol withdrawal related symptoms including seizures. Patient denies any drug use. Pt seen during a time of high acuity and national emergency pandemic while wearing PPE. Home Medications Medication Instructions Recorded Confirmed Type levetiracetam 1,000 mg PO BID 09/21/19 08/02/20 History carbidopa 25 mg-levodopa 100 mg 1 tab PO BID #60 tab 02/01/20 08/02/20 Rx tablet benztropine 2 mg PO QAM 06/18/20 08/02/20 History benztropine 0.5 mg PO HS 07/25/20 08/02/20 History folic acid 1 mg PO DAILY 07/25/20 08/02/20 History loperamide 2 mg PO DIRECTED PRN 07/25/20 08/02/20 History multivitamin 1 tab PO DAILY 07/25/20 08/02/20 History thiamine HCl (vitamin B1) [Vitamin 100 mg PO DAILY 07/25/20 08/02/20 History B-1] nebulizer and compressor #1 ea 08/01/20 08/01/20 Rx tamsulosin 0.4 mg PO QAM 08/02/20 08/02/20 History Allergies Allergy/AdvReac Type Severity Reaction Status Date / Time flaxseed Allergy Intermediate Hives and Verified 07/29/20 15:04 itching Penicillins Allergy Intermediate Hives Verified 07/29/20 15:04 Sulfa (Sulfonamide Allergy Intermediate Hives Verified 07/29/20 15:04 Antibiotics) paliperidone AdvReac Intermediate Patient Verified 07/29/20 15:04 states had "bad reaction" after administration Past Med/Surg History Medical History (Updated 08/02/20 @ 06:07 by Veda Cali DO) Acid reflux Alcohol abuse Anxiety Arthritis BPH (benign prostatic hyperplasia) COPD (chronic obstructive pulmonary disease) Dementia Depression Diarrhea GERD (gastroesophageal reflux disease) No pertinent family history Schizophrenia Shoulder pain Family History Aunt Family history of seizures Other No pertinent family history Social History Smoking Status: Current every day smoker Tobacco Type: Smokeless Tobacco (Dip or Chew) Hx Alcohol Use: Yes Alcohol type: beer Preferred Language: German Communication Ability: Effective Visual Impairment: No Limitations Hearing Ability: Normal Ordained Minister Required: No Beliefs That Will Affect Care: None marital status: marital status details: Current Living Situation: Family Feels Safe at Home: No Assistive Devices: Glasses Review of Systems See HPI for pertinent positives & negatives. and A total of 10 systems reviewed and were otherwise negative Physical Exam Vital Signs Vital Signs - 24 hr 08/02/20 00:49 08/02/20 02:45 Temperature 36.7 C Temperature Source Oral Pulse Rate [Finger] 89 Respiratory Rate 16 18 Respiratory Effort / Characteristics Non-Labored Spontaneous Respiratory Depth Normal Respiratory Pattern Regular Blood Pressure 166/104 H Blood Pressure [Right Arm] 136/79 Blood Pressure Mean 124 Blood Pressure Mean [Right Arm] 98 Blood Pressure Position [Right Arm] Lying Pulse Oximetry 93 95 Oxygen Delivery Method Room Air Room Air Sepsis Recent Fever Within 48 Hours No Sepsis New/Unexplained Change in Mental Status No Sepsis Action Taken by Nursing No Action Required GENERAL: alert, well appearing, well nourished, no distress, non-toxic, odd affect EYE EXAM: normal conjunctiva, PERRL and EOM's grossly intact OROPHARYNX: no exudate, no erythema, lips, buccal mucosa, and tongue normal and mucous membranes are moist NECK: supple, no nuchal rigidity, no adenopathy, non-tender LUNGS: Clear to auscultation. Normal chest wall mechanics, no w/r/r HEART: no murmurs, S1 normal and S2 normal ABDOMEN: abdomen soft, non-tender, normo-active bowel sounds, no masses, no rebound or guarding. BACK: Back is symmetrical on inspection and there is no deformity, no midline tenderness, no CVA tenderness. SKIN: no rashes and no bruising UPPER EXTREMITIES: upper extremities are grossly normal. FROM, nml pulses b/l. LOWER EXTREMITIES: No pitting edema. FROM, nml pulses b/l. NEURO EXAM: Normal sensorium, cranial nerves II-XII grossly intact, normal speech, no gross weakness of arms, no gross weakness of legs. Gross sensation intact. Course Course 0550: 201 signed and pt admitted to . Medical Decision Making Differential Diagnosis Differential diagnoses considered include mood disorder, infection, hypoglycemia, electrolyte abnormalities, cardiac sources, intracerebral event, toxicologic, neurologic, as well as others. Medical Records Attestation: I reviewed the patient's medical records. Home Medications Current Medication List: was personally reviewed by me Laboratory Data Attestation: I reviewed the patient's lab results. Result diagrams: 08/02/20 01:34 08/02/20 01:34 Lab Results 08/02/20 08/02/20 08/02/20 Range/Units 01:34 01:34 01:34 WBC 7.25 (4.8-10.8) K/uL RBC 4.42 L (4.7-6.1) M/uL Hgb 14.0 (14.0-18.0) g/dL Hct 41.5 L (42-52) % MCV 93.9 (80-100) fL MCH 31.7 (25-34) pg MCHC 33.7 (32-36) g/dL RDW Std Deviation 43.8 (36.4-46.3) fL RDW Coeff of Hina 13.2 (11.5-14.5) % Plt Count 339 (130-400) K/uL MPV 8.3 (7.4-10.4) fL Immature Gran % (Auto) 0.4 % Neut % (Auto) 66.2 % Lymph % (Auto) 25.7 % Clinch % (Auto) 5.5 % Eos % (Auto) 1.9 % Baso % (Auto) 0.3 % Neut # (Auto) 4.80 (1.4-6.5) K/uL Lymph # (Auto) 1.86 (1.2-3.4) K/uL Clinch # (Auto) 0.40 (0.11-0.59) K/uL Eos # (Auto) 0.14 (0-0.5) K/uL Baso # (Auto) 0.02 (0-0.2) K/uL Immature Gran # (Auto) 0.03 H (0.00-0.02) K/uL Sodium 137 (136-145) mmol/L Potassium 3.3 L (3.5-5.1) mmol/L Chloride 102 (98-107) mmol/L Carbon Dioxide 30 (21-32) mmol/L Anion Gap 5.0 (3-11) BUN 7 (7-18) mg/dl Creatinine 0.82 (0.6-1.4) mg/dl Est Cr Clr Drug Dosing 101.6 ml/min Est GFR ( Amer) 106.1 Est GFR (Non-Af Amer) 91.5 BUN/Creatinine Ratio 8.2 L (10-20) Glucose 104 H (70-99) mg/dl Calcium 8.9 (8.5-10.1) mg/dl Total Bilirubin 1.0 (0.2-1) mg/dl AST 29 (15-37) U/L ALT 52 (12-78) U/L Alkaline Phosphatase 81 (45-117) U/L Total Protein 8.0 (6.4-8.2) gm/dl Albumin 3.7 (3.4-5.0) gm/dl Globulin 4.3 H (2.5-4.0) gm/dl Albumin/Globulin Ratio 0.9 (0.9-2) TSH 1.790 (0.300-4.500) uIu/ml Urine Color Urine Appearance (Clear) Urine pH (4.5-7.5) Ur Specific Clifton (1.000-1.030) Urine Protein (Negative) Urine Glucose (UA) (Negative) Urine Ketones (Negative) Urine Blood (Negative) Urine Nitrite (Negative) Urine Bilirubin (Negative) Urine Urobilinogen (Negative) Ur Leukocyte Esterase (Negative) Salicylates < 1.7 L (2.8-20) mg/dl Urine Opiates Screen (Neg) Ur Methadone, Qual (Neg) Acetaminophen < 2 L (10-30) ug/ml Urine Barbiturates (Neg) Ur Phencyclidine (PCP) (Neg) U Amphetamin/Meth Scrn (Neg) MDMA (Ecstasy) Screen (Neg) U Benzodiazepines Scrn (Neg) Ur Cocaine Metabolite (Neg) U Marijuana (THC) Screen (Neg) Ethyl Alcohol mg/dL (0-3) mg/dl SARS-CoV-2 Ag (Rapid) (Negative) 08/02/20 08/02/20 08/02/20 Range/Units 01:34 02:11 02:11 WBC (4.8-10.8) K/uL RBC (4.7-6.1) M/uL Hgb (14.0-18.0) g/dL Hct (42-52) % MCV (80-100) fL MCH (25-34) pg MCHC (32-36) g/dL RDW Std Deviation (36.4-46.3) fL RDW Coeff of Hina (11.5-14.5) % Plt Count (130-400) K/uL MPV (7.4-10.4) fL Immature Gran % (Auto) % Neut % (Auto) % Lymph % (Auto) % Clinch % (Auto) % Eos % (Auto) % Baso % (Auto) % Neut # (Auto) (1.4-6.5) K/uL Lymph # (Auto) (1.2-3.4) K/uL Clinch # (Auto) (0.11-0.59) K/uL Eos # (Auto) (0-0.5) K/uL Baso # (Auto) (0-0.2) K/uL Immature Gran # (Auto) (0.00-0.02) K/uL Sodium (136-145) mmol/L Potassium (3.5-5.1) mmol/L Chloride (98-107) mmol/L Carbon Dioxide (21-32) mmol/L Anion Gap (3-11) BUN (7-18) mg/dl Creatinine (0.6-1.4) mg/dl Est Cr Clr Drug Dosing ml/min Est GFR ( Amer) Est GFR (Non-Af Amer) BUN/Creatinine Ratio (10-20) Glucose (70-99) mg/dl Calcium (8.5-10.1) mg/dl Total Bilirubin (0.2-1) mg/dl AST (15-37) U/L ALT (12-78) U/L Alkaline Phosphatase (45-117) U/L Total Protein (6.4-8.2) gm/dl Albumin (3.4-5.0) gm/dl Globulin (2.5-4.0) gm/dl Albumin/Globulin Ratio (0.9-2) TSH (0.300-4.500) uIu/ml Urine Color Yellow Urine Appearance Clear (Clear) Urine pH 7.5 (4.5-7.5) Ur Specific Clifton 1.010 (1.000-1.030) Urine Protein Negative (Negative) Urine Glucose (UA) Negative (Negative) Urine Ketones Negative (Negative) Urine Blood Negative (Negative) Urine Nitrite Negative (Negative) Urine Bilirubin Negative (Negative) Urine Urobilinogen Negative (Negative) Ur Leukocyte Esterase Negative (Negative) Salicylates (2.8-20) mg/dl Urine Opiates Screen Neg (Neg) Ur Methadone, Qual Neg (Neg) Acetaminophen (10-30) ug/ml Urine Barbiturates Neg (Neg) Ur Phencyclidine (PCP) Neg (Neg) U Amphetamin/Meth Scrn Neg (Neg) MDMA (Ecstasy) Screen Neg (Neg) U Benzodiazepines Scrn Neg (Neg) Ur Cocaine Metabolite Neg (Neg) U Marijuana (THC) Screen Neg (Neg) Ethyl Alcohol mg/dL 5.0 H (0-3) mg/dl SARS-CoV-2 Ag (Rapid) (Negative) 08/02/20 Range/Units 04:20 WBC (4.8-10.8) K/uL RBC (4.7-6.1) M/uL Hgb (14.0-18.0) g/dL Hct (42-52) % MCV (80-100) fL MCH (25-34) pg MCHC (32-36) g/dL RDW Std Deviation (36.4-46.3) fL RDW Coeff of Hina (11.5-14.5) % Plt Count (130-400) K/uL MPV (7.4-10.4) fL Immature Gran % (Auto) % Neut % (Auto) % Lymph % (Auto) % Clinch % (Auto) % Eos % (Auto) % Baso % (Auto) % Neut # (Auto) (1.4-6.5) K/uL Lymph # (Auto) (1.2-3.4) K/uL Clinch # (Auto) (0.11-0.59) K/uL Eos # (Auto) (0-0.5) K/uL Baso # (Auto) (0-0.2) K/uL Immature Gran # (Auto) (0.00-0.02) K/uL Sodium (136-145) mmol/L Potassium (3.5-5.1) mmol/L Chloride (98-107) mmol/L Carbon Dioxide (21-32) mmol/L Anion Gap (3-11) BUN (7-18) mg/dl Creatinine (0.6-1.4) mg/dl Est Cr Clr Drug Dosing ml/min Est GFR ( Amer) Est GFR (Non-Af Amer) BUN/Creatinine Ratio (10-20) Glucose (70-99) mg/dl Calcium (8.5-10.1) mg/dl Total Bilirubin (0.2-1) mg/dl AST (15-37) U/L ALT (12-78) U/L Alkaline Phosphatase (45-117) U/L Total Protein (6.4-8.2) gm/dl Albumin (3.4-5.0) gm/dl Globulin (2.5-4.0) gm/dl Albumin/Globulin Ratio (0.9-2) TSH (0.300-4.500) uIu/ml Urine Color Urine Appearance (Clear) Urine pH (4.5-7.5) Ur Specific Clif[place] (1.000-1.030) Urine Protein (Negative) Urine Glucose (UA) (Negative) Urine Ketones (Negative) Urine Blood (Negative) Urine Nitrite (Negative) Urine Bilirubin (Negative) Urine Urobilinogen (Negative) Ur Leukocyte Esterase (Negative) Salicylates (2.8-20) mg/dl Urine Opiates Screen (Neg) Ur Methadone, Qual (Neg) Acetaminophen (10-30) ug/ml Urine Barbiturates (Neg) Ur Phencyclidine (PCP) (Neg) U Amphetamin/Meth Scrn (Neg) MDMA (Ecstasy) Screen (Neg) U Benzodiazepines Scrn (Neg) Ur Cocaine Metabolite (Neg) U Marijuana (THC) Screen (Neg) Ethyl Alcohol mg/dL (0-3) mg/dl SARS-CoV-2 Ag (Rapid) Negative (Negative) Blood Pressure Blood Pressure Findings: Elevated blood pressure Blood Pressure Disposition: Referred to patients primary care provider MDM Narrative Patient here voluntarily with delusions. Patient with a history of schizoph red and alcohol abuse. Patient's labs and vital signs reassuring here and patient with no complaints or concerns physically. Patient seen and evaluated by Nori, psychiatric case preparer and liner, and patient desires inpatient mental health treatment at this time. Family in agreement. Patient seen by indirect sales representative from [address] 201 signed. Impression & Plan Schizophrenia, Alcohol abuse, Delusions Discharge Plan Visit Data Chief Complaint: Mental Health Evaluation Stated Complaint: MENTAL HEALTH EVALUATION VOLUNTARY ED Provider: Veda Cali Discharge Problem: Schizophrenia, Alcohol abuse, Delusions Patient Disposition: Admitted As Inpatient Condition: Good Discharge Instructions Interventions: ED Discharge Assessment Last Done: 08/02/20 05:28 Discharge Problem: Schizophrenia Qualifiers: Schizophrenia type: unspecified Qualified Code(s): F20.9 - Schizophrenia, unspecified
[2020-08-02 01:55] LABS: Basophils # (auto) 0.02 K/uL (0-0.2); Basophils % (auto) 0.3 %; Eosinophils # (auto) 0.14 K/uL (0-0.5); Eosinophils % (auto) 1.9 %; Hematocrit (blood only) 41.5 % (42-52); Immature Granulocytes # (auto) 0.03 K/uL (0.00-0.02); Immature Granulocytes % (auto) 0.4 %; Lymphocytes # (auto) 1.86 K/uL (1.2-3.4); Lymphocytes % (auto) 25.7 %; Mean Corpuscular Hemoglobin 31.7 pg (25-34); Mean Corpuscular Hgb Conc 33.7 g/dL (32-36); Mean Corpuscular Volume 93.9 fL (80-100); Mean Platelet Volume 8.3 fL (7.4-10.4); Monocytes % (auto) 5.5 %; Neutrophils % (auto) 66.2 %; Platelet Count 339 K/uL (130-400); RDW Coefficient of Variation 13.2 % (11.5-14.5); RDW Standard Deviation 43.8 fL (36.4-46.3); Red Blood Count 4.42 M/uL (4.7-6.1); White Blood Count 7.25 K/uL (4.8-10.8)
[2020-08-02 02:13] LABS: Albumin Level 3.7 gm/dl (3.4-5.0); BUN Creatinine Ratio 8.2 (10-20); Calcium 8.9 mg/dl (8.5-10.1); Creatinine Clr Calc Pharmacy 101.6 ml/min; Est GFR (African American) 106.1; Est GFR (Non-African American) 91.5; Potassium 3.3 mmol/L (3.5-5.1)
[2020-08-02 02:17] LABS: Acetaminophen < 2 ug/ml (10-30); Salicylate < 1.7 mg/dl (2.8-20)
[2020-08-02 02:24] LABS: Albumin Globulin Ratio 0.9 (0.9-2); Globulin 4.3 gm/dl (2.5-4.0); Thyroid Stimulating Hormone 1.79 uIu/ml (0.300-4.500)
[2020-08-02 02:48] LABS: Amphetamines+Metham, Urine Neg (Neg); Appearance Urine Clear (Clear); Barbiturates, Urine Neg (Neg); Benzodiazepine, Urine Neg (Neg); Bilirubin Urine Negative (Negative); Blood Urine Negative (Negative); Cocaine, Urine Neg (Neg); Color Urine Yellow; Glucose Urine UA Negative (Negative); Ketones Urine Negative (Negative); Leukocyte Esterase Urine Negative (Negative); MDMA (Ecstacy), Urine Neg (Neg); Methadone, Urine Neg (Neg); Nitrite Urine Negative (Negative); Opiate, Urine Neg (Neg); Phencyclidine, Urine Neg (Neg); Protein Urine Negative (Negative); Urobilinogen Urine Negative (Negative); pH Urine 7.5 (4.5-7.5)
[2020-08-02] MEDS ORDERED: BISMUTH SUBSALICYLATE LIQD 236 ML PO PRN (05:08)
[2020-08-02] MEDS ORDERED: SODIUM CHLORIDE 0.65% NA SOLN 45 ML (OCEAN) PRN (05:08)
[2020-08-02] MEDS ORDERED: MAGNESIUM HYDROXIDE SUSP 30 ML UDC PO PRN (05:08)
[2020-08-02] MEDS ORDERED: hydrOXYzine HCl 25 MG TAB PO PRN ×2 (05:08)
[2020-08-02] MEDS: ACETAMINOPHEN 325 MG TAB PO PRN ×2 (11:30→20:48)
[2020-08-02] MEDS ORDERED: SIMETHICONE 80 MG CHEW PO PRN (11:39)
--- NOTE | 2020-08-02 11:39 | History & Physical ---
Date of Service August 02, 2020 Impression / Recommendations Impression This 69-year-old man has a known diagnosis of schizophrenia with prominent paranoid delusions and assumed hallucinations based on his reports. It is noted that in the past the patient has carried a diagnosis of bipolar disorder, but his presentation, at least during the most recent psychiatric hospitalizations are entirely consistent with schizophrenia, and the basis of the diagnosis of bipolar disorder is not entirely clear. Patient has clearly been neglecting self-care. He is malodorous, disheveled, and has not attended to sartorial or tonsorial needs. He claims that there is food in the house, but it is not clear if he has been eating, or what he has been eating. When asked about this, he says "oh, there is all kinds of stuff laying around. Do not ask me what it is." The delusion involving his house being haunted has been present for some time, but it seems to have been exacerbated by the fact that he has stopped all psychiatric treatmentat what point that occurred is not clearand the nature and degree of his paranoid delusions have become so intense that he is now refusing to reenter his home. He also talks about "blowing [his house] up." The patient also tells us that he is planning to "hitchhike" "down south", probably to the state of [place] where he believes it will be warm enough for him to either be homeless ("under a bridge in a homeless camp") or, with his $800 a month in public entitlement benefits he may be able to secure a room or a small apartment in a state where the cost of living cheaper. Given the fact that the patient can only ambulate with the assistance of a walker, and given his multiple health problems, that the patient's insistence that it is reasonable for him to "hitchhike" to [place] in late July is yet another example of the patient's very poor judgment. The bigger issue seems to be his paranoid delusional believes which are influencing his behaviors. He is considered a risk to himself because his gross inability to care for himself, his refusal to cooperate with care providers, his very poor judgment, and has references to suicide as a way of rating himself of the distress he experiences because of the haunting and the "poor girl" who he believes is "trapped" in his house. Also, he makes references to attempting to "blow up" or "burned down" his home in [place]. While it seems unlikely that the patient has the means or wherewithal to "blow up" the house, he presumably does have the means and ability to set the house on firealthough he makes it clear that he would never do that if there was anybody in the house, such as his son. In addition, he freely acknowledges that there are guns in the home, and he has used the guns in a threatening manner in the past. He also steadfastly refuses to have the guns removed from his house, and, evidently, thus far his family has not been cooperative in this regard. He claims to have had an allergic reaction ("rash") to Invega Sustenna, although he was given this medication (as well as previous oral doses of Invega) in the hospital following his first admission here and there was no evidence of any sort of allergic reaction. Following the most recent previous psychiatric hospitalization he claims that he had a "severe" reaction to Abilify Jordon, although he had no difficulty tolerating aripiprazole in any form during his psychiatric hospitalization. Specifically, he says that shortly after being injected by a pharmacist in the community with Olu Sparks he developed "cold chills" and "nausea," and indicates that he will not agree to take this medication againalthough, initially, the patient seem not to recognize the name "Abilify" or "aripiprazole," and only raise the objection when a reference to an intramuscular injection was made. The patient does report that he feels that Haldol is a good medication for him and that he likes it because it "helps [his] nerves." He also adds that when he takes Haldol he also likes to take Cogentin. The patient's medication reconciliation list includes carbidopa/levodopa, and the patient references "Parkinson's" without being able to provide any additional information. As noted previously, the record does not seem to indicate that he has been diagnosed with Parkinson's disease, and the purpose of this medication is not clear at this point. We are electing to hold carbidopa/levodopa pending clarification because of its potential for substantial negative impact on our efforts to resolve the patient's psychotic symptoms. (1) Schizophrenia: 08/02/20 -The patient has been admitted to the [facility] health unit for safety. He will require active assistance with his activities of daily living, and we will emphasize improving his self-care skills. We will also focus on assuring that the patient has adequate nutrition given concerns about his preadmission nutritional status. -The patient has been referred to and is encouraged to attend individual, group, and recreational therapy. We will also attempt to arrange family meetings with the patient's sons. -It is not clear if the patient's report of an inability to tolerate Invega or aripiprazole (at least in Depo form) is based in reality. However, the patient has said clear that he will refuse to take either 1 of these medications. He does agree to take haloperidol, and says that it has helped him in the past with his "nerves." Haldol will be titrated as indicated and tolerated. -We will begin haloperidol 5 mg by mouth twice a day. Also because the patient says that he has had "side effects" from medication such as Haldol in the past, and because he reports that he has responded favorably to benztropine, we will continue his outpatient dose of benztropine, namely 2 mg daily. Schizophrenia type: unspecified Qualified Code(s): F20.9 - Schizophrenia, unspecified Present on Admission?: Yes (2) Seizure disorder: 08/02/20 -It is not clear if the patient has ever actually had a grand mal seizure. The record indicates that he may have Jacksonian seizures or complex partial seizures. For example, one of his forearm and hand may begin to shake, and the patient will point to it and say, "See? I am having a seizure." We have reference to a neurological consult from last year that does recommend that he continue Keppra, and the patient insists that he has been taking this faithfully on an outpatient basis. - Levetiracetam level ordered today. Present on Admission?: Yes (3) Dyskinesia, tardive: 08/02/20 -The patient does present with abnormal involuntary movements. Most of these movements seem to involve his oral facial musculature and tongue with choreoathetoid movements involving his hands at times noted. He reportedly does have a history of tardive dyskinesia, and the patient's movements appear most consistent with tardive dyskinesia. -The patient, himself, references a diagnosis of "Parkinson's," although we have not identified confirmation of this diagnosis. We have confirmed that he has been prescribed carbidopa/levodopa. Without verification that the patient has Parkinson's disease, and without understanding why this medication has been prescribed in this case, we will at least temporarily hold carbidopa/levodopa given its potential to exacerbate the patient's psychotic symptoms, namely delusions and hallucinations. Present on Admission?: Yes (4) Tobacco abuse: 08/02/20 -Patient reports that he does not smoke tobacco, but that he does use chewing tobacco "when I can get it." He claims that he is experiencing cravings for tobacco and although he cannot estimate how much he has been using recently, he says that he has been using chewing tobacco regularly on and on a daily basis recently. Accordingly, we will prescribe tobacco replacement for the patient's comfort. Present on Admission?: Yes (5) Alcohol abuse: 08/02/20 -The patient is not a reliable historian but has said that he drinks between a half a case and a full case of beer a day. This has not been cooperated with his family. He notes that he mostly drinks "in the evenings" in order to be able to fall asleep. There is a potential for complicated withdrawal given his seizure diagnosis, and we are checking his Keppra level in order to make sure he is adequately covered. We will also continue to monitor the patient on the DEBO and treat as indicated. -The patient has been educated regarding the risks of consuming alcohol given his multiple physical diagnoses and psychiatric diagnosis. The patient indicates that he does not intend to stop drinking. Present on Admission?: Yes Inventory Assets Strengths: Currently willing to cooperate with treatment. Several of his adult children seem to be concerned and is supportive of his treatment. Needs: Resolution of psychotic features. Improved adherence with all medications. Safe and appropriate living arrangement. Risk Factors Assessment Major mental illness. Psychosis. Guns in the household. Inadequate housing. Multiple physical illnesses. Frequent nonadherence with treatment. Male: Yes : Yes Do You Have Access To A Gun?: Yes Health Problems: Yes Mental Health Diagnoses: Yes Substance Use Disorders: Yes (Alcohol dependence.) Previous Attempt: No (The patient has been made threats with guns.) Family History of Suicide: No Previous Psychiatric Hospitalization: Yes Hopelessness: No Smoker: Yes (Chewing tobacco only) Protective Factors Assessment Orthodoxy Beliefs: Yes ("I am a Adventist now! I had go to [facility] but no one will take me.") : No Responsible for Young Children: No Employed: No Stable Relationships: Yes Supportive Family: Yes Good Rapport with Provider: No Absence of Any Risk Factors Above: No Psychiatric History Identifying Data EMMA SAUER is a 69-year-old M who currently lives in [place], [place] with his adult son. He has a history of Schizophrenia and was admitted on 08/02/20 05:08 on a 201 voluntary agreement because of inability to care for his own physical needs within the context of paranoid delusional beliefs.. Chief Complaint "There is a spirit, a little girl, who haunts my house! I am not going back there!". History of Present Illness The patient is a 69-year-old man who lives in what has been described by others as a "[facility]" and [place], [place], with his adult son. He has a history of several previous psychiatric hospitalizations. The current psychiatric admission was precipitated by the family's report that the patient is refusing to reenter his home and is talking about "hitchhiking" to [place] and "living under a bridge," so that he does not have to reenter his home because he firmly believes that it is haunted. The patient has a known diagnosis of schizophrenia, and other precipitating factors appear to be that he has not been taking his psychiatric medications. He had been discharged on Abilify Maintena following his most recent previous discharge, but says that he had a "severe reaction" when a dose of this medication was administered intramuscularly by a pharmacist. The patient is somewhat vague about the nature of the reaction, but he said it involved "cold chills" and nausea. He had previously been treated with Invega and Invega Sustenna, and reported that he could not tolerate Invega Sustenna because it caused "a rash." However, he was given several doses of Invega Sustenna in the hospital and no such rash was observed. The patient's report is, and has been, that there is a "young girl" who is a "spirit" or a "ghost" who occupies the home in which the patient lives. The patient says that his house is "very old, and claims that it was built in [address], and that for the 30 years that he is living in the house they have been a series of supernatural occurrences. He tells us that he does not know the identity of the girl, but believes that she wants the house because she is trapped by some form of "evil" that also is present in his home. Although he tells us that he the little girl does not speak to him, or if she does he is not able to hear her. He does note that she knocks on the ricci, knocks things out of his hands, throws objects about the room, and knocks things over. He claims that other persons have witnessed this, although he also reports that the adult son with whom he lives "thinks [he is] crazy" and does not believe the house is haunted. Currently, the patient feels that he is in grave danger because during a hospital visit in [place] he mentioned to several hospital staff members that he needs help in "rescuing" and "helping" the "young girl" who he believes is trapped in the home. His belief is that somehow this has angered the entity of "evil" that he believes also dwells in the house and that at this point his life is in grave danger because the evil entity is planning to kill him in order to prevent him from rescuing the trapped spirit of the little girl. He tells us that he has had various jain figures attempt to perform exorcisms or smudge the house in order to help the imaginary little girl escape, and that other persons who have encountered this. Have run from the home and have refused to come back. The patient confirms that his plan is to never go back into the home, even if that means he is going to be homeless. When he was asked how he intends to survive in the homeless state during the upcoming winter, he says "I have got a plan. I am going to go down south and find a place in [place]. All live under a bridge if I have to. I am just not going back into that evil house." The patient has a history of a number of somatic problems, but is a poor historian. He notes that he cannot recall the names of the medications he is taking, but adds that he is taking something for "Parkinson's disease," and his medication reconciliation includes carbidopa levodopaalthough a neurological consult done here approximately a year ago does not indicate the presence of Parkinson's disease. He does have abnormal involuntary movements that are consistent with tardive dyskinesia. The patient is disheveled and has obviously been neglecting self-care. Corroboration from third parties as indicated that the patient lives in squalid conditions and at home with no running water. He reports that there is electricity, but no reliable source of heat other than perhaps space heaters or "may be there is coal?" He notes that when he needs to urinate or defecate he goes out into the backyard. When asked if he has an out house, he replies and says "sort of." Past Psychiatric History Previous Psych History: Patient has a known diagnosis of schizophrenia. He also has a history of multiple psychiatric hospitalizations, complicated by a history of nonadherence with psychiatric medications in the community. There have been at least 2 psychiatric hospitalizations, both on the behavioral health unit at [facility]. The first was in April 2019 and the most recent was in September 2019. Current Psychiatric Diagnosis: Schizophrenia Outpatient Services: Patient reports that he is not seeing any mental health professional on an outpatient basis and asked, "why should I? They cannot get rid of the evil in my house!". In the past, he has seen a therapist identified as "Arabella at [facility]," but he tells us that he is no longer seeing her and attributes this to his son. He has a case filler through the office of aging, but says he cannot recall the case filler's name Do You Have Access To A Gun?: Yes Describe Attempts in the Past: 3 months ago planned to OD on pills. Allergies Allergy/AdvReac Type Severity Reaction Status Date / Time flaxseed Allergy Intermediate Hives and Verified 07/29/20 15:04 itching Penicillins Allergy Intermediate Hives Verified 07/29/20 15:04 Sulfa (Sulfonamide Allergy Intermediate Hives Verified 07/29/20 15:04 Antibiotics) paliperidone AdvReac Intermediate Patient Verified 07/29/20 15:04 states had "bad reaction" after administration Home Medications Medication Instructions Recorded Confirmed Type levetiracetam 1,000 mg PO BID 09/21/19 08/02/20 History carbidopa 25 mg-levodopa 100 mg 1 tab PO BID #60 tab 02/01/20 08/02/20 Rx tablet benztropine 2 mg PO QAM 06/18/20 08/02/20 History benztropine 0.5 mg PO HS 07/25/20 08/02/20 History folic acid 1 mg PO DAILY 07/25/20 08/02/20 History loperamide 2 mg PO DIRECTED PRN 07/25/20 08/02/20 History multivitamin 1 tab PO DAILY 07/25/20 08/02/20 History thiamine HCl (vitamin B1) [Vitamin 100 mg PO DAILY 07/25/20 08/02/20 History B-1] nebulizer and compressor #1 ea 08/01/20 08/01/20 Rx tamsulosin 0.4 mg PO QAM 08/02/20 08/02/20 History Family History Family History of: Doesn't Know Alcohol History Hx of Alcohol Use Over the Past 12 Months: Yes (1/2 case of beer daily) AUDIT Total Score: 11 Smoking Use tobacco type: smokeless tobacco Smoking Status: Current every day smoker Substance History Hx of Prescription Med Misuse Over the Past 12 Months: No Hx of Over the Counter Med Misuse Over the Past 12 Months: No Hx of Inhalent Misuse Over the Past 12 Months: No Hx of Organic Substance Use Over the Past 12 Months: No Hx of Illegal Substances/Street Drug Use Over Past 12 Months: No Problems as a Result of Past Substance Use: None Identified Personal History Living Arrangements: Home (Third parties described the patient's home as a "dilapidated shack.") Beliefs That Will Affect Care: None and Orthodoxy (The patient says that he believes in God but has no one to take him to [facility].) Hx Traumatic Life Events: Yes (Reports his divorce from as traumatic; denies history of abuse) Patient History Medical History Acid reflux Alcohol abuse Anxiety Arthritis BPH (benign prostatic hyperplasia) COPD (chronic obstructive pulmonary disease) Dementia Depression Diarrhea GERD (gastroesophageal reflux disease) No pertinent family history Schizophrenia Shoulder pain Family History Aunt Family history of seizures Other No pertinent family history Social History Smoking Status: Current every day smoker Tobacco Type: Smokeless Tobacco (Dip or Chew) Hx Alcohol Use: Yes Alcohol type: beer Preferred Language: Citizen Of [place] Communication Ability: Effective Visual Impairment: No Limitations Hearing Ability: Normal Poultry Culler Required: No Beliefs That Will Affect Care: None and Orthodoxy (The patient says that he believes in God but has no one to take him to [facility].) marital status: marital status details: Current Living Situation: Family Feels Safe at Home: No Assistive Devices: Glasses Review of Systems Review of Systems: Acid reflux Alcohol abuse Anxiety Arthritis BPH (benign prostatic hyperplasia) COPD (chronic obstructive pulmonary disease) Dementia Depression Diarrhea GERD (gastroesophageal reflux disease) Schizophrenia Shoulder pain Abnormal Involuntary Movements most consistent with Tardive Dyskinesia. The patient is also said that he has "Parkinson's [disease]" but a neurological examination in June 2019 does not have reference to Parkinson's Disease, and the reviews of systems completed during subsequent emergency room visits also do not reference it. Nevertheless, the patient's medication reconciliation indicates that he takes carbidopa/levodopa for unknown reasons. We are attempting to clarify with the prescribing physician the indication for carbidopa levodopa, but admission or choosing to withhold administration of this medication because it is linked to delusional beliefs and hallucinations, presenting complaints for the patient. A comprehensive review of systems is unobtainable because of he patient mental health condition. The above information is partially provided by the patient, and also provided from the medical record. A physical examination was completed by Dr. Veda Cali of the emergency department. This physical examination has been reviewed and is excepted for the purposes of medical clearance to the behavioral health unit. Physical Exam Psychiatric: Orientation: alert, oriented x 3 and cooperative Apperance: + disheveled Malodorous, and poorly groomed. Eye Contact: + fair eye contact The patient is presents with choreoathetoid involuntary movements, primarily involving the oral musculature, most suggestive of tardive dyskinesia. Although the patient reports that he drinks "cases in cases" of beer "every day," he is not currently tremulous and at this point does not appear to be entering alcohol withdrawal. He is being closely monitored. Patient speech is spontaneous, but dysarthric. It is delivered at a normal rate and volume. Affect: + blunted affect "How would you feel if your house was haunted? On pissed off!" Thought Process: + looseness of associations Thought Content: + delusions Delusions are primarily persecutory. When asked about suicide the patient stated, "this thing may drive me to it!" Homicidal Thoughts: denies homicidal thoughts Hallucinations: + auditory hallucinations and + visual hallucinations Although the patient reports that the imaginary spirit who lives in his house does not converse directly with him, he repeatedly experiences noises, sounds, "bangs," and "strange sounds" that suggest that he may be experiencing perceptual disturbances. The patient also reports that he sometimes sees inanimate objects flying across the room or dropped on his person as if by an unseen "spirit." Cognition: + recent memory not intact and + remote memory not intact The patient is fully oriented to person, place, time and situation. He also is aware of some of his nonpsychiatric psychiatric diagnoses. However, he has difficulty recalling names and past experiences. I had been his psychiatrist previously during his psychiatric hospitalization and he says he has no recollection of ever having seen me before. Estimated Intelligence: + below average estimated intelligence Insight: + severely impaired insight Judgement: + severely impaired judgement Vital Signs (Past 24 Hours): Last Vital Signs Temp 36.8 C 08/02/20 06:16 Pulse 98 H 08/02/20 06:16 Resp 18 08/02/20 06:16 BP 149/98 H 08/02/20 06:16 Pulse Ox 95 08/02/20 05:28 Results & Data ([facility]) Laboratory Results Laboratory Results - last 24 hr 08/02/20 08/02/20 08/02/20 01:34 01:34 01:34 WBC 7.25 RBC 4.42 L Hgb 14.0 Hct 41.5 L MCV 93.9 MCH 31.7 MCHC 33.7 RDW Std Deviation 43.8 RDW Coeff of Hina 13.2 Plt Count 339 MPV 8.3 Immature Gran % (Auto) 0.4 Neut % (Auto) 66.2 Lymph % (Auto) 25.7 [place] % (Auto) 5.5 Eos % (Auto) 1.9 Baso % (Auto) 0.3 Neut # (Auto) 4.80 Lymph # (Auto) 1.86 [place] # (Auto) 0.40 Eos # (Auto) 0.14 Baso # (Auto) 0.02 Immature Gran # (Auto) 0.03 H Sodium 137 Potassium 3.3 L Chloride 102 Carbon Dioxide 30 Anion Gap 5.0 BUN 7 Creatinine 0.82 Est Cr Clr Drug Dosing 101.6 Est GFR ( Amer) 106.1 Est GFR (Non-Af Amer) 91.5 BUN/Creatinine Ratio 8.2 L Glucose 104 H Calcium 8.9 Total Bilirubin 1.0 AST 29 ALT 52 Alkaline Phosphatase 81 Total Protein 8.0 Albumin 3.7 Globulin 4.3 H Albumin/Globulin Ratio 0.9 TSH 1.790 Urine Color Urine Appearance Urine pH Ur Specific [place] Urine Protein Urine Glucose (UA) Urine Ketones Urine Blood Urine Nitrite Urine Bilirubin Urine Urobilinogen Ur Leukocyte Esterase Salicylates < 1.7 L Urine Opiates Screen Ur Methadone, Qual Acetaminophen < 2 L Urine Barbiturates Levetiracetam Ur Phencyclidine (PCP) U Amphetamin/Meth Scrn MDMA (Ecstasy) Screen U Benzodiazepines Scrn Ur Cocaine Metabolite U Marijuana (THC) Screen Ethyl Alcohol mg/dL SARS-CoV-2 Ag (Rapid) 08/02/20 08/02/20 08/02/20 01:34 01:34 02:11 WBC RBC Hgb Hct MCV MCH MCHC RDW Std Deviation RDW Coeff of Hina Plt Count MPV Immature Gran % (Auto) Neut % (Auto) Lymph % (Auto) [place] % (Auto) Eos % (Auto) Baso % (Auto) Neut # (Auto) Lymph # (Auto) [place] # (Auto) Eos # (Auto) Baso # (Auto) Immature Gran # (Auto) Sodium Potassium Chloride Carbon Dioxide Anion Gap BUN Creatinine Est Cr Clr Drug Dosing Est GFR ( Amer) Est GFR (Non-Af Amer) BUN/Creatinine Ratio Glucose Calcium Total Bilirubin AST ALT Alkaline Phosphatase Total Protein Albumin Globulin Albumin/Globulin Ratio TSH Urine Color Yellow Urine Appearance Clear Urine pH 7.5 Ur Specific [place] 1.010 Urine Protein Negative Urine Glucose (UA) Negative Urine Ketones Negative Urine Blood Negative Urine Nitrite Negative Urine Bilirubin Negative Urine Urobilinogen Negative Ur Leukocyte Esterase Negative Salicylates Urine Opiates Screen Ur Methadone, Qual Acetaminophen Urine Barbiturates Levetiracetam Pending Ur Phencyclidine (PCP) U Amphetamin/Meth Scrn MDMA (Ecstasy) Screen U Benzodiazepines Scrn Ur Cocaine Metabolite U Marijuana (THC) Screen Ethyl Alcohol mg/dL 5.0 H SARS-CoV-2 Ag (Rapid) 08/02/20 08/02/20 02:11 04:20 WBC RBC Hgb Hct MCV MCH MCHC RDW Std Deviation RDW Coeff of Hina Plt Count MPV Immature Gran % (Auto) Neut % (Auto) Lymph % (Auto) [place] % (Auto) Eos % (Auto) Baso % (Auto) Neut # (Auto) Lymph # (Auto) [place] # (Auto) Eos # (Auto) Baso # (Auto) Immature Gran # (Auto) Sodium Potassium Chloride Carbon Dioxide Anion Gap BUN Creatinine Est Cr Clr Drug Dosing Est GFR ( Amer) Est GFR (Non-Af Amer) BUN/Creatinine Ratio Glucose Calcium Total Bilirubin AST ALT Alkaline Phosphatase Total Protein Albumin Globulin Albumin/Globulin Ratio TSH Urine Color Urine Appearance Urine pH Ur Specific [place] Urine Protein Urine Glucose (UA) Urine Ketones Urine Blood Urine Nitrite Urine Bilirubin Urine Urobilinogen Ur Leukocyte Esterase Salicylates Urine Opiates Screen Neg Ur Methadone, Qual Neg Acetaminophen Urine Barbiturates Neg Levetiracetam Ur Phencyclidine (PCP) Neg U Amphetamin/Meth Scrn Neg MDMA (Ecstasy) Screen Neg U Benzodiazepines Scrn Neg Ur Cocaine Metabolite Neg U Marijuana (THC) Screen Neg Ethyl Alcohol mg/dL SARS-CoV-2 Ag (Rapid) Negative Current Inpatient Medications Current Inpatient Medications: Current Inpatient Medications Acetaminophen (Acetaminophen 325 Mg Tab) 650 mg PO Q4H PRN PRN Reason: Headache or Minor Fever Stop: 09/01/20 05:07 Last Admin: 08/02/20 11:30 Dose: 650 mg Documented by: Al Hydrox/Mg Hydrox/Simethicone (Aluminum/Magnesium Susp 30 Ml Udc) 30 ml PO Q4H PRN PRN Reason: GI Upset Stop: 09/01/20 05:07 Benztropine Mesylate (Benztropine Mesylate 0.5 Mg Tab) 0.5 mg PO HS MESHA Stop: 09/01/20 21:59 Benztropine Mesylate (Benztropine Mesylate 1 Mg Tab) 2 mg PO QAM MESHA Stop: 09/01/20 11:59 Bismuth Subsalicylate (Bismuth Subsalicylate Liqd 236 Ml) 15 ml PO PRN PRN PRN Reason: Loose Stool Stop: 09/01/20 05:07 Carbidopa/Levodopa (Carbidopa/Levodopa 25/100mg Tab) 1 tab PO BID MESHA Stop: 09/01/20 11:59 Folic Acid (Folic Acid 1 Mg Tab) 1 mg PO DAILY MESHA Stop: 09/01/20 11:59 Hydroxyzine HCl (Hydroxyzine Hcl 25 Mg Tab) 50 mg PO HSZ PRN PRN Reason: Insomnia Stop: 09/01/20 05:07 Hydroxyzine HCl (Hydroxyzine Hcl 25 Mg Tab) 25 mg PO Q4H PRN PRN Reason: Anxiety Stop: 09/01/20 05:07 Levetiracetam (Levetiracetam 500 Mg Tab) 1,000 mg PO BID MESHA Stop: 09/01/20 11:59 Lorazepam (Lorazepam 1 Mg Tab) 1 - 3 mg PO UD PRN; Protocol PRN Reason: EtoH Withdrawal AWSS 6-10+ Stop: 09/01/20 05:07 Magnesium Hydroxide (Magnesium Hydroxide Susp 30 Ml Udc) 30 ml PO DAILY PRN PRN Reason: Constipation Stop: 09/01/20 05:07 Multivitamins (Multivitamin Tab) 1 tab PO DAILY MESHA Stop: 09/02/20 08:59 Non-Formulary Medication (Loperamide) 2 mg PO DIRECTED PRN PRN Reason: Diarrhea Sodium Chloride (Sodium Chloride 0.65% Na Soln 45 Ml ([place])) 1 - 2 sprays NA PRN PRN PRN Reason: Nasal Dryness/Congestion Stop: 09/01/20 05:07 Tamsulosin HCl (Tamsulosin Hcl 0.4 Mg Cap) 0.4 mg PO QAM MESHA Stop: 09/02/20 08:59 Thiamine HCl (Thiamine Hcl 100 Mg Tab) 100 mg PO DAILY MESHA Stop: 09/02/20 08:59
[2020-08-02] MEDS ORDERED: LOPERAMIDE HCL 2 MG CAP PO PRN (11:40)
[2020-08-02] MEDS: NICOTINE POLACRILEX 2 MG GUM MT PRN (11:55)
[2020-08-02] MEDS ORDERED: CARBIDOPA/LEVODOPA 25/100MG TAB PO SCH (12:00)
[2020-08-02] MEDS: BENZTROPINE MESYLATE 1 MG TAB PO SCH (13:04)
[2020-08-02] MEDS: levETIRAcetam 500 MG TAB PO SCH ×2 (13:05→20:47)
[2020-08-02] MEDS: FOLIC ACID 1 MG TAB PO SCH (13:05)
[2020-08-02] MEDS: haloperidoL 5 MG TAB PO SCH ×2 (13:06→20:47)
[2020-08-02] MEDS: NICOTINE 7 MG/24 HR TDSY TD SCH (14:07)
[2020-08-02] MEDS: ALUMINUM/MAGNESIUM SUSP 30 ML UDC PO PRN (14:45)
[2020-08-02] MEDS ORDERED: MECLIZINE HCL 25 MG TAB PO PRN (15:16)
[2020-08-02] MEDS: traZODone HCL 50 MG TAB PO SCH (21:30)
[2020-08-02] MEDS ORDERED: BENZTROPINE MESYLATE 0.5 MG TAB PO SCH (22:00)
[2020-08-03] MEDS: ACETAMINOPHEN 325 MG TAB PO PRN ×2 (01:09→05:36)
[2020-08-03] MEDS: THIAMINE HCL 100 MG TAB PO SCH (09:30)
[2020-08-03] MEDS: FOLIC ACID 1 MG TAB PO SCH (09:30)
[2020-08-03] MEDS: PANTOprazole 40 MG TAB PO SCH (09:30)
[2020-08-03] MEDS: levETIRAcetam 500 MG TAB PO SCH ×2 (09:30→22:40)
[2020-08-03] MEDS: haloperidoL 5 MG TAB PO SCH ×2 (09:30→22:37)
[2020-08-03] MEDS: TAMSULOSIN HCL 0.4 MG CAP PO SCH (09:30)
[2020-08-03] MEDS: BENZTROPINE MESYLATE 1 MG TAB PO SCH (09:30)
[2020-08-03] MEDS: MULTIVITAMIN TAB PO SCH (09:30)
[2020-08-03] MEDS: NICOTINE 7 MG/24 HR TDSY TD SCH (09:37)
[2020-08-03] MEDS: FLUTICASONE PROPIONATE NA SPR 16 GM BTL SCH (09:55)
[2020-08-03] MEDS: LORazepam 1 MG TAB PO PRN (16:14)
[2020-08-03] MEDS ORDERED: GABAPENTIN 800MG ALCOHOL WITHDRAWAL LOAD PO STA (16:37)
[2020-08-03] MEDS ORDERED: GABAPENTIN 400 MG CAP PO ONE (16:37)
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
[2020-08-03] MEDS ORDERED: BACITRACIN OINT 0.9 GM PKT EXT PRN (17:30)
[2020-08-03] MEDS: BENZTROPINE MESYLATE 0.5 MG TAB PO SCH (22:37)
[2020-08-03] MEDS: traZODone HCL 50 MG TAB PO SCH (22:38)
[2020-08-03] MEDS: GABAPENTIN 400 MG CAP PO SCH (22:40)
[2020-08-04] MEDS: haloperidoL 5 MG TAB PO SCH ×3 (00:43→20:31)
[2020-08-04] MEDS: ACETAMINOPHEN 325 MG TAB PO PRN (04:43)
[2020-08-04] MEDS: GABAPENTIN 400 MG CAP PO SCH ×4 (06:17→22:07)
[2020-08-04] MEDS: LORazepam 1 MG TAB PO PRN (08:58)
--- NOTE | 2020-08-04 11:39 | Psychiatric Progress Note ---
Date of Service August 04, 2020 Impression / Recommendations Impression Per admitting provider: This 69-year-old man has a known diagnosis of schizophrenia with prominent paranoid delusions and assumed hallucinations based on his reports. It is noted that in the past the patient has carried a diagnosis of bipolar disorder, but his presentation, at least during the most recent psychiatric hospitalizations are entirely consistent with schizophrenia, and the basis of the diagnosis of bipolar disorder is not entirely clear. Patient has clearly been neglecting self-care. He is malodorous, disheveled, and has not attended to sartorial or tonsorial needs. He claims that there is food in the house, but it is not clear if he has been eating, or what he has been eating. When asked about this, he says "oh, there is all kinds of stuff laying around. Do not ask me what it is." The delusion involving his house being haunted has been present for some time, but it seems to have been exacerbated by the fact that he has stopped all psychiatric treatmentat what point that occurred is not clearand the nature and degree of his paranoid delusions have become so intense that he is now refusing to reenter his home. He also talks about "blowing [his house] up." The patient also tells us that he is planning to "hitchhike" "down south", probably to the state of [place] where he believes it will be warm enough for him to either be homeless ("under a bridge in a homeless camp") or, with his $800 a month in public entitlement benefits he may be able to secure a room or a small apartment in a state where the cost of living cheaper. Given the fact that the patient can only ambulate with the assistance of a walker, and given his multiple health problems, that the patient's insistence that it is reasonable for him to "hitchhike" to [place] in late July is yet another example of the patient's very poor judgment. The bigger issue seems to be his paranoid delusional believes which are influencing his behaviors. He is considered a risk to himself because his gross inability to care for himself, his refusal to cooperate with care providers, his very poor judgment, and has references to suicide as a way of rating himself of the distress he experiences because of the haunting and the "poor girl" who he believes is "trapped" in his house. Also, he makes references to attempting to "blow up" or "burned down" his home in [place]. While it seems unlikely that the patient has the means or wherewithal to "blow up" the house, he presumably does have the means and ability to set the house on firealthough he makes it clear that he would never do that if there was anybody in the house, such as his son. In addition, he freely acknowledges that there are guns in the home, and he has used the guns in a threatening manner in the past. He also steadfastly refuses to have the guns removed from his house, and, evidently, thus far his family has not been cooperative in this regard. He claims to have had an allergic reaction ("rash") to Invega Sustenna, although he was given this medication (as well as previous oral doses of Invega) in the hospital following his first admission here and there was no evidence of any sort of allergic reaction. Following the most recent previous psychiatric hospitalization he claims that he had a "severe" reaction to Abilify Jordon, although he had no difficulty tolerating aripiprazole in any form during his psychiatric hospitalization. Specifically, he says that shortly after being injected by a pharmacist in the community with Abilify Maintena he developed "cold chills" and "nausea," and indicates that he will not agree to take this medication againalthough, initially, the patient seem not to recognize the name "Abilify" or "aripiprazole," and only raise the objection when a reference to an intramuscular injection was made. The patient does report that he feels that Haldol is a good medication for him and that he likes it because it "helps [his] nerves." He also adds that when he takes Haldol he also likes to take Cogentin. The patient's medication reconciliation list includes carbidopa/levodopa, and the patient references "Parkinson's" without being able to provide any additional information. As noted previously, the record does not seem to indicate that he has been diagnosed with Parkinson's disease, and the purpose of this medication is not clear at this point. We are electing to hold carbidopa/levodopa pending clarification because of its potential for substantial negative impact on our efforts to resolve the patient's psychotic symptoms. (1) Schizophrenia: 08/02/20 -[facility]. He will require active assistance with his activities of daily living, and we w ill emphasize improving his self-care skills. We will also focus on assuring that the patient has adequate nutrition given concerns about his preadmission nutritional status. -The patient has been referred to and is encouraged to attend individual, group, and recreational therapy. We will also attempt to arrange family meetings with the patient's sons. -It is not clear if the patient's report of an inability to tolerate Invega or aripiprazole (at least in Depo form) is based in reality. However, the patient has said clear that he will refuse to take either 1 of these medications. He does agree to take haloperidol, and says that it has helped him in the past with his "nerves." Haldol will be titrated as indicated and tolerated. -We will begin haloperidol 5 mg by mouth twice a day. Also because the patient says that he has had "side effects" from medication such as Haldol in the past, and because he reports that he has responded favorably to benztropine, we will continue his outpatient dose of benztropine, namely 2 mg daily. 08/03 -Patient clearly delusional and preoccupied with limited insight, poor recall of facts, and it is felt that his ability to rationally manipulate information is significantly impaired by symptoms of psychosis admixed with cognitive dysfunction. As such, in my clinical opinion, he does not presently maintain sufficient capacity (grossly) to attend to serious medical, legal, or financial decisions of consequence -We will continue the Haldol as scheduled for now for psychosis -We will defer reinitiation of Abilify while we continue to expand database -will continue to hold sinemet -reduce Cogentin to 0.5 mg twice daily to reduce risk for anticholinergic induced confusion -We will attempt to re-involve area office of aging case management 08/04 -Increased confusion last evening and this morning in the setting of suspected alcohol withdrawal. -Continue Haldol as scheduled. Will need to watch for worsening of EPS with history of parkinsonism, off Sinemet and on reduced dose of Cogentin (2) Seizure disorder: 08/02/20 -It is not clear if the patient has ever actually had a grand mal seizure. The record indicates that he may have Jacksonian seizures or complex partial seizures. For example, one of his forearm and hand may begin to shake, and the patient will point to it and say, "See? I am having a seizure." We have reference to a neurological consult from last year that does recommend that he continue Keppra, and the patient insists that he has been taking this faithfully on an outpatient basis. - Levetiracetam level ordered today. 08/04/2020 -Keppra level from 08/02/2020 still pending (3) Dyskinesia, tardive: 08/02/20 -The patient does present with abnormal involuntary movements. Most of these movements seem to involve his oral facial musculature and tongue with choreoathetoid movements involving his hands at times noted. He reportedly does have a history of tardive dyskinesia, and the patient's movements appear most consistent with tardive dyskinesia. -The patient, himself, references a diagnosis of "Parkinson's," although we have not identified confirmation of this diagnosis. We have confirmed that he has been prescribed carbidopa/levodopa. Without verification that the patient has Parkinson's disease, and without understanding why this medication has been prescribed in this case, we will at least temporarily hold carbidopa/levodopa given its potential to exacerbate the patient's psychotic symptoms, namely delusions and hallucinations. 08/04/2020 -Appearing more tremulous this morning in setting of suspected alcohol withdrawal. We will continue to monitor (4) Tobacco abuse: 08/02/20 -Patient reports that he does not smoke tobacco, but that he does use chewing tobacco "when I can get it." He claims that he is experiencing cravings for tobacco and although he cannot estimate how much he has been using recently, he says that he has been using chewing tobacco regularly on and on a daily basis recently. Accordingly, we will prescribe tobacco replacement for the patient's comfort. (5) Alcohol abuse: 08/02/20 -The patient is not a reliable historian but has said that he drinks between a half a case and a full case of beer a day. This has not been cooperated with his family. He notes that he mostly drinks "in the evenings" in order to be able to fall asleep. There is a potential for complicated withdrawal given his seizure diagnosis, and we are checking his Keppra level in order to make sure he is adequately covered. We will also continue to monitor the patient on the DEBO and treat as indicated. -The patient has been educated regarding the risks of consuming alcohol given his multiple physical diagnoses and psychiatric diagnosis. The patient indicates that he does not intend to stop drinking. 08/03/2020 -pt triggered AWSS today with sign elevation of BP and HR. as above, reviewed low but positive ethyl alcohol level on admission and history of alcohol withdrawal earlier this month noted in outside records. -Start gabapentin taper from 800 mg. continue ativan prn per AWSS protocol. Continue thiamine and folate 08/04/2020 -As above, patient triggered Ativan prn again this morning per AWSS protocol. He is unable to quantify average amount of alcohol consumed prior to presentation. -Continue gabapentin taper Inventory Assets Strengths: Currently willing to cooperate with treatment. Several of his adult children seem to be concerned and is supportive of his treatment. Needs: Resolution of psychotic features. Improved adherence with all medications. Safe and appropriate living arrangement. Risk Factors Assessment Male: Yes : Yes Do You Have Access To A Gun?: Yes Health Problems: Yes Mental Health Diagnoses: Yes Substance Use Disorders: Yes (Alcohol dependence.) Previous Attempt: No (The patient has been made threats with guns.) Family History of Suicide: No Previous Psychiatric Hospitalization: Yes Hopelessness: No Smoker: Yes (Chewing tobacco only) Protective Factors Assessment Roman Catholic Beliefs: Yes ("I am a Mormon now! I had go to pentecostal but no one will take me.") : No Responsible for Young Children: No Employed: No Stable Relationships: Yes Supportive Family: Yes Good Rapport with Provider: No Absence of Any Risk Factors Above: No Interval History Chief Complaint "There was a little girl that was hurt". Review of Systems Notes Denies chest pain, pressure, or seizure Sleep Information Total Hours of Sleep: 6.25 Sleep Comments: Pt awake x 2 for PRN medication Meal Information Percent Meal Consumed - Breakfast: 100 Percent Meal Consumed - Lunch: 100 Percent Meal Consumed - Dinner: 100 Subjective Subjective Patient was seen & assessed and interval progress reviewed with treatment team. Patient has triggered alcohol withdrawal protocol x2 in the last 24 hours receiving Ativan 3 mg x 2. Started on gabapentin taper with 800 mg loading dose last evening for suspected alcohol withdrawal. Pressure was again normotensive this morning but elevated with restlessness, sweating, and increased tremor on arousal. Patient describes delusional concern for a little girl who was injured and needed help last evening. He reportedly demonstrated increased disorganized behavior in the evening such as placing paper towels on objects. He has reported seeing shadows and indicates to me that he saw the covers on his bed crawling last evening. He denies hallucinations this morning on interview. Acknowledges feeling confused and a little dizzy. Physical Exam Psychiatric Orientation: oriented to person and oriented to place Apperance: + disheveled Eye Contact: + poor eye contact Motor Behavior: + psychomotor agitation (More restless this morning) and + tremor Speech less spontaneous, articulation imprecise but intelligible Affect: + anxious affect Mood: + anxious mood Thought Process: + looseness of associations Thought Content: + delusions Suicidal Thoughts: denies suicidal thoughts Hallucinations: + visual hallucinations Cognition: + attention not intact Insight: + severely impaired insight Judgement: + severely impaired judgement Vital Signs (Past 24 Hours) Last Vital Signs Temp 36.4 C L 08/04/20 09:26 Pulse 94 H 08/04/20 09:26 Resp 18 08/04/20 09:26 BP 131/77 08/04/20 09:26 Pulse Ox 95 08/02/20 20:00 Results & Data ([facility]) Current Inpatient Medications Current Inpatient Medications: Current Inpatient Medications Acetaminophen (Acetaminophen 325 Mg Tab) 650 mg PO Q4H PRN PRN Reason: Headache or Minor Fever Stop: 09/01/20 05:07 Last Admin: 08/04/20 04:43 Dose: 650 mg Documented by: Al Hydrox/Mg Hydrox/Simethicone (Aluminum/Magnesium Susp 30 Ml Udc) 30 ml PO Q4H PRN PRN Reason: GI Upset Stop: 09/01/20 05:07 Last Admin: 08/02/20 14:45 Dose: 30 ml Documented by: Bacitracin (Bacitracin Oint 0.9 Gm Pkt) 1 appln EXT BID PRN PRN Reason: skin abrasion R thumb Stop: 09/02/20 17:29 Benztropine Mesylate (Benztropine Mesylate 0.5 Mg Tab) 0.5 mg PO BID MESHA Stop: 09/02/20 20:59 Last Admin: 08/03/20 22:37 Dose: Not Given Documented by: Bismuth Subsalicylate (Bismuth Subsalicylate Liqd 236 Ml) 15 ml PO PRN PRN PRN Reason: Loose Stool Stop: 09/01/20 05:07 Fluticasone Propionate (Fluticasone Propionate Na Spr 16 Gm Btl) 2 sprays NA DAILY MESHA Stop: 09/02/20 08:59 Last Admin: 08/03/20 09:55 Dose: 2 sprays Documented by: Folic Acid (Folic Acid 1 Mg Tab) 1 mg PO DAILY COUNT INCLUDES THE [facility] Stop: 09/01/20 11:59 Last Admin: 08/03/20 09:30 Dose: 1 mg Documented by: Gabapentin (Gabapentin 400 Mg Cap) 400 mg PO Q8H COUNT INCLUDES THE [facility] Stop: 08/05/20 06:01 Gabapentin (Gabapentin 400 Mg Cap) 400 mg PO Q12H COUNT INCLUDES THE [facility] Stop: 08/06/20 06:01 Gabapentin (Gabapentin 400 Mg Cap) 400 mg PO Q24H COUNT INCLUDES THE [facility] Stop: 08/07/20 06:01 Haloperidol (Haloperidol 5 Mg Tab) 5 mg PO BID COUNT INCLUDES THE [facility] Stop: 09/01/20 11:59 Last Admin: 08/04/20 00:43 Dose: 5 mg Documented by: Hydroxyzine HCl (Hydroxyzine Hcl 25 Mg Tab) 50 mg PO HSZ PRN PRN Reason: Insomnia Stop: 09/01/20 05:07 Hydroxyzine HCl (Hydroxyzine Hcl 25 Mg Tab) 25 mg PO Q4H PRN PRN Reason: Anxiety Stop: 09/01/20 05:07 Levetiracetam (Levetiracetam 500 Mg Tab) 1,000 mg PO BID COUNT INCLUDES THE [facility] Stop: 09/01/20 11:59 Last Admin: 08/03/20 22:40 Dose: 1,000 mg Documented by: Loperamide HCl (Loperamide Hcl 2 Mg Cap) 2 mg PO UD PRN PRN Reason: Diarrhea Stop: 09/01/20 11:39 Lorazepam (Lorazepam 1 Mg Tab) 1 - 3 mg PO UD PRN; Protocol PRN Reason: EtoH Withdrawal AWSS 6-10+ Stop: 09/01/20 05:07 Last Admin: 08/04/20 08:58 Dose: 3 mg Documented by: Magnesium Hydroxide (Magnesium Hydroxide Susp 30 Ml Udc) 30 ml PO DAILY PRN PRN Reason: Constipation Stop: 09/01/20 05:07 Meclizine HCl (Meclizine Hcl 25 Mg Tab) 25 mg PO TID PRN PRN Reason: Vertigo Stop: 09/01/20 15:15 Miscellaneous (Remove Nicoderm Patch) 1 ea N/A DAILY@0859 COUNT INCLUDES THE [facility] Stop: 09/02/20 08:58 Last Admin: 08/03/20 09:37 Dose: 1 ea Documented by: Multivitamins (Multivitamin Tab) 1 tab PO DAILY MESHA Stop: 09/02/20 08:59 Last Admin: 08/03/20 09:30 Dose: 1 tab Documented by: Nicotine (Nicotine 7 Mg/24 Hr Tdsy) 7 mg TD QAM COUNT INCLUDES THE [facility] Stop: 09/01/20 13:29 Last Admin: 08/03/20 09:37 Dose: 7 mg Documented by: Nicotine Polacrilex (Nicotine Polacrilex 2 Mg Gum) 2 piece MT PRN PRN PRN Reason: nicotine cravings Stop: 09/01/20 11:37 Last Admin: 08/02/20 11:55 Dose: 2 piece Documented by: Pantoprazole Sodium (Pantoprazole 40 Mg Tab) 40 mg PO DAILY MESHA Stop: 09/02/20 08:59 Last Admin: 08/03/20 09:30 Dose: 40 mg Documented by: Simethicone (Simethicone 80 Mg Chew) 80 mg PO Q6H PRN PRN Reason: gas/bloating Stop: 09/01/20 11:38 Sodium Chloride (Sodium Chloride 0.65% Na Soln 45 Ml ([place])) 1 - 2 sprays NA PRN PRN PRN Reason: Nasal Dryness/Congestion Stop: 09/01/20 05:07 Tamsulosin HCl (Tamsulosin Hcl 0.4 Mg Cap) 0.4 mg PO QAM MESHA Stop: 09/02/20 08:59 Last Admin: 08/03/20 09:30 Dose: 0.4 mg Documented by: Thiamine HCl (Thiamine Hcl 100 Mg Tab) 100 mg PO DAILY MESHA Stop: 09/02/20 08:59 Last Admin: 08/03/20 09:30 Dose: 100 mg Documented by: Trazodone HCl (Trazodone Hcl 50 Mg Tab) 50 mg PO HS COUNT INCLUDES THE [facility] Stop: 09/01/20 21:59 Last Admin: 08/03/20 22:38 Dose: Not Given Documented by: Mental Health & Subst Abuse Tx Therapist Name of Therapist: None Information Technology Security Analyst Name of Information Technology Security Analyst: [employer] Adalid Brownlee Phone Number for Information Technology Security Analyst: [phone] Post Discharge Appointments Primary Care Physician Name Of Family Doctor: [facility] - Dr. Camacho Primary Care Provider Appointment Comment: [address] [place] [address] [place] [address] Contact Information Discharge Discharge Address: [address] [place] [address] [place] [id number] (1) Schizophrenia Schizophrenia type: unspecified Qualified Code(s): F20.9 - Schizophrenia, unspecified
[2020-08-04] MEDS: FOLIC ACID 1 MG TAB PO SCH (13:15)
[2020-08-04] MEDS: levETIRAcetam 500 MG TAB PO SCH ×2 (13:15→20:31)
[2020-08-04] MEDS: PANTOprazole 40 MG TAB PO SCH (13:15)
[2020-08-04] MEDS: THIAMINE HCL 100 MG TAB PO SCH (13:15)
[2020-08-04] MEDS: TAMSULOSIN HCL 0.4 MG CAP PO SCH (13:15)
[2020-08-04] MEDS: MULTIVITAMIN TAB PO SCH (13:15)
[2020-08-04] MEDS: BENZTROPINE MESYLATE 0.5 MG TAB PO SCH ×2 (13:15→20:31)
[2020-08-04] MEDS: NICOTINE 7 MG/24 HR TDSY TD SCH (14:00)
[2020-08-04] MEDS: FLUTICASONE PROPIONATE NA SPR 16 GM BTL SCH (14:00)
[2020-08-04] MEDS: traZODone HCL 50 MG TAB PO SCH (20:31)
[2020-08-05] MEDS: ACETAMINOPHEN 325 MG TAB PO PRN ×3 (00:48→23:44)
[2020-08-05] MEDS: ALUMINUM/MAGNESIUM SUSP 30 ML UDC PO PRN (06:13)
[2020-08-05] MEDS: GABAPENTIN 400 MG CAP PO SCH (06:18)
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
[2020-08-05] MEDS: levETIRAcetam 500 MG TAB PO SCH ×2 (08:50→21:15)
[2020-08-05] MEDS: haloperidoL 5 MG TAB PO SCH ×2 (08:50→21:15)
[2020-08-05] MEDS: BENZTROPINE MESYLATE 0.5 MG TAB PO SCH ×2 (08:51→21:14)
[2020-08-05] MEDS: FLUTICASONE PROPIONATE NA SPR 16 GM BTL SCH (08:51)
[2020-08-05] MEDS: TAMSULOSIN HCL 0.4 MG CAP PO SCH (08:51)
[2020-08-05] MEDS: THIAMINE HCL 100 MG TAB PO SCH (08:51)
[2020-08-05] MEDS: FOLIC ACID 1 MG TAB PO SCH (08:51)
[2020-08-05] MEDS: MULTIVITAMIN TAB PO SCH (08:51)
[2020-08-05] MEDS: PANTOprazole 40 MG TAB PO SCH (08:51)
[2020-08-05] MEDS: NICOTINE 7 MG/24 HR TDSY TD SCH (08:52)
[2020-08-05] MEDS: traZODone HCL 50 MG TAB PO SCH (21:16)
[2020-08-06] MEDS: FLUTICASONE PROPIONATE NA SPR 16 GM BTL SCH (05:48)
[2020-08-06] MEDS: ALUMINUM/MAGNESIUM SUSP 30 ML UDC PO PRN (06:09)
[2020-08-06] MEDS: GABAPENTIN 400 MG CAP PO SCH (07:36)
[2020-08-06] MEDS: TAMSULOSIN HCL 0.4 MG CAP PO SCH (08:47)
[2020-08-06] MEDS: FOLIC ACID 1 MG TAB PO SCH (08:47)
[2020-08-06] MEDS: BENZTROPINE MESYLATE 0.5 MG TAB PO SCH ×2 (08:47→21:38)
[2020-08-06] MEDS: haloperidoL 5 MG TAB PO SCH ×2 (08:47→21:38)
[2020-08-06] MEDS: levETIRAcetam 500 MG TAB PO SCH ×2 (08:48→21:38)
[2020-08-06] MEDS: PANTOprazole 40 MG TAB PO SCH (08:48)
[2020-08-06] MEDS: NICOTINE 7 MG/24 HR TDSY TD SCH (08:48)
[2020-08-06] MEDS: THIAMINE HCL 100 MG TAB PO SCH (08:48)
[2020-08-06] MEDS: MULTIVITAMIN TAB PO SCH (08:48)
[2020-08-06 08:57] LABS: Estimated Average Glucose 111 mg/dl; Hemoglobin A1C 5.5 % (4.5-5.6)
[2020-08-06 09:18] LABS: Chol HDL Ratio 6; Cholesterol 205 mg/dl (0-200); HDL Cholesterol 37 mg/dl; LDL Cholesterol Calculated 118 mg/dl; Triglycerides 252 mg/dl (0-150); VLDL Cholesterol 50 mg/dl
--- NOTE | 2020-08-06 09:55 | Psychiatric Progress Note ---
Date of Service August 06, 2020 Impression / Recommendations Impression 69-year-old male with a history of schizophrenia and treatment noncompliance who is admitted voluntarily for worsening delusions, hallucinations, and poor self- care. He has a delusion that his house is haunted and that evil spirits are trying to kill him, and has been admitted here in the past for the same. He was also hospitalized in [place] earlier this month, initially on the behavioral health unit, but had to be transferred to a medical unit due to alcohol withdrawal. He is again experiencing alcohol withdrawal symptoms here. He is clearly unable to provide for his own basic needs, laboratory evidence of malnutrition with potassium 3.3, ongoing alcohol abuse and withdrawal, noncompliance with medications and outpatient mental health treatment. He has very poor insight and judgment, had submitted a 72-hour notice on 08/05 requesting to leave so that he can take a bus to the [facility] and find a natural healer to rid him of demons - then rescinded his notice. He is unable to provide for his own basic needs, and presents the risk of harm to both himself and others as a result of his psychotic symptoms (has threatened to blow up his house or to shoot unseen others, and has access to guns), so inpatient treatment remains medically necessary. Family meeting scheduled with son via phone for 08/06. (1) Schizophrenia: 08/02/20 -The patient has been admitted to the [facility] behavioral health unit for safety. He will require active assistance with his activities of daily living, and we will emphasize improving his self-care skills. We will also focus on assuring that the patient has adequate nutrition given concerns about his preadmission nutritional status. -The patient has been referred to and is encouraged to attend individual, group, and recreational therapy. We will also attempt to arrange family meetings with the patient's sons. -It is not clear if the patient's report of an inability to tolerate Invega or aripiprazole (at least in Depo form) is based in reality. However, the patient has said clear that he will refuse to take either 1 of these medications. He does agree to take haloperidol, and says that it has helped him in the past with his "nerves." Haldol will be titrated as indicated and tolerated. -We will begin haloperidol 5 mg by mouth twice a day. Also because the patient says that he has had "side effects" from medication such as Haldol in the past, and because he reports that he has responded favorably to benztropine, we will continue his outpatient dose of benztropine, namely 2 mg daily. 08/03 -Patient clearly delusional and preoccupied with limited insight, poor recall of facts, and it is felt that his ability to rationally manipulate information is significantly impaired by symptoms of psychosis admixed with cognitive dysfunction. As such, in my clinical opinion, he does not presently maintain sufficient capacity (grossly) to attend to serious medical, legal, or financial decisions of consequence -We will continue the Haldol as scheduled for now for psychosis -We will defer reinitiation of Abilify while we continue to expand database -will continue to hold sinemet -reduce Cogentin to 0.5 mg twice daily to reduce risk for anticholinergic induced confusion -We will attempt to re-involve area office of aging case management 08/04 -Increased confusion last evening and this morning in the setting of suspected alcohol withdrawal. -Continue Haldol as scheduled. Will need to watch for worsening of EPS with history of parkinsonism, off Sinemet and on reduced dose of Cogentin. 08/05 -Continue Haldol and will recommend transition to Haldol decanoate once effective dose is reached. -Fasting labs scheduled for tomorrow. -Collateral information obtained from case assembler, Adalid Brownlee. No outpatient mental health services currently due to repeated noncompliance. Will need to be set up with outpatient treatment prior to discharge. May need a 304 IO. -Patient has submitted a 72-hour notice requesting to withdraw from treatment. Explained to him that I cannot discharge him at this time as he remains at acute risk of harm to both himself and others, with active psychotic symptoms, and no safe discharge plan or outpatient treatment. We we will continue to encourage him to engage in treatment and to rescind his notice and work towards a safe discharge plan, but may need to consider a 302 involuntary commitment if he is unwilling to do so. -disc pad knockout worker to contact son for collateral information and to schedule a family meeting, and make referral to the [facility] in for outpatient treatment. We will also involve the office of aging given concerns about the poor condition of his home. 08/06 - Continue as above, patient tolerating haloperidol oral dosing BID - Pt did rescind 72-hour notice per staff report - Fasting labs reviewed: HgbA1c 5.5%, triglycerides elevated at 252, total cholesterol elevated at 205. LDL - 118; HDL - 37; VLDL - 50. - Family meeting scheduled with son via phone - Will still need to attempt to solidify aftercare. Pt has an assigned case assembler with whom patient has not been engaging. There are additional difficult barriers to treatment, which include patient's inability to participate in virtual appointments due to lack of phone service/internet (2) Alcohol abuse: 08/02/20 -The patient is not a reliable historian but has said that he drinks between a half a case and a full case of beer a day. This has not been cooperated with his family. He notes that he mostly drinks "in the evenings" in order to be able to fall asleep. There is a potential for complicated withdrawal given his seizure diagnosis, and we are checking his Keppra level in order to make sure he is adequately covered. We will also continue to monitor the patient on the DEBO and treat as indicated. -The patient has been educated regarding the risks of consuming alcohol given his multiple physical diagnoses and psychiatric diagnosis. The patient indicates that he does not intend to stop drinking. 08/03/2020 -pt triggered AWSS today with sign elevation of BP and HR. as above, reviewed low but positive ethyl alcohol level on admission and history of alcohol withdrawal earlier this month noted in outside records. -Start gabapentin taper from 800 mg. continue ativan prn per AWSS protocol. Continue thiamine and folate 08/04/2020 -As above, patient triggered Ativan prn again this morning per AWSS protocol. He is unable to quantify average amount of alcohol consumed prior to presentation. -Continue gabapentin taper 08/06 - Continue as above - pt not recently triggering for prn lorazepam dosing with AWSS scores - Will d/c AWSS protocol, continuing vitals each shift for the time being (3) Seizure disorder: 08/02/20 -It is not clear if the patient has ever actually had a grand mal seizure. The record indicates that he may have Jacksonian seizures or complex partial seizures. For example, one of his forearm and hand may begin to shake, and the patient will point to it and say, "See? I am having a seizure." We have reference to a neurological consult from last year that does recommend that he continue Keppra, and the patient insists that he has been taking this faithfully on an outpatient basis. - Levetiracetam level ordered today. 08/04/2020 -Keppra level from 08/02/2020 still pending (4) Dyskinesia, tardive: 08/02/20 -The patient does present with abnormal involuntary movements. Most of these movements seem to involve his oral facial musculature and tongue with choreoathetoid movements involving his hands at times noted. He reportedly does have a history of tardive dyskinesia, and the patient's movements appear most consistent with tardive dyskinesia. -The patient, himself, references a diagnosis of "Parkinson's," although we have not identified confirmation of this diagnosis. We have confirmed that he has been prescribed carbidopa/levodopa. Without verification that the patient has Parkinson's disease, and without understanding why this medication has been prescribed in this case, we will at least temporarily hold carbidopa/levodopa given its potential to exacerbate the patient's psychotic symptoms, namely delusions and hallucinations. 08/04/2020 -Appearing more tremulous this morning in setting of suspected alcohol withdrawal. We will continue to monitor 08/06 - Appearing gradually less tremulous over the past two days (5) Tobacco abuse: 08/02/20 -Patient reports that he does not smoke tobacco, but that he does use chewing tobacco "when I can get it." He claims that he is experiencing cravings for tobacco and although he cannot estimate how much he has been using recently, he says that he has been using chewing tobacco regularly on and on a daily basis recently. Accordingly, we will prescribe tobacco replacement for the patient's comfort. Inventory Assets Strengths: Currently willing to cooperate with treatment. Several of his adult children seem to be concerned and is supportive of his treatment. Needs: Resolution of psychotic features. Improved adherence with all medications. Safe and appropriate living arrangement. Risk Factors Assessment Male: Yes : Yes Do You Have Access To A Gun?: Yes Health Problems: Yes Mental Health Diagnoses: Yes Substance Use Disorders: Yes (Alcohol dependence.) Previous Attempt: No (The patient has been made threats with guns.) Family History of Suicide: No Previous Psychiatric Hospitalization: Yes Hopelessness: No Smoker: Yes (Chewing tobacco only) Protective Factors Assessment Mu-Ism Beliefs: Yes ("I am a Bahai now! I had go to muslim but no one will take me.") : No Responsible for Young Children: No Employed: No Stable Relationships: Yes Supportive Family: Yes Good Rapport with Provider: No Absence of Any Risk Factors Above: No Interval History Identifying Information EMMA SAUER is a 69-year-old M who currently lives in [place], [place] with his adult son, has a history of schizophrenia and treatment nonadherence, and was admitted on 08/02/20 05:08 on a 201 voluntary agreement because of inability to care for his own physical needs within the context of paranoid delusional beliefs. Chief Complaint "Oh, ok." Review of Systems Notes Constitutional: denied Cardiovascular: denied Respiratory: denied Gastrointestinal: denied Neurological: denied Psychiatric: denies symptoms other than stated above Total of at least 10 systems reviewed, pertinent positives as above and in HPI. Sleep Information Total Hours of Sleep: 6.5 Sleep Comments: Pt awake x 2 for PRN medication Meal Information Percent Meal Consumed - Breakfast: 100 Percent Meal Consumed - Lunch: 100 Percent Meal Consumed - Dinner: 100 Subjective Subjective Patient was seen & assessed and interval progress reviewed with nursing and social work. Staff report the patient has been participating in group programming. He did rescind his 72-hour notice and has a meeting scheduled with his son for this morning. Pt was seen prior to that meeting to assess progress since admission. Pt states he is "oh, ok." He denies acute concerns. He is aware of the meeting with his son this morning, but is not sure that there are any pertinent topics to discuss. After denying goals for the meeting, the patient shares that he feels their home is unsafe due to the "demons" but does report he would likely return there on discharge. He does admit that there are guns in their home that he would like to have removed - recommended to his son numerous times in past meetings and will be discussed again today. Pt states that he is hopeful his son will explore the option of purchasing a mobile home. He denies concerns related to his medication regimen. He denied other needs at this time. Physical Exam Psychiatric Orientation: alert and + guarded (superficially cooperative ) Apperance: + disheveled; + inappropriately groomed Eye Contact: + fair eye contact Motor Behavior: steady gait and station (ambulates with walker, stable gait) and + tremor Speech: normal rate/rhythm/volume of speech (somewhat brief responses to questions) Affect: + anxious affect and + irritable affect Mood: + anxious mood (reporting worry that his home is not safe) Thought Process: + tangential thought process; + thought process not linear or logical Thought Content: + paranoid, + delusions, + ideas of reference and + persecution Suicidal Thoughts: denies suicidal thoughts Homicidal Thoughts: denies homicidal thoughts Cognition: + recent memory not intact Estimated Intelligence: + below average estimated intelligence Insight: + poor insight Judgement: + poor judgement Vital Signs (Past 24 Hours) Last Vital Signs Temp 36.7 C 08/06/20 06:27 Pulse 94 H 08/06/20 06:28 Resp 18 08/06/20 06:27 BP 131/88 08/06/20 06:28 Pulse Ox 95 08/05/20 20:00 Results & Data ([facility]) Laboratory Results Laboratory Results - last 24 hr 08/06/20 08/06/20 08:30 08:30 Estimat Average Glucose 111 Hemoglobin A1c 5.5 Triglycerides 252 H Cholesterol 205 H LDL Cholesterol, Calc 118 VLDL Cholesterol, Calc 50 HDL Cholesterol 37 Cholesterol/HDL Ratio 6 Current Inpatient Medications Current Inpatient Medications: Current Inpatient Medications Acetaminophen (Acetaminophen 325 Mg Tab) 650 mg PO Q4H PRN PRN Reason: Headache or Minor Fever Stop: 09/01/20 05:07 Last Admin: 08/05/20 23:44 Dose: 650 mg Documented by: Al Hydrox/Mg Hydrox/Simethicone (Aluminum/Magnesium Susp 30 Ml Udc) 30 ml PO Q4H PRN PRN Reason: GI Upset Stop: 09/01/20 05:07 Last Admin: 08/06/20 06:09 Dose: 30 ml Documented by: Bacitracin (Bacitracin Oint 0.9 Gm Pkt) 1 appln EXT BID PRN PRN Reason: skin abrasion R thumb Stop: 09/02/20 17:29 Benztropine Mesylate (Benztropine Mesylate 0.5 Mg Tab) 0.5 mg PO BID MESHA Stop: 09/02/20 20:59 Last Admin: 08/06/20 08:47 Dose: 0.5 mg Documented by: Bismuth Subsalicylate (Bismuth Subsalicylate Liqd 236 Ml) 15 ml PO PRN PRN PRN Reason: Loose Stool Stop: 09/01/20 05:07 Fluticasone Propionate (Fluticasone Propionate Na Spr 16 Gm Btl) 2 sprays NA DAILY [facility] Stop: 09/02/20 08:59 Last Admin: 08/06/20 05:48 Dose: 2 sprays Documented by: Folic Acid (Folic Acid 1 Mg Tab) 1 mg PO DAILY MESHA Stop: 09/01/20 11:59 Last Admin: 08/06/20 08:47 Dose: 1 mg Documented by: Gabapentin (Gabapentin 400 Mg Cap) 400 mg PO Q24H MESHA Stop: 08/07/20 06:01 Haloperidol (Haloperidol 5 Mg Tab) 5 mg PO BID MESHA Stop: 09/01/20 11:59 Last Admin: 08/06/20 08:47 Dose: 5 mg Documented by: Hydroxyzine HCl (Hydroxyzine Hcl 25 Mg Tab) 50 mg PO HSZ PRN PRN Reason: Insomnia Stop: 09/01/20 05:07 Hydroxyzine HCl (Hydroxyzine Hcl 25 Mg Tab) 25 mg PO Q4H PRN PRN Reason: Anxiety Stop: 09/01/20 05:07 Levetiracetam (Levetiracetam 500 Mg Tab) 1,000 mg PO BID [facility] Stop: 09/01/20 11:59 Last Admin: 08/06/20 08:48 Dose: 1,000 mg Documented by: Loperamide HCl (Loperamide Hcl 2 Mg Cap) 2 mg PO UD PRN PRN Reason: Diarrhea Stop: 09/01/20 11:39 Lorazepam (Lorazepam 1 Mg Tab) 1 - 3 mg PO UD PRN; Protocol PRN Reason: EtoH Withdrawal AWSS 6-10+ Stop: 09/01/20 05:07 Last Admin: 08/04/20 08:58 Dose: 3 mg Documented by: Magnesium Hydroxide (Magnesium Hydroxide Susp 30 Ml Udc) 30 ml PO DAILY PRN PRN Reason: Constipation Stop: 09/01/20 05:07 Meclizine HCl (Meclizine Hcl 25 Mg Tab) 25 mg PO TID PRN PRN Reason: Vertigo Stop: 09/01/20 15:15 Miscellaneous (Remove Nicoderm Patch) 1 ea N/A DAILY@[id number] [facility] Stop: 09/02/20 08:58 Last Admin: 08/06/20 08:48 Dose: 1 ea Documented by: Multivitamins (Multivitamin Tab) 1 tab PO DAILY MESHA Stop: 09/02/20 08:59 Last Admin: 08/06/20 08:48 Dose: 1 tab Documented by: Nicotine (Nicotine 7 Mg/24 Hr Tdsy) 7 mg TD QAM MESHA Stop: 09/01/20 13:29 Last Admin: 08/06/20 08:48 Dose: 7 mg Documented by: Nicotine Polacrilex (Nicotine Polacrilex 2 Mg Gum) 2 piece MT PRN PRN PRN Reason: nicotine cravings Stop: 09/01/20 11:37 Last Admin: 08/02/20 11:55 Dose: 2 piece Documented by: Pantoprazole Sodium (Pantoprazole 40 Mg Tab) 40 mg PO DAILY MESHA Stop: 09/02/20 08:59 Last Admin: 08/06/20 08:48 Dose: 40 mg Documented by: Simethicone (Simethicone 80 Mg Chew) 80 mg PO Q6H PRN PRN Reason: gas/bloating Stop: 09/01/20 11:38 Sodium Chloride (Sodium Chloride 0.65% Na Soln 45 Ml (Luce)) 1 - 2 sprays NA PRN PRN PRN Reason: Nasal Dryness/Congestion Stop: 09/01/20 05:07 Tamsulosin HCl (Tamsulosin Hcl 0.4 Mg Cap) 0.4 mg PO QAM MESHA Stop: 09/02/20 08:59 Last Admin: 08/06/20 08:47 Dose: 0.4 mg Documented by: Thiamine HCl (Thiamine Hcl 100 Mg Tab) 100 mg PO DAILY MESHA Stop: 09/02/20 08:59 Last Admin: 08/06/20 08:48 Dose: 100 mg Documented by: Trazodone HCl (Trazodone Hcl 50 Mg Tab) 50 mg PO HS MESHA Stop: 09/01/20 21:59 Last Admin: 08/05/20 21:16 Dose: 50 mg Documented by: Mental Health & Subst Abuse Tx Therapist Name of Therapist: None 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
[2020-08-06] MEDS: ACETAMINOPHEN 325 MG TAB PO PRN (17:47)
[2020-08-06] MEDS: traZODone HCL 50 MG TAB PO SCH (21:38)
[2020-08-07] MEDS: ACETAMINOPHEN 325 MG TAB PO PRN ×2 (00:57→19:33)
[2020-08-07] MEDS ORDERED: GABAPENTIN 400 MG CAP PO SCH (06:00)
--- NOTE | 2020-08-07 06:46 | Psychiatric Progress Note ---
Date of Service August 07, 2020 Impression / Recommendations Impression 69-year-old male with a history of schizophrenia and treatment noncompliance who is admitted voluntarily for worsening delusions, hallucinations, and poor self- care. He has a delusion that his house is haunted and that evil spirits are trying to kill him, and has been admitted here in the past for the same. He was also hospitalized in [place] earlier this month, initially on the behavioral health unit, but had to be transferred to a medical unit due to alcohol withdrawal. He has very poor insight and judgment, had submitted a 72- hour notice on 08/05 requesting to leave so that he can take a bus to the [facility] and find a natural healer to rid him of demons - then rescinded his notice. He is unable to provide for his own basic needs, as evidenced by malnutrition with potassium 3.3, ongoing alcohol abuse and withdrawal, noncompliance with medications and outpatient mental health treatment, and presents the risk of harm to both himself and others as a result of his psychotic symptoms (has threatened to blow up his house or to shoot unseen others, and has access to guns), so inpatient treatment remains medically necessary. He has been started on haloperidol with good response, and will transition to Haldol Decanoate today. A 304 IOC is scheduled for Wednesday, with plans to discharge him home with his son afterwards. He has been referred for outpatient treatment through [facility] and [place]. (1) Schizophrenia: 08/02/20 -The patient has been admitted to the locked behavioral health unit for safety. He will require active assistance with his activities of daily living, and we will emphasize improving his self-care skills. We will also focus on assuring that the patient has adequate nutrition given concerns about his preadmission nutritional status. -The patient has been referred to and is encouraged to attend individual, group, and recreational therapy. We will also attempt to arrange family meetings with the patient's sons. -It is not clear if the patient's report of an inability to tolerate Invega or aripiprazole (at least in Depo form) is based in reality. However, the patient has said clear that he will refuse to take either 1 of these medications. He does agree to take haloperidol, and says that it has helped him in the past with his "nerves." Haldol will be titrated as indicated and tolerated. -We will begin haloperidol 5 mg by mouth twice a day. Also because the patient says that he has had "side effects" from medication such as Haldol in the past, and because he reports that he has responded favorably to benztropine, we will continue his outpatient dose of benztropine, namely 2 mg daily. 08/03 -Patient clearly delusional and preoccupied with limited insight, poor recall of facts, and it is felt that his ability to rationally manipulate information is significantly impaired by symptoms of psychosis admixed with cognitive dysfunction. As such, in my clinical opinion, he does not presently maintain sufficient capacity (grossly) to attend to serious medical, legal, or financial decisions of consequence -We will continue the Haldol as scheduled for now for psychosis -We will defer reinitiation of Abilify while we continue to expand database -will continue to hold sinemet -reduce Cogentin to 0.5 mg twice daily to reduce risk for anticholinergic induced confusion -We will attempt to re-involve area office of aging case management 08/04 -Increased confusion last evening and this morning in the setting of suspected alcohol withdrawal. -Continue Haldol as scheduled. Will need to watch for worsening of EPS with history of parkinsonism, off Sinemet and on reduced dose of Cogentin. 08/05 -Continue Haldol and will recommend transition to Haldol decanoate once effective dose is reached. -Fasting labs scheduled for tomorrow. -Collateral information obtained from case resolution specialist, Adalid Brownlee. No outpatient mental health services currently due to repeated noncompliance. Will need to be set up with outpatient treatment prior to discharge. May need a [address] [place] [address]. -Patient has submitted a 72-hour notice requesting to withdraw from treatment. Explained to him that I cannot discharge him at this time as he remains at acute risk of harm to both himself and others, with active psychotic symptoms, and no safe discharge plan or outpatient treatment. We we will con tinue to encourage him to engage in treatment and to rescind his notice and work towards a safe discharge plan, but may need to consider a 302 involuntary commitment if he is unwilling to do so. -floor worker well service to contact son for collateral information and to schedule a family meeting, and make referral to the [facility] in for outpatient treatment. We will also involve the office of aging given concerns about the poor condition of his home. 08/06 - Continue as above, patient tolerating haloperidol oral dosing BID - Pt did rescind 72-hour notice per staff report - Fasting labs reviewed: HgbA1c 5.5%, triglycerides elevated at 252, total cholesterol elevated at 205. LDL - 118; HDL - 37; VLDL - 50. - Family meeting scheduled with son via phone - Will still need to attempt to solidify aftercare. Pt has an assigned case resolution specialist with whom patient has not been engaging. There are additional difficult barriers to treatment, which include patient's inability to participate in virtual appointments due to lack of phone service/internet 08/07 -File for 304 [facility] due to repeated nonadherence with outpatient treatment. -Discussed recommendations for Haldol Decanoate, including risks, benefits, and side effects, and he agreed to receive 100 mg IM today. He can discontinue oral Haldol at discharge. His next Haldol decanoate injection will be due in 4 weeks (09/09). -Refer to [facility] for outpatient psychiatric care and therapy. (2) Alcohol abuse: 08/02/20 -The patient is not a reliable historian but has said that he drinks between a half a case and a full case of beer a day. This has not been cooperated with his family. He notes that he mostly drinks "in the evenings" in order to be able to fall asleep. There is a potential for complicated withdrawal given his seizure diagnosis, and we are checking his Keppra level in order to make sure he is adequately covered. We will also continue to monitor the patient on the DEBO and treat as indicated. -The patient has been educated regarding the risks of consuming alcohol given his multiple physical diagnoses and psychiatric diagnosis. The patient indicates that he does not intend to stop drinking. 08/03/2020 -pt triggered AWSS today with sign elevation of BP and HR. as above, reviewed low but positive ethyl alcohol level on admission and history of alcohol withdrawal earlier this month noted in outside records. -Start gabapentin taper from 800 mg. continue ativan prn per AWSS protocol. Continue thiamine and folate 08/04/2020 -As above, patient triggered Ativan prn again this morning per AWSS protocol. He is unable to quantify average amount of alcohol consumed prior to presentation. -Continue gabapentin taper 08/06 - Continue as above - pt not recently triggering for prn lorazepam dosing with AWSS scores - Will d/c AWSS protocol, continuing vitals each shift for the time being 08/07 -Although son is aware that patient's alcoholism is a problem, he refuses to remove alcohol from the home, and patient is not committed to abstinence or reducing his use. (3) Seizure disorder: 08/02/20 -It is not clear if the patient has ever actually had a grand mal seizure. The record indicates that he may have Jacksonian seizures or complex partial seizures. For example, one of his forearm and hand may begin to shake, and the patient will point to it and say, "See? I am having a seizure." We have reference to a neurological consult from last year that does recommend that he continue Keppra, and the patient insists that he has been taking this faithfully on an outpatient basis. - Levetiracetam level ordered today. 08/04/2020 -Keppra level from 08/02/2020 still pending (4) Dyskinesia, tardive: 08/02/20 -The patient does present with abnormal involuntary movements. Most of these movements seem to involve his oral facial musculature and tongue with choreoat hetoid movements involving his hands at times noted. He reportedly does have a history of tardive dyskinesia, and the patient's movements appear most consistent with tardive dyskinesia. -The patient, himself, references a diagnosis of "Parkinson's," although we have not identified confirmation of this diagnosis. We have confirmed that he has been prescribed carbidopa/levodopa. Without verification that the patient has Parkinson's disease, and without understanding why this medication has been prescribed in this case, we will at least temporarily hold carbidopa/levodopa given its potential to exacerbate the patient's psychotic symptoms, namely delusions and hallucinations. 08/04/2020 -Appearing more tremulous this morning in setting of suspected alcohol withdrawal. We will continue to monitor 08/06 - Appearing gradually less tremulous over the past two days (5) Tobacco abuse: 08/02/20 -Patient reports that he does not smoke tobacco, but that he does use chewing tobacco "when I can get it." He claims that he is experiencing cravings for tobacco and although he cannot estimate how much he has been using recently, he says that he has been using chewing tobacco regularly on and on a daily basis recently. Accordingly, we will prescribe tobacco replacement for the patient's comfort. Inventory Assets Strengths: Currently willing to cooperate with treatment. Several of his adult children seem to be concerned and is supportive of his treatment. Needs: Resolution of psychotic features. Improved adherence with all medications. Safe and appropriate living arrangement. Risk Factors Assessment Male: Yes : Yes Do You Have Access To A Gun?: Yes Health Problems: Yes Mental Health Diagnoses: Yes Substance Use Disorders: Yes (Alcohol dependence.) Previous Attempt: No (The patient has been made threats with guns.) Family History of Suicide: No Previous Psychiatric Hospitalization: Yes Hopelessness: No Smoker: Yes (Chewing tobacco only) Protective Factors Assessment Bahai Beliefs: Yes ("I am a Caodaism now! I had go to [facility] but no one will take me.") : No Responsible for Young Children: No Employed: No Stable Relationships: Yes Supportive Family: Yes Good Rapport with Provider: No Absence of Any Risk Factors Above: No Interval History Identifying Information EMMA SAUER is a 69-year-old M who currently lives in [place], [place] with his adult son, has a history of schizophrenia and treatment nonadherence, and was admitted on 08/02/20 05:08 on a 201 voluntary agreement because of inability to care for his own physical needs within the context of paranoid delusional beliefs. Chief Complaint "On the upside". Review of Systems Sleep Information Total Hours of Sleep: 5.5 Sleep Comments: pt on q-15 minute checks Meal Information Percent Meal Consumed - Breakfast: 100 Percent Meal Consumed - Lunch: 100 Percent Meal Consumed - Dinner: 100 Subjective Subjective Patient was seen & assessed and interval progress reviewed with treatment team. Staff report he attended and participated in groups yesterday, rated his mood a 6/10, and spent most of his free time watching TV. He had a family meeting with the social sciences department chair and his son who he lives with, during which they discussed concerns regarding the patient's ongoing alcohol abuse and noncompliance with mental health treatment. His son stated willingness to take him to appointments in [place], as long as they were on , as they do not have Internet access at their home. They discussed the possibility of getting a trailer and moving to a local trailer park, but have made no progress on their plans to move since his last hospitalization here, when they had similar discussions. Recommendations to remove the guns were reviewed, which the patient's son is refusing to comply with. The patient stated he was concerned that his son would hurt himself with the guns, which his son dismissed. The patient stated that he would like the guns removed, and although he says they are his guns and that he paid for them, they are in his son's name, as the patient does not legally allowed to buy guns. The patient mentioned that he might just go to [place] where his other son lives, with a plan to take a tent and live on a beach. He was willing to accept assistance from [facility], but when they were contacted, they refused to provide any assistance to him, saying his only option was to remain on their wait list for services, which she has been on for 2-1/2 years. A referral was made to [facility], and his county case resolution specialist's office was contacted to discuss treatment recommendations. On my assessment, the patient states his mood is improving, and he feels safe in the hospital. He continues to express uncertainty about the situation at home, stating he will not know what is happening there or if he is safe there "until I get my Bible blast," I guess I'll find out when I get there." He says if he continues to feel unsafe due to the evil spirit, he will go stay at the homeless nursing home and [place], get a trailer, or travel south. He reports poor sleep last night which he attributes to pain in the bottoms of his feet, but reports good appetite. He denies side effects to the Haldol, and after discussion of the risks and benefits, agrees to do received Haldol decanoate today. He denies hallucinations today, but remains concerned that an evil entity is hunting his home and wishes to do him harm. Physical Exam Psychiatric Orientation: alert and cooperative Apperance: appropriately dressed and + disheveled; + inappropriately groomed White male appearing older than his stated age, poor dentition/missing teeth, whole face is now shaved (previously had a jennings on half his face and was shaven on the other half), hair appears unwashed and is sticking out. Walking with a walker. Seated on the edge of his bed in no acute distress. His surroundings in his room are unkempt, has a white bath towel stained with an unidentified liquid that is spread over his bedside table like a table cloth, with numerous items piled on top of it. Paper trash bag is also soaked with an unidentified liquid. Eye Contact: + fair eye contact Motor Behavior: + tremor Walker Mildly slowed rate, normal volume and rhythm Stable, mildly blunted "On the outside" Thought Process: goal directed thought process and + concrete thought process Thought Content: + paranoid, + delusions and + persecution Suicidal Thoughts: denies suicidal thoughts Homicidal Thoughts: denies homicidal thoughts Hallucinations: no auditory hallucinations and no visual hallucinations Cognition: attention grossly intact and language grossly intact Estimated Intelligence: + below average estimated intelligence Insight: + poor insight Judgement: + poor judgement Vital Signs (Past 24 Hours) Last Vital Signs Temp 36.6 C 08/07/20 06:30 Pulse 101 H 08/07/20 06:31 Resp 16 08/07/20 06:30 BP 128/78 08/07/20 06:31 Pulse Ox 95 08/05/20 20:00 Results & Data ([facility]) Laboratory Results Laboratory Results - last 24 hr 08/06/20 08/06/20 08:30 08:30 Estimat Average Glucose 111 Hemoglobin A1c 5.5 Triglycerides 252 H Cholesterol 205 H LDL Cholesterol, Calc 118 VLDL Cholesterol, Calc 50 HDL Cholesterol 37 Cholesterol/HDL Ratio 6 Current Inpatient Medications Current Inpatient Medications: Current Inpatient Medications Acetaminophen (Acetaminophen 325 Mg Tab) 650 mg PO Q4H PRN PRN Reason: Headache or Minor Fever Stop: 09/01/20 05:07 Last Admin: 08/07/20 00:57 Dose: 650 mg Documented by: Al Hydrox/Mg Hydrox/Simethicone (Aluminum/Magnesium Susp 30 Ml Udc) 30 ml PO Q4H PRN PRN Reason: GI Upset Stop: 09/01/20 05:07 Last Admin: 08/06/20 06:09 Dose: 30 ml Documented by: Bacitracin (Bacitracin Oint 0.9 Gm Pkt) 1 appln EXT BID PRN PRN Reason: skin abrasion R thumb Stop: 09/02/20 17:29 Benztropine Mesylate (Benztropine Mesylate 0.5 Mg Tab) 0.5 mg PO BID MESHA Stop: 09/02/20 20:59 Last Admin: 08/06/20 21:38 Dose: 0.5 mg Documented by: Bismuth Subsalicylate (Bismuth Subsalicylate Liqd 236 Ml) 15 ml PO PRN PRN PRN Reason: Loose Stool Stop: 09/01/20 05:07 Fluticasone Propionate (Fluticasone Propionate Na Spr 16 Gm Btl) 2 sprays NA DAILY MESHA Stop: 09/02/20 08:59 Last Admin: 08/06/20 05:48 Dose: 2 sprays Documented by: Folic Acid (Folic Acid 1 Mg Tab) 1 mg PO DAILY MESHA Stop: 09/01/20 11:59 Last Admin: 08/06/20 08:47 Dose: 1 mg Documented by: Haloperidol (Haloperidol 5 Mg Tab) 5 mg PO BID [facility] Stop: 09/01/20 11:59 Last Admin: 08/06/20 21:38 Dose: 5 mg Documented by: Hydroxyzine HCl (Hydroxyzine Hcl 25 Mg Tab) 50 mg PO HSZ PRN PRN Reason: Insomnia Stop: 09/01/20 05:07 Hydroxyzine HCl (Hydroxyzine Hcl 25 Mg Tab) 25 mg PO Q4H PRN PRN Reason: Anxiety Stop: 09/01/20 05:07 Levetiracetam (Levetiracetam 500 Mg Tab) 1,000 mg PO BID [facility] Stop: 09/01/20 11:59 Last Admin: 08/06/20 21:38 Dose: 1,000 mg Documented by: Loperamide HCl (Loperamide Hcl 2 Mg Cap) 2 mg PO UD PRN PRN Reason: Diarrhea Stop: 09/01/20 11:39 Magnesium Hydroxide (Magnesium Hydroxide Susp 30 Ml Udc) 30 ml PO DAILY PRN PRN Reason: Constipation Stop: 09/01/20 05:07 Meclizine HCl (Meclizine Hcl 25 Mg Tab) 25 mg PO TID PRN PRN Reason: Vertigo Stop: 09/01/20 15:15 Miscellaneous (Remove Nicoderm Patch) 1 ea N/A DAILY@0859 [facility] Stop: 09/02/20 08:58 Last Admin: 08/06/20 08:48 Dose: 1 ea Documented by: Multivitamins (Multivitamin Tab) 1 tab PO DAILY [facility] Stop: 09/02/20 08:59 Last Admin: 08/06/20 08:48 Dose: 1 tab Documented by: Nicotine (Nicotine 7 Mg/24 Hr Tdsy) 7 mg TD QAM MESHA Stop: 09/01/20 13:29 Last Admin: 08/06/20 08:48 Dose: 7 mg Documented by: Nicotine Polacrilex (Nicotine Polacrilex 2 Mg Gum) 2 piece MT PRN PRN PRN Reason: nicotine cravings Stop: 09/01/20 11:37 Last Admin: 08/02/20 11:55 Dose: 2 piece Documented by: Pantoprazole Sodium (Pantoprazole 40 Mg Tab) 40 mg PO DAILY MESHA Stop: 09/02/20 08:59 Last Admin: 08/06/20 08:48 Dose: 40 mg Documented by: Simethicone (Simethicone 80 Mg Chew) 80 mg PO Q6H PRN PRN Reason: gas/bloating Stop: 09/01/20 11:38 Sodium Chloride (Sodium Chloride 0.65% Na Soln 45 Ml ([place])) 1 - 2 sprays NA PRN PRN PRN Reason: Nasal Dryness/Congestion Stop: 09/01/20 05:07 Tamsulosin HCl (Tamsulosin Hcl 0.4 Mg Cap) 0.4 mg PO QAM MESHA Stop: 09/02/20 08:59 Last Admin: 08/06/20 08:47 Dose: 0.4 mg Documented by: Thiamine HCl (Thiamine Hcl 100 Mg Tab) 100 mg PO DAILY [facility] Stop: 09/02/20 08:59 Last Admin: 08/06/20 08:48 Dose: 100 mg Documented by: Trazodone HCl (Trazodone Hcl 50 Mg Tab) 50 mg PO HS [facility] Stop: 09/01/20 21:59 Last Admin: 08/06/20 21:38 Dose: 50 mg Documented by: Mental Health & Subst Abuse Tx Therapist Name of Therapist: None Trampoline Team Coach Name of Trampoline Team Coach: [employer] - Adalid Brownlee Phone Number for Trampoline Team Coach: [phone] Post Discharge Appointments Primary Care Physician Name Of Family Doctor: ALYSON Camacho Primary Care Provider Appointment Comment: [address] [place], [place] [address] [address] Contact Information Discharge Discharge [address]: [address] [place] [address], [place] [address] (1) Schizophrenia Schizophrenia type: unspecified Qualified Code(s): F20.9 - Schizophrenia, unspecified
[2020-08-07] MEDS: FLUTICASONE PROPIONATE NA SPR 16 GM BTL SCH (08:35)
[2020-08-07] MEDS: TAMSULOSIN HCL 0.4 MG CAP PO SCH (08:36)
[2020-08-07] MEDS: BENZTROPINE MESYLATE 0.5 MG TAB PO SCH ×2 (08:36→21:28)
[2020-08-07] MEDS: haloperidoL 5 MG TAB PO SCH ×2 (08:36→21:29)
[2020-08-07] MEDS: THIAMINE HCL 100 MG TAB PO SCH (08:36)
[2020-08-07] MEDS: levETIRAcetam 500 MG TAB PO SCH ×2 (08:36→21:29)
[2020-08-07] MEDS: MULTIVITAMIN TAB PO SCH (08:36)
[2020-08-07] MEDS: PANTOprazole 40 MG TAB PO SCH (08:36)
[2020-08-07] MEDS: FOLIC ACID 1 MG TAB PO SCH (08:36)
[2020-08-07] MEDS: NICOTINE 7 MG/24 HR TDSY TD SCH (08:37)
[2020-08-07] MEDS ORDERED: HALOPERIDOL DECANOATE INJ 50 MG/ML VIAL IM ONE (10:49)
[2020-08-07] MEDS: traZODone HCL 50 MG TAB PO SCH (21:29)
[2020-08-08] MEDS: ACETAMINOPHEN 325 MG TAB PO PRN ×2 (03:08→07:53)
[2020-08-08] MEDS: NICOTINE 7 MG/24 HR TDSY TD SCH (07:49)
[2020-08-08] MEDS: BENZTROPINE MESYLATE 0.5 MG TAB PO SCH ×2 (07:50→20:54)
[2020-08-08] MEDS: TAMSULOSIN HCL 0.4 MG CAP PO SCH (07:50)
[2020-08-08] MEDS: FLUTICASONE PROPIONATE NA SPR 16 GM BTL SCH (07:50)
[2020-08-08] MEDS: FOLIC ACID 1 MG TAB PO SCH (07:51)
[2020-08-08] MEDS: levETIRAcetam 500 MG TAB PO SCH ×2 (07:51→20:57)
[2020-08-08] MEDS: haloperidoL 5 MG TAB PO SCH ×2 (07:51→20:55)
[2020-08-08] MEDS: PANTOprazole 40 MG TAB PO SCH (07:52)
[2020-08-08] MEDS: THIAMINE HCL 100 MG TAB PO SCH (07:52)
[2020-08-08] MEDS: MULTIVITAMIN TAB PO SCH (07:52)
[2020-08-08] MEDS: ALUMINUM/MAGNESIUM SUSP 30 ML UDC PO PRN (09:06)
--- NOTE | 2020-08-08 10:51 | Psychiatric Progress Note ---
Date of Service August 08, 2020 Impression / Recommendations Impression 69-year-old male with a history of schizophrenia and treatment noncompliance who is admitted voluntarily for worsening delusions, hallucinations, and poor self- care. He has a delusion that his house is haunted and that evil spirits are trying to kill him, and has been admitted here in the past for the same. He was also hospitalized in [place] earlier this month, initially on the behavioral health unit, but had to be transferred to a medical unit due to alcohol withdrawal. He has very poor insight and judgment, had submitted a 72- hour notice on 08/05 requesting to leave so that he can take a bus to the [facility] and find a natural healer to rid him of demons - then rescinded his notice. He is unable to provide for his own basic needs, as evidenced by malnutrition with potassium 3.3, ongoing alcohol abuse and withdrawal, noncompliance with medications and outpatient mental health treatment, and presents the risk of harm to both himself and others as a result of his psychotic symptoms (has threatened to blow up his house or to shoot unseen others, and has access to guns), so inpatient treatment remains medically necessary. He has been started on haloperidol with good response, and will transition to Haldol Decanoate 08/07. A 304 IOC is scheduled for Wednesday, with plans to discharge him home with his son afterwards. He has been referred for outpatient treatment through [facility] and [place]. 08/08--reviewed, remains improved but migraine this am, no clear evidence related to dec yesterday but will start po Haldol taper. (1) Schizophrenia: 08/02/20 -The patient has been admitted to the locked behavioral health unit for safety. He will require active assistance with his activities of daily living, and we will emphasize improving his self-care skills. We will also focus on assuring that the patient has adequate nutrition given concerns about his preadmission nutritional status. -The patient has been referred to and is encouraged to attend individual, group, and recreational therapy. We will also attempt to arrange family meetings with the patient's sons. -It is not clear if the patient's report of an inability to tolerate Invega or aripiprazole (at least in Depo form) is based in reality. However, the patient has said clear that he will refuse to take either 1 of these medications. He does agree to take haloperidol, and says that it has helped him in the past with his "nerves." Haldol will be titrated as indicated and tolerated. -We will begin haloperidol 5 mg by mouth twice a day. Also because the patient says that he has had "side effects" from medication such as Haldol in the past, and because he reports that he has responded favorably to benztropine, we will continue his outpatient dose of benztropine, namely 2 mg daily. 08/03 -Patient clearly delusional and preoccupied with limited insight, poor recall of facts, and it is felt that his ability to rationally manipulate information is significantly impaired by symptoms of psychosis admixed with cognitive dysfunction. As such, in my clinical opinion, he does not presently maintain sufficient capacity (grossly) to attend to serious medical, legal, or financial decisions of consequence -We will continue the Haldol as scheduled for now for psychosis -We will defer reinitiation of Abilify while we continue to expand database -will continue to hold sinemet -reduce Cogentin to 0.5 mg twice daily to reduce risk for anticholinergic induced confusion -We will attempt to re-involve area office of aging case management 08/04 -Increased confusion last evening and this morning in the setting of suspected alcohol withdrawal. -Continue Haldol as scheduled. Will need to watch for worsening of EPS with history of parkinsonism, off Sinemet and on reduced dose of Cogentin. 08/05 -Continue Haldol and will recommend transition to Haldol decanoate once effective dose is reached. -Fasting labs scheduled for tomorrow. -Collateral information obtained from disease case manager, Adalid Brownlee. No outpatient mental health services currently due to repeated noncompliance. Will need to be set up with outpatient treatment prior to discharge. May need a 304 IO. -Patient has submitted a 72-hour notice requesting to withdraw from treatment. Explained to him that I cannot discharge him at this time as he remains at acute risk of harm to both himself and others, with active psychotic symptoms, and no safe discharge plan or outpatient treatment. We we will continue to encourage him to engage in treatment and to rescind his notice and work towards a safe discharge plan, but may need to consider a 302 involuntary commitment if he is unwilling to do so. -child and family services worker to contact son for collateral information and to schedule a family meeting, and make referral to the [facility] in for outpatient treatment. We will also involve the office of aging given concerns about the poor condition of his home. 08/06 - Continue as above, patient tolerating haloperidol oral dosing BID - Pt did rescind 72-hour notice per staff report - Fasting labs reviewed: HgbA1c 5.5%, triglycerides elevated at 252, total cholesterol elevated at 205. LDL - 118; HDL - 37; VLDL - 50. - Family meeting scheduled with son via phone - Will still need to attempt to solidify aftercare. Pt has an assigned disease case manager with whom patient has not been engaging. There are additional difficult barriers to treatment, which include patient's inability to participate in virtual appointments due to lack of phone service/internet 08/07 -File for [address] [place] [address] due to repeated nonadherence with outpatient treatment. -Discussed recommendations for Haldol Decanoate, including risks, benefits, and side effects, and he agreed to receive 100 mg IM today. He can discontinue oral Haldol at discharge. His next Haldol decanoate injection will be due in 4 weeks (09/09). -Refer to [facility] for outpatient psychiatric care and therapy. 08/08--unclear if blurry vision related to CEDENO or side effect Haldol, start taper PO Haldol 7.5 mg total daily dose today then 2.5 mg BID tomorrow. (2) Alcohol abuse: 08/02/20 -The patient is not a reliable historian but has said that he drinks between a half a case and a full case of beer a day. This has not been cooperated with his family. He notes that he mostly drinks "in the evenings" in order to be able to fall asleep. There is a potential for complicated withdrawal given his seizure diagnosis, and we are checking his Keppra level in order to make sure he is adequately covered. We will also continue to monitor the patient on the DEBO and treat as indicated. -The patient has been educated regarding the risks of consuming alcohol given his multiple physical diagnoses and psychiatric diagnosis. The patient indicates that he does not intend to stop drinking. 08/03/2020 -pt triggered AWSS today with sign elevation of BP and HR. as above, reviewed low but positive ethyl alcohol level on admission and history of alcohol withdrawal earlier this month noted in outside records. -Start gabapentin taper from 800 mg. continue ativan prn per AWSS protocol. Continue thiamine and folate 08/04/2020 -As above, patient triggered Ativan prn again this morning per AWSS protocol. He is unable to quantify average amount of alcohol consumed prior to presentation. -Continue gabapentin taper 08/06 - Continue as above - pt not recently triggering for prn lorazepam dosing with AWSS scores - Will d/c AWSS protocol, continuing vitals each shift for the time being 08/07 -Although son is aware that patient's alcoholism is a problem, he refuses to remove alcohol from the home, and patient is not committed to abstinence or reducing his use. 08/08--reviewed. (3) Seizure disorder: 08/02/20 -It is not clear if the patient has ever actually had a grand mal seizure. The record indicates that he may have Jacksonian seizures or complex partial seizures. For example, one of his forearm and hand may begin to shake, and the patient will point to it and say, "See? I am having a seizure." We have reference to a neurological consult from last year that does recommend that he continue Keppra, and the patient insists that he has been taking this faithfully on an outpatient basis. - Levetiracetam level ordered today. 08/04/2020 -Keppra level from 08/02/2020 still pending 08/08--reviewed, level 15.5 (therapeutic). (4) Dyskinesia, tardive: 08/02/20 -The patient does present with abnormal involuntary movements. Most of these movements seem to involve his oral facial musculature and tongue with choreoathetoid movements involving his hands at times noted. He reportedly does have a history of tardive dyskinesia, and the patient's movements appear most consistent with tardive dyskinesia. -The patient, himself, references a diagnosis of "Parkinson's," although we have not identified confirmation of this diagnosis. We have confirmed that he has been prescribed carbidopa/levodopa. Without verification that the patient has Parkinson's disease, and without understanding why this medication has been prescribed in this case, we will at least temporarily hold carbidopa/levodopa given its potential to exacerbate the patient's psychotic symptoms, namely delusions and hallucinations. 08/04/2020 -Appearing more tremulous this morning in setting of suspected alcohol withdrawal. We will continue to monitor 08/06 - Appearing gradually less tremulous over the past two days 08/08--reviewed (5) Tobacco abuse: 08/02/20 -Patient reports that he does not smoke tobacco, but that he does use chewing tobacco "when I can get it." He claims that he is experiencing cravings for tobacco and although he cannot estimate how much he has been using recently, he says that he has been using chewing tobacco regularly on and on a daily basis recently. Accordingly, we will prescribe tobacco replacement for the patient's comfort. 08/08--reviewed. Inventory Assets Strengths: Currently willing to cooperate with treatment. Several of his adult children seem to be concerned and is supportive of his treatment. Needs: Resolution of psychotic features. Improved adherence with all medications. Safe and appropriate living arrangement. Risk Factors Assessment Male: Yes : Yes Do You Have Access To A Gun?: Yes Health Problems: Yes Mental Health Diagnoses: Yes Substance Use Disorders: Yes (Alcohol dependence.) Previous Attempt: No (The patient has been made threats with guns.) Family History of Suicide: No Previous Psychiatric Hospitalization: Yes Hopelessness: No Smoker: Yes (Chewing tobacco only) Protective Factors Assessment Religion Beliefs: Yes ("I am a Oriental Orthodox now! I had go to taoist but no one will take me.") : No Responsible for Young Children: No Employed: No Stable Relationships: Yes Supportive Family: Yes Good Rapport with Provider: No Absence of Any Risk Factors Above: No Interval History Identifying Information EMMA SAUER is a 69-year-old M who currently lives in [place], [place] with his adult son, has a history of schizophrenia and treatment nonadherence, and was admitted on 08/02/20 05:08 on a 201 voluntary agreement because of inability to care for his own physical needs within the context of paranoid delusional beliefs. Chief Complaint "I woke up with a splitting CEDENO". Review of Systems Sleep Information Total Hours of Sleep: 4.5 Sleep Comments: pt on q-15 minute checks Meal Information Percent Meal Consumed - Breakfast: 0 Percent Meal Consumed - Lunch: 100 Percent Meal Consumed - Dinner: 100 Nutrition Comment: pt. has heartburn/declined bkfst Subjective Subjective Patient was seen & assessed and interval progress reviewed with nursing. Emma reports tension on top of head, no issues with neck/muscle tightness. Tongue protrussion/facial expressions are symmetric and PERRLA. He was feeling a bit nauseated, better since took gingerale, maalox and Tylenol. Speech intact and is carrying bible/interacting appropriately with staff. Remains on Haldol 5 mg BID following recent loading of decanoate per Dr. Tang. Physical Exam Psychiatric Orientation: alert Apperance: appropriately groomed Eye Contact: + fair eye contact Motor Behavior: no abnormal motor movements Speech: normal rate/rhythm/volume of speech Affect: + blunted affect Thought Process: linear/logical thought process Thought Content: no delusions Suicidal Thoughts: denies suicidal thoughts Homicidal Thoughts: denies homicidal thoughts Hallucinations: no auditory hallucinations and no visual hallucinations Cognition: remote memory grossly intact Insight: + limited insight Judgement: + limited judgement Vital Signs (Past 24 Hours) Last Vital Signs Temp 36.6 C 08/08/20 06:44 Pulse 88 08/08/20 06:46 Resp 16 08/08/20 06:44 BP 119/78 08/08/20 06:46 Pulse Ox 95 08/05/20 20:00 Results & Data ([facility]) Current Inpatient Medications Current Inpatient Medications: Current Inpatient Medications Acetaminophen (Acetaminophen 325 Mg Tab) 650 mg PO Q4H PRN PRN Reason: Headache or Minor Fever Stop: 09/01/20 05:07 Last Admin: 08/08/20 07:53 Dose: 650 mg Documented by: Al Hydrox/Mg Hydrox/Simethicone (Aluminum/Magnesium Susp 30 Ml Udc) 30 ml PO Q4H PRN PRN Reason: GI Upset Stop: 09/01/20 05:07 Last Admin: 08/08/20 09:06 Dose: 30 ml Documented by: Bacitracin (Bacitracin Oint 0.9 Gm Pkt) 1 appln EXT BID PRN PRN Reason: skin abrasion R thumb Stop: 09/02/20 17:29 Benztropine Mesylate (Benztropine Mesylate 0.5 Mg Tab) 0.5 mg PO BID MESHA Stop: 09/02/20 20:59 Last Admin: 08/08/20 07:50 Dose: 0.5 mg Documented by: Bismuth Subsalicylate (Bismuth Subsalicylate Liqd 236 Ml) 15 ml PO PRN PRN PRN Reason: Loose Stool Stop: 09/01/20 05:07 Fluticasone Propionate (Fluticasone Propionate Na Spr 16 Gm Btl) 2 sprays NA DAILY MESHA Stop: 09/02/20 08:59 Last Admin: 08/08/20 07:50 Dose: 2 sprays Documented by: Folic Acid (Folic Acid 1 Mg Tab) 1 mg PO DAILY MESHA Stop: 09/01/20 11:59 Last Admin: 08/08/20 07:51 Dose: 1 mg Documented by: Haloperidol (Haloperidol 5 Mg Tab) 5 mg PO BID ON LICENSE OF [facility] Stop: 09/01/20 11:59 Last Admin: 08/08/20 07:51 Dose: 5 mg Documented by: Hydroxyzine HCl (Hydroxyzine Hcl 25 Mg Tab) 50 mg PO HSZ PRN PRN Reason: Insomnia Stop: 09/01/20 05:07 Hydroxyzine HCl (Hydroxyzine Hcl 25 Mg Tab) 25 mg PO Q4H PRN PRN Reason: Anxiety Stop: 09/01/20 05:07 Levetiracetam (Levetiracetam 500 Mg Tab) 1,000 mg PO BID ON LICENSE OF [facility] Stop: 09/01/20 11:59 Last Admin: 08/08/20 07:51 Dose: 1,000 mg Documented by: Loperamide HCl (Loperamide Hcl 2 Mg Cap) 2 mg PO UD PRN PRN Reason: Diarrhea Stop: 09/01/20 11:39 Magnesium Hydroxide (Magnesium Hydroxide Susp 30 Ml Udc) 30 ml PO DAILY PRN PRN Reason: Constipation Stop: 09/01/20 05:07 Meclizine HCl (Meclizine Hcl 25 Mg Tab) 25 mg PO TID PRN PRN Reason: Vertigo Stop: 09/01/20 15:15 Miscellaneous (Remove Nicoderm Patch) 1 ea N/A DAILY@0859 ON LICENSE OF [facility] Stop: 09/02/20 08:58 Last Admin: 08/08/20 07:53 Dose: 1 ea Documented by: Multivitamins (Multivitamin Tab) 1 tab PO DAILY ON LICENSE OF [facility] Stop: 09/02/20 08:59 Last Admin: 08/08/20 07:52 Dose: 1 tab Documented by: Nicotine (Nicotine 7 Mg/24 Hr Tdsy) 7 mg TD QAM ON LICENSE OF [facility] Stop: 09/01/20 13:29 Last Admin: 08/08/20 07:49 Dose: 7 mg Documented by: Nicotine Polacrilex (Nicotine Polacrilex 2 Mg Gum) 2 piece MT PRN PRN PRN Reason: nicotine cravings Stop: 09/01/20 11:37 Last Admin: 08/02/20 11:55 Dose: 2 piece Documented by: Pantoprazole Sodium (Pantoprazole 40 Mg Tab) 40 mg PO DAILY MESHA Stop: 09/02/20 08:59 Last Admin: 08/08/20 07:52 Dose: 40 mg Documented by: Simethicone (Simethicone 80 Mg Chew) 80 mg PO Q6H PRN PRN Reason: gas/bloating Stop: 09/01/20 11:38 Sodium Chloride (Sodium Chloride 0.65% Na Soln 45 Ml ([place])) 1 - 2 sprays NA PRN PRN PRN Reason: Nasal Dryness/Congestion Stop: 09/01/20 05:07 Tamsulosin HCl (Tamsulosin Hcl 0.4 Mg Cap) 0.4 mg PO QAM MESHA Stop: 09/02/20 08:59 Last Admin: 08/08/20 07:50 Dose: 0.4 mg Documented by: Thiamine HCl (Thiamine Hcl 100 Mg Tab) 100 mg PO DAILY MESHA Stop: 09/02/20 08:59 Last Admin: 08/08/20 07:52 Dose: 100 mg Documented by: Trazodone HCl (Trazodone Hcl 50 Mg Tab) 50 mg PO HS MESHA Stop: 09/01/20 21:59 Last Admin: 08/07/20 21:29 Dose: 50 mg Documented by: Mental Health & Subst Abuse Tx Psychiatrist Name of Psychiatrist: Yelena [facility] Psychiatrist's Date of Appointment with Psychiatrist: 08/19/20 Time of Appointment with Psychiatrist: 5:00 p.m. (In person - call when you arrive to the [facility]) Psychiatric Appointment Comment: [phone] Therapist Name of Therapist: Yelena Brown Therapist's Date of Therapist Appointment: 08/19/20 Time of Therapist Appointment: 5:00 p.m. (In person - call when you arrive to the [facility]) Therapy Appointment Comment: [phone] [facility]iner Helper Name of Milliner Helper: [facility] - Adalid Brownlee Phone Number for Milliner Helper: [phone] Case Management Appointment Comment: Will follow up with you to schedule (please call him as well!) Post Discharge Appointments Primary Care Physician Name Of Family Doctor: [facility] Time of Appointment with PCP: Follow up as needed Provider Appointment Comment: [address] [place] [address] [place] [address] Contact Information Discharge Discharge [address]: [address] [place] [address] [place] [address] (1) Schizophrenia Schizophrenia type: unspecified Qualified Code(s): F20.9 - Schizophrenia, unspecified
[2020-08-08] MEDS: IBUPROFEN 600 MG TAB PO PRN (12:25)
[2020-08-08] MEDS ORDERED: IBUPROFEN 600 MG TAB PO SCH (12:30)
[2020-08-08] MEDS: traZODone HCL 50 MG TAB PO SCH (20:58)
[2020-08-09] MEDS: ACETAMINOPHEN 325 MG TAB PO PRN ×3 (01:38→16:23)
[2020-08-09] MEDS: TAMSULOSIN HCL 0.4 MG CAP PO SCH (07:25)
[2020-08-09] MEDS: THIAMINE HCL 100 MG TAB PO SCH (07:26)
[2020-08-09] MEDS: FLUTICASONE PROPIONATE NA SPR 16 GM BTL SCH (07:26)
[2020-08-09] MEDS: FOLIC ACID 1 MG TAB PO SCH (07:26)
[2020-08-09] MEDS: BENZTROPINE MESYLATE 0.5 MG TAB PO SCH ×2 (07:26→20:51)
[2020-08-09] MEDS: MULTIVITAMIN TAB PO SCH (07:26)
[2020-08-09] MEDS: levETIRAcetam 500 MG TAB PO SCH ×2 (07:26→20:52)
[2020-08-09] MEDS: PANTOprazole 40 MG TAB PO SCH (07:26)
[2020-08-09] MEDS: NICOTINE 7 MG/24 HR TDSY TD SCH (07:31)
[2020-08-09] MEDS: haloperidoL 5 MG TAB PO SCH ×2 (07:31→20:51)
--- NOTE | 2020-08-09 09:11 | Psychiatric Progress Note ---
Date of Service August 09, 2020 Impression / Recommendations Impression 69-year-old male with a history of schizophrenia and treatment noncompliance who is admitted voluntarily for worsening delusions, hallucinations, and poor self- care. He has a delusion that his house is haunted and that evil spirits are trying to kill him, and has been admitted here in the past for the same. He was also hospitalized in [place] earlier this month, initially on the behavioral health unit, but had to be transferred to a medical unit due to alcohol withdrawal. He has very poor insight and judgment, had submitted a 72- hour notice on 08/05 requesting to leave so that he can take a bus to the [facility] and find a natural healer to rid him of demons - then rescinded his notice. He is unable to provide for his own basic needs, as evidenced by malnutrition with potassium 3.3, ongoing alcohol abuse and withdrawal, noncompliance with medications and outpatient mental health treatment, and presents the risk of harm to both himself and others as a result of his psychotic symptoms (has threatened to blow up his house or to shoot unseen others, and has access to guns), so inpatient treatment remains medically necessary. He has been started on haloperidol with good response, and will transition to Haldol Decanoate 08/07. A 304 IOC is scheduled for Wednesday, with plans to discharge him home with his son afterwards. He has been referred for outpatient treatment through [facility] and [facility]. 08/08--reviewed, remains improved but migraine this am, no clear evidence related to dec yesterday but will start po Haldol taper. 08/09--improved from med tolerability standpoint today and less delusional past few days, Plan: continue current meds and treatment plan. Inventory Assets Strengths: Currently willing to cooperate with treatment. Several of his adult children seem to be concerned and is supportive of his treatment. Needs: Resolution of psychotic features. Improved adherence with all medications. Safe and appropriate living arrangement. Risk Factors Assessment Male: Yes : Yes Do You Have Access To A Gun?: Yes Health Problems: Yes Mental Health Diagnoses: Yes Substance Use Disorders: Yes (Alcohol dependence.) Previous Attempt: No (The patient has been made threats with guns.) Family History of Suicide: No Previous Psychiatric Hospitalization: Yes Hopelessness: No Smoker: Yes (Chewing tobacco only) Protective Factors Assessment Restorationist Beliefs: Yes ("I am a Latter-Day now! I had go to evangelical but no one will take me.") : No Responsible for Young Children: No Employed: No Stable Relationships: Yes Supportive Family: Yes Good Rapport with Provider: No Absence of Any Risk Factors Above: No Interval History Identifying Information EMMA SAUER is a 69-year-old M who currently lives in [place], [place] with his adult son, has a history of schizophrenia and treatment nonadherence, and was admitted on 08/02/20 05:08 on a 201 voluntary agreement because of inability to care for his own physical needs within the context of paranoid delusional beliefs. Reviewed 08/08. Chief Complaint "I'll see how it goes when I get back there". Review of Systems Sleep Information Total Hours of Sleep: 4.25 Sleep Comments: pt on q-15 minute checks Meal Information Percent Meal Consumed - Breakfast: 0 Percent Meal Consumed - Lunch: 50 Percent Meal Consumed - Dinner: 75 Subjective Subjective Patient was seen & assessed and interval progress reviewed with nursing. Emma went on to have a good evening yesterday, told staff he's comfortable going home once his bible is blessed. Today relates that bibles are blessed before you receive them and he anticipates son will stay with him "all evening", ie softening on delusion about house being haunted. Some CEDENO again this am, 1/2 the intensity of yesterday, doesn't like the smell of coffee but ate 100% breakfast. He did not sleep as well, states woke up with non-specific nightmare. Physical Exam Psychiatric Orientation: alert Apperance: + disheveled Eye Contact: + fair eye contact Motor Behavior: + psychomotor retardation speech non-spontaneous this am Affect: + constricted affect Mood: + depressed mood Thought Process: + concrete thought process Thought Content: + delusions Suicidal Thoughts: denies suicidal thoughts Homicidal Thoughts: denies homicidal thoughts Hallucinations: no auditory hallucinations and no visual hallucinations Cognition: attention grossly intact and language grossly intact Insight: + poor insight Judgement: + poor judgement Vital Signs (Past 24 Hours) Last Vital Signs Temp 36.4 C L 08/09/20 06:08 Pulse 100 H 08/09/20 06:09 Resp 16 08/09/20 06:08 BP 115/69 08/09/20 06:09 Pulse Ox 95 08/08/20 21:00 Results & Data ([facility]) Current Inpatient Medications Current Inpatient Medications: Current Inpatient Medications Acetaminophen (Acetaminophen 325 Mg Tab) 650 mg PO Q4H PRN PRN Reason: Headache or Minor Fever Stop: 09/01/20 05:07 Last Admin: 08/09/20 07:25 Dose: 650 mg Documented by: Al Hydrox/Mg Hydrox/Simethicone (Aluminum/Magnesium Susp 30 Ml Udc) 30 ml PO Q4H PRN PRN Reason: GI Upset Stop: 09/01/20 05:07 Last Admin: 08/08/20 09:06 Dose: 30 ml Documented by: Bacitracin (Bacitracin Oint 0.9 Gm Pkt) 1 appln EXT BID PRN PRN Reason: skin abrasion R thumb Stop: 09/02/20 17:29 Benztropine Mesylate (Benztropine Mesylate 0.5 Mg Tab) 0.5 mg PO BID MESHA Stop: 09/02/20 20:59 Last Admin: 08/09/20 07:26 Dose: 0.5 mg Documented by: Bismuth Subsalicylate (Bismuth Subsalicylate Liqd 236 Ml) 15 ml PO PRN PRN PRN Reason: Loose Stool Stop: 09/01/20 05:07 Fluticasone Propionate (Fluticasone Propionate Na Spr 16 Gm Btl) 2 sprays NA DAILY MESHA Stop: 09/02/20 08:59 Last Admin: 08/09/20 07:26 Dose: 2 sprays Documented by: Folic Acid (Folic Acid 1 Mg Tab) 1 mg PO DAILY M[facility] Stop: 09/01/20 11:59 Last Admin: 08/09/20 07:26 Dose: 1 mg Documented by: Haloperidol (Haloperidol 5 Mg Tab) 2.5 mg PO BID MESHA Stop: 09/07/20 20:59 Last Admin: 08/09/20 07:31 Dose: 2.5 mg Documented by: Hydroxyzine HCl (Hydroxyzine Hcl 25 Mg Tab) 50 mg PO HSZ PRN PRN Reason: Insomnia Stop: 09/01/20 05:07 Hydroxyzine HCl (Hydroxyzine Hcl 25 Mg Tab) 25 mg PO Q4H PRN PRN Reason: Anxiety Stop: 09/01/20 05:07 Ibuprofen (Ibuprofen 600 Mg Tab) 600 mg PO Q6H PRN PRN Reason: Pain Stop: 09/07/20 12:24 Last Admin: 08/08/20 12:25 Dose: 600 mg Documented by: Levetiracetam (Levetiracetam 500 Mg Tab) 1,000 mg PO BID MESHA Stop: 09/01/20 11:59 Last Admin: 08/09/20 07:26 Dose: 1,000 mg Documented by: Loperamide HCl (Loperamide Hcl 2 Mg Cap) 2 mg PO UD PRN PRN Reason: Diarrhea Stop: 09/01/20 11:39 Magnesium Hydroxide (Magnesium Hydroxide Susp 30 Ml Udc) 30 ml PO DAILY PRN PRN Reason: Constipation Stop: 09/01/20 05:07 Meclizine HCl (Meclizine Hcl 25 Mg Tab) 25 mg PO TID PRN PRN Reason: Vertigo Stop: 09/01/20 15:15 Miscellaneous (Remove Nicoderm Patch) 1 ea N/A DAILY@0859 [facility] Stop: 09/02/20 08:58 Last Admin: 08/09/20 07:31 Dose: 1 ea Documented by: Multivitamins (Multivitamin Tab) 1 tab PO DAILY [facility] Stop: 09/02/20 08:59 Last Admin: 08/09/20 07:26 Dose: 1 tab Documented by: Nicotine (Nicotine 7 Mg/24 Hr Tdsy) 7 mg TD QAM [facility] Stop: 09/01/20 13:29 Last Admin: 08/09/20 07:31 Dose: 7 mg Documented by: Nicotine Polacrilex (Nicotine Polacrilex 2 Mg Gum) 2 piece MT PRN PRN PRN Reason: nicotine cravings Stop: 09/01/20 11:37 Last Admin: 08/02/20 11:55 Dose: 2 piece Documented by: Pantoprazole Sodium (Pantoprazole 40 Mg Tab) 40 mg PO DAILY [facility] Stop: 09/02/20 08:59 Last Admin: 08/09/20 07:26 Dose: 40 mg Documented by: Simethicone (Simethicone 80 Mg Chew) 80 mg PO Q6H PRN PRN Reason: gas/bloating Stop: 09/01/20 11:38 Sodium Chloride (Sodium Chloride 0.65% Na Soln 45 Ml ([place])) 1 - 2 sprays NA PRN PRN PRN Reason: Nasal Dryness/Congestion Stop: 09/01/20 05:07 Tamsulosin HCl (Tamsulosin Hcl 0.4 Mg Cap) 0.4 mg PO QAM [facility] Stop: 09/02/20 08:59 Last Admin: 08/09/20 07:25 Dose: 0.4 mg Documented by: Thiamine HCl (Thiamine Hcl 100 Mg Tab) 100 mg PO DAILY [facility] Stop: 09/02/20 08:59 Last Admin: 08/09/20 07:26 Dose: 100 mg Documented by: Trazodone HCl (Trazodone Hcl 50 Mg Tab) 50 mg PO HS [facility] Stop: 09/01/20 21:59 Last Admin: 08/08/20 20:58 Dose: 50 mg Documented by: Mental Health & Subst Abuse Tx Psychiatrist Name of Psychiatrist: Yelena [facility] Psychiatrist's Date of Appointment with Psychiatrist: 08/19/20 Time of Appointment with Psychiatrist: 5:00 p.m. (In person - call when you arrive to the parking lot) Psychiatric Appointment Comment: [phone] Therapist Name of Therapist: [facility] Therapist's Date of Therapist Appointment: 08/19/20 Time of Therapist Appointment: 5:00 p.m. (In person - call when you arrive to the parking lot) Therapy Appointment Comment: [phone] Loan Service Officer Name of Loan Service Officer: [facility] Unit - Adalid Brownlee Phone Number for Loan Service Officer: [phone] Case Management Appointment Comment: Will follow up with you to schedule (please call him as well!) Post Discharge Appointments Primary Care Physician Name Of Family Doctor: ALYSON Camacho Primary [facility] Time of Appointment with PCP: Follow up as needed Provider Appointment Comment: [address] [place] [address] [place] [address] Contact Information Discharge Discharge Address: [address] [place] [address] [address] [place] [id number]
[2020-08-09] MEDS: traZODone HCL 50 MG TAB PO SCH (20:52)
[2020-08-10] MEDS: BENZTROPINE MESYLATE 0.5 MG TAB PO SCH ×2 (08:37→21:35)
[2020-08-10] MEDS: TAMSULOSIN HCL 0.4 MG CAP PO SCH (08:37)
[2020-08-10] MEDS: FLUTICASONE PROPIONATE NA SPR 16 GM BTL SCH (08:37)
[2020-08-10] MEDS: FOLIC ACID 1 MG TAB PO SCH (08:38)
[2020-08-10] MEDS: haloperidoL 5 MG TAB PO SCH ×2 (08:38→21:36)
[2020-08-10] MEDS: MULTIVITAMIN TAB PO SCH (08:39)
[2020-08-10] MEDS: NICOTINE 7 MG/24 HR TDSY TD SCH (08:39)
[2020-08-10] MEDS: levETIRAcetam 500 MG TAB PO SCH ×2 (08:39→21:37)
[2020-08-10] MEDS: PANTOprazole 40 MG TAB PO SCH (08:40)
[2020-08-10] MEDS: THIAMINE HCL 100 MG TAB PO SCH (08:40)
--- NOTE | 2020-08-10 08:55 | Psychiatric Progress Note ---
Date of Service August 10, 2020 Impression / Recommendations Impression 69-year-old male with a history of schizophrenia and treatment noncompliance who is admitted voluntarily for worsening delusions, hallucinations, and poor self- care. He has a delusion that his house is haunted and that evil spirits are trying to kill him, and has been admitted here in the past for the same. He was also hospitalized in [place] earlier this month, initially on the behavioral health unit, but had to be transferred to a medical unit due to alcohol withdrawal. He has very poor insight and judgment, had submitted a 72- hour notice on 08/05 requesting to leave so that he can take a bus to the [facility] and find a natural healer to rid him of demons - then rescinded his notice. He is unable to provide for his own basic needs, as evidenced by malnutrition with potassium 3.3, ongoing alcohol abuse and withdrawal, noncompliance with medications and outpatient mental health treatment, and presents the risk of harm to both himself and others as a result of his psychotic symptoms (has threatened to blow up his house or to shoot unseen others, and has access to guns), so inpatient treatment remains medically necessary. He has been started on haloperidol with good response, and will transition to Haldol Decanoate 08/07. A 304 IOC is scheduled for Wednesday, with plans to discharge him home with his son afterwards. He has been referred for outpatient treatment through [facility] and [facility]. 08/10--improved, Plan: continue Haldol 2.5 mg BID today, will be d/c around discharge. Inventory Assets Strengths: Currently willing to cooperate with treatment. Several of his adult children seem to be concerned and is supportive of his treatment. Needs: Resolution of psychotic features. Improved adherence with all medications. Safe and appropriate living arrangement. Risk Factors Assessment Male: Yes : Yes Do You Have Access To A Gun?: Yes Health Problems: Yes Mental Health Diagnoses: Yes Substance Use Disorders: Yes (Alcohol dependence.) Previous Attempt: No (The patient has been made threats with guns.) Family History of Suicide: No Previous Psychiatric Hospitalization: Yes Hopelessness: No Smoker: Yes (Chewing tobacco only) Protective Factors Assessment Episcopal Beliefs: Yes ("I am a Bahai now! I had go to mormon but no one will take me.") : No Responsible for Young Children: No Employed: No Stable Relationships: Yes Supportive Family: Yes Good Rapport with Provider: No Absence of Any Risk Factors Above: No Interval History Identifying Information EMMA SAUER is a 69-year-old M who currently lives in [place], [place] with his adult son, has a history of schizophrenia and treatment nonadherence, and was admitted on 08/02/20 05:08 on a 201 voluntary agreement because of inability to care for his own physical needs within the context of paranoid delusional beliefs. Reviewed 08/08. Chief Complaint "I'm feeling better today". Review of Systems Sleep Information Total Hours of Sleep: 4 Sleep Comments: pt on q-15 minute checks Meal Information Percent Meal Consumed - Breakfast: 0 Percent Meal Consumed - Lunch: 100 Percent Meal Consumed - Dinner: 100 Subjective Subjective Patient was seen & assessed and interval progress reviewed with nursing and social work. No acute issues overnight. Essentially denies CEDENO this am. Reviewed his sleep as only 4-5 hrs here with low dose trazodone. He is not concerned and declines increase. Physical Exam Psychiatric Orientation: alert Eye Contact: good eye contact Motor Behavior: steady gait and station Speech: normal rate/rhythm/volume of speech Affect: + constricted affect stable mood Thought Process: + concrete thought process Thought Content: + delusions (but can be redirected around house being haunted, comfortable returning) Suicidal Thoughts: denies suicidal thoughts Homicidal Thoughts: denies homicidal thoughts Hallucinations: no auditory hallucinations and no visual hallucinations Cognition: attention grossly intact Insight: + poor insight Judgement: + poor judgement Vital Signs (Past 24 Hours) Last Vital Signs Temp 36.4 C L 08/10/20 06:20 Pulse 82 08/10/20 06:20 Resp 17 08/10/20 06:20 BP 115/75 08/10/20 06:20 Pulse Ox 95 08/08/20 21:00 Results & Data ([facility]) Current Inpatient Medications Current Inpatient Medications: Current Inpatient Medications Acetaminophen (Acetaminophen 325 Mg Tab) 650 mg PO Q4H PRN PRN Reason: Headache or Minor Fever Stop: 09/01/20 05:07 Last Admin: 08/09/20 16:23 Dose: 650 mg Documented by: Al Hydrox/Mg Hydrox/Simethicone (Aluminum/Magnesium Susp 30 Ml Udc) 30 ml PO Q4H PRN PRN Reason: GI Upset Stop: 09/01/20 05:07 Last Admin: 08/08/20 09:06 Dose: 30 ml Documented by: Bacitracin (Bacitracin Oint 0.9 Gm Pkt) 1 appln EXT BID PRN PRN Reason: skin abrasion R thumb Stop: 09/02/20 17:29 Benztropine Mesylate (Benztropine Mesylate 0.5 Mg Tab) 0.5 mg PO BID MSEHA Stop: 09/02/20 20:59 Last Admin: 08/10/20 08:37 Dose: 0.5 mg Documented by: Bismuth Subsalicylate (Bismuth Subsalicylate Liqd 236 Ml) 15 ml PO PRN PRN PRN Reason: Loose Stool Stop: 09/01/20 05:07 Fluticasone Propionate (Fluticasone Propionate Na Spr 16 Gm Btl) 2 sprays NA DAILY [facility] Stop: 09/02/20 08:59 Last Admin: 08/10/20 08:37 Dose: 2 sprays Documented by: Folic Acid (Folic Acid 1 Mg Tab) 1 mg PO DAILY [facility] Stop: 09/01/20 11:59 Last Admin: 08/10/20 08:38 Dose: 1 mg Documented by: Haloperidol (Haloperidol 5 Mg Tab) 2.5 mg PO BID MESHA Stop: 09/07/20 20:59 Last Admin: 08/10/20 08:38 Dose: 2.5 mg Documented by: Hydroxyzine HCl (Hydroxyzine Hcl 25 Mg Tab) 50 mg PO HSZ PRN PRN Reason: Insomnia Stop: 09/01/20 05:07 Last Admin: 08/09/20 21:11 Dose: 50 mg Documented by: Hydroxyzine HCl (Hydroxyzine Hcl 25 Mg Tab) 25 mg PO Q4H PRN PRN Reason: Anxiety Stop: 09/01/20 05:07 Ibuprofen (Ibuprofen 600 Mg Tab) 600 mg PO Q6H PRN PRN Reason: Pain Stop: 09/07/20 12:24 Last Admin: 08/08/20 12:25 Dose: 600 mg Documented by: Levetiracetam (Levetiracetam 500 Mg Tab) 1,000 mg PO BID MESHA Stop: 09/01/20 11:59 Last Admin: 08/10/20 08:39 Dose: 1,000 mg Documented by: Loperamide HCl (Loperamide Hcl 2 Mg Cap) 2 mg PO UD PRN PRN Reason: Diarrhea Stop: 09/01/20 11:39 Magnesium Hydroxide (Magnesium Hydroxide Susp 30 Ml Udc) 30 ml PO DAILY PRN PRN Reason: Constipation Stop: 09/01/20 05:07 Meclizine HCl (Meclizine Hcl 25 Mg Tab) 25 mg PO TID PRN PRN Reason: Vertigo Stop: 09/01/20 15:15 Miscellaneous (Remove Nicoderm Patch) 1 ea N/A DAILY@0859 [facility] Stop: 09/02/20 08:58 Last Admin: 08/10/20 08:36 Dose: 1 ea Documented by: Multivitamins (Multivitamin Tab) 1 tab PO DAILY [facility] Stop: 09/02/20 08:59 Last Admin: 08/10/20 08:39 Dose: 1 tab Documented by: Nicotine (Nicotine 7 Mg/24 Hr Tdsy) 7 mg TD QAM [facility] Stop: 09/01/20 13:29 Last Admin: 08/10/20 08:39 Dose: 7 mg Documented by: Nicotine Polacrilex (Nicotine Polacrilex 2 Mg Gum) 2 piece MT PRN PRN PRN Reason: nicotine cravings Stop: 09/01/20 11:37 Last Admin: 08/02/20 11:55 Dose: 2 piece Documented by: Pantoprazole Sodium (Pantoprazole 40 Mg Tab) 40 mg PO DAILY [facility] Stop: 09/02/20 08:59 Last Admin: 08/10/20 08:40 Dose: 40 mg Documented by: Simethicone (Simethicone 80 Mg Chew) 80 mg PO Q6H PRN PRN Reason: gas/bloating Stop: 09/01/20 11:38 Sodium Chloride (Sodium Chloride 0.65% Na Soln 45 Ml ([place])) 1 - 2 sprays NA PRN PRN PRN Reason: Nasal Dryness/Congestion Stop: 09/01/20 05:07 Tamsulosin HCl (Tamsulosin Hcl 0.4 Mg Cap) 0.4 mg PO QAM [facility] Stop: 09/02/20 08:59 Last Admin: 08/10/20 08:37 Dose: 0.4 mg Documented by: Thiamine HCl (Thiamine Hcl 100 Mg Tab) 100 mg PO DAILY [facility] Stop: 09/02/20 08:59 Last Admin: 08/10/20 08:40 Dose: 100 mg Documented by: Trazodone HCl (Trazodone Hcl 50 Mg Tab) 50 mg PO HS MESHA Stop: 09/01/20 21:59 Last Admin: 08/09/20 20:52 Dose: 50 mg Documented by: Mental Health & Subst Abuse Tx Psychiatrist Name of Psychiatrist: Yelena Brown Psychiatrist's Date of Appointment with Psychiatrist: 08/19/20 Time of Appointment with Psychiatrist: 5:00 p.m. (In person - call when you arrive to the parking lot) Psychiatric Appointment Comment: [phone] Therapist Name of Therapist: Yelena Brown Therapist's Date of Therapist Appointment: 08/19/20 Time of Therapist Appointment: 5:00 p.m. (In person - call when you arrive to the parking lot) Therapy Appointment Comment: [phone] Human Resources Hr Generalist Name of Human Resources Hr Generalist: [facility] Service Unit - Adalid Brownlee Phone Number for Human Resources Hr Generalist: [phone] Case Management Appointment Comment: Will follow up with you to schedule (please call him as well!) Post Discharge Appointments Primary Care Physician Name Of Family Doctor: ALYSON Camacho Primary Care Time of Appointment with PCP: Follow up as needed Provider Appointment Comment: [address] [place] [address] [place] [address] Contact Information Discharge Discharge Address: [address] [place] [address] [address] [place] [address]
[2020-08-10] MEDS: IBUPROFEN 600 MG TAB PO PRN (09:44)
[2020-08-10] MEDS: ALUMINUM/MAGNESIUM SUSP 30 ML UDC PO PRN (16:40)
[2020-08-10] MEDS: traZODone HCL 50 MG TAB PO SCH (21:42)
[2020-08-11] MEDS: ACETAMINOPHEN 325 MG TAB PO PRN ×2 (04:40→16:36)
[2020-08-11] MEDS: TAMSULOSIN HCL 0.4 MG CAP PO SCH (08:02)
[2020-08-11] MEDS: FLUTICASONE PROPIONATE NA SPR 16 GM BTL SCH (08:02)
[2020-08-11] MEDS: BENZTROPINE MESYLATE 0.5 MG TAB PO SCH ×2 (08:02→21:15)
[2020-08-11] MEDS: FOLIC ACID 1 MG TAB PO SCH (08:03)
[2020-08-11] MEDS: levETIRAcetam 500 MG TAB PO SCH ×2 (08:03→21:15)
[2020-08-11] MEDS: PANTOprazole 40 MG TAB PO SCH (08:04)
[2020-08-11] MEDS: NICOTINE 7 MG/24 HR TDSY TD SCH (08:04)
[2020-08-11] MEDS: THIAMINE HCL 100 MG TAB PO SCH (08:04)
[2020-08-11] MEDS: MULTIVITAMIN TAB PO SCH (08:04)
[2020-08-11] MEDS: haloperidoL 5 MG TAB PO SCH (08:05)
[2020-08-11] MEDS: IBUPROFEN 600 MG TAB PO PRN ×2 (09:21→21:39)
--- NOTE | 2020-08-11 09:43 | Psychiatric Progress Note ---
Date of Service August 11, 2020 Impression / Recommendations Impression 69-year-old male with a history of schizophrenia and treatment noncompliance who is admitted voluntarily for worsening delusions, hallucinations, and poor self- care. He has a delusion that his house is haunted and that evil spirits are trying to kill him, and has been admitted here in the past for the same. He was also hospitalized in [place] earlier this month, initially on the behavioral health unit, but had to be transferred to a medical unit due to alcohol withdrawal. He has very poor insight and judgment, had submitted a 72- hour notice on 08/05 requesting to leave so that he can [facility] and find a natural healer to rid him of demons - then rescinded his notice. He is unable to provide for his own basic needs, as evidenced by malnutrition with potassium 3.3, ongoing alcohol abuse and withdrawal, noncompliance with medications and outpatient mental health treatment, and presents the risk of harm to both himself and others as a result of his psychotic symptoms (has threatened to blow up his house or to shoot unseen others, and has access to guns), so inpatient treatment remains medically necessary. He has been started on haloperidol with good response, and will transition to Haldol Decanoate 08/07. A 304 IOC is scheduled for Wednesday, with plans to discharge him home with his son afterwards. He has been referred for outpatient treatment through [facility] and [place]. 08/11--improved, d/c PO Haldol. Inventory Assets Strengths: Currently willing to cooperate with treatment. Several of his adult children seem to be concerned and is supportive of his treatment. Needs: Resolution of psychotic features. Improved adherence with all medications. Safe and appropriate living arrangement. Risk Factors Assessment Male: Yes : Yes Do You Have Access To A Gun?: Yes Health Problems: Yes Mental Health Diagnoses: Yes Substance Use Disorders: Yes (Alcohol dependence.) Previous Attempt: No (The patient has been made threats with guns.) Family History of Suicide: No Previous Psychiatric Hospitalization: Yes Hopelessness: No Smoker: Yes (Chewing tobacco only) Protective Factors Assessment Mormon Beliefs: Yes ("I am a Confucianist now! I had go to evangelical but no one will take me.") : No Responsible for Young Children: No Employed: No Stable Relationships: Yes Supportive Family: Yes Good Rapport with Provider: No Absence of Any Risk Factors Above: No Interval History Identifying Information EMMA SAUER is a 69-year-old M who currently lives in [place], [place] with his adult son, has a history of schizophrenia and treatment nonadherence, and was admitted on 08/02/20 05:08 on a 201 voluntary agreement because of inability to care for his own physical needs within the context of paranoid delusional beliefs. Reviewed 08/08. Chief Complaint "praise be I'm feeling some better today". Review of Systems Sleep Information Total Hours of Sleep: 5.5 Sleep Comments: pt on q-15 minute checks Meal Information Percent Meal Consumed - Breakfast: 100 Percent Meal Consumed - Lunch: 100 Percent Meal Consumed - Dinner: 100 Subjective Subjective Patient was seen & assessed and interval progress reviewed with nursing and social work. was in room more yesterday, no specific physical complaint other than mild CEDENO in the afternoon and feeling "wore out". Denies issues with sleep, appetite or BM. Full ROM neck. Physical Exam Psychiatric A+Ox3, euthymic affect Eye Contact: + fair eye contact Motor Behavior: + tremor speech is non-spontaneous Affect: + constricted affect Thought Process: + concrete thought process Thought Content: + delusions Suicidal Thoughts: denies suicidal thoughts Homicidal Thoughts: denies homicidal thoughts Hallucinations: no auditory hallucinations and no visual hallucinations Insight: + poor insight Judgement: + poor judgement Vital Signs (Past 24 Hours) Last Vital Signs Temp 36.7 C 08/11/20 06:14 Pulse 93 H 08/11/20 06:14 Resp 20 08/11/20 06:14 BP 132/92 08/11/20 06:14 Pulse Ox 95 08/10/20 12:47 Results & Data ([facility]) Current Inpatient Medications Current Inpatient Medications: Current Inpatient Medications Acetaminophen (Acetaminophen 325 Mg Tab) 650 mg PO Q4H PRN PRN Reason: Headache or Minor Fever Stop: 09/01/20 05:07 Last Admin: 08/11/20 04:40 Dose: 650 mg Documented by: Al Hydrox/Mg Hydrox/Simethicone (Aluminum/Magnesium Susp 30 Ml Udc) 30 ml PO Q4H PRN PRN Reason: GI Upset Stop: 09/01/20 05:07 Last Admin: 08/10/20 16:40 Dose: 30 ml Documented by: Bacitracin (Bacitracin Oint 0.9 Gm Pkt) 1 appln EXT BID PRN PRN Reason: skin abrasion R thumb Stop: 09/02/20 17:29 Benztropine Mesylate (Benztropine Mesylate 0.5 Mg Tab) 0.5 mg PO BID MESHA Stop: 09/02/20 20:59 Last Admin: 08/11/20 08:02 Dose: 0.5 mg Documented by: Bismuth Subsalicylate (Bismuth Subsalicylate Liqd 236 Ml) 15 ml PO PRN PRN PRN Reason: Loose Stool Stop: 09/01/20 05:07 Fluticasone Propionate (Fluticasone Propionate Na Spr 16 Gm Btl) 2 sprays NA DAILY MESHA Stop: 09/02/20 08:59 Last Admin: 08/11/20 08:02 Dose: 2 sprays Documented by: Folic Acid (Folic Acid 1 Mg Tab) 1 mg PO DAILY MESHA Stop: 09/01/20 11:59 Last Admin: 08/11/20 08:03 Dose: 1 mg Documented by: Hydroxyzine HCl (Hydroxyzine Hcl 25 Mg Tab) 50 mg PO HSZ PRN PRN Reason: Insomnia Stop: 09/01/20 05:07 Last Admin: 08/09/20 21:11 Dose: 50 mg Documented by: Hydroxyzine HCl (Hydroxyzine Hcl 25 Mg Tab) 25 mg PO Q4H PRN PRN Reason: Anxiety Stop: 09/01/20 05:07 Ibuprofen (Ibuprofen 600 Mg Tab) 600 mg PO Q6H PRN PRN Reason: Pain Stop: 09/07/20 12:24 Last Admin: 08/11/20 09:21 Dose: 600 mg Documented by: Levetiracetam (Levetiracetam 500 Mg Tab) 1,000 mg PO BID MESHA Stop: 09/01/20 11:59 Last Admin: 08/11/20 08:03 Dose: 1,000 mg Documented by: Loperamide HCl (Loperamide Hcl 2 Mg Cap) 2 mg PO UD PRN PRN Reason: Diarrhea Stop: 09/01/20 11:39 Magnesium Hydroxide (Magnesium Hydroxide Susp 30 Ml Udc) 30 ml PO DAILY PRN PRN Reason: Constipation Stop: 09/01/20 05:07 Meclizine HCl (Meclizine Hcl 25 Mg Tab) 25 mg PO TID PRN PRN Reason: Vertigo Stop: 09/01/20 15:15 Miscellaneous (Remove Nicoderm Patch) 1 ea N/A DAILY@0859 [facility] Stop: 09/02/20 08:58 Last Admin: 08/11/20 08:57 Dose: Not Given Documented by: Multivitamins (Multivitamin Tab) 1 tab PO DAILY MESHA Stop: 09/02/20 08:59 Last Admin: 08/11/20 08:04 Dose: 1 tab Documented by: Nicotine (Nicotine 7 Mg/24 Hr Tdsy) 7 mg TD QAM [facility] Stop: 09/01/20 13:29 Last Admin: 08/11/20 08:04 Dose: 7 mg Documented by: Nicotine Polacrilex (Nicotine Polacrilex 2 Mg Gum) 2 piece MT PRN PRN PRN Reason: nicotine cravings Stop: 09/01/20 11:37 Last Admin: 08/02/20 11:55 Dose: 2 piece Documented by: Pantoprazole Sodium (Pantoprazole 40 Mg Tab) 40 mg PO DAILY [facility] Stop: 09/02/20 08:59 Last Admin: 08/11/20 08:04 Dose: 40 mg Documented by: Simethicone (Simethicone 80 Mg Chew) 80 mg PO Q6H PRN PRN Reason: gas/bloating Stop: 09/01/20 11:38 Sodium Chloride (Sodium Chloride 0.65% Na Soln 45 Ml ([place])) 1 - 2 sprays NA PRN PRN PRN Reason: Nasal Dryness/Congestion Stop: 09/01/20 05:07 Tamsulosin HCl (Tamsulosin Hcl 0.4 Mg Cap) 0.4 mg PO QAM [facility] Stop: 09/02/20 08:59 Last Admin: 08/11/20 08:02 Dose: 0.4 mg Documented by: Thiamine HCl (Thiamine Hcl 100 Mg Tab) 100 mg PO DAILY MESHA Stop: 09/02/20 08:59 Last Admin: 08/11/20 08:04 Dose: 100 mg Documented by: Trazodone HCl (Trazodone Hcl 50 Mg Tab) 50 mg PO HS [facility] Stop: 09/01/20 21:59 Last Admin: 08/10/20 21:42 Dose: Not Given Documented by: Mental Health & Subst Abuse Tx Psychiatrist Name of Psychiatrist: [facility] Intake Psychiatrist's Date of Appointment with Psychiatrist: 08/19/20 Time of Appointment with Psychiatrist: 5:00 p.m. (In person - call when you arrive to the parking lot) Psychiatric Appointment Comment: [phone] Therapist Name of Therapist: [facility] Intake Therapist's Date of Therapist Appointment: 08/19/20 Time of Therapist Appointment: 5:00 p.m. (In person - call when you arrive to the parking lot) Therapy Appointment Comment: [phone] Tower Hand Name of Tower Hand: [facility] Service Unit - Adalid Brownlee Phone Number for Tower Hand: [phone] Case Management Appointment Comment: Will follow up with you to schedule (please call him as well!) Post Discharge Appointments Primary Care Physician Name Of Family Doctor: ALYSON Camacho [facility] Time of Appointment with PCP: Follow up as needed Provider Appointment Comment: [address] [place] [address] [place] [address] Contact Information Discharge Discharge Address: [address] [place] [address] [place] [id number]
[2020-08-11] MEDS: traZODone HCL 50 MG TAB PO SCH (21:15)
[2020-08-12] MEDS: ACETAMINOPHEN 325 MG TAB PO PRN (03:11)
[2020-08-12] MEDS: IBUPROFEN 600 MG TAB PO PRN (06:28)
[2020-08-12] MEDS: TAMSULOSIN HCL 0.4 MG CAP PO SCH (08:22)
[2020-08-12] MEDS: BENZTROPINE MESYLATE 0.5 MG TAB PO SCH (08:22)
[2020-08-12] MEDS: FOLIC ACID 1 MG TAB PO SCH (08:23)
[2020-08-12] MEDS: THIAMINE HCL 100 MG TAB PO SCH (08:23)
[2020-08-12] MEDS: levETIRAcetam 500 MG TAB PO SCH (08:23)
[2020-08-12] MEDS: FLUTICASONE PROPIONATE NA SPR 16 GM BTL SCH (08:23)
[2020-08-12] MEDS: NICOTINE 7 MG/24 HR TDSY TD SCH (08:23)
[2020-08-12] MEDS: PANTOprazole 40 MG TAB PO SCH (08:23)
[2020-08-12] MEDS: MULTIVITAMIN TAB PO SCH (08:23)
[2020-08-12] MEDS ORDERED: HALOPERIDOL DECANOATE INJ 50 MG/ML VIAL IM ONE (08:24)
--- NOTE | 2020-08-12 10:03 | Discharge Summary ---
Date of Service August 12, 2020 History of Present Illness The patient is a 69-year-old man who lives in what has been described by others as a "[facility]" and [place], [place], with his adult son. He has a history of several previous psychiatric hospitalizations. The current psychiatric admission was precipitated by the family's report that the patient is refusing to reenter his home and is talking about "hitchhiking" to [place] and "living under a bridge," so that he does not have to reenter his home because he firmly believes that it is haunted. The patient has a known diagnosis of schizophrenia, and other precipitating factors appear to be that he has not been taking his psychiatric medications. He had been discharged on Abilify Maintena following his most recent previous discharge, but says that he had a "severe reaction" when a dose of this medication was administered intramuscularly by a pharmacist. The patient is somewhat vague about the nature of the reaction, but he said it involved "cold chills" and nausea. He had previously been treated with Invega and Invega Sustenna, and reported that he could not tolerate Invega Sustenna because it caused "a rash." However, he was given several doses of Invega Sustenna in the hospital and no such rash was observed. The patient's report is, and has been, that there is a "young girl" who is a "spirit" or a "ghost" who occupies the home in which the patient lives. The patient says that his house is "very old, and claims that it was built in [address], and that for the 30 years that he is living in the house they have been a series of supernatural occurrences. He tells us that he does not know the identity of the girl, but believes that she wants the house because she is trapped by some form of "evil" that also is present in his home. Although he tells us that he the little girl does not speak to him, or if she does he is not able to hear her. He does note that she knocks on the ricci, knocks things out of his hands, throws objects about the room, and knocks things over. He claims that other persons have witnessed this, although he also reports that the adult son with whom he lives "thinks [he is] crazy" and does not believe the house is haunted. Currently, the patient feels that he is in grave danger because during a hospital visit in [place] he mentioned to several hospital staff members that he needs help in "rescuing" and "helping" the "young girl" who he believes is trapped in the home. His belief is that somehow this has angered the entity of "evil" that he believes also dwells in the house and that at this point his life is in grave danger because the evil entity is planning to kill him in order to prevent him from rescuing the trapped spirit of the little girl. He tells us that he has had various mormonism figures attempt to perform exorcisms or smudge the house in order to help the imaginary little girl escape, and that other persons who have encountered this. Have run from the home and have refused to come back. The patient confirms that his plan is to never go back into the home, even if that means he is going to be homeless. When he was asked how he intends to survive in the homeless state during the upcoming winter, he says "I have got a plan. I am going to go down south and find a place in [place]. All live under a bridge if I have to. I am just not going back into that evil house." The patient has a history of a number of somatic problems, but is a poor his pedro. He notes that he cannot recall the names of the medications he is taking, but adds that he is taking something for "Parkinson's disease," and his medication reconciliation includes carbidopa levodopaalthough a neurological consult done here approximately a year ago does not indicate the presence of Parkinson's disease. He does have abnormal involuntary movements that are consistent with tardive dyskinesia. The patient is disheveled and has obviously been neglecting self-care. Corroboration from third parties as indicated that the patient lives in squalid conditions and at home with no running water. He reports that there is electricity, but no reliable source of heat other than perhaps space heaters or "may be there is coal?" He notes that when he needs to urinate or defecate he goes out into the backyard. When asked if he has an out house, he replies and says "sort of." Physical Exam Psychiatric Orientation: alert and cooperative Apperance: appropriately dressed White male appearing older that his stated age. Dressed in scrub pants and a sweatshirt, short funk hair that appears unwashed, short facial stubble, seated in NAD. Eye Contact: + fair eye contact Motor Behavior: no abnormal motor movements Gait slow, with walker. Affect: + blunted affect and mood congruent with affect "Well, we'll see when I get there." Thought Process: goal directed thought process and + concrete thought process Thought Content: + delusions (that his house is haunted) Suicidal Thoughts: denies suicidal thoughts Homicidal Thoughts: denies homicidal thoughts Hallucinations: no auditory hallucinations and no visual hallucinations Cognition: attention grossly intact and language grossly intact; + recent memory not intact Estimated Intelligence: + below average estimated intelligence Insight: + limited insight Judgement: + limited judgement Vital Signs (Past 24 Hours) Last Vital Signs Temp 36.7 C 08/12/20 06:18 Pulse 89 08/12/20 06:18 Resp 18 08/12/20 06:18 BP 164/84 H 08/12/20 06:18 Pulse Ox 95 08/10/20 12:47 Principal Diagnosis Schizophrenia Treatment nonadherence Psychiatric Data The patient was hospitalized for 10 days. On admission, he agreed to a trial of haloperidol, his head had been helpful in the past. He tolerated a total of 10 mg daily well, and symptoms improved. He was continued on his home dose of Keppra, a level was drawn on 08/02/2020 and came back at 15.5, and carbidopa/levodopa was held due to its potential to exacerbate psychosis, and lack of a clear indication for the medication. He was started on the [facility] protocol for alcohol withdrawal, and did have withdrawal symptoms over his first couple of days on the unit, so was also placed on a gabapentin taper. Benztr opine was reduced from 2 mg daily 2.5 mg twice daily to reduce the risk of anticholinergic induced confusion. As he demonstrated poor insight and cognitive impairment, The [facility] of Aging was contacted, but they declined to provide any services to the patient, and said the only option was to remain on a wait list for services, which he had already been on for 2 years. He submitted a 72-hour notice requesting to withdraw from treatment, as he believes the ghosts that haunted his home had followed him to the hospital, and said he needed to get farther away, but later rescinded it. His case sealer provided collateral information, including that he has been noncompliant with outpatient appointments and medications, drinks heavily and daily, and had a plan to get an apartment so that he and his son could have running water and be closer to town, but never followed through on this. The patient said that they looked in an apartment but it was too expensive, around $800/month, although admits that he and his son together have an income of $2000/month. He could not explain why they continue to live in such poor conditions. Records reviewed from [facility] in [place]: Patient initially presented to [facility] on 07/07/2020 for shortness of breath, was admitted medically and treated for possible pneumonia, and then transferred to their [facility] 07/09/2020 for delusions and hallucinations. Shortly after admission he developed severe alcohol withdrawal, so was transferred to their medical service. He completed a Librium taper, was medically stabilized and readmitted to the psychiatric unit 07/15/2020, refused recommendations for inpatient substance abuse treatment or medication assisted therapy such as Vivitrol or naltrexone. He reported chronic poor compliance with medications, and did not know the names of his medications or what they were for. He had been on Abilify Maintena in the past, and was started on oral Abilify 5 mg daily. He was discharged on 07/23/2020. It did not appear that any outpatient mental health care was arranged. He had a family meeting with his son, AMBAR, whom he lives with and who has been involved during his previous hospitalizations. AMBAR acknowledged that the patient abuses alcohol, but was not willing to remove alcohol from the residence. Although the patient expressed concerns about the guns at home, stating he was concerned that AMBAR would hurt himself with the guns, AMBAR appeared angry and laughed at this, and declined to secure the guns, stating he needed them to shoot snakes at the residence. AMBAR agreed to look into alternative housing options, and to take the patient to appointments, as long as they are on . The patient was willing for assistance from the office of aging, and has been on their wait list since November 2017. Alternative housing options were explored, including a referral to the [facility], but ultimately the patient decided that he would return home and continue to look at other housing options with his son. He carried his Bible around with him throughout his stay, and found it helpful to read. He continued to state believes that his house was haunted, but appeared less preoccupied with and concerned about this, stating that he thought he would be safe to return there. He was referred to [facility] for outpatient treatment, and his son agreed to transport him to appointments. He attended and participated in groups, and was pleasant with staff and peers. He did require staff prompting for ADLs/hygiene. He generally slept 5 to 6 hours a night, and was often awake multiple times to use the bathroom. He was observed to eat well, 100% of meals. He agreed to transition to Haldol Decanoate, and received 100 mg injection on 08/07/2020, and was then tapered off of oral Haldol. Day of Discharge Assessment Staff report the patient has been calm and cooperative, attending and participating in unit programming, rated his mood a 6/10, and said he felt hopeful. He has been out of his room during his free time, interacting with staff and peers, and reading his Bible. He stated believes that his mormonism convictions will protect him from any evil in his home. On my assessment, he states that he is "all right," and feels ready for discharge. He continues to endorse believes that there is "something in the house causing me some trouble," stating it "messes up my vision, won't let me read my Bible." He says he will not know until he gets home if he feels safe there or not, but denies any thoughts or plans to harm himself or anyone else, and is able to relay his safety plan, including a backup plan of going to a hotel or local senior living if he does not feel safe at home. Although he would like to get rid of the guns, he states his son has refused to do so, and he plans to contact another one of his sons to come and take them. He has no memory of the recommendations for ongoing treatment after discharge, although these have been discussed with him on multiple occasions. Again reviewed treatment recommendations, including ongoing medications (now on Haldol Decanoate), and outpatient follow-up with a psychiatrist, therapist, and his case sealer. He expressed understanding and agreement. He and his case sealer attended his [facility] hearing, which he did not contest, and was granted. Transition of Care Transition Of Care Record: was reviewed with the patient Advance Directives Advance Directives Information Provided: Yes Advance Directives: No Mental Health Advance Directive: No Advance Directives on File: No Living Will: No Power of Uniform Attendant: No Advance Directives Reason:: Declines as Mental Health Visit. Risk Factors Assessment Risk factors were mitigated by admission to the inpatient unit, use of medications to target psychotic symptoms, use of a long-acting injectable antipsychotic due to history of treatment nonadherence, coordination with outpatient case sealer, referring him for outpatient psychiatry and therapy, involving his son whom he lives with, attempting to involve the office of aging for support services, placing the patient on an involuntary outpatient commitment, involving him in groups and therapy, and working on coping skills and a discharge safety plan. He has demonstrated improvement in psychotic symptoms, is stating willingness to follow-up with outpatient treatment and continue medication, is consistently denying thoughts of harming himself or others, is eating and sleeping well, and states willingness to return home. He ultimately declined referrals to assisted living/prison residences, stating he would rather return to his house and live with his son. Although he remains a chronic increased risk for harm to himself compared to the general population, his remaining risk factors are unlikely to be mitigated by further inpatient treatment, and he is no longer at acute risk. Although he has consistently denied thoughts of harming others, has not been aggressive or threatening, he is at increased risk of harm to others compared to the general population as a result of delusional beliefs and access to guns, but this risk is unlikely to be mitigated by further inpatient treatment at this time. Male: Yes : Yes Do You Have Access To A Gun?: Yes (Son refuses to secure/remove them, although it has been recommended) Health Problems: Yes Mental Health Diagnoses: Yes Substance Use Disorders: Yes (Alcohol dependence.) Previous Attempt: No (The patient has been made threats with guns.) Family History of Suicide: No Previous Psychiatric Hospitalization: Yes Hopelessness: No Smoker: No Protective Factors Assessment Anglican Beliefs: Yes ("I am a Mandaen now! I had go to mu-ism but no one will take me.") : No Responsible for Young Children: No Employed: No Stable Relationships: Yes Supportive Family: Yes Good Rapport with Provider: No Absence of Any Risk Factors Above: No Tobacco Cessation at Discharge Tobacco Cessation Medication Prescribed at Discharge: Not Applicable/Non-Smoker Total Time Total Time Spent: Greater Than 30 Minutes Total Time Includes: Examination of the patient, Discharge Planning and Medication Reconciliation Discharge Data Lab Results 08/02/20 08/02/20 08/02/20 01:34 01:34 01:34 WBC 7.25 RBC 4.42 L Hgb 14.0 Hct 41.5 L MCV 93.9 MCH 31.7 MCHC 33.7 RDW Std Deviation 43.8 RDW Coeff of Hina 13.2 Plt Count 339 MPV 8.3 Immature Gran % (Auto) 0.4 Neut % (Auto) 66.2 Lymph % (Auto) 25.7 [place] % (Auto) 5.5 Eos % (Auto) 1.9 Baso % (Auto) 0.3 Neut # (Auto) 4.80 Lymph # (Auto) 1.86 [place] # (Auto) 0.40 Eos # (Auto) 0.14 Baso # (Auto) 0.02 Immature Gran # (Auto) 0.03 H Sodium 137 Potassium 3.3 L Chloride 102 Carbon Dioxide 30 Anion Gap 5.0 BUN 7 Creatinine 0.82 Est Cr Clr Drug Dosing 101.6 Est GFR ( Amer) 106.1 Est GFR (Non-Af Amer) 91.5 BUN/Creatinine Ratio 8.2 L Glucose 104 H Estimat Average Glucose Hemoglobin A1c Calcium 8.9 Total Bilirubin 1.0 AST 29 ALT 52 Alkaline Phosphatase 81 Total Protein 8.0 Albumin 3.7 Globulin 4.3 H Albumin/Globulin Ratio 0.9 Triglycerides Cholesterol LDL Cholesterol, Calc VLDL Cholesterol, Calc HDL Cholesterol Cholesterol/HDL Ratio TSH 1.790 Urine Color Urine Appearance Urine pH Ur Specific [place] Urine Protein Urine Glucose (UA) Urine Ketones Urine Blood Urine Nitrite Urine Bilirubin Urine Urobilinogen Ur Leukocyte Esterase Salicylates < 1.7 L Urine Opiates Screen Ur Methadone, Qual Acetaminophen < 2 L Urine Barbiturates Levetiracetam Ur Phencyclidine (PCP) U Amphetamin/Meth Scrn MDMA (Ecstasy) Screen U Benzodiazepines Scrn Ur Cocaine Metabolite U Marijuana (THC) Screen Ethyl Alcohol mg/dL SARS-CoV-2 Ag (Rapid) 08/02/20 08/02/20 08/02/20 01:34 01:34 02:11 WBC RBC Hgb Hct MCV MCH MCHC RDW Std Deviation RDW Coeff of Hina Plt Count MPV Immature Gran % (Auto) Neut % (Auto) Lymph % (Auto) [place] % (Auto) Eos % (Auto) Baso % (Auto) Neut # (Auto) Lymph # (Auto) [place] # (Auto) Eos # (Auto) Baso # (Auto) Immature Gran # (Auto) Sodium Potassium Chloride Carbon Dioxide Anion Gap BUN Creatinine Est Cr Clr Drug Dosing Est GFR ( Amer) Est GFR (Non-Af Amer) BUN/Creatinine Ratio Glucose Estimat Average Glucose Hemoglobin A1c Calcium Total Bilirubin AST ALT Alkaline Phosphatase Total Protein Albumin Globulin Albumin/Globulin Ratio Triglycerides Cholesterol LDL Cholesterol, Calc VLDL Cholesterol, Calc HDL Cholesterol Cholesterol/HDL Ratio TSH Urine Color Yellow Urine Appearance Clear Urine pH 7.5 Ur Specific [place] 1.010 Urine Protein Negative Urine Glucose (UA) Negative Urine Ketones Negative Urine Blood Negative Urine Nitrite Negative Urine Bilirubin Negative Urine Urobilinogen Negative Ur Leukocyte Esterase Negative Salicylates Urine Opiates Screen Ur Methadone, Qual Acetaminophen Urine Barbiturates Levetiracetam 15.5 Ur Phencyclidine (PCP) U Amphetamin/Meth Scrn MDMA (Ecstasy) Screen U Benzodiazepines Scrn Ur Cocaine Metabolite U Marijuana (THC) Screen Ethyl Alcohol mg/dL 5.0 H SARS-CoV-2 Ag (Rapid) 08/02/20 08/02/20 08/06/20 02:11 04:20 08:30 WBC RBC Hgb Hct MCV MCH MCHC RDW Std Deviation RDW Coeff of Hnia Plt Count MPV Immature Gran % (Auto) Neut % (Auto) Lymph % (Auto) [place] % (Auto) Eos % (Auto) Baso % (Auto) Neut # (Auto) Lymph # (Auto) [place] # (Auto) Eos # (Auto) Baso # (Auto) Immature Gran # (Auto) Sodium Potassium Chloride Carbon Dioxide Anion Gap BUN Creatinine Est Cr Clr Drug Dosing Est GFR ( Amer) Est GFR (Non-Af Amer) BUN/Creatinine Ratio Glucose Estimat Average Glucose 111 Hemoglobin A1c 5.5 Calcium Total Bilirubin AST ALT Alkaline Phosphatase Total Protein Albumin Globulin Albumin/Globulin Ratio Triglycerides Cholesterol LDL Cholesterol, Calc VLDL Cholesterol, Calc HDL Cholesterol Cholesterol/HDL Ratio TSH Urine Color Urine Appearance Urine pH Ur Specific [place] Urine Protein Urine Glucose (UA) Urine Ketones Urine Blood Urine Nitrite Urine Bilirubin Urine Urobilinogen Ur Leukocyte Esterase Salicylates Urine Opiates Screen Neg Ur Methadone, Qual Neg Acetaminophen Urine Barbiturates Neg Levetiracetam Ur Phencyclidine (PCP) Neg U Amphetamin/Meth Scrn Neg MDMA (Ecstasy) Screen Neg U Benzodiazepines Scrn Neg Ur Cocaine Metabolite Neg U Marijuana (THC) Screen Neg Ethyl Alcohol mg/dL SARS-CoV-2 Ag (Rapid) Negative 08/06/20 08:30 WBC RBC Hgb Hct MCV MCH MCHC RDW Std Deviation RDW Coeff of Hina Plt Count MPV Immature Gran % (Auto) Neut % (Auto) Lymph % (Auto) [place] % (Auto) Eos % (Auto) Baso % (Auto) Neut # (Auto) Lymph # (Auto) [place] # (Auto) Eos # (Auto) Baso # (Auto) Immature Gran # (Auto) Sodium Potassium Chloride Carbon Dioxide Anion Gap BUN Creatinine Est Cr Clr Drug Dosing Est GFR ( Amer) Est GFR (Non-Af Amer) BUN/Creatinine Ratio Glucose Estimat Average Glucose Hemoglobin A1c Calcium Total Bilirubin AST ALT Alkaline Phosphatase Total Protein Albumin Globulin Albumin/Globulin Ratio Triglycerides 252 H Cholesterol 205 H LDL Cholesterol, Calc 118 VLDL Cholesterol, Calc 50 HDL Cholesterol 37 Cholesterol/HDL Ratio 6 TSH Urine Color Urine Appearance Urine pH Ur Specific [place] Urine Protein Urine Glucose (UA) Urine Ketones Urine Blood Urine Nitrite Urine Bilirubin Urine Urobilinogen Ur Leukocyte Esterase Salicylates Urine Opiates Screen Ur Methadone, Qual Acetaminophen Urine Barbiturates Levetiracetam Ur Phencyclidine (PCP) U Amphetamin/Meth Scrn MDMA (Ecstasy) Screen U Benzodiazepines Scrn Ur Cocaine Metabolite U Marijuana (THC) Screen Ethyl Alcohol mg/dL SARS-CoV-2 Ag (Rapid) Hospital Course (1) Schizophrenia: 08/02/20 -The patient has been admitted to the [facility] behavioral [facility] unit for safety. He will require active assistance with his activities of daily living, and we will emphasize improving his self-care skills. We will also focus on assuring that the patient has adequate nutrition given concerns about his preadmission nutritional status. -The patient has been referred to and is encouraged to attend individual, group, and recreational therapy. We will also attempt to arrange family meetings with the patient's sons. -It is not clear if the patient's report of an inability to tolerate Invega or aripiprazole (at least in Depo form) is based in reality. However, the patient has said clear that he will refuse to take either 1 of these medications. He does agree to take haloperidol, and says that it has helped him in the past with his "nerves." Haldol will be titrated as indicated and tolerated. -We will begin haloperidol 5 mg by mouth twice a day. Also because the patient says that he has had "side effects" from medication such as Haldol in the past, and because he reports that he has responded favorably to benztropine, we will continue his outpatient dose of benztropine, namely 2 mg daily. 08/03 -Patient clearly delusional and preoccupied with limited insight, poor recall of facts, and it is felt that his ability to rationally manipulate information is significantly impaired by symptoms of psychosis admixed with cognitive dysfunction. As such, in my clinical opinion, he does not presently maintain sufficient capacity (grossly) to attend to serious medical, legal, or financial decisions of consequence -We will continue the Haldol as scheduled for now for psychosis -We will defer reinitiation of Abilify while we continue to expand database -will continue to hold sinemet -reduce Cogentin to 0.5 mg twice daily to reduce risk for anticholinergic induced confusion -We will attempt to re-involve area office of aging case management 08/04 -Increased confusion last evening and this morning in the setting of suspected alcohol withdrawal. -Continue Haldol as scheduled. Will need to watch for worsening of EPS with history of parkinsonism, off Sinemet and on reduced dose of Cogentin. 08/05 -Continue Haldol and will recommend transition to Haldol decanoate once effective dose is reached. -Fasting labs scheduled for tomorrow. -Collateral information obtained from case sealer, Adalid Brownlee. No outpatient mental health services currently due to repeated noncompliance. Will need to be set up with outpatient treatment prior to discharge. May need a [facility]. -Patient has submitted a 72-hour notice requesting to withdraw from treatment. Explained to him that I cannot discharge him at this time as he remains at acute risk of harm to both himself and others, with active psychotic symptoms, and no safe discharge plan or outpatient treatment. We we will continue to encourage him to engage in treatment and to rescind his notice and work towards a safe discharge plan, but may need to consider a 302 involuntary commitment if he is unwilling to do so. -packing line worker to contact son for collateral information and to schedule a family meeting, and make referral to the [facility] in for outpatient treatment. We will also involve the office of aging given concerns about the poor condition of his home. 08/06 - Continue as above, patient tolerating haloperidol oral dosing BID - Pt did rescind 72-hour notice per staff report - Fasting labs reviewed: HgbA1c 5.5%, triglycerides elevated at 252, total cholesterol elevated at 205. LDL - 118; HDL - 37; VLDL - 50. - Family meeting scheduled with son via phone - Will still need to attempt to solidify aftercare. Pt has an assigned case sealer with whom patient has not been engaging. There are additional difficult barriers to treatment, which include patient's inability to participate in virtual appointments due to lack of phone service/internet 08/07 -File for 304 IOC due to repeated nonadherence with outpatient treatment. -Discussed recommendations for Haldol Decanoate, including risks, benefits, and side effects, and he agreed to receive 100 mg IM today. He can discontinue oral Haldol at discharge. His next Haldol decanoate injection will be due in 4 weeks (09/09). -Refer to [facility] for outpatient psychiatric care and therapy. 08/08--unclear if blurry vision related to CEDENO or side effect Haldol, start taper PO Haldol 7.5 mg total daily dose today then 2.5 mg BID tomorrow. 08/12 -patient has been tapered off oral Haldol. Continue Haldol Decanoate 100 mg every 4 weeks, next due 09/04/2020. Continue reduced benztropine 0.5 mg twice daily. -304 IOC hearing held today and granted; discharge on an involuntary outpatient commitment. -Recommendations to remove guns from the home, or at the very least secure them so the patient would not have access, have been reviewed with the patient and his son on multiple occasions, including during this hospitalization. Essentially, his son is refusing to secure the weapons. Although the patient would like the weapons removed from the home, they are apparently in his son's name (although the patient states he paid for them and they are his guns, but he had his son purchase them because he is not legally able to buy them). He is planning to call another one of his sons for assistance in removing the guns, and also discussed the option of contacting local law enforcement. -Referred to [facility] in [place] for outpatient treatment, and follow-up with Adalid Dhillon. (2) Alcohol abuse: 08/02/20 -The patient is not a reliable historian but has said that he drinks between a half a case and a full case of beer a day. This has not been cooperated with his family. He notes that he mostly drinks "in the evenings" in order to be able to fall asleep. There is a potential for complicated withdrawal given his seizure diagnosis, and we are checking his Keppra level in order to make sure he is adequately covered. We will also continue to monitor the patient on the DEBO and treat as indicated. -The patient has been educated regarding the risks of consuming alcohol given his multiple physical diagnoses and psychiatric diagnosis. The patient indicates that he does not intend to stop drinking. 08/03/2020 -pt triggered AWSS today with sign elevation of BP and HR. as above, reviewed low but positive ethyl alcohol level on admission and history of alcohol withdrawal earlier this month noted in outside records. -Start gabapentin taper from 800 mg. continue ativan prn per AWSS protocol. Continue thiamine and folate 08/04/2020 -As above, patient triggered Ativan prn again this morning per AWSS protocol. He is unable to quantify average amount of alcohol consumed prior to presentation. -Continue gabapentin taper 08/06 - Continue as above - pt not recently triggering for prn lorazepam dosing with AWSS scores - Will d/c AWSS protocol, continuing vitals each shift for the time being 08/07 -Although son is aware that patient's alcoholism is a problem, he refuses to remove alcohol from the home, and patient is not committed to abstinence or reducing his use. 08/08--reviewed. 08/12 - Brief intervention was offered and accepted. Intervention was greater than 5 min in length. Brief interventions include: 1. Assess Readiness to Quit, 2. Advise: Help Patient to Reduce or Abstain from Alcohol, 3. Agree: Set Specific, Feasible Goal s, 4. Assist: Anticipate barriers, Problem-Solving Solutions. Social work to 5. Arrange: Referrals to appropriate treatment. Summary of intervention: The patient is in precontemplation stage with regards to transtheoretical model of change. The patient is advised to decrease alcohol consumption due to depressant effects and risk of interactions with prescription medications. The patient agreed to reduce alcohol use, and will be provided with recovery materials to continue to education self on how to cope with their condition without drinking. (3) Seizure disorder: 08/02/20 -It is not clear if the patient has ever actually had a grand mal seizure. The record indicates that he may have Jacksonian seizures or complex partial seizures. For example, one of his forearm and hand may begin to shake, and the patient will point to it and say, "See? I am having a seizure." We have reference to a neurological consult from last year that does recommend that he continue Keppra, and the patient insists that he has been taking this faithfully on an outpatient basis. - Levetiracetam level ordered today. 08/04/2020 -Keppra level from 08/02/2020 still pending 08/08--reviewed, level 15.5 (therapeutic). (4) Dyskinesia, tardive: 08/02/20 -The patient does present with abnormal involuntary movements. Most of these movements seem to involve his oral facial musculature and tongue with choreoathetoid movements involving his hands at times noted. He reportedly does have a history of tardive dyskinesia, and the patient's movements appear most consistent with tardive dyskinesia. -The patient, himself, references a diagnosis of "Parkinson's," although we have not identified confirmation of this diagnosis. We have confirmed that he has been prescribed carbidopa/levodopa. Without verification that the patient has Parkinson's disease, and without understanding why this medication has been prescribed in this case, we will at least temporarily hold carbidopa/levodopa given its potential to exacerbate the patient's psychotic symptoms, namely delusions and hallucinations. 08/04/2020 -Appearing more tremulous this morning in setting of suspected alcohol withdrawal. We will continue to monitor 08/06 - Appearing gradually less tremulous over the past two days Mental Health & Subst Abuse Tx Psychiatrist Name of Psychiatrist: [facility] Intake Psychiatrist's Date of Appointment with Psychiatrist: 08/19/20 Time of Appointment with Psychiatrist: 5:00 p.m. (In person - call when you arrive to the parking lot) Psychiatric Appointment Comment: [phone] Therapist Name of Therapist: Yelena Brown Therapist's Date of Therapist Appointment: 08/19/20 Time of Therapist Appointment: 5:00 p.m. (In person - call when you arrive to the [facility]) Therapy Appointment Comment: [phone] Supervisor [employer] Name of Supervisor [employer]: [facility] Unit Adalid Brownlee Phone Number for Supervisor [employer]: [phone] Case Management Appointment Comment: Will follow up with you to schedule (please call him as well!) Post Discharge Appointments Primary Care Physician Name Of Family Doctor: ALYSON Camacho Primary Care Time of Appointment with PCP: Follow up as needed Provider Appointment Comment: [address] [place], [place] [address] [address] Smoking Cessation Counseling Tobacco Cessation Medication Prescribed at Discharge: Not Applicable/Non-Smoker Contact Information Discharge Discharge Address: [address] [place] [address] Discharge Plan Discharge Items Patient Disposition: Home - Self-Care Reason For Visit: SCHIZOPHRENIA Discharge Diagnosis: Schizophrenia Condition on Discharge: Good Activity: Per Instructions section Non-emergency contact: Primary Care Provider, Psychiatrist, Therapist and Battery Container Tester Call non-emergency contact if: you have any medication questions and your symptoms worsen Follow-up/Referrals: Aristeo Camacho III, MD [Primary Care Provider] - Diet: Regular Addtl Attending Provider Instructions: SPECIAL CARE INSTRUCTIONS: 1. Follow through with your scheduled aftercare appointments. If unable to keep an appointment, please call to reschedule. You are being discharged on an involuntary outpatient commitment. Please see attached paperwork. 2. Take your medication only as prescribed. Medication should not be changed or stopped without the approval of your doctor. In the event of worsening symptoms or concerns about side effects, contact your doctor immediately. 3. Utilize new healthy coping skills, anger management skills, and stress management skills learned during your hospitalization. Journal feelings and process them with a support person. Identify stressors or situations that may result in relapse, deterioration or inappropriate behaviors and develop a plan to deal with those issues. 4. If your coping skills are ineffective and you are in crisis, contact your outpatient providers for direction. If unable to reach your providers, please call the [facility] CRISIS LINE AT , go to the [facility] walk-in center at [address], [address], [place], or go to the closest Emergency Room. 5. You should not drink alcohol or take un-prescribed drugs. 6. You have been provided with the Mental Health Advance Directives Pamphlet for your review. AFTERCARE APPOINTMENTS: * Please call your insurance company prior to your scheduled appointment to confirm your aftercare providers are covered. Take your insurance information to your appointments. WHO TO CALL AND WHEN: Medical Emergencies: For questions or emergencies related to your hospital stay, please contact the Inpatient Behavioral Health Unit at [phone]. A wire coiler is on-call 05/04 for the Behavioral Health Unit for emergencies At any time you feel your situation is an emergency, you may also call 911 immediately. Pending Studies at Discharge: No Stand-Alone Forms: [facility], Smoking Cessation Medications and DC Order Prescriptions: New haloperidol decanoate 50 mg/mL Solution 100 mg IM Q4WK Qty: 1 RF: 0 Continued (DME) nebulizer and compressor Device See Rx Instructions .ROUTE .MEDSUPPLY Qty: 1 RF: 0 multivitamin Tablet 1 tab PO DAILY RF: 0 loperamide 2 mg Tablet 2 mg PO DIRECTED PRN (Reason: Diarrhea) RF: 0 thiamine HCl (vitamin B1) [Vitamin B-1] 100 mg Tablet 100 mg PO DAILY RF: 0 folic acid 1 mg Tablet 1 mg PO DAILY RF: 0 tamsulosin 0.4 mg capsule 0.4 mg PO QAM RF: 0 meclizine 25 mg Tablet 25 mg PO TID PRN (Reason: Vertigo) RF: 0 pantoprazole [Protonix] 40 mg Tablet,Delayed Release (Dr/Ec) 40 mg PO DAILY RF: 0 thiamine HCl (vitamin B1) 50 mg Tablet 50 mg PO DAILY RF: 0 fluticasone propionate 50 mcg/actuation [place],Suspension 2 spray INTRANASAL DAILY RF: 0 levetiracetam 1,000 mg tablet 1,000 mg PO BID RF: 0 Changed benztropine 0.5 mg Tablet 0.5 mg PO BID Qty: 0 RF: 0 Discontinued carbidopa-levodopa 25-100 mg tablet 1 tab PO BID Qty: 60 RF: 5 benztropine 2 mg tablet 2 mg PO QAM RF: 0 aripiprazole 5 mg Tablet 5 mg PO DAILY RF: 0 Discharge Orders: Discharge Order (Routine); Ordered 08/12/20 Ordered By: Yojana Tang Admission Data Admit Date/Time: 08/02/20 05:08 Attending Provider: Yojana Tang Admit Provider: Yojana Tang Primary Care Provider: Aristeo Camacho III Other Interventions: Discharge Summary Assessment (RN) Last Done: 08/10/20 12:47 PSY Interdisciplinary Discharge Planning Last Done: 08/07/20 15:01 Coding Level of Care Code 08451 D/C day mgmt > 30 min Diagnoses Schizophrenia F20.9 Schizophrenia type: unspecified Alcohol abuse F10.10 Seizure disorder G40.909 Dyskinesia, tardive G24.01
[2020-08-12] MEDS: NICOTINE POLACRILEX 2 MG GUM MT PRN (13:17)
[2020-08-14] MEDS ORDERED: SODIUM CHLORIDE 0.65% NA SOLN 45 ML (OCEAN) PRN (13:37)
[2020-08-14] MEDS ORDERED: MAGNESIUM HYDROXIDE SUSP 30 ML UDC PO PRN (13:37)
[2020-08-14] MEDS ORDERED: BISMUTH SUBSALICYLATE LIQD 236 ML PO PRN (13:37)
[2020-08-14] MEDS ORDERED: hydrOXYzine HCl 25 MG TAB PO PRN ×2 (13:37)
[2020-08-14] MEDS ORDERED: ACETAMINOPHEN 325 MG TAB PO PRN (13:37)
[2020-08-14] MEDS ORDERED: ALUMINUM/MAGNESIUM SUSP 30 ML UDC PO PRN (13:37)
[2020-08-15] MEDS ORDERED: THIAMINE HCL 50 MG TABLET PO SCH (09:00)
[2020-09-04] MEDS ORDERED: HALOPERIDOL DECANOATE INJ 50 MG/ML VIAL IM SCH (08:30)
== END 2020-08-12 14:10 | disposition home or self-care (01) | DRG 885 ==
LOC: ED 00:44 → 3S 05:08 → SUATTDRO 05:08 → 3S 05:28

== ENCOUNTER 2020-08-14 10:16 | Inpatient (IN) ==
[2020-08-14 10:51] LABS: Appearance Urine Clear (Clear); Bilirubin Urine Negative (Negative); Blood Urine Negative (Negative); Color Urine Yellow; Glucose Urine UA Negative (Negative); Ketones Urine Negative (Negative); Leukocyte Esterase Urine Negative (Negative); Nitrite Urine Negative (Negative); Protein Urine Negative (Negative); Specific Gravity Urine 1.005 (1.000-1.030); Urobilinogen Urine Negative (Negative); pH Urine 5.5 (4.5-7.5)
[2020-08-14] MEDS ORDERED: ACETAMINOPHEN 500 MG TAB PO STA (10:55)
--- NOTE | 2020-08-14 10:58 | Emergency Department Note ---
Impression & Plan Suicidal ideation ED Provider Note NAME: EMMA SAUER AGE: 69 SEX: M : 1950 ARRIVES VIA: Ambulance INFORMANT: [Patient] ED PROVIDER(S): [Rudy Galvan MD] CHIEF COMPLAINT: Suicidal HISTORY OF PRESENT ILLNESS: The patient is a 69-year-old male with a mental health history. He was recently at this hospital's psychiatric facility and discharged. Today, he was alone, he was afraid. He states that he had a shotgun and he was going to kill himself but could not figure out how to load the gun. He called the ambulance. Patient is currently voluntary. He does want psychiatric help. He believes he needs to be hospitalized. Patient denies any increased stressors except for being alone today. He states that he is taking his medications as prescribed. Of note, no known coronavirus exposures. REVIEW OF SYSTEMS: See HPI for pertinent positives and negatives. A total of ten systems were reviewed and were otherwise negative. PMHx/PSHx: See Below SOCIAL HISTORY: See Below. PHYSICAL EXAM: GENERAL: Patient is in no acute distress. Somewhat disheveled and dirty HEENT: No acute trauma, normocephalic atraumatic, mucous membranes moist, no nasal congestion, no scleral icterus. NECK: No stridor, no adenopathy, no meningismus, trachea is midline. LUNGS: Clear to auscultation bilaterally, no wheeze, no rhonchi, breath sounds equal. HEART: Mildly tachycardic, regular rhythm, no murmurs. ABDOMEN: Soft, nontender, bowel sounds positive, no hernias, no peritonitis. EXTREMITIES: No cyanosis or edema, full range of motion of all the joints without pain or difficulty, no signs for acute trauma. NEUROLOGIC: Oriented x 3, no acute motor or sensory deficits, no focal weakness. SKIN: No rash, no jaundice, no diaphoresis. Psychiatric: The patient is cooperative, he is voluntary. He does have a flattened affect. He admits to suicidal ideation with a plan to shoot himself today. DIFFERENTIAL DIAGNOSIS: Mood disorder, infection, hypoglycemia, electrolyte abnormalities, cardiac sources, suicidality, medication noncompliance, intracerebral event, toxicologic, trauma, neurologic, as well as other pathologies. EMERGENCY DEPARTMENT COURSE/PROCEDURES: MEDICAL DECISION MAKING: There is no leukocytosis. The patient is mildly anemic, he appears to carry a history of the same diagnosis. There is a normal platelet count. No significant electrolyte abnormality or kidney failure. No concerning liver enzyme elevation. The patient appeared to be in a euthyroid state. Urinalysis does not show infection. Urine tox was negative. Alcohol, Tylenol and aspirin levels were undetectable. The patient presents with some suicidal ideation. He had a plan to shoot himsel f today but could not figure out how to load his gun. He was recently discharged from our hospital's psychiatric unit. The patient is voluntary. He is willing to come into the hospital for treatmen t. Patient was felt medically clear. Covid testing was performed and was negative. Patient was seen by [facility] our psychiatric department. He is being hospitalized. He is being admitted voluntarily. Past Med/Surg History Medical History Acid reflux Alcohol abuse Anxiety Arthritis BPH (benign prostatic hyperplasia) COPD (chronic obstructive pulmonary disease) Dementia Depression Diarrhea GERD (gastroesophageal reflux disease) No pertinent family history Schizophrenia Shoulder pain Family History Aunt Family history of seizures Other No pertinent family history Social History Smoking Status: Current some day smoker Tobacco Type: Smokeless Tobacco (Dip or Chew) Hx Alcohol Use: Yes Alcohol type: beer Preferred Language: Singaporean Communication Ability: Effective Visual Impairment: No Limitations Hearing Ability: Normal Project Construction Manager Required: No Beliefs That Will Affect Care: Tenriism marital status: marital status details: Current Living Situation: Family Feels Safe at Home: Yes Assistive Devices: Cane and Glasses Allergies Allergies Allergy/AdvReac Type Severity Reaction Status Date / Time flaxseed Allergy Intermediate Hives and Verified 07/29/20 15:04 itching Penicillins Allergy Intermediate Hives Verified 07/29/20 15:04 Sulfa (Sulfonamide Allergy Intermediate Hives Verified 07/29/20 15:04 Antibiotics) paliperidone AdvReac Intermediate Patient Verified 07/29/20 15:04 states had "bad reaction" after administration Home Meds Home Medications Medication Instructions Recorded Confirmed levetiracetam 1,000 mg PO BID 09/21/19 08/14/20 folic acid 1 mg PO DAILY 07/25/20 08/14/20 loperamide 2 mg PO DIRECTED PRN 07/25/20 08/14/20 multivitamin 1 tab PO DAILY 07/25/20 08/14/20 thiamine HCl (vitamin B1) [Vitamin 100 mg PO DAILY 07/25/20 08/14/20 B-1] fluticasone propionate 2 spray INTRANASAL DAILY PRN 08/02/20 08/14/20 meclizine 25 mg PO TID PRN 08/02/20 08/14/20 pantoprazole [Protonix] 40 mg PO DAILY 08/02/20 08/14/20 tamsulosin 0.4 mg PO QAM 08/02/20 08/14/20 thiamine HCl (vitamin B1) 50 mg PO DAILY 08/02/20 08/14/20 Previous Rx's Medication Instructions Recorded nebulizer and compressor #1 ea 08/01/20 benztropine 0.5 mg PO BID #60 tab 08/12/20 haloperidol decanoate 100 mg IM Q4WK #1 dose 08/12/20 Results & Data (ED) Vital Signs Vital Signs - 24 hr 08/14/20 10:28 08/14/20 12:15 Temperature 36.8 C Temperature Source Oral Pulse Rate 96 H Pulse Rate [Finger] 82 Respiratory Rate 20 18 Blood Pressure 132/76 Blood Pressure [Right Arm] 142/84 H Blood Pressure Mean 94 Blood Pressure Mean [Right Arm] 103 Pulse Oximetry 95 95 Oxygen Delivery Method Room Air Room Air Sepsis Recent Fever Within 48 Hours No Sepsis New/Unexplained Change in Mental Status No Sepsis Action Taken by Nursing No Action Required Home Medications Current Medication List: was personally reviewed by me Laboratory Data Attestation: I reviewed the patient's lab results. Result diagrams: 08/14/20 11:37 08/14/20 11:37 Lab Results 08/14/20 08/14/20 08/14/20 Range/Units 10:26 10:26 11:37 WBC 8.92 (4.8-10.8) K/uL RBC 4.06 L (4.7-6.1) M/uL Hgb 12.8 L (14.0-18.0) g/dL Hct 37.7 L (42-52) % MCV 92.9 (80-100) fL MCH 31.5 (25-34) pg MCHC 34.0 (32-36) g/dL RDW Std Deviation 46.1 (36.4-46.3) fL RDW Coeff of Hina 13.5 (11.5-14.5) % Plt Count 323 (130-400) K/uL MPV 8.5 (7.4-10.4) fL Immature Gran % (Auto) 0.1 % Neut % (Auto) 71.5 % Lymph % (Auto) 20.1 % Pettis % (Auto) 5.7 % Eos % (Auto) 2.4 % Baso % (Auto) 0.2 % Neut # (Auto) 6.38 (1.4-6.5) K/uL Lymph # (Auto) 1.79 (1.2-3.4) K/uL Pettis # (Auto) 0.51 (0.11-0.59) K/uL Eos # (Auto) 0.21 (0-0.5) K/uL Baso # (Auto) 0.02 (0-0.2) K/uL Immature Gran # (Auto) 0.01 (0.00-0.02) K/uL Sodium (136-145) mmol/L Potassium (3.5-5.1) mmol/L Chloride (98-107) mmol/L Carbon Dioxide (21-32) mmol/L Anion Gap (3-11) BUN (7-18) mg/dl Creatinine (0.6-1.4) mg/dl Est Cr Clr Drug Dosing Est GFR ( Amer) Est GFR (Non-Af Amer) BUN/Creatinine Ratio (10-20) Glucose (70-99) mg/dl Calcium (8.5-10.1) mg/dl Total Bilirubin (0.2-1) mg/dl AST (15-37) U/L ALT (12-78) U/L Alkaline Phosphatase (45-117) U/L Total Protein (6.4-8.2) gm/dl Albumin (3.4-5.0) gm/dl Globulin (2.5-4.0) gm/dl Albumin/Globulin Ratio (0.9-2) TSH (0.300-4.500) uIu/ml Urine Color Yellow Urine Appearance Clear (Clear) Urine pH 5.5 (4.5-7.5) Ur Specific [place] 1.005 (1.000-1.030) Urine Protein Negative (Negative) Urine Glucose (UA) Negative (Negative) Urine Ketones Negative (Negative) Urine Blood Negative (Negative) Urine Nitrite Negative (Negative) Urine Bilirubin Negative (Negative) Urine Urobilinogen Negative (Negative) Ur Leukocyte Esterase Negative (Negative) Salicylates (2.8-20) mg/dl Urine Opiates Screen Neg (Neg) Ur Methadone, Qual Neg (Neg) Acetaminophen (10-30) ug/ml Urine Barbiturates Neg (Neg) Ur Phencyclidine (PCP) Neg (Neg) U Amphetamin/Meth Scrn Neg (Neg) MDMA (Ecstasy) Screen Neg (Neg) U Benzodiazepines Scrn Neg (Neg) Ur Cocaine Metabolite Neg (Neg) U Marijuana (THC) Screen Neg (Neg) Ethyl Alcohol mg/dL (0-3) mg/dl SARS-CoV-2 Ag (Rapid) (Negative) 08/14/20 08/14/20 08/14/20 Range/Units 11:37 11:37 11:37 WBC (4.8-10.8) K/uL RBC (4.7-6.1) M/uL Hgb (14.0-18.0) g/dL Hct (42-52) % MCV (80-100) fL MCH (25-34) pg MCHC (32-36) g/dL RDW Std Deviation (36.4-46.3) fL RDW Coeff of Hina (11.5-14.5) % Plt Count (130-400) K/uL MPV (7.4-10.4) fL Immature Gran % (Auto) % Neut % (Auto) % Lymph % (Auto) % Pett[place] % (Auto) % Eos % (Auto) % Baso % (Auto) % Neut # (Auto) (1.4-6.5) K/uL Lymph # (Auto) (1.2-3.4) K/uL Pettis # (Auto) (0.11-0.59) K/uL Eos # (Auto) (0-0.5) K/uL Baso # (Auto) (0-0.2) K/uL Immature Gran # (Auto) (0.00-0.02) K/uL Sodium 138 (136-145) mmol/L Potassium 4.3 (3.5-5.1) mmol/L Chloride 105 (98-107) mmol/L Carbon Dioxide 28 (21-32) mmol/L Anion Gap 5.0 (3-11) BUN 10 (7-18) mg/dl Creatinine 0.81 (0.6-1.4) mg/dl Est Cr Clr Drug Dosing Not Reportable Est GFR ( Amer) 106.6 Est GFR (Non-Af Amer) 92.0 BUN/Creatinine Ratio 12.7 (10-20) Glucose 93 (70-99) mg/dl Calcium 9.1 (8.5-10.1) mg/dl Total Bilirubin 0.6 (0.2-1) mg/dl AST 18 (15-37) U/L ALT 39 (12-78) U/L Alkaline Phosphatase 89 (45-117) U/L Total Protein 7.5 (6.4-8.2) gm/dl Albumin 3.4 (3.4-5.0) gm/dl Globulin 4.1 H (2.5-4.0) gm/dl Albumin/Globulin Ratio 0.8 L (0.9-2) TSH 1.570 (0.300-4.500) uIu/ml Urine Color Urine Appearance (Clear) Urine pH (4.5-7.5) Ur Specific [place] (1.000-1.030) Urine Protein (Negative) Urine Glucose (UA) (Negative) Urine Ketones (Negative) Urine Blood (Negative) Urine Nitrite (Negative) Urine Bilirubin (Negative) Urine Urobilinogen (Negative) Ur Leukocyte Esterase (Negative) Salicylates 6.2 (2.8-20) mg/dl Urine Opiates Screen (Neg) Ur Methadone, Qual (Neg) Acetaminophen 14 (10-30) ug/ml Urine Barbiturates (Neg) Ur Phencyclidine (PCP) (Neg) U Amphetamin/Meth Scrn (Neg) MDMA (Ecstasy) Screen (Neg) U Benzodiazepines Scrn (Neg) Ur Cocaine Metabolite (Neg) U Marijuana (THC) Screen (Neg) Ethyl Alcohol mg/dL < 3.0 (0-3) mg/dl SARS-CoV-2 Ag (Rapid) (Negative) 08/14/20 Range/Units 13:06 WBC (4.8-10.8) K/uL RBC (4.7-6.1) M/uL Hgb (14.0-18.0) g/dL Hct (42-52) % MCV (80-100) fL MCH (25-34) pg MCHC (32-36) g/dL RDW Std Deviation (36.4-46.3) fL RDW Coeff of Hina (11.5-14.5) % Plt Count (130-400) K/uL MPV (7.4-10.4) fL Immature Gran % (Auto) % Neut % (Auto) % Lymph % (Auto) % Pett[place] % (Auto) % Eos % (Auto) % Baso % (Auto) % Neut # (Auto) (1.4-6.5) K/uL Lymph # (Auto) (1.2-3.4) K/uL Pettis # (Auto) (0.11-0.59) K/uL Eos # (Auto) (0-0.5) K/uL Baso # (Auto) (0-0.2) K/uL Immature Gran # (Auto) (0.00-0.02) K/uL Sodium (136-145) mmol/L Potassium (3.5-5.1) mmol/L Chloride (98-107) mmol/L Carbon Dioxide (21-32) mmol/L Anion Gap (3-11) BUN (7-18) mg/dl Creatinine (0.6-1.4) mg/dl Est Cr Clr Drug Dosing Est GFR ( Amer) Est GFR (Non-Af Amer) BUN/Creatinine Ratio (10-20) Glucose (70-99) mg/dl Calcium (8.5-10.1) mg/dl Total Bilirubin (0.2-1) mg/dl AST (15-37) U/L ALT (12-78) U/L Alkaline Phosphatase (45-117) U/L Total Protein (6.4-8.2) gm/dl Albumin (3.4-5.0) gm/dl Globulin (2.5-4.0) gm/dl Albumin/Globulin Ratio (0.9-2) TSH (0.300-4.500) uIu/ml Urine Color Urine Appearance (Clear) Urine pH (4.5-7.5) Ur Specific [place] (1.000-1.030) Urine Protein (Negative) Urine Glucose (UA) (Negative) Urine Ketones (Negative) Urine Blood (Negative) Urine Nitrite (Negative) Urine Bilirubin (Negative) Urine Urobilinogen (Negative) Ur Leukocyte Esterase (Negative) Salicylates (2.8-20) mg/dl Urine Opiates Screen (Neg) Ur Methadone, Qual (Neg) Acetaminophen (10-30) ug/ml Urine Barbiturates (Neg) Ur Phencyclidine (PCP) (Neg) U Amphetamin/Meth Scrn (Neg) MDMA (Ecstasy) Screen (Neg) U Benzodiazepines Scrn (Neg) Ur Cocaine Metabolite (Neg) U Marijuana (THC) Screen (Neg) Ethyl Alcohol mg/dL (0-3) mg/dl SARS-CoV-2 Ag (Rapid) Negative (Negative) Administered Medications Acetaminophen (Acetaminophen 325 Mg Tab) 650 mg PO Q4H PRN PRN Reason: Headache or Minor Fever Stop: 09/13/20 14:11 Last Admin: 08/14/20 16:08 Dose: 650 mg Documented by: [id number] Discontinued Medications Acetaminophen (Acetaminophen 500 Mg Tab) 1,000 mg PO NOW STA Stop: 08/14/20 10:56 Last Admin: 08/14/20 11:00 Dose: 1,000 mg Documented by: [id number] Discharge Plan Visit Data Chief Complaint: Mental Health Evaluation ED Provider: Rudy Galvan Discharge Problem: Suicidal ideation Patient Disposition: Admitted As Inpatient Condition: Good Discharge Instructions Interventions: ED Discharge Assessment Last Done: 08/14/20 14:25
[2020-08-14 11:28] LABS: Amphetamines+Metham, Urine Neg (Neg); Barbiturates, Urine Neg (Neg); Benzodiazepine, Urine Neg (Neg); Cocaine, Urine Neg (Neg); MDMA (Ecstacy), Urine Neg (Neg); Methadone, Urine Neg (Neg); Opiate, Urine Neg (Neg); Phencyclidine, Urine Neg (Neg)
[2020-08-14 11:49] LABS: Basophils # (auto) 0.02 K/uL (0-0.2); Basophils % (auto) 0.2 %; Eosinophils # (auto) 0.21 K/uL (0-0.5); Eosinophils % (auto) 2.4 %; Hematocrit (blood only) 37.7 % (42-52); Hemoglobin 12.8 g/dL (14.0-18.0); Immature Granulocytes # (auto) 0.01 K/uL (0.00-0.02); Immature Granulocytes % (auto) 0.1 %; Lymphocytes # (auto) 1.79 K/uL (1.2-3.4); Lymphocytes % (auto) 20.1 %; Mean Corpuscular Hemoglobin 31.5 pg (25-34); Mean Corpuscular Volume 92.9 fL (80-100); Mean Platelet Volume 8.5 fL (7.4-10.4); Monocytes # (auto) 0.51 K/uL (0.11-0.59); Monocytes % (auto) 5.7 %; Neutrophils # (auto) 6.38 K/uL (1.4-6.5); Neutrophils % (auto) 71.5 %; Platelet Count 323 K/uL (130-400); RDW Coefficient of Variation 13.5 % (11.5-14.5); RDW Standard Deviation 46.1 fL (36.4-46.3); Red Blood Count 4.06 M/uL (4.7-6.1); White Blood Count 8.92 K/uL (4.8-10.8)
[2020-08-14 12:07] LABS: Salicylate 6.2 mg/dl (2.8-20)
[2020-08-14 12:08] LABS: Alanine Aminotransferase 39 U/L (12-78); Albumin Level 3.4 gm/dl (3.4-5.0); Aspartate Aminotransferase 18 U/L (15-37); BUN Creatinine Ratio 12.7 (10-20); Blood Urea Nitrogen 10 mg/dl (7-18); Calcium 9.1 mg/dl (8.5-10.1); Carbon Dioxide 28 mmol/L (21-32); Chloride 105 mmol/L (98-107); Est GFR (African American) 106.6; Glucose 93 mg/dl (70-99); Potassium 4.3 mmol/L (3.5-5.1); Sodium 138 mmol/L (136-145)
[2020-08-14 12:18] LABS: Albumin Globulin Ratio 0.8 (0.9-2); Alkaline Phosphatase 89 U/L (45-117); Bilirubin,Total 0.6 mg/dl (0.2-1); Globulin 4.1 gm/dl (2.5-4.0); Total Protein 7.5 gm/dl (6.4-8.2)
--- NOTE | 2020-08-14 13:55 | History & Physical ---
Date of Service August 14, 2020 Impression / Recommendations Impression 69-year-old male admitted voluntarily for inpatient psychiatric treatment on 08/14/2020 after presenting to the ED with suicidal ideation and feeling unsafe at home. The patient was discharged from our unit on 08/12/2020 after a 10-day admission. It was reported that the patient was home alone and had felt unsafe and SI developed. It was reported that patient had planned to shoot himself with a shotgun but could not figure out how to load the gun. Pt then called 911 with request to come to the hospital for admission. Pt's home environment is less than idea with regard to access to stable supports; however, he has been unwilling to work toward positive changes in this realm. Meetings have consistently been held with his son to discuss our recommendations for safety, which include securing guns. Pt did agree to re-open case management services during his recent admission and we will attempt to involve his son and supportive employment case manager in conversations regarding ways to improve support outside of the hosp ital setting. Pt was just started on haloperidol decanoate during his last admission, having received 100mg on 08/07. Initial focus will be on offering the patient a safe and supportive environment to begin addressing the stressors leading to his admissions. Home medications will be continued at this time. Given current SI, inability to contract for safety at home, and recent admission with rapid decompensation - inpatient psychiatric treatment is felt to be medically necessary as patient is at acute risk of suicide if discharged. Dr. Yojana Tang was directly involved in review and discussion of the patient's case and participated in medical decision making regarding treatment recommendations. (1) Suicidal ideation: 08/14 - Pt presents for admission after reporting development of SI and actually attempting to load his shotgun with intent to shot himself. He reports SI was in the context of loneliness and limited support outside of the hospital. Admitted to a locked inpatient behavioral health unit, on q15 minute safety checks - Encourage participation in group and recreational therapies - Gather collateral information from outpatient providers - Suggest family meeting to involve outpatient supports in safety planning - Arrange appropriate aftercare (2) Schizophrenia: 08/14 - Continue home medication regimen, as significant adjustments had just been made during his previous admission from 08/02 - 08/12. Pt is now on haloperidol decanoate, having received 100mg IM injection on 08/07. Will continue benztropine 0.5mg BID. - Remainder of discharge medications ordered. - Will need to involve supportive employment case manager in discussion regarding increasing the patient's outpatients supports, possibility even exploring the idea of a CRR referral - which patient states he is willing for during today's encounter. - Continue to offer group and milieu therapy and encourage participation - Will need to reschedule intake at [facility], which was scheduled for 08/19. Schizophrenia type: unspecified Qualified Code(s): F20.9 - Schizophrenia, unspecified (3) Alcohol abuse: 08/14 - Will put patient on AWSS protocol, as he admit he began drinking again after discharge from our unit. The patient admits to drinking over half a case since he was discharged 2 days ago. -Brief intervention was offered and accepted Intervention was greater than 5 min in length. Brief interventions include: 1. Assess Readiness to Quit, 2. Advise: Help Patient to Reduce or Abstain from Alcohol, 3. Agree: Set Specific, Feasible Goals, 4. Assist: Anticipate barriers, Problem-Solving Solutions. Social work to 5. Arrange: Referrals to appropriate treatment. Summary of intervention: The patient is in precontemplation stage with regards to transtheoretical model of change. The patient is advised to decrease alcohol consumption due to depressant effects and risk of interactions with prescription medications. The patient was advised of recommendations for abstinence from a lcohol and other abusable substances and to attend substance abuse treatment at discharge, and will be provided with recovery materials to continue to education self on how to cope with their condition without drinking. (4) Seizure disorder: 08/14 - Continue home dosing of Keppra 1000mg BID - Seizure precautions (5) Dyskinesia, tardive: - Longstanding diagnosis, continue to monitor (6) Tobacco abuse: - Nicotine replacement products ordered Risk Factors Assessment Male: Yes : Yes Do You Have Access To A Gun?: Yes (continuous refusal of recommendations to secure guns) Health Problems: Yes Mental Health Diagnoses: Yes Substance Use Disorders: Yes Previous Attempt: No Previous Psychiatric Hospitalization: Yes Smoker: Yes Protective Factors Assessment Restorationism Beliefs: Yes : No Responsible for Young Children: No Employed: No Psychiatric History Identifying Data EMMA LOBATO is a 69-year-old M who currently lives in [place], [place] with his son. Pt is well known to our unit, and was discharged on 08/12/2020 after a 10-day admission. He has a history of schizophrenia, and was admitted on 08/14/2020 on a 201 voluntary commitment for suicidality - having called 911 after attempting to end his life with a shotgun but couldn't figure out how to load it. Chief Complaint "I'm better now. Cause there's people to talk to." History of Present Illness Emma Lobato is a 69-year-old male admitted voluntarily for inpatient psychiatric treatment on 08/14/2020 after presenting to the ED via ambulance with reported SI. Pt reported in the ED that he had been home alone when he started to develop SI with a plan to shoot himself in the head. He stated he was not able to figure out how to load the gun, and called the ambulance after he began to feel unsafe. Pt was discharged from our unit on 08/12/2020 on a 304 IOC following a 10-day admission. During that admission, the patient did agree to case management services through the [facility]. Pt is cooperative with psychiatric assessment. He reports he feels "better now" as "there's people to talk to." The patient indicates that he has "been alone" quite a bit since he was discharged on 08/12. He states his son has been out of the home, and patient was unable to identify coping skills he had been utilizing to deal with this. The patient admits he has been feeling lonely as "there's no one to talk to." He admits he has started drinking again, having consumed over half a case of beer since he was discharged two days ago. The patient also reports "that little girl, she's been real mean." The patient reports an incident in which his glasses were moved from the top of the couch to the floor right behind the couch, and states when he found them the ear piece had been removed. Pt was challenged to think about any other explanations that could be provided for this scenario, but was unable to do so. He continues to be convinced that the ghost in his home is the only possible explanation. Pt states "I was trying to get help for her. See if someone could make a deal with the paranormal and get her out." In regard to events leading to his admission, the patient states "I was gonna shot myself." He reports that he knew the son that lives with him would not be returning home quickly. He does admit to trying to call the son that lives in [place], but the call did not go through. The patient states he then looked at the gun in the corner of the room and attempted to load it. He does deny SI presently, which he feels is related to the more supportive environment. We discussed patient's willingness to consider a CRR referral, which he is agreeable with presently. He does admit to feeling as though he needs additional support and interactions than he is currently having at home. The patient denies acute concerns here in the hospital and agreed to resuming his home medication regimen. Past Psychiatric History Current Psychiatric Diagnosis: Schizophrenia Outpatient Services: Referred to [facility] for an intake, scheduled for 08/19/2020. Previous Psych Admissions: [facility] - 04/2019, 09/2019, 07/2020 Do You Have Access To A Gun?: Yes (continuous refusal of recommendations to secure guns) History of Previous Suicide Attempt: No Past Medication Trials: 1. Invega Sustenna 2. Abilify Maintena 3. Cogentin 4. Haloperidol (oral and decanoate) Past Head Trauma/Neuro History History of Concussion/Seizure: Yes (reported history of seizures) Allergies Allergy/AdvReac Type Severity Reaction Status Date / Time flaxseed Allergy Intermediate Hives and Verified 07/29/20 15:04 itching Penicillins Allergy Intermediate Hives Verified 07/29/20 15:04 Sulfa (Sulfonamide Allergy Intermediate Hives Verified 07/29/20 15:04 Antibiotics) paliperidone AdvReac Intermediate Patient Verified 07/29/20 15:04 states had "bad reaction" after administration Home Medications Medication Instructions Recorded Confirmed Type levetiracetam 1,000 mg PO BID 09/21/19 08/14/20 History folic acid 1 mg PO DAILY 07/25/20 08/14/20 History loperamide 2 mg PO DIRECTED PRN 07/25/20 08/14/20 History multivitamin 1 tab PO DAILY 07/25/20 08/14/20 History thiamine HCl (vitamin B1) [Vitamin 100 mg PO DAILY 07/25/20 08/14/20 History B-1] nebulizer and compressor #1 ea 08/01/20 08/14/20 Rx fluticasone propionate 2 spray INTRANASAL DAILY PRN 08/02/20 08/14/20 History meclizine 25 mg PO TID PRN 08/02/20 08/14/20 History pantoprazole [Protonix] 40 mg PO DAILY 08/02/20 08/14/20 History tamsulosin 0.4 mg PO QAM 08/02/20 08/14/20 History thiamine HCl (vitamin B1) 50 mg PO DAILY 08/02/20 08/14/20 History benztropine 0.5 mg PO BID #60 tab 08/12/20 08/14/20 Rx haloperidol decanoate 100 mg IM Q4WK #1 dose 08/12/20 08/14/20 Rx Family History Family History of: Doesn't Know Alcohol History Hx of Alcohol Use Over the Past 12 Months: Yes (drinks daily or every few days) He admits to consuming over half a case of beer since he was discharged from our unit 2 days ago. Smoking Use Have You Smoked or Used Tobacco Products in the Last 30 Days: Yes tobacco type: smokeless tobacco Substance History Hx of Prescription Med Misuse Over the Past 12 Months: No Hx of Over the Counter Med Misuse Over the Past 12 Months: No Hx of Inhalent Misuse Over the Past 12 Months: No Hx of Organic Substance Use Over the Past 12 Months: No Hx of Illegal Substances/Street Drug Use Over Past 12 Months: No Personal History Living Arrangements: Home (conditions of home are less than desirable, lives with adult son) Born In: [place], [place] - Grew up in [facility] Highest Grade Completed: High School Graduate Marital Status: Number Of Children: 6 - lives with one adult son locally Beliefs That Will Affect Care: Restorationism (The patient says that he believes in God but has no one to take him to yarsani.) Current Legal Problems: No Hx Traumatic Life Events: Yes (Reports his divorce from as traumatic; denies history of abuse) Patient History Medical History Acid reflux Alcohol abuse Anxiety Arthritis BPH (benign prostatic hyperplasia) COPD (chronic obstructive pulmonary disease) Dementia Depression Diarrhea GERD (gastroesophageal reflux disease) No pertinent family history Schizophrenia Shoulder pain Family History Aunt Family history of seizures Other No pertinent family history Social History Smoking Status: Current some day smoker Tobacco Type: Smokeless Tobacco (Dip or Chew) Hx Alcohol Use: Yes Alcohol type: beer Preferred Language: Sammarinese Communication Ability: Effective Visual Impairment: No Limitations Hearing Ability: Normal Sole Layer Hand Required: No Beliefs That Will Affect Care: Restorationism marital status: marital status details: Current Living Situation: Family Feels Safe at Home: Yes Assistive Devices: Cane and Glasses Review of Systems Review of Systems: Constitutional: denied Cardiovascular: denied Respiratory: denied Gastrointestinal: denied Neurological: denied Psychiatric: denies symptoms other than stated above Total of at least 10 systems reviewed, pertinent positives as above and in HPI. Physical Exam Psychiatric: Orientation: alert, oriented x 3 and cooperative (superficially ) Apperance: appropriately dressed and + disheveled; + inappropriately groomed Overweight appearing male, seated on edge of bed and appearing anxious. Pt is appropriately dressed for clinical setting, wearing paper scrubs. He is poorly groomed and appears unkempt. Wearing corrective lenses. Hair appears unclean, general hygiene is poor. Eye Contact: + fair eye contact Motor Behavior: steady gait and station (utilizes rolling walker for assistance ) known diagnosis of TD, ongoing facial movements consistent with this diagnosis Speech: normal rate/rhythm/volume of speech Affect: + blunted affect Mood: + depressed mood Thought Process: + perseveration and + concrete thought process; + thought process not linear or logical Thought Content: + paranoid, + delusions (believes there is a ghost in his home, targeting him directly ), + ideas of reference, + persecution and + loneliness Suicidal Thoughts: denies suicidal thoughts (presently ) Admits to prior to admission, having attempted to load his shotgun with intent to shoot himself Homicidal Thoughts: denies homicidal thoughts Hallucinations: no auditory hallucinations and no visual hallucinations Cognition: recent memory grossly intact and language grossly intact Estimated Intelligence: + below average estimated intelligence Insight: + impaired insight Judgement: + impaired judgement Vital Signs (Past 24 Hours): Last Vital Signs Temp 36.8 C 08/14/20 10:28 Pulse 82 08/14/20 12:15 Resp 18 08/14/20 12:15 BP 142/84 H 08/14/20 12:15 Pulse Ox 95 08/14/20 12:15 Exam Statement: A physical exam was performed in the ER prior to admission to the unit by Dr. Rudy Galvan MD. I accept that physical as correct/medical clearance for the inpatient physical exam. Results & Data ([facility]) Laboratory Results Laboratory Results - last 24 hr 08/14/20 08/14/20 08/14/20 10:26 10:26 11:37 WBC 8.92 RBC 4.06 L Hgb 12.8 L Hct 37.7 L MCV 92.9 MCH 31.5 MCHC 34.0 RDW Std Deviation 46.1 RDW Coeff of Hina 13.5 Plt Count 323 MPV 8.5 Immature Gran % (Auto) 0.1 Neut % (Auto) 71.5 Lymph % (Auto) 20.1 [place] % (Auto) 5.7 Eos % (Auto) 2.4 Baso % (Auto) 0.2 Neut # (Auto) 6.38 Lymph # (Auto) 1.79 [place] # (Auto) 0.51 Eos # (Auto) 0.21 Baso # (Auto) 0.02 Immature Gran # (Auto) 0.01 Sodium Potassium Chloride Carbon Dioxide Anion Gap BUN Creatinine Est Cr Clr Drug Dosing Est GFR ( Amer) Est GFR (Non-Af Amer) BUN/Creatinine Ratio Glucose Calcium Total Bilirubin AST ALT Alkaline Phosphatase Total Protein Albumin Globulin Albumin/Globulin Ratio TSH Urine Color Yellow Urine Appearance Clear Urine pH 5.5 Ur Specific [place] 1.005 Urine Protein Negative Urine Glucose (UA) Negative Urine Ketones Negative Urine Blood Negative Urine Nitrite Negative Urine Bilirubin Negative Urine Urobilinogen Negative Ur Leukocyte Esterase Negative Salicylates Urine Opiates Screen Neg Ur Methadone, Qual Neg Acetaminophen Urine Barbiturates Neg Ur Phencyclidine (PCP) Neg U Amphetamin/Meth Scrn Neg MDMA (Ecstasy) Screen Neg U Benzodiazepines Scrn Neg Ur Cocaine Metabolite Neg U Marijuana (THC) Screen Neg Ethyl Alcohol mg/dL SARS-CoV-2 Ag (Rapid) 08/14/20 08/14/20 08/14/20 11:37 11:37 11:37 WBC RBC Hgb Hct MCV MCH MCHC RDW Std Deviation RDW Coeff of Hina Plt Count MPV Immature Gran % (Auto) Neut % (Auto) Lymph % (Auto) [place] % (Auto) Eos % (Auto) Baso % (Auto) Neut # (Auto) Lymph # (Auto) [place] # (Auto) Eos # (Auto) Baso # (Auto) Immature Gran # (Auto) Sodium 138 Potassium 4.3 Chloride 105 Carbon Dioxide 28 Anion Gap 5.0 BUN 10 Creatinine 0.81 Est Cr Clr Drug Dosing Not Reportable Est GFR ( Amer) 106.6 Est GFR (Non-Af Amer) 92.0 BUN/Creatinine Ratio 12.7 Glucose 93 Calcium 9.1 Total Bilirubin 0.6 AST 18 ALT 39 Alkaline Phosphatase 89 Total Protein 7.5 Albumin 3.4 Globulin 4.1 H Albumin/Globulin Ratio 0.8 L TSH 1.570 Urine Color Urine Appearance Urine pH Ur Specific [place] Urine Protein Urine Glucose (UA) Urine Ketones Urine Blood Urine Nitrite Urine Bilirubin Urine Urobilinogen Ur Leukocyte Esterase Salicylates 6.2 Urine Opiates Screen Ur Methadone, Qual Acetaminophen 14 Urine Barbiturates Ur Phencyclidine (PCP) U Amphetamin/Meth Scrn MDMA (Ecstasy) Screen U Benzodiazepines Scrn Ur Cocaine Metabolite U Marijuana (THC) Screen Ethyl Alcohol mg/dL < 3.0 SARS-CoV-2 Ag (Rapid) 08/14/20 13:06 WBC RBC Hgb Hct MCV MCH MCHC RDW Std Deviation RDW Coeff of Hina Plt Count MPV Immature Gran % (Auto) Neut % (Auto) Lymph % (Auto) [place] % (Auto) Eos % (Auto) Baso % (Auto) Neut # (Auto) Lymph # (Auto) [place] # (Auto) Eos # (Auto) Baso # (Auto) Immature Gran # (Auto) Sodium Potassium Chloride Carbon Dioxide Anion Gap BUN Creatinine Est Cr Clr Drug Dosing Est GFR ( Amer) Est GFR (Non-Af Amer) BUN/Creatinine Ratio Glucose Calcium Total Bilirubin AST ALT Alkaline Phosphatase Total Protein Albumin Globulin Albumin/Globulin Ratio TSH Urine Color Urine Appearance Urine pH Ur Specific [place] Urine Protein Urine Glucose (UA) Urine Ketones Urine Blood Urine Nitrite Urine Bilirubin Urine Urobilinogen Ur Leukocyte Esterase Salicylates Urine Opiates Screen Ur Methadone, Qual Acetaminophen Urine Barbiturates Ur Phencyclidine (PCP) U Amphetamin/Meth Scrn MDMA (Ecstasy) Screen U Benzodiazepines Scrn Ur Cocaine Metabolite U Marijuana (THC) Screen Ethyl Alcohol mg/dL SARS-CoV-2 Ag (Rapid) Negative
[2020-08-14] MEDS ORDERED: SODIUM CHLORIDE 0.65% NA SOLN 45 ML (OCEAN) PRN (14:12)
[2020-08-14] MEDS ORDERED: hydrOXYzine HCl 25 MG TAB PO PRN ×2 (14:12)
[2020-08-14] MEDS ORDERED: BISMUTH SUBSALICYLATE LIQD 236 ML PO PRN (14:12)
[2020-08-14] MEDS ORDERED: ALUMINUM/MAGNESIUM SUSP 30 ML UDC PO PRN (14:12)
[2020-08-14] MEDS ORDERED: MAGNESIUM HYDROXIDE SUSP 30 ML UDC PO PRN (14:12)
[2020-08-14] MEDS ORDERED: FLUTICASONE PROPIONATE NA SPR 16 GM BTL PRN (14:15)
[2020-08-14] MEDS ORDERED: MECLIZINE HCL 25 MG TAB PO PRN (14:54)
[2020-08-14] MEDS ORDERED: LOPERAMIDE HCL 2 MG CAP PO PRN (14:54)
[2020-08-14] MEDS ORDERED: NICOTINE POLACRILEX 2 MG GUM MT PRN (15:19)
[2020-08-14] MEDS: ACETAMINOPHEN 325 MG TAB PO PRN (16:08)
[2020-08-14] MEDS: BENZTROPINE MESYLATE 0.5 MG TAB PO SCH (21:15)
[2020-08-14] MEDS: levETIRAcetam 500 MG TAB PO SCH (21:15)
[2020-08-15] MEDS: ACETAMINOPHEN 325 MG TAB PO PRN ×2 (03:06→12:02)
--- NOTE | 2020-08-15 07:49 | Psychiatric Progress Note ---
Date of Service August 15, 2020 Impression / Recommendations Impression 69-year-old male admitted voluntarily for inpatient psychiatric treatment on 08/14/2020 after presenting to the ED with suicidal ideation and feeling unsafe at home. The patient was discharged from our unit on a 304 IOC on 08/12/2020 after a 10-day admission, but upon return home felt unsafe and developed SI. He planned to shoot himself with a shotgun, but could not figure out how to load the gun, and then called 911, and is admitted voluntarily. His home environment is less than idea with primitive conditions and he lacks access to stable supports. He was started on haloperidol decanoate during his last admission, and received 100mg on 08/07. He is willing for a referral to the CRR, which is necessary as he is unable to provide for his basic needs living independently, even with the help of his son. [facility] was contacted during his last admission as he was willing for services, but they said they could not provide any. (1) Suicidal ideation: 08/14 - Pt presents for admission after reporting development of SI and actually attempting to load his shotgun with intent to shot himself. He reports SI was in the context of loneliness and limited support outside of the hospital. Admitted to a locked inpatient behavioral health unit, on q15 minute safety checks - Encourage participation in group and recreational therapies - Gather collateral information from outpatient providers - Suggest family meeting to involve outpatient supports in safety planning - Arrange appropriate aftercare 08/15 - SI improved w/ support of inpatient unit. Patient unable to live independently and will refer to long term as below. (2) Schizophrenia: 08/14 - Continue home medication regimen, as significant adjustments had just been made during his previous admission from 08/02 - 08/12. Pt is now on haloperidol decanoate, having received 100mg IM injection on 08/07. Will continue benztropine 0.5mg BID. - Remainder of discharge medications ordered. - Will need to involve welfare case worker in discussion regarding increasing the patient's outpatients supports, possibility even exploring the idea of a CRR referral - which patient states he is willing for during today's encounter. - Continue to offer group and milieu therapy and encourage participation - Will need to reschedule intake at [facility], which was scheduled for 08/19. 08/15 - Filed 306 conversion paperwork to convert to 304 inpatient commitment, with converstion hearing on Mon. 08/19. - Next Haldol dec 100mg injection due 09/04, can be given earlier if breakthrough symptoms occur. - Coordinate w/ [facility] and refer to CRR. (3) Alcohol abuse: 08/14 - Will put patient on AWSS protocol, as he admit he began drinking again after discharge from our unit. The patient admits to drinking over half a case since he was discharged 2 days ago. -Brief intervention was offered and accepted Intervention was greater than 5 min in length. Brief interventions include: 1. Assess Readiness to Quit, 2. Advise: Help Patient to Reduce or Abstain from Alcohol, 3. Agree: Set Specific, Feasible Goals, 4. Assist: Anticipate barriers, Problem-Solving Solutions. Social work to 5. Arrange: Referrals to appropriate treatment. Summary of intervention: The patient is in precontemplation stage with regards to transtheoretical model of change. The patient is advised to decrease alcohol consumption due to depressant effects and risk of interactions with prescription medications. The patient was advised of recommendations for abstinence from alcohol and other abusable substances and to attend substance abuse treatment at discharge, and will be provided with recovery materials to continue to education self on how to cope with their condition without drinking. (4) Dyskinesia, tardive: - Longstanding diagnosis, continue to monitor (5) Seizure disorder: 08/14 - Continue home dosing of Keppra 1000mg BID - Seizure precautions (6) Tobacco abuse: - Nicotine replacement products ordered Risk Factors Assessment Male: Yes : Yes Do You Have Access To A Gun?: Yes (continuous refusal of recommendations to secure guns) Health Problems: Yes Mental Health Diagnoses: Yes Substance Use Disorders: Yes Previous Attempt: No Previous Psychiatric Hospitalization: Yes Smoker: Yes Protective Factors Assessment Sikh Beliefs: Yes : No Responsible for Young Children: No Employed: No Interval History Identifying Information EMMA SAUER is a 69-year-old M who currently lives in [place], [place] with his son. Pt is well known to our unit, and was discharged on 08/12/2020 after a 10-day admission. He has a history of schizophrenia, and was admitted on 08/14/2020 on a 201 voluntary commitment for suicidality - having called 911 after attempting to end his life with a shotgun but couldn't figure out how to load it. Chief Complaint "Better". Review of Systems Sleep Information Total Hours of Sleep: 5.5 Meal Information Percent Meal Consumed - Dinner: 100 Subjective Subjective Patient was seen & assessed and interval progress reviewed with nursing and social work. Staff report that he retreated to bed after admission yesterday, and was depressed and withdrawn when staff approached him. He told staff he felt rejected by his son since being discharged from the [facility] 2 days prior, as he was spending most of his time away from home. He has agreed to a referral to the CRR. On my assessment, he states that he was very upset when he returned home after discharge on Wednesday as "there was no one there to help me." He states that his son was away from the home for long periods of time, and they were not getting along. He is concerned that his son is trying to take his money, stating that he bought a truck for his son and he now wants to put more money into it "instead of paying the electric bill. He has it all figured out what he's gonna to do with my $800 next month." He currently has his son's name on his bank account, but wants to get it removed so that his son cannot take his money. He is also upset that his son has been having seizures and is not supposed to be driving, but continues to drive. He remains willing for referral to the CRR. He states his mood has improved since admission, he is eating well, and feels safe here. Physical Exam Psychiatric Orientation: alert and cooperative Apperance: appropriately dressed and + disheveled White male appearing older than stated age. Dressed in scrub pants and a T- shirt, wearing glasses. Facial stubble, unwashed funk hair, unkempt. Seated in no acute distress. Walks with a walker. Eye Contact: + fair eye contact Speech: normal rate/rhythm/volume of speech Affect: + blunted affect "Better." Thought Process: goal directed thought process Thought Content: + delusions (That his home was haunted by an evil spirit and the ghost of a little girl) Suicidal Thoughts: denies suicidal thoughts Homicidal Thoughts: denies homicidal thoughts Hallucinations: no auditory hallucinations Cognition: recent memory grossly intact, attention grossly intact and language grossly intact Insight: + limited insight Judgement: + limited judgement Vital Signs (Past 24 Hours) Last Vital Signs Temp 36.5 C 08/15/20 06:30 Pulse 101 H 08/15/20 06:30 Resp 19 08/15/20 06:30 BP 133/78 08/15/20 06:30 Pulse Ox 95 08/14/20 12:15 Results & Data ([facility]) Laboratory Results Laboratory Results - last 24 hr 08/14/20 08/14/20 08/14/20 10:26 10:26 11:37 WBC 8.92 RBC 4.06 L Hgb 12.8 L Hct 37.7 L MCV 92.9 MCH 31.5 MCHC 34.0 RDW Std Deviation 46.1 RDW Coeff of Hina 13.5 Plt Count 323 MPV 8.5 Immature Gran % (Auto) 0.1 Neut % (Auto) 71.5 Lymph % (Auto) 20.1 Crane % (Auto) 5.7 Eos % (Auto) 2.4 Baso % (Auto) 0.2 Neut # (Auto) 6.38 Lymph # (Auto) 1.79 Crane # (Auto) 0.51 Eos # (Auto) 0.21 Baso # (Auto) 0.02 Immature Gran # (Auto) 0.01 Sodium Potassium Chloride Carbon Dioxide Anion Gap BUN Creatinine Est Cr Clr Drug Dosing Est GFR ( Amer) Est GFR (Non-Af Amer) BUN/Creatinine Ratio Glucose Calcium Total Bilirubin AST ALT Alkaline Phosphatase Total Protein Albumin Globulin Albumin/Globulin Ratio TSH Urine Color Yellow Urine Appearance Clear Urine pH 5.5 Ur Specific [place] 1.005 Urine Protein Negative Urine Glucose (UA) Negative Urine Ketones Negative Urine Blood Negative Urine Nitrite Negative Urine Bilirubin Negative Urine Urobilinogen Negative Ur Leukocyte Esterase Negative Salicylates Urine Opiates Screen Neg Ur Methadone, Qual Neg Acetaminophen Urine Barbiturates Neg Ur Phencyclidine (PCP) Neg U Amphetamin/Meth Scrn Neg MDMA (Ecstasy) Screen Neg U Benzodiazepines Scrn Neg Ur Cocaine Metabolite Neg U Marijuana (THC) Screen Neg Ethyl Alcohol mg/dL SARS-CoV-2 Ag (Rapid) 08/14/20 08/14/20 08/14/20 11:37 11:37 11:37 WBC RBC Hgb Hct MCV MCH MCHC RDW Std Deviation RDW Coeff of Hina Plt Count MPV Immature Gran % (Auto) Neut % (Auto) Lymph % (Auto) Crane % (Auto) Eos % (Auto) Baso % (Auto) Neut # (Auto) Lymph # (Auto) Crane # (Auto) Eos # (Auto) Baso # (Auto) Immature Gran # (Auto) Sodium 138 Potassium 4.3 Chloride 105 Carbon Dioxide 28 Anion Gap 5.0 BUN 10 Creatinine 0.81 Est Cr Clr Drug Dosing Not Reportable Est GFR ( Amer) 106.6 Est GFR (Non-Af Amer) 92.0 BUN/Creatinine Ratio 12.7 Glucose 93 Calcium 9.1 Total Bilirubin 0.6 AST 18 ALT 39 Alkaline Phosphatase 89 Total Protein 7.5 Albumin 3.4 Globulin 4.1 H Albumin/Globulin Ratio 0.8 L TSH 1.570 Urine Color Urine Appearance Urine pH Ur Specific [place] Urine Protein Urine Glucose (UA) Urine Ketones Urine Blood Urine Nitrite Urine Bilirubin Urine Urobilinogen Ur Leukocyte Esterase Salicylates 6.2 Urine Opiates Screen Ur Methadone, Qual Acetaminophen 14 Urine Barbiturates Ur Phencyclidine (PCP) U Amphetamin/Meth Scrn MDMA (Ecstasy) Screen U Benzodiazepines Scrn Ur Cocaine Metabolite U Marijuana (THC) Screen Ethyl Alcohol mg/dL < 3.0 SARS-CoV-2 Ag (Rapid) 08/14/20 13:06 WBC RBC Hgb Hct MCV MCH MCHC RDW Std Deviation RDW Coeff of Hina Plt Count MPV Immature Gran % (Auto) Neut % (Auto) Lymph % (Auto) Crane % (Auto) Eos % (Auto) Baso % (Auto) Neut # (Auto) Lymph # (Auto) Crane # (Auto) Eos # (Auto) Baso # (Auto) Immature Gran # (Auto) Sodium Potassium Chloride Carbon Dioxide Anion Gap BUN Creatinine Est Cr Clr Drug Dosing Est GFR ( Amer) Est GFR (Non-Af Amer) BUN/Creatinine Ratio Glucose Calcium Total Bilirubin AST ALT Alkaline Phosphatase Total Protein Albumin Globulin Albumin/Globulin Ratio TSH Urine Color Urine Appearance Urine pH Ur Specific [place] Urine Protein Urine Glucose (UA) Urine Ketones Urine Blood Urine Nitrite Urine Bilirubin Urine Urobilinogen Ur Leukocyte Esterase Salicylates Urine Opiates Screen Ur Methadone, Qual Acetaminophen Urine Barbiturates Ur Phencyclidine (PCP) U Amphetamin/Meth Scrn MDMA (Ecstasy) Screen U Benzodiazepines Scrn Ur Cocaine Metabolite U Marijuana (THC) Screen Ethyl Alcohol mg/dL SARS-CoV-2 Ag (Rapid) Negative Current Inpatient Medications Current Inpatient Medications: Current Inpatient Medications Acetaminophen (Acetaminophen 325 Mg Tab) 650 mg PO Q4H PRN PRN Reason: Headache or Minor Fever Stop: 09/13/20 14:11 Last Admin: 08/15/20 03:06 Dose: 650 mg Documented by: Al Hydrox/Mg Hydrox/Simethicone (Aluminum/Magnesium Susp 30 Ml Udc) 30 ml PO Q4H PRN PRN Reason: GI Upset Stop: 09/13/20 14:11 Benztropine Mesylate (Benztropine Mesylate 0.5 Mg Tab) 0.5 mg PO BID [facility] Stop: 09/13/20 20:59 Last Admin: 08/14/20 21:15 Dose: 0.5 mg Documented by: Bismuth Subsalicylate (Bismuth Subsalicylate Liqd 236 Ml) 15 ml PO PRN PRN PRN Reason: Loose Stool Stop: 09/13/20 14:11 Fluticasone Propionate (Fluticasone Propionate Na Spr 16 Gm Btl) 2 sprays NA DAILY PRN PRN Reason: Allergy Symptoms Stop: 09/13/20 14:14 Folic Acid (Folic Acid 1 Mg Tab) 1 mg PO DAILY [facility] Stop: 09/14/20 08:59 Haloperidol Decanoate (Haloperidol Decanoate Inj 50 Mg/Ml Vial) 100 mg IM Q28D [facility] Stop: 10/05/20 08:59 Hydroxyzine HCl (Hydroxyzine Hcl 25 Mg Tab) 50 mg PO HSZ PRN PRN Reason: Insomnia Stop: 09/13/20 14:11 Hydroxyzine HCl (Hydroxyzine Hcl 25 Mg Tab) 25 mg PO Q4H PRN PRN Reason: Anxiety Stop: 09/13/20 14:11 Levetiracetam (Levetiracetam 500 Mg Tab) 1,000 mg PO BID [facility] Stop: 09/13/20 20:59 Last Admin: 08/14/20 21:15 Dose: 1,000 mg Documented by: Loperamide HCl (Loperamide Hcl 2 Mg Cap) 2 mg PO PRN PRN PRN Reason: Diarrhea Stop: 09/13/20 14:53 Magnesium Hydroxide (Magnesium Hydroxide Susp 30 Ml Udc) 30 ml PO DAILY PRN PRN Reason: Constipation Stop: 09/13/20 14:11 Meclizine HCl (Meclizine Hcl 25 Mg Tab) 25 mg PO TID PRN PRN Reason: Vertigo Stop: 09/13/20 14:53 Miscellaneous (Remove Nicoderm Patch) 1 ea N/A DAILY@[id number] [facility] Stop: 09/14/20 08:58 Multivitamins (Multivitamin Tab) 1 tab PO DAILY [facility] Stop: 09/14/20 08:59 Nicotine (Nicotine 7 Mg/24 Hr Tdsy) 7 mg TD QAM [facility] Stop: 09/14/20 08:59 Nicotine Polacrilex (Nicotine Polacrilex 2 Mg Gum) 1 piece MT PRN PRN PRN Reason: nicotine cravings Stop: 09/13/20 15:18 Pantoprazole Sodium (Pantoprazole 40 Mg Tab) 40 mg PO DAILY [facility] Stop: 09/14/20 08:59 Sodium Chloride (Sodium Chloride 0.65% Na Soln 45 Ml ([place])) 1 - 2 sprays NA PRN PRN PRN Reason: Nasal Dryness/Congestion Stop: 09/13/20 14:11 Tamsulosin HCl (Tamsulosin Hcl 0.4 Mg Cap) 0.4 mg PO QAM [facility] Stop: 09/14/20 08:59 Thiamine HCl (Thiamine Hcl 100 Mg Tab) 100 mg PO DAILY [facility] Stop: 09/14/20 08:59 Mental Health & Subst Abuse Tx Psychiatrist Name of Psychiatrist: Yelena Intake Psychiatrist's Date of Appointment with Psychiatrist: 08/19/20 Time of Appointment with Psychiatrist: 5:00pm (In person,call when you arrive in parking lot) Psychiatric Appointment Comment: [phone] Therapist Name of Therapist: Yelena Therapist's Date of Therapist Appointment: 08/19/20 Time of Therapist Appointment: 5:00pm Public Health Aide Name of Public Health Aide: [facility] Adalid Brownlee Phone Number for Public Health Aide: [phone] Post Discharge Appointments Primary Care Physician Name Of Family Doctor: Dr. Aristeo Camacho Primary Care Provider Appointment Comment: [address] [place] [address] [place] [address] Contact Information Discharge Discharge [address]: [address] [place], [place] [address] [id number] (1) Schizophrenia Schizophrenia type: unspecified Qualified Code(s): F20.9 - Schizophrenia, unspecified
[2020-08-15] MEDS: levETIRAcetam 500 MG TAB PO SCH ×2 (08:23→21:04)
[2020-08-15] MEDS: BENZTROPINE MESYLATE 0.5 MG TAB PO SCH ×2 (08:23→21:04)
[2020-08-15] MEDS ORDERED: PANTOprazole 40 MG TAB PO SCH (09:00)
[2020-08-15] MEDS ORDERED: NICOTINE 7 MG/24 HR TDSY TD SCH (09:00)
[2020-08-15] MEDS ORDERED: TAMSULOSIN HCL 0.4 MG CAP PO SCH (09:00)
[2020-08-15] MEDS ORDERED: FOLIC ACID 1 MG TAB PO SCH (09:00)
[2020-08-15] MEDS ORDERED: MULTIVITAMIN TAB PO SCH (09:00)
[2020-08-15] MEDS ORDERED: THIAMINE HCL 100 MG TAB PO SCH (09:00)
[2020-08-15] MEDS ORDERED: IBUPROFEN 600 MG TAB PO PRN (11:57)
[2020-08-16] MEDS: ACETAMINOPHEN 325 MG TAB PO PRN (05:08)
--- NOTE | 2020-08-16 09:21 | Discharge Summary ---
Date of Service August 16, 2020 History of Present Illness Trino Lobato is a 69-year-old male admitted voluntarily for inpatient psychiatric treatment on 08/14/2020 after presenting to the ED via ambulance with reported SI. Pt reported in the ED that he had been home alone when he started to develop SI with a plan to shoot himself in the head. He stated he was not able to figure out how to load the gun, and called the ambulance after he began to feel unsafe. Pt was discharged from our unit on 08/12/2020 on a 304 IOC following a 10-day admission. During that admission, the patient did agree to case management services through the [facility]. Pt is cooperative with psychiatric assessment. He reports he feels "better now" as "there's people to talk to." The patient indicates that he has "been alone" quite a bit since he was discharged on 08/12. He states his son has been out of the home, and patient was unable to identify coping skills he had been utilizing to deal with this. The patient admits he has been feeling lonely as "there's no one to talk to." He admits he has started drinking again, having consumed over half a case of beer since he was discharged two days ago. The patient also reports "that little girl, she's been real mean." The patient reports an incident in which his glasses were moved from the top of the couch to the floor right behind the couch, and states when he found them the ear piece had been removed. Pt was challenged to think about any other explanations that could be provided for this scenario, but was unable to do so. He continues to be convinced that the ghost in his home is the only possible explanation. Pt states "I was trying to get help for her. See if someone could make a deal with the paranormal and get her out." In regard to events leading to his admission, the patient states "I was gonna shot myself." He reports that he knew the son that lives with him would not be returning home quickly. He does admit to trying to call the son that lives in [place], but the call did not go through. The patient states he then looked at the gun in the corner of the room and attempted to load it. He does deny SI presently, which he feels is related to the more supportive environment. We discussed patient's willingness to consider a CRR referral, which he is agreeable with presently. He does admit to feeling as though he needs additional support and interactions than he is currently having at home. The patient denies acute concerns here in the hospital and agreed to resuming his home medication regimen. Physical Exam Psychiatric Orientation: alert, oriented x 3 and cooperative Apperance: appropriately dressed and appropriately groomed Coughs periodically throughout the evaluation Eye Contact: + fair eye contact Motor Behavior: + tremor Stiff gait Speech: normal rate/rhythm/volume of speech Affect: + blunted affect "Okay" Thought Process: + tangential thought process Thought Content: + delusions Continues to believe that his dwelling is inhabited by a spirit or ghost that he refers to as "The Girl," and that an evil entity within the home is angry at him for attempting to help or free "The Girl." Suicidal Thoughts: denies suicidal thoughts Homicidal Thoughts: denies homicidal thoughts Hallucinations: + auditory hallucinations Reports that he can sometimes her the ghost who he believes is trapped in his home. Cognition: recent memory grossly intact, remote memory grossly intact and language grossly intact Estimated Intelligence: + below average estimated intelligence Insight: + severely impaired insight Judgement: + poor judgement Vital Signs (Past 24 Hours) Last Vital Signs Temp 36.3 C L 08/16/20 09:00 Pulse 70 08/16/20 09:00 Resp 19 08/16/20 09:00 BP 142/84 H 08/16/20 09:00 Pulse Ox 97 08/16/20 09:00 Principal Diagnosis Schizophrenia Psychiatric Data During the course of hospitalization the patient was offered various modalities of psychiatric treatment and education. He participated actively in therapeutic groups and activities, as well as in the milieu. As noted above, the patient had been admitted after he called the police and reported that he was contemplating suicide and by firearm, but has been unable to load succeed and loading the gun. At admission, he indicated that he was feeling distressed because of what he believes is an ongoing situation and his home; namely, that the dwelling is "inhabited" by the ghost or spirit of an entity that he refers to as "the girl" or "the little girl." His delusional system includes a belief that this "little girl" has been entrapped in the home by some other entity, that he refers to as "an evil spirit" that has become angry at the patient because the patient is attempting to help with the "little girl" escape from the home. He fears that the evil spirit will kill him, and for that reason he believes that it would be best if he were to kill himself first. However, shor tly after admission the patient began to report that he was not contemplating suicide, at least as long as he was in the hospital and as long as he did not have to go back to his home, which, as above, he believes is haunted. He is willing to accept alternative placements, but there is several limitations including financial limitations, availability, and lack of insight. The bigger problem is that the patient's home, by all accounts, is dilapidated, filthy, and lacks adequate heating and there is no running water. During the current stay, the patient has been cooperative on the unit and has not been a management problem. He does require active assistance in be encouraged to bathe, dress, and groomed. We were notified that the patient's son, with whom the patient lives, and all of his son's coworkers at a local restaurant were exposed to COVID-19 at the end of last week, and the restaurant reportedly closed on Wednesday, 5 days ago. The patient's son is refusing to get tested, and has shared to the patient small residence with the patient since Wednesday of this week, 2 days prior to admission, and essentially for 2-1/2 days of exposure. On 08/15/2020, the day after the patient's readmission to the behavioral health unit and 4 days subsequent to the initial exposure to his son the patient developed symptoms suggestive of COVID-19, namely a cough, nasopharyngeal congestion, and headache. He had been tested for COVID-19 with an antigen test prior to admission on 08/15/2020 12 and that test was negative. However, the incubation period would have been suboptimal inadequate and, at that time, the patient was not symptomatic. In consultation with Dr. Ward Lua was agreed that the patient should be transferred to a medical unit pending further observation and testing. We are recommending that to the extent possible his psychiatric treatment plan continue to be followed, and we will, of course, be involved to the degree that we are able to be. We can also accept the patient back on the behavioral health unit, as required, when he is cleared medically. Day of Discharge Assessment On the day of discharge the patient was interviewed while he was lying in bed. He reports that he feels "okay," and notes that his headache is "better." Although he reports that he is feeling "okay," he coughs periodically throughout the discharge assessment and complains of "feeling tired." He is cooperative with the interview. His speech is delivered at a normal rate and volume. His affect is mildly irritable, but he describes his mood as being "okay." His thought processes demonstrate concrete and somewhat tangential thinking. His thought content is remarkable for his persistent delusional belief that he is somehow threatened by a "evil spirit" that he believes occupies his home. The delusional system includes a related belief that the evil spirit is somehow entrapping the spirit or "ghost" of "a little girl," and the evil spirit is angry at the patient because the patient has been trying to "help" the little girl "escape." The patient's belief is that the evil spirit may be trying to kill him. The patient reports that he does not hear voices that other people do not hear, but he also talks about "hearing" the little girl signaling distress to him, and he also suggests that he may receive auditory messages from the "evil spirit." At the time of discharge, the patient reports that he is not having thoughts of suicide, at least not in the hospital. He s adds that he does not intend to commit suicide as long as he can feel that he is "safe." The patient also says that he would be willing to cooperate with alternative placement. The patient also reports that he is not having any thoughts of c ausing physical harm to the person or property of others, but has in the past said that he would like to "burned down" his house in order to "free the little girl" and evict the "evil spirit." The patient's judgment and insight are poor or severely impaired. His intelligence is estimated to be below average. He has been advised that we are concerned that he has COVID-19, but the patient insists that this is not the case but cannot say why he does not believe it, other than to say "I do not feel that bad." Transition of Care Transition Of Care Record: was reviewed with the patient Advance Directives Advance Directives Information Provided: Yes Advance Directives: No Mental Health Advance Directive: No Advance Directives on File: No Living Will: No Power of Prom Burn Off Operator: No Advance Directives Reason:: Declines as Mental Health Visit. Risk Factors Assessment Male. Limited social supports. Suboptimal living environment. Psychotic illness. Male: Yes : Yes Do You Have Access To A Gun?: Yes (continuous refusal of recommendations to secure guns) Health Problems: Yes Mental Health Diagnoses: Yes Substance Use Disorders: Yes Previous Attempt: No (In the past the patient has Directly threatened himself with firearms.) Previous Psychiatric Hospitalization: Yes Smoker: Yes Protective Factors Assessment Caodaism Beliefs: Yes : No Responsible for Young Children: No Employed: No Stable Relationships: No Supportive Family: Yes (It appears that the family needs to be supportive, but Support is limited) Good Rapport with Provider: No Absence of Any Risk Factors Above: No Tobacco Cessation at Discharge Tobacco Cessation Medication Prescribed at Discharge: Offered & Prescribed Practical counseling provided including: recognizing danger situations, developing coping skills and providing basic information about quitting Tobacco Cessation Outpatient Followup: Referral for outpatient treatment offered and refused (The patient is being transferred to medicine.) Antipsychotic Medications The patient has a psychotic illness Total Time Total Time Spent: Greater Than 30 Minutes Total Time Includes: Examination of the patient, Discharge Planning, Medication Reconciliation and Communication with other providers Discharge Data Consultations 08/16/20 07:56 Consult Hospitalist Stat Lab Results 08/14/20 08/14/20 08/14/20 10:26 10:26 11:37 WBC 8.92 RBC 4.06 L Hgb 12.8 L Hct 37.7 L MCV 92.9 MCH 31.5 MCHC 34.0 RDW Std Deviation 46.1 RDW Coeff of Hina 13.5 Plt Count 323 MPV 8.5 Immature Gran % (Auto) 0.1 Neut % (Auto) 71.5 Lymph % (Auto) 20.1 [place] % (Auto) 5.7 Eos % (Auto) 2.4 Baso % (Auto) 0.2 Neut # (Auto) 6.38 Lymph # (Auto) 1.79 [place] # (Auto) 0.51 Eos # (Auto) 0.21 Baso # (Auto) 0.02 Immature Gran # (Auto) 0.01 Sodium Potassium Chloride Carbon Dioxide Anion Gap BUN Creatinine Est Cr Clr Drug Dosing Est GFR ( Amer) Est GFR (Non-Af Amer) BUN/Creatinine Ratio Glucose Calcium Total Bilirubin AST ALT Alkaline Phosphatase Total Protein Albumin Globulin Albumin/Globulin Ratio TSH Urine Color Yellow Urine Appearance Clear Urine pH 5.5 Ur Specific Orion 1.005 Urine Protein Negative Urine Glucose (UA) Negative Urine Ketones Negative Urine Blood Negative Urine Nitrite Negative Urine Bilirubin Negative Urine Urobilinogen Negative Ur Leukocyte Esterase Negative Salicylates Urine Opiates Screen Neg Ur Methadone, Qual Neg Acetaminophen Urine Barbiturates Neg Ur Phencyclidine (PCP) Neg U Amphetamin/Meth Scrn Neg MDMA (Ecstasy) Screen Neg U Benzodiazepines Scrn Neg Ur Cocaine Metabolite Neg U Marijuana (THC) Screen Neg Ethyl Alcohol mg/dL SARS-CoV-2 Ag (Rapid) 08/14/20 08/14/20 08/14/20 11:37 11:37 11:37 WBC RBC Hgb Hct MCV MCH MCHC RDW Std Deviation RDW Coeff of Hina Plt Count MPV Immature Gran % (Auto) Neut % (Auto) Lymph % (Auto) [place] % (Auto) Eos % (Auto) Baso % (Auto) Neut # (Auto) Lymph # (Auto) [place] # (Auto) Eos # (Auto) Baso # (Auto) Immature Gran # (Auto) Sodium 138 Potassium 4.3 Chloride 105 Carbon Dioxide 28 Anion Gap 5.0 BUN 10 Creatinine 0.81 Est Cr Clr Drug Dosing Not Reportable Est GFR ( Amer) 106.6 Est GFR (Non-Af Amer) 92.0 BUN/Creatinine Ratio 12.7 Glucose 93 Calcium 9.1 Total Bilirubin 0.6 AST 18 ALT 39 Alkaline Phosphatase 89 Total Protein 7.5 Albumin 3.4 Globulin 4.1 H Albumin/Globulin Ratio 0.8 L TSH 1.570 Urine Color Urine Appearance Urine pH Ur Specific Orion Urine Protein Urine Glucose (UA) Urine Ketones Urine Blood Urine Nitrite Urine Bilirubin Urine Urobilinogen Ur Leukocyte Esterase Salicylates 6.2 Urine Opiates Screen Ur Methadone, Qual Acetaminophen 14 Urine Barbiturates Ur Phencyclidine (PCP) U Amphetamin/Meth Scrn MDMA (Ecstasy) Screen U Benzodiazepines Scrn Ur Cocaine Metabolite U Marijuana (THC) Screen Ethyl Alcohol mg/dL < 3.0 SARS-CoV-2 Ag (Rapid) 08/14/20 13:06 WBC RBC Hgb Hct MCV MCH MCHC RDW Std Deviation RDW Coeff of Hina Plt Count MPV Immature Gran % (Auto) Neut % (Auto) Lymph % (Auto) [place] % (Auto) Eos % (Auto) Baso % (Auto) Neut # (Auto) Lymph # (Auto) [place] # (Auto) Eos # (Auto) Baso # (Auto) Immature Gran # (Auto) Sodium Potassium Chloride Carbon Dioxide Anion Gap BUN Creatinine Est Cr Clr Drug Dosing Est GFR ( Amer) Est GFR (Non-Af Amer) BUN/Creatinine Ratio Glucose Calcium Total Bilirubin AST ALT Alkaline Phosphatase Total Protein Albumin Globulin Albumin/Globulin Ratio TSH Urine Color Urine Appearance Urine pH Ur Specific Orion Urine Protein Urine Glucose (UA) Urine Ketones Urine Blood Urine Nitrite Urine Bilirubin Urine Urobilinogen Ur Leukocyte Esterase Salicylates Urine Opiates Screen Ur Methadone, Qual Acetaminophen Urine Barbiturates Ur Phencyclidine (PCP) U Amphetamin/Meth Scrn MDMA (Ecstasy) Screen U Benzodiazepines Scrn Ur Cocaine Metabolite U Marijuana (THC) Screen Ethyl Alcohol mg/dL SARS-CoV-2 Ag (Rapid) Negative Hospital Course (1) Suicidal ideation: 08/14 - Pt presents for admission after reporting development of SI and actually attempting to load his shotgun with intent to shot himself. He reports SI was in the context of loneliness and limited support outside of the hospital. Admitted to a locked inpatient behavioral health unit, on q15 minute safety checks - Encourage participation in group and recreational therapies - Gather collateral information from outpatient providers - Suggest family meeting to involve outpatient supports in safety planning - Arrange appropriate aftercare 08/15 - SI improved w/ support of inpatient unit. Patient unable to live independently and will refer to usp as below. (2) Schizophrenia: 08/14 - Continue home medication regimen, as significant adjustments had just been made during his previous admission from 08/02 - 08/12. Pt is now on haloperidol decanoate, having received 100mg IM injection on 08/07. Will continue benztropine 0.5mg BID. - Remainder of discharge medications ordered. - Will need to involve case consultant in discussion regarding increasing the patient's outpatients supports, possibility even exploring the idea of a CRR referral - which patient states he is willing for during today's encounter. - Continue to offer group and milieu therapy and encourage participation - Will need to reschedule intake at [facility], which was scheduled for 08/19. 08/15 - Filed 306 conversion paperwork to convert to 304 inpatient commitment, with converstion hearing on Mon. 08/19. - Next Haldol dec 100mg injection due 09/04, can be given earlier if breakthrough symptoms occur. - Coordinate w/ [facility] and refer to CRR. 08/16 -Being discharged and readmitted to an internal medicine bed due to history of recent exposure to COVID-19 and development of active symptoms of COVID. Cough, congestion, rhinorrhea, and headache. -Current treatment plan remains active. -Patient remains cooperative but still harbors delusional beliefs regarding his home being inhabited by a ghost as well as by an evil spirit that is angry and threatening. (3) Alcohol abuse: 08/14 - Will put patient on AWSS protocol, as he admit he began drinking again after d ischarge from our unit. The patient admits to drinking over half a case since he was discharged 2 days ago. -Brief intervention was offered and accepted Intervention was greater than 5 min in length. Brief interventions include: 1. Assess Readiness to Quit, 2. Advise: Help Patient to Reduce or Abstain from Alcohol, 3. Agree: Set Specific, Feasible Goals, 4. Assist: Anticipate barriers, Problem-Solving Solutions. Social work to 5. Arrange: Referrals to appropriate treatment. Summary of intervention: The patient is in precontemplation stage with regards to transtheoretical model of change. The patient is advised to decrease alcohol consumption due to depressant effects and risk of interactions with prescription medications. The patient was advised of recommendations for abstinence from alcohol and other abusable substances and to attend substance abuse treatment at discharge, and will be provided with recovery materials to continue to education self on how to cope with their condition without drinking. 08/16 - Patient is being monitored her on the AWSS Protocol. Currently the patient is not exhibiting symptoms of alcohol withdrawal. Although the patient acknowledges drinking up to a half a case of beer since his most recent previous discharge 2 days days prior to admission, he has not exhibited any symptoms of alcohol withdrawal upon previous admissions. We will continue to monitor but do not expect withdrawal symptoms to emerge, based on his reported history. (4) Dyskinesia, tardive: - Longstanding diagnosis, continue to monitor (5) Seizure disorder: 12/2 - Continue home dosing of Keppra 1000mg BID - Seizure precautions 08/16 -No seizure activity since admission. We will continue Keppra 1000 mg twice a day. (6) Tobacco abuse: - Nicotine replacement products ordered Mental Health & Subst Abuse Tx Psychiatrist Name of Psychiatrist: Yelena Intake Psychiatrist's Date of Appointment with Psychiatrist: 08/19/20 Time of Appointment with Psychiatrist: 5:00pm (In person,call when you arrive in parking lot) Psychiatric Appointment Comment: [id number] Therapist Name of Therapist: Yelena Therapist's Date of Therapist Appointment: 08/19/20 Time of Therapist Appointment: 5:00pm Carrot Harvester Name of Carrot Harvester: [facility]lee Phone Number for Carrot Harvester: [phone] Post Discharge Appointments Primary Care Physician Name Of Family Doctor: Dr. Aristeo Camacho Primary Care Provider Appointment Comment: [address] [place] [address] [place] [address] Smoking Cessation Counseling Tobacco Cessation Medication Prescribed at Discharge: Offered & Prescribed Contact Information Discharge Discharge Address: [address] [place] [address] [place] [address] Discharge Plan Discharge Items Patient Disposition: Transfer Acute Care Hospital Reason For Visit: SCHIZOPHRENIA Discharge Diagnosis: - Schizophrenia Condition on Discharge: Fair Activity: Resume your previous activity Non-emergency contact: Primary Care Provider, Psychiatrist and Director New Product Call non-emergency contact if: you have any medication questions and your symptoms worsen Follow-up/Referrals: Aristeo Camacho III, MD [Primary Care Provider] - Diet: Regular Addtl Attending Provider Instructions: SPECIAL CARE INSTRUCTIONS: 1. Follow through with your scheduled aftercare appointments. If unable to keep an appointment, please call to reschedule. 2. Take your medication only as prescribed. Medication should not be changed or stopped without the approval of your doctor. In the event of worsening symptoms or concerns about side effects, contact your doctor immediately. 3. Utilize new healthy coping skills, anger management skills, and stress management skills learned during your hospitalization. Journal feelings and process them with a support person. Identify stressors or situations that may result in relapse, deterioration or inappropriate behaviors and develop a plan to deal with those issues. 4. If your coping skills are ineffective and you are in crisis, contact your outpatient providers for direction. If unable to reach your providers, please call the [facility] CRISIS LINE AT , go to the [facility] walk-in center at [address], [address], [place], or go to the closest Emergency Room. 5. Avoid alcohol and un-prescribed drugs. 6. You have been provided with the Mental Health Advance Directives Pamphlet for your review. AFTERCARE APPOINTMENTS: * Please call your insurance company prior to your scheduled appointment to confirm your aftercare providers are covered. Take your insurance information to your appointments. WHO TO CALL AND WHEN: Medical Emergencies: For questions or emergencies related to your hospital stay, please contact the Inpatient Behavioral Health Unit at [phone]. A music executive is on-call 05/04 for the Behavioral Health Unit for emergencies At any time you feel your situation is an emergency, you may also call 911 immediately. Pending Studies at Discharge: No Stand-Alone Forms: My [facility] Skilled Items Patient informed of condition?: No DNR: No Discharge Level of Care: Other Communicable Disease: No Discharge Prognosis: Improving Lines: None Urinary Catheter: No Medications and DC Order Prescriptions: New nicotine (polacrilex) [Nicorette] 2 mg Gum 2 mg MT PRN PRN (Reason: nicotine cravings) 30 Days RF: 0 nicotine 7 mg/24 hr Patch 24 Hour 7 mg transdermal QAM 30 Days RF: 0 Continued multivitamin Tablet 1 tab PO DAILY RF: 0 loperamide 2 mg Tablet 2 mg PO DIRECTED PRN (Reason: Diarrhea) RF: 0 thiamine HCl (vitamin B1) [Vitamin B-1] 100 mg Tablet 100 mg PO DAILY RF: 0 folic acid 1 mg Tablet 1 mg PO DAILY RF: 0 tamsulosin 0.4 mg capsule 0.4 mg PO QAM RF: 0 meclizine 25 mg Tablet 25 mg PO TID PRN (Reason: Vertigo) RF: 0 pantoprazole [Protonix] 40 mg Tablet,Delayed Release (Dr/Ec) 40 mg PO DAILY RF: 0 thiamine HCl (vitamin B1) 50 mg Tablet 50 mg PO DAILY RF: 0 fluticasone propionate 50 mcg/actuation [place],Suspension 2 spray INTRANASAL DAILY PRN (Reason: Allergy Symptoms) RF: 0 haloperidol decanoate 50 mg/mL Solution 100 mg IM Q4WK Qty: 1 RF: 0 benztropine 0.5 mg Tablet 0.5 mg PO BID Qty: 60 RF: 0 levetiracetam 1,000 mg tablet 1,000 mg PO BID RF: 0 No Action (DME) nebulizer and compressor Device See Rx Instructions .ROUTE .MEDSUPPLY Qty: 1 RF: 0 Discharge Orders: Discharge Order (Routine); Ordered 08/16/20 Ordered By: Rebecca Oseguera Admission Data Admit Date/Time: 08/14/20 14:12 Attending Provider: Yojana Tang Admit Provider: Yojana Tang Primary Care Provider: Aristeo Camacho III Other Providers: Felice Cruz ; Irvin Curtis ; Nancy Ibarra ; Taran Rick ; Chung Frey ; Marissa Chris ; Yoel Ko ; Vesna Denny ; Odette Romano ; Denia Adame ; Aleah Mi ; Yaya Moore ; Edwin West ; Marie Dukes ; Amina Spencer ; Candace Paredes ; Ward Lua ; Evans Mendoza ; Max Pino ; Fahad Hardin ; Myke Wharton ; Luiz Goodwin ; Fredrick Toney ; Karol Vargas ; Felice Hamlin ; Ashli Batista ; Luisito Wilkes ; Rebecca Hernandez. Other Interventions: Discharge Summary Assessment (RN) Last Done: 08/16/20 09:00 PSY Interdisciplinary Discharge Planning Last Done: 08/16/20 09:02 [place] [address] D/C day mgmt > 30 min Patient Type Established Medical Decision Making Moderate Complexity Diagnoses Suicidal ideation R45.851 Schizophrenia F20.9 Schizophrenia type: unspecified Alcohol abuse F10.10 Dyskinesia, tardive G24.01 Seizure disorder G40.909 Tobacco abuse Z72.0 Time Spent (min) 65
[2020-09-04] MEDS ORDERED: HALOPERIDOL DECANOATE INJ 50 MG/ML VIAL IM SCH (09:00)
[2020-09-05] MEDS ORDERED: HALOPERIDOL DECANOATE INJ 50 MG/ML VIAL IM SCH (09:00)
== END 2020-08-16 09:20 | disposition short-term general hospital (02) | DRG 885 ==
LOC: ED 10:16 → 3S 14:12

== ENCOUNTER 2020-08-16 09:02 | Observation (INO) ==
[2020-08-16] MEDS ORDERED: ACETAMINOPHEN 325 MG TAB PO PRN (10:33)
[2020-08-16] MEDS ORDERED: LOPERAMIDE HCL 2 MG CAP PO PRN (10:38)
[2020-08-16] MEDS ORDERED: MECLIZINE HCL 25 MG TAB PO PRN (10:39)
[2020-08-16] MEDS ORDERED: NICOTINE 14 MG/24 HR PATCH TD SCH ×2 (10:45→11:00)
[2020-08-16] MEDS: PANTOprazole 40 MG TAB PO SCH (11:57)
[2020-08-16] MEDS: TAMSULOSIN HCL 0.4 MG CAP PO SCH (11:57)
[2020-08-16] MEDS: NICOTINE 7 MG/24 HR TDSY TD SCH (11:57)
[2020-08-16] MEDS: levETIRAcetam 500 MG TAB PO SCH ×2 (11:57→20:25)
[2020-08-16] MEDS: FLUTICASONE PROPIONATE NA SPR 16 GM BTL SCH (12:39)
[2020-08-16] MEDS ORDERED: COUGH DROP (SUGAR FREE) LOZ 24 LOZ/1 BOX BUCCAL ONE (14:34)
--- NOTE | 2020-08-16 16:22 | History & Physical Report ---
Date of Service August 16, 2020 Assessment & Plan (1) Exposure to COVID-19 virus: In actuality, really only has second-hand exposure as his son was the one who was exposed. Per patient, son has no present symptoms, but staff feel he may be unreliable on that front. - Covid PCR test was negative on 08/16 - Will observe for 24 hours to watch for fevers or other signs/symptoms of Covid (2) Schizophrenia: No issues noted on admission today. - Continue meds from [facility] (3) COPD (chronic obstructive pulmonary disease): No shortness of breath or wheezing. - Albuterol PRN (4) BPH (benign prostatic hyperplasia): No LUTS. - Continue tamsulosin (5) GERD (gastroesophageal reflux disease): No GERD. - Continue PPI (6) DVT prophylaxis: Early ambulation - Likely discharge tomorrow Admission and Anticipated Discharge Date Admission Date: August 16, 2020 History of Present Illness Primary Care Provider: Aristeo Camacho MD 69yo M w/ hx of schizophrenia who presents from the Mental Health Unit for possible Covid. The patient was living with his son at home prior to admission. The son had exposure to a Covid-positive person at work. Per the patient, the son has had no symptoms. The patient has stuffy nose that he attributes to allergies and have been ongoing for some time. He had a cough yesterday when he had some trouble with some dry food. He says that he could not take a drink of water because he only had hot tea and didn't want to burn himself. He reports no cough overnight. No fevers, chills. No diarrhea, no other concerning Covid-related symptoms. No loss of taste or smell. However, due to the close nature of the Mental Health Unit, staff requested he be discharged to medical supervision as they have no PPE. Allergies Allergy/AdvReac Type Severity Reaction Status Date / Time flaxseed Allergy Intermediate Hives and Verified 07/29/20 15:04 itching Penicillins Allergy Intermediate Hives Verified 07/29/20 15:04 Sulfa (Sulfonamide Allergy Intermediate Hives Verified 07/29/20 15:04 Antibiotics) paliperidone AdvReac Intermediate Patient Verified 07/29/20 15:04 states had "bad reaction" after administration Home Medications Medication Instructions Recorded Confirmed Type levetiracetam 1,000 mg PO BID 09/21/19 08/14/20 History folic acid 1 mg PO DAILY 07/25/20 08/14/20 History loperamide 2 mg PO DIRECTED PRN 07/25/20 08/14/20 History multivitamin 1 tab PO DAILY 07/25/20 08/14/20 History thiamine HCl (vitamin B1) [Vitamin 100 mg PO DAILY 07/25/20 08/14/20 History B-1] nebulizer and compressor #1 ea 08/01/20 08/14/20 Rx fluticasone propionate 2 spray INTRANASAL DAILY PRN 08/02/20 08/14/20 History meclizine 25 mg PO TID PRN 08/02/20 08/14/20 History pantoprazole [Protonix] 40 mg PO DAILY 08/02/20 08/14/20 History tamsulosin 0.4 mg PO QAM 08/02/20 08/14/20 History thiamine HCl (vitamin B1) 50 mg PO DAILY 08/02/20 08/14/20 History benztropine 0.5 mg PO BID #60 tab 08/12/20 08/14/20 Rx haloperidol decanoate 100 mg IM Q4WK #1 dose 08/12/20 08/14/20 Rx nicotine 7 mg TRANSDERMAL QAM 30 Days ea 08/16/20 Rx nicotine (polacrilex) [Nicorette] 2 mg MT PRN PRN 30 Days ea 08/16/20 Rx Past Med/Surg History Medical History (Updated 08/16/20 @ 16:33 by Ward Lua MD) Acid reflux Alcohol abuse Anxiety Arthritis BPH (benign prostatic hyperplasia) COPD (chronic obstructive pulmonary disease) Dementia Diarrhea GERD (gastroesophageal reflux disease) No pertinent family history Schizophrenia Shoulder pain Family History Aunt Family history of seizures Other No pertinent family history Social History Smoking Status: Never smoker Tobacco Type: Smokeless Tobacco (Dip or Chew) Do You Dip or Chew Tobacco: Yes; Hx Alcohol Use: Yes Alcohol type: beer Hx Substance Use: No Preferred Language: Kinyarwanda Communication Ability: Effective Visual Impairment: Partially Limited Hearing Ability: Normal 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 Son works cotton picker) Would You Like to Speak to Someone About Your Situation: Yes Safety Concerns: Afraid for Self Assistive Devices: Glasses Review of Systems Review of Systems: All systems reviewed & are unremarkable except as noted in HPI & below Physical Exam Constitutional: WD/WN, vitals as above Eyes: EOM intact bilaterally; no conjunctival abnormality ENMT: external ear and nose normal, oropharynx normal Neck: trachea midline, no thyromegaly normal visual inspection Respiratory: normal respiratory effort, lungs clear to auscultation no respiratory distress Cardiovascular: RRR, no murmur, no edema Gastrointestinal (Abdomen): Inspection/Auscultation: abdomen normal to inspection; abdomen not distended Musculoskeletal: no cyanosis or clubbing, extremities motor strength 5/5 Skin: no rashes, warm and dry Neurologic: moves all extremities and awake Psychiatric: Orientation: alert, oriented to person and cooperative Results & Data Results & Data ([facility]) Vital Signs (Past 12 Hours) Vital Signs Temp Pulse Resp BP Pulse Ox 08/16/20 15:27 36.8 C 85 18 138/81 96 08/16/20 12:04 36.5 C 94 H 16 145/95 H 98 08/16/20 12:02 36.5 C 94 H 18 145/95 H 98 Code Status & VTE Plan VTE Prophylaxis Plan VTE Prophylaxis will be ordered: Yes PG Care Time/CCT Total # of Minutes Spent Total Time Spent with Patient: Total time spent is greater than 50% in coordination of care (as documented) at patient's floor/unit and/or counseling patient: Coding Level of Care Code 01120 Initial Inpt Care Lvl 3 Diagnoses Exposure to COVID-19 virus Z20.828 Schizophrenia F20.9 Schizophrenia type: unspecified COPD (chronic obstructive pulmonary disease) J44.9 BPH (benign prostatic hyperplasia) N40.0 GERD (gastroesophageal reflux disease) K21.9 Esophagitis presence: esophagitis presence not specified DVT prophylaxis Z29.9 (1) Schizophrenia Schizophrenia type: unspecified Qualified Code(s): F20.9 - Schizophrenia, unspecified (2) GERD (gastroesophageal reflux disease) Esophagitis presence: esophagitis presence not specified Qualified Code(s): K21.9 - Gastro-esophageal reflux disease without esophagitis
[2020-08-16] MEDS: BENZTROPINE MESYLATE 0.5 MG TAB PO SCH (20:25)
[2020-08-17] MEDS ORDERED: THIAMINE HCL 50 MG TABLET PO SCH (09:00)
[2020-08-17] MEDS: TAMSULOSIN HCL 0.4 MG CAP PO SCH (09:00)
[2020-08-17] MEDS ORDERED: THIAMINE HCL 100 MG TAB PO SCH (09:00)
[2020-08-17] MEDS ORDERED: FOLIC ACID 1 MG TAB PO SCH (09:00)
[2020-08-17] MEDS: PANTOprazole 40 MG TAB PO SCH (09:00)
[2020-08-17] MEDS: NICOTINE 7 MG/24 HR TDSY TD SCH (09:00)
[2020-08-17] MEDS: FLUTICASONE PROPIONATE NA SPR 16 GM BTL SCH (09:00)
[2020-08-17] MEDS: BENZTROPINE MESYLATE 0.5 MG TAB PO SCH (09:00)
[2020-08-17] MEDS: levETIRAcetam 500 MG TAB PO SCH (09:00)
--- NOTE | 2020-08-17 17:13 | Discharge Summary ---
Date of Service August 17, 2020 Admission HPI Per Admitting Provider 69yo M w/ hx of schizophrenia who presents from the Mental Health Unit for possible Covid. The patient was living with his son at home prior to admission. The son had exposure to a Covid-positive person at work. Per the patient, the son has had no symptoms. The patient has stuffy nose that he attributes to allergies and have been ongoing for some time. He had a cough yesterday when he had some trouble with some dry food. He says that he could not take a drink of water because he only had hot tea and didn't want to burn himself. He reports no cough overnight. No fevers, chills. No diarrhea, no other concerning Covid-related symptoms. No loss of taste or smell. However, due to the close nature of the Mental Health Unit, staff requested he be discharged to medical supervision as they have no PPE. Principal Diagnosis PUI Covid Discharge Exam Constitutional WD/WN, vitals as above Eyes EOM intact bilaterally; no conjunctival abnormality ENMT external ear and nose normal, oropharynx normal Neck trachea midline, no thyromegaly normal visual inspection Respiratory normal respiratory effort, lungs clear to auscultation no respiratory distress Cardiovascular RRR, no murmur, no edema Gastrointestinal (Abdomen) Inspection/Auscultation: abdomen normal to inspection; abdomen not distended Musculoskeletal no cyanosis or clubbing, extremities motor strength 5/5 Skin no rashes, warm and dry Neurologic moves all extremities and awake Psychiatric Orientation: alert, oriented to person and cooperative Discharge Data Allergies Allergy/AdvReac Type Severity Reaction Status Date / Time flaxseed Allergy Intermediate Hives and Verified 07/29/20 15:04 itching Penicillins Allergy Intermediate Hives Verified 07/29/20 15:04 Sulfa (Sulfonamide Allergy Intermediate Hives Verified 07/29/20 15:04 Antibiotics) paliperidone AdvReac Intermediate Patient Verified 07/29/20 15:04 states had "bad reaction" after administration Consultations 08/16/20 12:36 Consult Behavioral Health Liaison Routine Hospital Course (1) Exposure to COVID-19 virus: In actuality, really only has second-hand exposure as his son was the one who was exposed. Per patient, son has no present symptoms, but staff feel he may be unreliable on that front. - Covid PCR test was negative on 08/16 - Will observe for 24 hours to watch for fevers or other signs/symptoms of Covid - No fevers, no Covid symptoms. Returned to for further psychiatric treatment. (2) Schizophrenia: No issues noted on admission today. - Continue meds from [facility] (3) COPD (chronic obstructive pulmonary disease): No shortness of breath or wheezing. - Albuterol PRN (4) BPH (benign prostatic hyperplasia): No LUTS. - Continue tamsulosin (5) GERD (gastroesophageal reflux disease): No GERD. - Continue PPI (6) DVT prophylaxis: Early ambulation - Likely discharge tomorrow Total Time Total Time Spent Total Time Spent (In Minutes): 35 Discharge Plan Discharge Items Reason For Visit: COVID SYMPTOMS,SCHIZOPHRENIA Medications and DC Order Prescriptions: No Action (DME) nebulizer and compressor Device See Rx Instructions .ROUTE .MEDSUPPLY Qty: 1 RF: 0 multivitamin Tablet 1 tab PO DAILY RF: 0 loperamide 2 mg Tablet 2 mg PO DIRECTED PRN (Reason: Diarrhea) RF: 0 thiamine HCl (vitamin B1) [Vitamin B-1] 100 mg Tablet 100 mg PO DAILY RF: 0 folic acid 1 mg Tablet 1 mg PO DAILY RF: 0 tamsulosin 0.4 mg capsule 0.4 mg PO QAM RF: 0 meclizine 25 mg Tablet 25 mg PO TID PRN (Reason: Vertigo) RF: 0 pantoprazole [Protonix] 40 mg Tablet,Delayed Release (Dr/Ec) 40 mg PO DAILY RF: 0 thiamine HCl (vitamin B1) 50 mg Tablet 50 mg PO DAILY RF: 0 fluticasone propionate 50 mcg/actuation [place],Suspension 2 spray INTRANASAL DAILY PRN (Reason: Allergy Symptoms) RF: 0 haloperidol decanoate 50 mg/mL Solution 100 mg IM Q4WK Qty: 1 RF: 0 benztropine 0.5 mg Tablet 0.5 mg PO BID Qty: 60 RF: 0 levetiracetam 1,000 mg tablet 1,000 mg PO BID RF: 0 nicotine (polacrilex) [Nicorette] 2 mg Gum 2 mg MT PRN PRN (Reason: nicotine cravings) 30 Days RF: 0 nicotine 7 mg/24 hr Patch 24 Hour 7 mg transdermal QAM 30 Days RF: 0 Admission Data Admit Date/Time: 08/16/20 09:37 Attending Provider: Ward Lua Admit Provider: Ward Lua Primary Care Provider: Aristeo Camacho III Coding Level of Care Code D/C Day Management >30 mins Diagnoses Exposure to COVID-19 virus Z20.828 Schizophrenia F20.9 Schizophrenia type: unspecified COPD (chronic obstructive pulmonary disease) J44.9 BPH (benign prostatic hyperplasia) N40.0 GERD (gastroesophageal reflux disease) K21.9 Esophagitis presence: esophagitis presence not specified DVT prophylaxis Z29.9
== END 2020-08-17 14:36 | disposition home or self-care (01) ==
LOC: 3E 09:37 → INTOOBSV 09:37

== ENCOUNTER 2020-08-17 14:40 | Inpatient (IN) ==
[2020-08-17] MEDS ORDERED: BISMUTH SUBSALICYLATE LIQD 236 ML PO PRN (18:11)
[2020-08-17] MEDS ORDERED: MAGNESIUM HYDROXIDE SUSP 30 ML UDC PO PRN (18:11)
[2020-08-17] MEDS ORDERED: hydrOXYzine HCl 25 MG TAB PO PRN (18:11)
[2020-08-17] MEDS ORDERED: SODIUM CHLORIDE 0.65% NA SOLN 45 ML (OCEAN) PRN (18:11)
[2020-08-17] MEDS ORDERED: MECLIZINE HCL 25 MG TAB PO PRN (18:41)
[2020-08-17] MEDS: BENZTROPINE MESYLATE 0.5 MG TAB PO SCH (20:59)
[2020-08-17] MEDS: levETIRAcetam 500 MG TAB PO SCH (21:00)
[2020-08-18] MEDS: ACETAMINOPHEN 325 MG TAB PO PRN ×2 (01:04→13:27)
[2020-08-18] MEDS: ALUMINUM/MAGNESIUM SUSP 30 ML UDC PO PRN (04:21)
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
[2020-08-18] MEDS: PANTOprazole 40 MG TAB PO SCH (08:50)
[2020-08-18] MEDS: THIAMINE HCL 100 MG TAB PO SCH (08:51)
[2020-08-18] MEDS: BENZTROPINE MESYLATE 0.5 MG TAB PO SCH ×2 (08:51→20:54)
[2020-08-18] MEDS: TAMSULOSIN HCL 0.4 MG CAP PO SCH (08:51)
[2020-08-18] MEDS: FOLIC ACID 1 MG TAB PO SCH (08:52)
[2020-08-18] MEDS: THIAMINE HCL 50 MG TABLET PO SCH (08:52)
[2020-08-18] MEDS: levETIRAcetam 500 MG TAB PO SCH ×2 (08:53→20:54)
[2020-08-18] MEDS: NICOTINE 7 MG/24 HR TDSY TD SCH (08:59)
[2020-08-18] MEDS: FLUTICASONE PROPIONATE NA SPR 16 GM BTL PRN (15:42)
[2020-08-18] MEDS: NICOTINE POLACRILEX 2 MG GUM MT PRN (17:05)
[2020-08-19] MEDS: ACETAMINOPHEN 325 MG TAB PO PRN ×2 (01:59→06:39)
[2020-08-19] MEDS: PANTOprazole 40 MG TAB PO SCH (08:11)
[2020-08-19] MEDS: FOLIC ACID 1 MG TAB PO SCH (08:11)
[2020-08-19] MEDS: THIAMINE HCL 100 MG TAB PO SCH (08:11)
[2020-08-19] MEDS: BENZTROPINE MESYLATE 0.5 MG TAB PO SCH ×2 (08:11→20:58)
[2020-08-19] MEDS: TAMSULOSIN HCL 0.4 MG CAP PO SCH (08:11)
[2020-08-19] MEDS: levETIRAcetam 500 MG TAB PO SCH ×2 (08:11→20:58)
[2020-08-19] MEDS: THIAMINE HCL 50 MG TABLET PO SCH (08:11)
[2020-08-19] MEDS: NICOTINE 7 MG/24 HR TDSY TD SCH (08:12)
[2020-08-19] MEDS: ALUMINUM/MAGNESIUM SUSP 30 ML UDC PO PRN (09:25)
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
[2020-08-19] MEDS: ASPIRIN 325 MG ECTAB PO PRN (12:48)
[2020-08-19] MEDS: FLUTICASONE PROPIONATE NA SPR 16 GM BTL PRN (18:58)
[2020-08-20] MEDS: TAMSULOSIN HCL 0.4 MG CAP PO SCH (07:49)
[2020-08-20] MEDS: BENZTROPINE MESYLATE 0.5 MG TAB PO SCH ×2 (07:49→20:10)
[2020-08-20] MEDS: FOLIC ACID 1 MG TAB PO SCH (07:50)
[2020-08-20] MEDS: levETIRAcetam 500 MG TAB PO SCH ×2 (07:50→20:10)
[2020-08-20] MEDS: PANTOprazole 40 MG TAB PO SCH (07:50)
[2020-08-20] MEDS: NICOTINE 7 MG/24 HR TDSY TD SCH (07:50)
[2020-08-20] MEDS: THIAMINE HCL 100 MG TAB PO SCH (07:51)
[2020-08-20] MEDS: ASPIRIN 325 MG ECTAB PO PRN (07:51)
[2020-08-20] MEDS: THIAMINE HCL 50 MG TABLET PO SCH (07:51)
[2020-08-20] MEDS: FLUTICASONE PROPIONATE NA SPR 16 GM BTL PRN (07:52)
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
[2020-08-20] MEDS: ALUMINUM/MAGNESIUM SUSP 30 ML UDC PO PRN ×2 (12:17→18:27)
[2020-08-20] MEDS: NICOTINE POLACRILEX 2 MG GUM MT PRN (15:29)
[2020-08-21] MEDS: ACETAMINOPHEN 325 MG TAB PO PRN (05:17)
[2020-08-21] MEDS: FLUTICASONE PROPIONATE NA SPR 16 GM BTL PRN (07:33)
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
[2020-08-21] MEDS: BENZTROPINE MESYLATE 0.5 MG TAB PO SCH ×2 (08:36→21:29)
[2020-08-21] MEDS: TAMSULOSIN HCL 0.4 MG CAP PO SCH (08:37)
[2020-08-21] MEDS: NICOTINE 7 MG/24 HR TDSY TD SCH (08:37)
[2020-08-21] MEDS: PANTOprazole 40 MG TAB PO SCH (08:37)
[2020-08-21] MEDS: FOLIC ACID 1 MG TAB PO SCH (08:37)
[2020-08-21] MEDS: levETIRAcetam 500 MG TAB PO SCH ×2 (08:37→21:29)
[2020-08-21] MEDS: THIAMINE HCL 50 MG TABLET PO SCH (08:37)
[2020-08-21] MEDS: THIAMINE HCL 100 MG TAB PO SCH (08:37)
[2020-08-21] MEDS: NICOTINE POLACRILEX 2 MG GUM MT PRN ×2 (11:37→19:23)
[2020-08-21] MEDS: ASPIRIN 325 MG ECTAB PO PRN (16:46)
[2020-08-22] MEDS: ACETAMINOPHEN 325 MG TAB PO PRN (05:33)
[2020-08-22] MEDS: BENZTROPINE MESYLATE 0.5 MG TAB PO SCH ×2 (08:34→20:45)
[2020-08-22] MEDS: FOLIC ACID 1 MG TAB PO SCH (08:34)
[2020-08-22] MEDS: TAMSULOSIN HCL 0.4 MG CAP PO SCH (08:34)
[2020-08-22] MEDS: levETIRAcetam 500 MG TAB PO SCH ×2 (08:34→20:44)
[2020-08-22] MEDS: NICOTINE 7 MG/24 HR TDSY TD SCH (08:34)
[2020-08-22] MEDS: THIAMINE HCL 100 MG TAB PO SCH (08:35)
[2020-08-22] MEDS: THIAMINE HCL 50 MG TABLET PO SCH (08:35)
[2020-08-22] MEDS: PANTOprazole 40 MG TAB PO SCH (08:35)
[2020-08-22] MEDS: FLUTICASONE PROPIONATE NA SPR 16 GM BTL PRN (08:35)
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
[2020-08-22] MEDS: NICOTINE POLACRILEX 2 MG GUM MT PRN (15:15)
[2020-08-22] MEDS: ASPIRIN 325 MG ECTAB PO PRN (19:50)
[2020-08-22] MEDS: hydrOXYzine HCl 25 MG TAB PO PRN (20:46)
[2020-08-23] MEDS: FLUTICASONE PROPIONATE NA SPR 16 GM BTL PRN (06:57)
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
[2020-08-23] MEDS: FOLIC ACID 1 MG TAB PO SCH (09:16)
[2020-08-23] MEDS: TAMSULOSIN HCL 0.4 MG CAP PO SCH (09:16)
[2020-08-23] MEDS: BENZTROPINE MESYLATE 0.5 MG TAB PO SCH ×2 (09:16→20:38)
[2020-08-23] MEDS: NICOTINE 7 MG/24 HR TDSY TD SCH (09:17)
[2020-08-23] MEDS: THIAMINE HCL 50 MG TABLET PO SCH (09:17)
[2020-08-23] MEDS: THIAMINE HCL 100 MG TAB PO SCH (09:17)
[2020-08-23] MEDS: PANTOprazole 40 MG TAB PO SCH (09:17)
[2020-08-23] MEDS: levETIRAcetam 500 MG TAB PO SCH ×2 (09:17→20:36)
[2020-08-23] MEDS: ACETAMINOPHEN 325 MG TAB PO PRN (09:29)
[2020-08-23] MEDS: NICOTINE POLACRILEX 2 MG GUM MT PRN (16:47)
[2020-08-24] MEDS: ACETAMINOPHEN 325 MG TAB PO PRN ×2 (00:48→11:37)
[2020-08-24] MEDS: PANTOprazole 40 MG TAB PO SCH (08:16)
[2020-08-24] MEDS: THIAMINE HCL 50 MG TABLET PO SCH (08:16)
[2020-08-24] MEDS: NICOTINE 7 MG/24 HR TDSY TD SCH (08:16)
[2020-08-24] MEDS: BENZTROPINE MESYLATE 0.5 MG TAB PO SCH ×2 (08:16→20:51)
[2020-08-24] MEDS: FOLIC ACID 1 MG TAB PO SCH (08:16)
[2020-08-24] MEDS: levETIRAcetam 500 MG TAB PO SCH ×2 (08:16→20:51)
[2020-08-24] MEDS: THIAMINE HCL 100 MG TAB PO SCH (08:16)
[2020-08-24] MEDS: TAMSULOSIN HCL 0.4 MG CAP PO SCH (08:16)
[2020-08-24] MEDS: ASPIRIN 325 MG ECTAB PO PRN (08:51)
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
[2020-08-24] MEDS: FLUTICASONE PROPIONATE NA SPR 16 GM BTL PRN (17:24)
[2020-08-24] MEDS: hydrOXYzine HCl 25 MG TAB PO PRN (20:51)
[2020-08-25] MEDS: TAMSULOSIN HCL 0.4 MG CAP PO SCH (07:20)
[2020-08-25] MEDS: BENZTROPINE MESYLATE 0.5 MG TAB PO SCH ×2 (07:21→20:45)
[2020-08-25] MEDS: THIAMINE HCL 100 MG TAB PO SCH (07:21)
[2020-08-25] MEDS: FOLIC ACID 1 MG TAB PO SCH (07:21)
[2020-08-25] MEDS: PANTOprazole 40 MG TAB PO SCH (07:21)
[2020-08-25] MEDS: NICOTINE 7 MG/24 HR TDSY TD SCH (07:21)
[2020-08-25] MEDS: THIAMINE HCL 50 MG TABLET PO SCH (07:21)
[2020-08-25] MEDS: levETIRAcetam 500 MG TAB PO SCH ×2 (07:21→20:46)
[2020-08-25] MEDS: FLUTICASONE PROPIONATE NA SPR 16 GM BTL PRN (07:22)
[2020-08-25] MEDS: NICOTINE POLACRILEX 2 MG GUM MT PRN ×3 (07:23→16:55)
--- NOTE | 2020-08-25 10:20 | Psychiatric Progress Note ---
Date of Service August 25, 2020 Impression / Recommendations Impression 69-year-old male with schizophrenia and poor treatment adherence who has had several psychiatric hospitalizations in the past 2 months. 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 He is on a 304 involuntary commitment as of his conversion hearing, 08/19/2020. Much of his dysfunction and inability to maintain stability with respect to his mental illness is related to his living situation, and we are currently exploring alternative options including the CRR. Inpatient treatment is medically necessary due to the severity of presenting symptoms and risk for suicide if discharged. Reviewed 08/24/20. 08/25/20--improvement overnight Plan: continue current meds and tx plan pending more information re: availability of more structured living setting. Risk Factors Assessment Male: Yes : Yes Do You Have Access To A Gun?: Yes (Son has guns, refuses to lock/secure them) Health Problems: Yes Mental Health Diagnoses: Yes Substance Use Disorders: Yes Previous Attempt: Yes Previous Attempt; Highly Lethal: Yes Family History of Suicide: No Previous Psychiatric Hospitalization: Yes Hopelessness: No Smoker: Yes Protective Factors Assessment Oriental Orthodox Beliefs: Yes : No Responsible for Young Children: No Employed: No Stable Relationships: No Supportive Family: Yes (Somewhat, most of his sons do not speak to him, but has some support from 2) Good Rapport with Provider: No Interval History Identifying Information EMMA SAUER is a 69-year-old M who currently lives in [place] with his son, has a history of schizophrenia, and was admitted on 08/17/20 14:40 on a 201 voluntary commitment for SI. He is on a 304 IOC and was converted to a 304 inpatient commitment at his hearing on 08/19/2020. Re-reviewed 08/25/20. Chief Complaint "I'm good today". Review of Systems Sleep Information Total Hours of Sleep: 8 Meal Information Percent Meal Consumed - Breakfast: 100 Percent Meal Consumed - Lunch: 100 Percent Meal Consumed - Dinner: 100 Subjective Subjective Patient was seen & assessed and interval progress reviewed with nursing and social work. Following resolution of CEDENO yesterday he was out of room and talking more. He denies voices or smelling tobacco (which reminded him of dad/was reassuring when it did happen earlier in stay). Physical Exam Psychiatric Orientation: alert and oriented x 3 Apperance: + disheveled Eye Contact: + fair eye contact Motor Behavior: + tremor Speech: normal rate/rhythm/volume of speech (but rather short answers) Affect: + constricted affect Mood: + depressed mood Thought Process: + concrete thought process Thought Content: reality based without delusions (likely still there re: his home but "out of sight out of mind") Suicidal Thoughts: denies suicidal thoughts Homicidal Thoughts: denies homicidal thoughts Hallucinations: no auditory hallucinations and no visual hallucinations Cognition: language grossly intact Estimated Intelligence: consistent with education level Insight: + poor insight Judgement: + poor judgement Vital Signs (Past 24 Hours) Last Vital Signs Temp 36.6 C 08/25/20 06:21 Pulse 103 H 08/25/20 06:21 Resp 20 08/25/20 06:21 BP 134/78 08/25/20 06:21 Results & Data ([facility]) Current Inpatient Medications Current Inpatient Medications: Current Inpatient Medications Acetaminophen (Acetaminophen 325 Mg Tab) 650 mg PO Q4H PRN PRN Reason: Headache or Minor Fever Stop: 09/16/20 18:10 Last Admin: 08/24/20 11:37 Dose: 650 mg Documented by: Al Hydrox/Mg Hydrox/Simethicone (Aluminum/Magnesium Susp 30 Ml Udc) 30 ml PO Q4H PRN PRN Reason: GI Upset Stop: 09/16/20 18:10 Last Admin: 08/20/20 18:27 Dose: 30 ml Documented by: Aspirin (Aspirin 325 Mg Ectab) 325 mg PO DAILY PRN PRN Reason: headache Stop: 09/18/20 11:29 Last Admin: 08/24/20 08:51 Dose: 325 mg Documented by: Benztropine Mesylate (Benztropine Mesylate 0.5 Mg Tab) 0.5 mg PO BID MESHA Stop: 09/16/20 20:59 Last Admin: 08/25/20 07:21 Dose: 0.5 mg Documented by: Bismuth Subsalicylate (Bismuth Subsalicylate Liqd 236 Ml) 15 ml PO PRN PRN PRN Reason: Loose Stool Stop: 09/16/20 18:10 Fluticasone Propionate (Fluticasone Propionate Na Spr 16 Gm Btl) 2 sprays NA DAILY PRN PRN Reason: Allergy Symptoms Stop: 09/16/20 18:12 Last Admin: 08/25/20 07:22 Dose: 2 sprays Documented by: Folic Acid (Folic Acid 1 Mg Tab) 1 mg PO DAILY [facility] Stop: 09/17/20 08:59 Last Admin: 08/25/20 07:21 Dose: 1 mg Documented by: Haloperidol Decanoate (Haloperidol Decanoate Inj 50 Mg/Ml Vial) 100 mg IM Q4WK [facility] Stop: 10/04/20 07:59 Hydroxyzine HCl (Hydroxyzine Hcl 25 Mg Tab) 50 mg PO HSZ PRN PRN Reason: Insomnia Stop: 09/16/20 18:10 Last Admin: 08/24/20 20:51 Dose: 50 mg Documented by: Hydroxyzine HCl (Hydroxyzine Hcl 25 Mg Tab) 25 mg PO Q4H PRN PRN Reason: Anxiety Stop: 09/16/20 18:10 Levetiracetam (Levetiracetam 500 Mg Tab) 1,000 mg PO BID [facility] Stop: 09/16/20 20:59 Last Admin: 08/25/20 07:21 Dose: 1,000 mg Documented by: Magnesium Hydroxide (Magnesium Hydroxide Susp 30 Ml Udc) 30 ml PO DAILY PRN PRN Reason: Constipation Stop: 09/16/20 18:10 Meclizine HCl (Meclizine Hcl 25 Mg Tab) 25 mg PO TID PRN PRN Reason: Vertigo Stop: 09/16/20 18:40 Miscellaneous (Remove Nicoderm Patch) 1 ea N/A QAM [facility] Stop: 09/17/20 08:58 Last Admin: 08/25/20 07:21 Dose: 1 ea Documented by: Nicotine (Nicotine 7 Mg/24 Hr Tdsy) 7 mg TD QAM [facility] Stop: 09/17/20 08:59 Last Admin: 08/25/20 07:21 Dose: 7 mg Documented by: Nicotine Polacrilex (Nicotine Polacrilex 2 Mg Gum) 1 piece MT PRN PRN PRN Reason: nicotine cravings Stop: 09/16/20 18:12 Last Admin: 08/25/20 10:02 Dose: 1 piece Documented by: Pantoprazole Sodium (Pantoprazole 40 Mg Tab) 40 mg PO DAILY [facility] Stop: 09/17/20 08:59 Last Admin: 08/25/20 07:21 Dose: 40 mg Documented by: Sodium Chloride (Sodium Chloride 0.65% Na Soln 45 Ml ([place])) 1 - 2 sprays NA PRN PRN PRN Reason: Nasal Dryness/Congestion Stop: 09/16/20 18:10 Tamsulosin HCl (Tamsulosin Hcl 0.4 Mg Cap) 0.4 mg PO QAM [facility] Stop: 09/17/20 08:59 Last Admin: 08/25/20 07:20 Dose: 0.4 mg Documented by: Thiamine HCl (Thiamine Hcl 100 Mg Tab) 100 mg PO DAILY [facility] Stop: 09/17/20 08:59 Last Admin: 08/25/20 07:21 Dose: 100 mg Documented by: Thiamine HCl (Thiamine Hcl 50 Mg Tablet) 50 mg PO DAILY [facility] Stop: 09/17/20 08:59 Last Admin: 08/25/20 07:21 Dose: 50 mg Documented by: Mental Health & Subst Abuse Tx Therapist Name of Therapist: Danielle has intake appt scheduled 08/19 Date of Therapist Appointment: 08/19/20 President Practicing Urologist Name of President Practicing Urologist: Adalid Brownlee Post Discharge Appointments Primary Care Physician Name Of Family Doctor: Dr. Camacho
[2020-08-25] MEDS: ACETAMINOPHEN 325 MG TAB PO PRN (18:34)
[2020-08-26] MEDS: ASPIRIN 325 MG ECTAB PO PRN (00:08)
[2020-08-26] MEDS: hydrOXYzine HCl 25 MG TAB PO PRN (00:09)
[2020-08-26] MEDS: TAMSULOSIN HCL 0.4 MG CAP PO SCH (07:30)
[2020-08-26] MEDS: BENZTROPINE MESYLATE 0.5 MG TAB PO SCH ×2 (07:30→20:37)
[2020-08-26] MEDS: levETIRAcetam 500 MG TAB PO SCH ×2 (07:31→20:38)
[2020-08-26] MEDS: NICOTINE 7 MG/24 HR TDSY TD SCH (07:31)
[2020-08-26] MEDS: FOLIC ACID 1 MG TAB PO SCH (07:31)
[2020-08-26] MEDS: THIAMINE HCL 100 MG TAB PO SCH (07:32)
[2020-08-26] MEDS: THIAMINE HCL 50 MG TABLET PO SCH (07:32)
[2020-08-26] MEDS: PANTOprazole 40 MG TAB PO SCH (07:32)
[2020-08-26] MEDS: NICOTINE POLACRILEX 2 MG GUM MT PRN ×2 (11:02→18:35)
--- NOTE | 2020-08-26 12:29 | Psychiatric Progress Note ---
Date of Service August 26, 2020 Impression / Recommendations Impression 69-year-old male with schizophrenia and poor treatment adherence who has had several psychiatric hospitalizations in the past 2 months. 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 He is on a 304 involuntary commitment as of his conversion hearing, 08/19/2020. Much of his dysfunction and inability to maintain stability with respect to his mental illness is related to his living situation, and we are currently exploring alternative options including the CRR. Inpatient treatment is medically necessary due to the severity of presenting symptoms and risk for suicide if discharged. Reviewed 08/24/20. 08/26/20--stable overnight Plan: continue current meds and tx plan pending more information re: availability of more structured living setting. Acceptance to CRR pending, meeting this pm. Risk Factors Assessment Male: Yes : Yes Do You Have Access To A Gun?: Yes (Son has guns, refuses to lock/secure them) Health Problems: Yes Mental Health Diagnoses: Yes Substance Use Disorders: Yes Previous Attempt: Yes Previous Attempt; Highly Lethal: Yes Family History of Suicide: No Previous Psychiatric Hospitalization: Yes Hopelessness: No Smoker: Yes Protective Factors Assessment Evangelical Beliefs: Yes : No Responsible for Young Children: No Employed: No Stable Relationships: No Supportive Family: Yes (Somewhat, most of his sons do not speak to him, but has some support from 2) Good Rapport with Provider: No Interval History Identifying Information EMMA SAUER is a 69-year-old M who currently lives in [place] with his son, has a history of schizophrenia, and was admitted on 08/17/20 14:40 on a 201 voluntary commitment for SI. He is on a 304 IOC and was converted to a 304 inpatient commitment at his hearing on 08/19/2020. Re-reviewed 08/25/20. Chief Complaint "I'm pretty good". Review of Systems Sleep Information Total Hours of Sleep: 7.5 Meal Information Percent Meal Consumed - Breakfast: 100 Percent Meal Consumed - Lunch: 100 Percent Meal Consumed - Dinner: 100 Subjective Subjective Patient was seen & assessed and interval progress reviewed with treatment team. No physical complaints today. Eating well for breakfast. Physical Exam Psychiatric Orientation: alert Apperance: appropriately groomed Eye Contact: + fair eye contact Motor Behavior: + tremor speech is still rather non-spontaneous but answers appropriately. Affect: + constricted affect Mood: + anxious mood Thought Process: + concrete thought process Thought Content: reality based without delusions ("I don't believe that stuff anymore but I'm also not there.") Suicidal Thoughts: denies suicidal thoughts Homicidal Thoughts: denies homicidal thoughts Hallucinations: no auditory hallucinations and no visual hallucinations Cognition: attention grossly intact and language grossly intact Insight: + poor insight Judgement: + poor judgement Vital Signs (Past 24 Hours) Last Vital Signs Temp 36.6 C 08/26/20 06:16 Pulse 101 H 08/26/20 06:17 Resp 18 08/26/20 06:16 BP 114/75 08/26/20 06:17 Results & Data ([facility]) Current Inpatient Medications Current Inpatient Medications: Current Inpatient Medications Acetaminophen (Acetaminophen 325 Mg Tab) 650 mg PO Q4H PRN PRN Reason: Headache or Minor Fever Stop: 09/16/20 18:10 Last Admin: 08/25/20 18:34 Dose: 650 mg Documented by: Al Hydrox/Mg Hydrox/Simethicone (Aluminum/Magnesium Susp 30 Ml Udc) 30 ml PO Q4H PRN PRN Reason: GI Upset Stop: 09/16/20 18:10 Last Admin: 08/20/20 18:27 Dose: 30 ml Documented by: Aspirin (Aspirin 325 Mg Ectab) 325 mg PO DAILY PRN PRN Reason: headache Stop: 09/18/20 11:29 Last Admin: 08/26/20 00:08 Dose: 325 mg Documented by: Benztropine Mesylate (Benztropine Mesylate 0.5 Mg Tab) 0.5 mg PO BID [facility] Stop: 09/16/20 20:59 Last Admin: 08/26/20 07:30 Dose: 0.5 mg Documented by: Bismuth Subsalicylate (Bismuth Subsalicylate Liqd 236 Ml) 15 ml PO PRN PRN PRN Reason: Loose Stool Stop: 09/16/20 18:10 Fluticasone Propionate (Fluticasone Propionate Na Spr 16 Gm Btl) 2 sprays NA DAILY PRN PRN Reason: Allergy Symptoms Stop: 09/16/20 18:12 Last Admin: 08/25/20 07:22 Dose: 2 sprays Documented by: Folic Acid (Folic Acid 1 Mg Tab) 1 mg PO DAILY [facility] Stop: 09/17/20 08:59 Last Admin: 08/26/20 07:31 Dose: 1 mg Documented by: Haloperidol Decanoate (Haloperidol Decanoate Inj 50 Mg/Ml Vial) 100 mg IM Q4WK [facility] Stop: 10/04/20 07:59 Hydroxyzine HCl (Hydroxyzine Hcl 25 Mg Tab) 50 mg PO HSZ PRN PRN Reason: Insomnia Stop: 09/16/20 18:10 Last Admin: 08/26/20 00:09 Dose: 50 mg Documented by: Hydroxyzine HCl (Hydroxyzine Hcl 25 Mg Tab) 25 mg PO Q4H PRN PRN Reason: Anxiety Stop: 09/16/20 18:10 Levetiracetam (Levetiracetam 500 Mg Tab) 1,000 mg PO BID [facility] Stop: 09/16/20 20:59 Last Admin: 08/26/20 07:31 Dose: 1,000 mg Documented by: Magnesium Hydroxide (Magnesium Hydroxide Susp 30 Ml Udc) 30 ml PO DAILY PRN PRN Reason: Constipation Stop: 09/16/20 18:10 Meclizine HCl (Meclizine Hcl 25 Mg Tab) 25 mg PO TID PRN PRN Reason: Vertigo Stop: 09/16/20 18:40 Miscellaneous (Remove Nicoderm Patch) 1 ea N/A QAM [facility] Stop: 09/17/20 08:58 Last Admin: 08/26/20 07:35 Dose: 1 ea Documented by: Nicotine (Nicotine 7 Mg/24 Hr Tdsy) 7 mg TD QAM [facility] Stop: 09/17/20 08:59 Last Admin: 08/26/20 07:31 Dose: 7 mg Documented by: Nicotine Polacrilex (Nicotine Polacrilex 2 Mg Gum) 1 piece MT PRN PRN PRN Reason: nicotine cravings Stop: 09/16/20 18:12 Last Admin: 08/26/20 11:02 Dose: 1 piece Documented by: Pantoprazole Sodium (Pantoprazole 40 Mg Tab) 40 mg PO DAILY [facility] Stop: 09/17/20 08:59 Last Admin: 08/26/20 07:32 Dose: 40 mg Documented by: Sodium Chloride (Sodium Chloride 0.65% Na Soln 45 Ml ([place])) 1 - 2 sprays NA PRN PRN PRN Reason: Nasal Dryness/Congestion Stop: 09/16/20 18:10 Tamsulosin HCl (Tamsulosin Hcl 0.4 Mg Cap) 0.4 mg PO QAM [facility] Stop: 09/17/20 08:59 Last Admin: 08/26/20 07:30 Dose: 0.4 mg Documented by: Thiamine HCl (Thiamine Hcl 100 Mg Tab) 100 mg PO DAILY [facility] Stop: 09/17/20 08:59 Last Admin: 08/26/20 07:32 Dose: 100 mg Documented by: Thiamine HCl (Thiamine Hcl 50 Mg Tablet) 50 mg PO DAILY [facility] Stop: 09/17/20 08:59 Last Admin: 08/26/20 07:32 Dose: 50 mg Documented by: Mental Health & Subst Abuse Tx Therapist Name of Therapist: Danielle has intake appt scheduled 08/19 Date of Therapist Appointment: 08/19/20 Safety And Occupational Health Manager Name of Safety And Occupational Health Manager: Adalid Brownlee Post Discharge Appointments Primary Care Physician Name Of Family Doctor: Dr. Camacho
[2020-08-26] MEDS: ACETAMINOPHEN 325 MG TAB PO PRN (20:42)
[2020-08-27] MEDS: ACETAMINOPHEN 325 MG TAB PO PRN ×2 (06:24→14:43)
[2020-08-27] MEDS: levETIRAcetam 500 MG TAB PO SCH ×2 (08:22→21:02)
[2020-08-27] MEDS: TAMSULOSIN HCL 0.4 MG CAP PO SCH (08:22)
[2020-08-27] MEDS: THIAMINE HCL 50 MG TABLET PO SCH (08:22)
[2020-08-27] MEDS: NICOTINE 7 MG/24 HR TDSY TD SCH (08:22)
[2020-08-27] MEDS: BENZTROPINE MESYLATE 0.5 MG TAB PO SCH ×2 (08:22→21:01)
[2020-08-27] MEDS: THIAMINE HCL 100 MG TAB PO SCH (08:22)
[2020-08-27] MEDS: FOLIC ACID 1 MG TAB PO SCH (08:22)
[2020-08-27] MEDS: PANTOprazole 40 MG TAB PO SCH (08:22)
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
[2020-08-27] MEDS: FLUTICASONE PROPIONATE NA SPR 16 GM BTL PRN (09:22)
[2020-08-27] MEDS: NICOTINE POLACRILEX 2 MG GUM MT PRN ×2 (10:18→18:10)
[2020-08-27] MEDS ORDERED: TUBERCULIN SKIN TEST 5 TU in SYRINGE 0 ML ID ONE (11:00)
[2020-08-28] MEDS: ACETAMINOPHEN 325 MG TAB PO PRN ×2 (01:33→22:41)
[2020-08-28] MEDS: THIAMINE HCL 100 MG TAB PO SCH (08:23)
[2020-08-28] MEDS: TAMSULOSIN HCL 0.4 MG CAP PO SCH (08:23)
[2020-08-28] MEDS: THIAMINE HCL 50 MG TABLET PO SCH (08:23)
[2020-08-28] MEDS: levETIRAcetam 500 MG TAB PO SCH ×2 (08:23→21:19)
[2020-08-28] MEDS: BENZTROPINE MESYLATE 0.5 MG TAB PO SCH ×2 (08:23→21:19)
[2020-08-28] MEDS: PANTOprazole 40 MG TAB PO SCH (08:23)
[2020-08-28] MEDS: FOLIC ACID 1 MG TAB PO SCH (08:23)
[2020-08-28] MEDS: FLUTICASONE PROPIONATE NA SPR 16 GM BTL PRN (08:24)
[2020-08-28] MEDS: NICOTINE 7 MG/24 HR TDSY TD SCH (08:25)
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
[2020-08-28] MEDS: NICOTINE POLACRILEX 2 MG GUM MT PRN ×2 (10:40→18:40)
[2020-08-29] MEDS: ACETAMINOPHEN 325 MG TAB PO PRN (04:37)
[2020-08-29] MEDS: ASPIRIN 325 MG ECTAB PO PRN (06:34)
[2020-08-29] MEDS: NICOTINE POLACRILEX 2 MG GUM MT PRN ×3 (07:43→18:49)
[2020-08-29] MEDS: BENZTROPINE MESYLATE 0.5 MG TAB PO SCH ×2 (08:34→21:00)
[2020-08-29] MEDS: levETIRAcetam 500 MG TAB PO SCH ×2 (08:35→21:00)
[2020-08-29] MEDS: FOLIC ACID 1 MG TAB PO SCH (08:35)
[2020-08-29] MEDS: TAMSULOSIN HCL 0.4 MG CAP PO SCH (08:35)
[2020-08-29] MEDS: NICOTINE 7 MG/24 HR TDSY TD SCH (08:36)
[2020-08-29] MEDS: THIAMINE HCL 100 MG TAB PO SCH (08:36)
[2020-08-29] MEDS: PANTOprazole 40 MG TAB PO SCH (08:36)
[2020-08-29] MEDS: THIAMINE HCL 50 MG TABLET PO SCH (08:37)
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
[2020-08-29] MEDS ORDERED: PPD CHECK ONE (11:00)
[2020-08-30] MEDS: FLUTICASONE PROPIONATE NA SPR 16 GM BTL PRN (02:55)
[2020-08-30] MEDS: NICOTINE POLACRILEX 2 MG GUM MT PRN ×2 (07:17→14:40)
[2020-08-30] MEDS: PANTOprazole 40 MG TAB PO SCH (08:13)
[2020-08-30] MEDS: TAMSULOSIN HCL 0.4 MG CAP PO SCH (08:13)
[2020-08-30] MEDS: FOLIC ACID 1 MG TAB PO SCH (08:13)
[2020-08-30] MEDS: BENZTROPINE MESYLATE 0.5 MG TAB PO SCH ×2 (08:13→20:47)
[2020-08-30] MEDS: levETIRAcetam 500 MG TAB PO SCH ×2 (08:13→20:48)
[2020-08-30] MEDS: THIAMINE HCL 100 MG TAB PO SCH (08:14)
[2020-08-30] MEDS: THIAMINE HCL 50 MG TABLET PO SCH (08:14)
[2020-08-30] MEDS: NICOTINE 7 MG/24 HR TDSY TD SCH (08:20)
[2020-08-30] MEDS: ACETAMINOPHEN 325 MG TAB PO PRN ×2 (09:57→16:49)
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
[2020-08-30] MEDS: TROLAMINE SALICYLATE 10% CRM 255 APPLN/85 GM TUBE EXT PRN ×2 (14:30→20:49)
[2020-08-31] MEDS: ACETAMINOPHEN 325 MG TAB PO PRN ×2 (03:44→19:34)
[2020-08-31] MEDS: TROLAMINE SALICYLATE 10% CRM 255 APPLN/85 GM TUBE EXT PRN ×2 (03:45→19:34)
[2020-08-31] MEDS: FLUTICASONE PROPIONATE NA SPR 16 GM BTL PRN (07:37)
[2020-08-31] MEDS: BENZTROPINE MESYLATE 0.5 MG TAB PO SCH ×2 (08:24→21:11)
[2020-08-31] MEDS: FOLIC ACID 1 MG TAB PO SCH (08:25)
[2020-08-31] MEDS: levETIRAcetam 500 MG TAB PO SCH ×2 (08:25→21:11)
[2020-08-31] MEDS: THIAMINE HCL 50 MG TABLET PO SCH (08:25)
[2020-08-31] MEDS: TAMSULOSIN HCL 0.4 MG CAP PO SCH (08:25)
[2020-08-31] MEDS: PANTOprazole 40 MG TAB PO SCH (08:25)
[2020-08-31] MEDS: THIAMINE HCL 100 MG TAB PO SCH (08:25)
[2020-08-31] MEDS: NICOTINE 7 MG/24 HR TDSY TD SCH (08:39)
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
[2020-08-31] MEDS: NICOTINE POLACRILEX 2 MG GUM MT PRN ×2 (09:17→14:07)
[2020-08-31] MEDS: ASPIRIN 325 MG ECTAB PO PRN (11:13)
[2020-09-01] MEDS: NICOTINE POLACRILEX 2 MG GUM MT PRN ×2 (07:17→15:26)
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
[2020-09-01] MEDS: NICOTINE 7 MG/24 HR TDSY TD SCH (08:15)
[2020-09-01] MEDS: BENZTROPINE MESYLATE 0.5 MG TAB PO SCH ×2 (08:15→21:34)
[2020-09-01] MEDS: FOLIC ACID 1 MG TAB PO SCH (08:15)
[2020-09-01] MEDS: THIAMINE HCL 50 MG TABLET PO SCH (08:15)
[2020-09-01] MEDS: levETIRAcetam 500 MG TAB PO SCH ×2 (08:15→21:34)
[2020-09-01] MEDS: TAMSULOSIN HCL 0.4 MG CAP PO SCH (08:15)
[2020-09-01] MEDS: THIAMINE HCL 100 MG TAB PO SCH (08:16)
[2020-09-01] MEDS: PANTOprazole 40 MG TAB PO SCH (08:16)
[2020-09-01] MEDS: TROLAMINE SALICYLATE 10% CRM 255 APPLN/85 GM TUBE EXT PRN (10:27)
[2020-09-01] MEDS: ACETAMINOPHEN 325 MG TAB PO PRN (16:39)
[2020-09-02] MEDS: FLUTICASONE PROPIONATE NA SPR 16 GM BTL PRN (06:34)
[2020-09-02] MEDS: NICOTINE POLACRILEX 2 MG GUM MT PRN (07:56)
[2020-09-02] MEDS: FOLIC ACID 1 MG TAB PO SCH (07:57)
[2020-09-02] MEDS: TAMSULOSIN HCL 0.4 MG CAP PO SCH (07:57)
[2020-09-02] MEDS: levETIRAcetam 500 MG TAB PO SCH (07:57)
[2020-09-02] MEDS: BENZTROPINE MESYLATE 0.5 MG TAB PO SCH (07:58)
[2020-09-02] MEDS: THIAMINE HCL 50 MG TABLET PO SCH (07:58)
[2020-09-02] MEDS: THIAMINE HCL 100 MG TAB PO SCH (07:59)
[2020-09-02] MEDS: TROLAMINE SALICYLATE 10% CRM 255 APPLN/85 GM TUBE EXT PRN (07:59)
[2020-09-02] MEDS: PANTOprazole 40 MG TAB PO SCH (08:00)
[2020-09-02] MEDS: NICOTINE 7 MG/24 HR TDSY TD SCH (08:00)
[2020-09-02] MEDS ORDERED: HALOPERIDOL DECANOATE INJ 50 MG/ML VIAL IM SCH ×2 (08:30→09:00)
--- NOTE | 2020-09-02 10:07 | Discharge Summary ---
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 B-1] 50 mg Tablet 50 mg PO DAILY 30 Days Qty: 30 RF: 0 Continued multivitamin Tablet 1 tab PO DAILY RF: 0 benztropine 0.5 mg Tablet 0.5 mg PO BID Qty: 60 RF: 0 nicotine 7 mg/24 hr Patch 24 Hour 7 mg transdermal QAM 30 Days RF: 0 Discontinued thiamine HCl (vitamin B1) [Vitamin B-1] 100 mg Tablet 100 mg PO DAILY RF: 0 folic acid 1 mg Tablet 1 mg PO DAILY RF: 0 tamsulosin 0.4 mg capsule 0.4 mg PO QAM RF: 0 meclizine 25 mg Tablet 25 mg PO TID PRN (Reason: Vertigo) RF: 0 pantoprazole [Protonix] 40 mg Tablet,Delayed Release (Dr/Ec) 40 mg PO DAILY RF: 0 thiamine HCl (vitamin B1) 50 mg Tablet 50 mg PO DAILY RF: 0 fluticasone propionate 50 mcg/actuation [place],Suspension 2 spray INTRANASAL DAILY PRN (Reason: Allergy Symptoms) RF: 0 haloperidol decanoate 50 mg/mL Solution 100 mg IM Q4WK Qty: 1 RF: 0 levetiracetam 1,000 mg tablet 1,000 mg PO BID RF: 0 nicotine (polacrilex) [Nicorette] 2 mg Gum 2 mg MT PRN PRN (Reason: nicotine cravings) 30 Days RF: 0 Discharge Orders: Discharge Order (Routine); Ordered 09/02/20 Ordered By: Rebecca Oseguera Admission Data Admit Date/Time: 08/17/20 14:40 Attending Provider: Yojana Tang Admit Provider: Yojana Tang Primary Care Provider: Aristeo Camacho III Other Interventions: Discharge Summary Assessment (RN) Last Done: 09/02/20 09:50 PSY Interdisciplinary Discharge Planning Last Done: 09/02/20 10:17 Coding Level of Care Code 56182 D/C day mgmt > 30 min Diagnoses Suicidal ideation R45.851 Schizophrenia F20.9 Schizophrenia type: unspecified Alcohol abuse F10.10 Tobacco abuse Z72.0 Seizure disorder G40.909 Allergies T78.40XA
[2020-09-02] MEDS ORDERED: DESTROY THIS MEDICATION ONE (11:15)
[2020-09-04] MEDS ORDERED: HALOPERIDOL DECANOATE INJ 50 MG/ML VIAL IM SCH (08:00)
== END 2020-09-02 11:05 | disposition home or self-care (01) | DRG 885 ==
LOC: 3S 14:40